=== PATIENT | male | born 1965 | race African-American/Black ===

== ENCOUNTER 2016-07-15 13:02 | Inpatient (IN) | payer OTHER ==
[2016-07-15 16:46] VITALS: BMI 25.2
[2016-07-15] MEDS ORDERED: guaiFENesin/D-METHORPHAN HB 10 ML UNIT-DOSE CUPS PO PRN (17:24)
[2016-07-15] MEDS ORDERED: P-EPHED 60MG/TRIPROLIDI 2.5MG TABLET PO PRN (17:24)
[2016-07-15] MEDS ORDERED: ACETAMINOPHEN 325 MG TABLET (FP) PO PRN (17:24)
[2016-07-15] MEDS ORDERED: hydrOXYzine PAMOATE 50 MG CAPSULE (FP) PO PRN (17:24)
[2016-07-15] MEDS ORDERED: MENTHOL/PHENOL 1 EACH UD MM PRN (17:24)
[2016-07-15] MEDS ORDERED: MAGNESIUM HYDROX 2400MG/30ML ORAL SUSPENSION 30 ML CUP PO PRN (17:24)
[2016-07-15] MEDS ORDERED: MAG HYDROX/AL HYDROX/SIMETH 30 ML UNIT-DOSE CUP PO PRN (17:24)
[2016-07-15] MEDS ORDERED: MAGNESIUM CITRATE 300 ML BOTTLE PO PRN (17:24)
[2016-07-15] MEDS ORDERED: IBUPROFEN 400 MG TABLET (FP) PO PRN (17:24)
[2016-07-15] MEDS ORDERED: LOPERAMIDE HCL 2 MG CAPSULE PO PRN (17:24)
[2016-07-15] MEDS ORDERED: NICOTINE POLACRILEX 2 MG GUM BC PRN (17:24)
[2016-07-15] MEDS ORDERED: chlordiazePOXIDE HCL 25 MG CAPSULE PO PRN (17:24)
--- NOTE | 2016-07-15 17:24 | HP ---
CIWA Score - CIWA Score Nausea/Vomitin-Mild Nausea/No Vomiting Muscle Tremors: 4-Moderate,w/Arms Extend Anxiety: 4-Mod. Anxious/Guarded Agitation: 4-Moderately Restless Paroxysmal Sweats: 1-Minimal Palms Moist Orientation: 1-Uncertain about Date Tacttile Disturbances: 0-None Auditory Disturbances: 0-None Visual Disturbances: 0-None Headache: 2-Mild CIWA-Ar Total Score: 17 Admission ROS BHS - HPI Chief Complaint: WITHDRAWAL SX Allergies/Adverse Reactions: Allergies Allergy/AdvReac Type Severity Reaction Status Date / Time Penicillins Allergy Severe Hives Verified 07/15/16 16:48 History of Present Illness: 51 YEARS OLD MALE WITH LONG HISTORY OF ALCOHOL NICOTINE DEPENDENCE, HAS HYPERTENSION AND DEPRESSION IS ADMITTED TO DETOX INCREASE ORAL FLUID HOLD HYDROCHLOROTHIAZIDE PATIENT HAS DRY COUGH HOLD ENALAPRIL CONTINUE AMLODIPINE AND CLONIDINE PRN Exam Limitations: No Limitations - Ebola screening Have you traveled outside of the country in the last 21 days: No Have you had contact with anyone from an Ebola affected area: No Have you been sick,other than usual withdrawal symptoms: No Do you have a fever: No - Review of Systems Constitutional: Chills, Changes in sleep, Weight Stable EENT: reports: No Symptoms Reported Respiratory: reports: Cough, SOB with Exertion Cardiac: reports: No Symptoms Reported GI: reports: Nausea, Poor Fluid Intake, Abdominal cramping : reports: No Symptoms Reported Musculoskeletal: reports: Back Pain, Joint Pain, Muscle Pain, Neck Pain, Other ( SCOLIOSIS X "ALL MY LIFE" TREATED WITH BACK BRACE "I NEED A NEW ONE" HUMP ON RIGHT UPPER POSTERIOR TRUNK) Integumentary: reports: No Symptoms Reported Neuro: reports: Tremors Endocrine: reports: No Symptoms Reported Hematology: reports: No Symptoms Reported Psychiatric: reports: Judgement Intact, Anxious, Depressed Other Systems: Reviewed and Negative Patient History - Patient Medical History Hx Anemia: No Hx Asthma: No Hx Chronic Obstructive Pulmonary Disease (COPD): No Hx Cancer: No Hx Cardiac Disorders: No Hx Congestive Heart Failure: No Hx Hypertension: Yes (on meds.) Hx Hypercholesterolemia: No Hx Pacemaker: No HX Cerebrovascular Accident: No Hx Seizures: No Hx Dementia: No Hx Diabetes: No Hx Gastrointestinal Disorders: No Hx Liver Disease: No Hx Genitourinary Disorders: No Hx Sexually Transmitted Disorders: No Hx Renal Disease (ESRD): No Hx Thyroid Disease: No Hx Human Immunodeficiency Virus (HIV): No Hx Hepatitis C: No Hx Depression: Yes Hx Suicide Attempt: No Hx Bipolar Disorder: No Hx Schizophrenia: No - Patient Surgical History Past Surgical History: No Hx Neurologic Surgery: No Hx Cataract Extraction: No Hx Cardiac Surgery: No Hx Lung Surgery: No Hx Breast Surgery: No Hx Breast Biopsy: No Hx Abdominal Surgery: No Hx Appendectomy: No Hx Cholecystectomy: No Hx Genitourinary Surgery: No Hx Orthopedic Surgery: No - PPD History Previous Implant?: Yes Documented Results: Negative w/proof Implanted On Prior R Admission?: Yes Date: 12/13/15 Results: 0 mm PPD to be Administered?: No - Smoking Cessation Smoking history: Current every day smoker Have you smoked in the past 12 months: Yes Aproximately how many cigarettes per day: 4 Cigars Per Day: 0 Hx Chewing Tobacco Use: No Initiated information on smoking cessation: Yes 'Breaking Loose' booklet given: 07/15/16 - Substance & Tx. History Hx Alcohol Use: Yes Hx Substance Use: No Substance Use Type: Alcohol Hx Substance Use Treatment: Yes - Substances Abused Alcohol Route: Oral Frequency: Daily Amount used: 10-12 cans Age of first use: 16 Date of Last Use: 07/15/16 Family Disease History - Family Disease History Family Disease History: Other: Father (alcohol,,cirrhosis), Mother ( alcohol,cirrhosis,cirrhosis) Admission Physical Exam BHS - Vital Signs Vital Signs: Vital Signs - 24 hr 07/15/16 16:45 Temperature 96.6 F L Pulse Rate 104 H Respiratory 20 Rate Blood Pressure 110/74 - Physical General Appearance: Yes: Appropriately Dressed, Mild Distress, Alcohol on Breath , Tremorous, Irritable, Sweating, Anxious HEENTM: Yes: Hearing grossly Normal, Normal ENT Inspection, Normocephalic, Normal Voice Respiratory: Yes: Chest Non-Tender, Lungs Clear, Normal Breath Sounds, No Respiratory Distress, No Accessory Muscle Use Neck: Yes: Supple, Trachea in good position Breast: Yes: Breasts Symetrical Cardiology: Yes: Regular Rhythm, Regular Rate, S1, S2 Abdominal: Yes: Non Tender, Soft Genitourinary: Yes: Within Normal Limits Back: Yes: Other (SCOLIOSIS RIGHT UPPER HUMP) Musculoskeletal: Yes: full range of Motion, Gait Steady, Back pain, Muscle Pain Extremities: Yes: Normal Inspection, Normal Range of Motion, Non-Tender, Tremors 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: Alert, Motor Strength 5/5, Normal Response, Depressed Affect Integumentary: Yes: Warm, Moist Lymphatic: Yes: Within Normal Limits - Diagnostic (1) Alcohol dependence with uncomplicated withdrawal Current Visit: Yes Status: Acute (2) HTN (hypertension) Current Visit: Yes Status: Acute Qualifiers: Hypertension type: essential hypertension Qualified Code(s): I10 - Essential (primary) hypertension (3) Nicotine dependence Current Visit: Yes Status: Acute Qualifiers: Nicotine product type: cigarettes Substance use status: in withdrawal Qualified Code(s): F17.213 - Nicotine dependence, cigarettes, with withdrawal (4) Scoliosis deformity of spine Current Visit: Yes Status: Chronic Qualifiers: Scoliosis type: idiopathic Idiopathic scoliosis type: juvenile Spinal region: thoracic Qualified Code(s): 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
[2016-07-15] MEDS ORDERED: cloNIDine HCL 0.1 MG TABLET PO PRN (17:31)
[2016-07-15] MEDS ORDERED: chlordiazePOXIDE HCL 25 MG CAPSULE PO ONE (18:45)
[2016-07-15 23:00] LABS: URINE APPEARANCE CLEAR; URINE BILIRUBIN NEGATIVE (NEGATIVE); URINE BLOOD 1+ (NEGATIVE); URINE COLOR COLORLESS; URINE GLUCOSE (UA) NEGATIVE (NEGATIVE); URINE KETONE NEGATIVE (NEGATIVE); URINE LEUK ESTERASE NEGATIVE (NEGATIVE); URINE NITRITE NEGATIVE (NEGATIVE); URINE PROTEIN NEGATIVE (NEGATIVE); URINE UROBILINOGEN NEGATIVE E.U./dl (0.2-1.0)
[2016-07-15 23:08] LABS: URINE BACTERIA RARE /hpf (NONE SEEN)
[2016-07-15] MEDS: chlordiazePOXIDE HCL 25 MG CAPSULE PO SCH (23:47)
[2016-07-15] MEDS: THIAMINE HCL 100 MG TABLET (FP) PO SCH (23:47)
[2016-07-16] MEDS: chlordiazePOXIDE HCL 25 MG CAPSULE PO SCH ×4 (05:25→22:54)
[2016-07-16 10:07] LABS: MCH 28.2 pg (25.7-33.7); MCHC 32.4 g/dl (32.0-35.9); MEAN PLT VOLUME 9.1 fl (7.5-11.1); PLATELET COUNT 287 K/MM3 (134-434); RDW 15.4 % (11.9-15.9); WHITE BLOOD COUNT 4.8 K/mm3 (4.0-10.0)
[2016-07-16] MEDS: PRENATAL VITAMINS W/ FOLIC ACID TABLET (FP) PO SCH (10:08)
[2016-07-16] MEDS: amLODIPine BESYLATE 5 MG TABLET (FP) PO SCH (10:08)
[2016-07-16] MEDS: NICOTINE 14 MG/24 HOURS TOPICAL PATCH TD SCH (10:08)
--- NOTE | 2016-07-16 10:47 | EKG ---
Test Reason : Blood Pressure : / mmHG Vent. Rate : 088 BPM Atrial Rate : 088 BPM P-R Int : 130 ms QRS Dur : 090 ms QT Int : 346 ms P-R-T Axes : 020 020 054 degrees QTc Int : 418 ms NORMAL SINUS RHYTHM NORMAL ECG NO PREVIOUS ECGS AVAILABLE Confirmed by TRINA QUIÑONES MD ([id number]) on 07/16/2016 10:46:42 AM Referred By: Confirmed By:TRINA QUIÑONES MD
[2016-07-16 11:01] LABS: ALBUMIN 3.9 g/dl (3.4-5.0); ALK PHOS 110 U/L (45-117); ANION GAP 12 (8-16); BILIRUBIN,TOTAL 0.3 mg/dL (0.2-1.0); CO2 24 mmol/L (21-32); CREATININE 0.7 mg/dL (0.7-1.3); GLUCOSE,RANDOM 85 mg/dL (74-106); SGOT/AST 25 U/L (15-37); SGPT/ALT 44 U/L (12-78); TOT PROT 7.4 g/dl (6.4-8.2)
--- NOTE | 2016-07-16 11:48 | PN ---
S CIWA - CIWA Score Nausea/Vomitin-No Nausea/No Vomiting Muscle Tremors: 4-Moderate,w/Arms Extend Anxiety: 3 Agitation: 4-Moderately Restless Paroxysmal Sweats: 3 Orientation: 0-Oriented Tacttile Disturbances: 0-None Auditory Disturbances: 0-None Visual Disturbances: 0-None Headache: 0-None Present CIWA-Ar Total Score: 14 BHS Progress Note (SOAP) Subjective: irritable agitation anxiety sweats Objective: 07/16/16 11:47 Vital Signs Temperature 97.2 F L 07/16/16 10:00 Pulse Rate 93 H 07/16/16 10:00 Respiratory Rate 18 07/16/16 10:00 Blood Pressure 129/85 07/16/16 10:00 O2 Sat by Pulse Oximetry (%) Laboratory Tests 07/15/16 07/16/16 07/16/16 22:40 05:50 05:50 WBC 4.8 RBC 4.48 Hgb 12.6 D Hct 39.0 MCV 87.0 MCHC 32.4 RDW 15.4 Plt Count 287 D MPV 9.1 Sodium 142 Potassium 3.9 Chloride 106 Carbon Dioxide 24 Anion Gap 12 BUN 10 D Creatinine 0.7 Creat Clearance w eGFR > 60 Random Glucose 85 Calcium 9.0 Total Bilirubin 0.3 D AST 25 D ALT 44 D Alkaline Phosphatase 110 D Total Protein 7.4 Albumin 3.9 Urine Color Colorless Urine Appearance Clear Urine pH 6.0 Ur Specific [place] 1.004 Urine Protein Negative Urine Glucose (UA) Negative Urine Ketones Negative Urine Blood 1+ H Urine Nitrite Negative Urine Bilirubin Negative Urine Urobilinogen Negative Ur Leukocyte Esterase Negative Urine RBC None Urine WBC None Ur Epithelial Cells Rare Urine Bacteria Rare awake/alert ambulating no acute distress Assessment: 07/16/16 11:47 withdrawal sx Plan: continue detox increase fluids
--- NOTE | 2016-07-16 18:56 | CONSULT ---
[facility] Psychiatric Consult - Data Date of interview: 07/16/16 Admission source: [facility] Identifying data: Readmission to [facility] for this 51 y/o AA male seeking detox treatment on for alcohol dependence.Patient is single without childrendomiciled,unemployed and supported on SSI benefits. Substance Abuse History: - Smoking Cessation. Smoking history: Current every day smoker. Have you smoked in the past 12 months: Yes. Aproximately how many cigarettes per day: 4. Cigars Per Day: 0. Hx Chewing Tobacco Use: No. Initiated information on smoking cessation: Yes. 'Breaking Loose' booklet given : 07/15/16. - Substance & Tx. History. Hx Alcohol Use: Yes. Hx Substance Use : No. Substance Use Type: Alcohol. Hx Substance Use Treatment: Yes. - Substances Abused. Alcohol. Route: Oral. Frequency: Daily. Amount used: 10-12 cans. Age of first use: 16. Date of Last Use: 07/15/16 Medical History: Hypertension and scoliosis. Psychiatric History: First psychiatric contact (2001) for depression.Noted history of admission to [facility] and confirmation of diagnosis of MDD.Medications : effexor Xl 150 mg /day.Mr Del Castillo gets his outpatient psychiatric services at the [facility] in the [place].No reported history of suicide attempts. Physical/Sexual Abuse/Trauma History: Patient denies. Additional Comment: Drug Screen is negative. Mental Status Exam - Mental Status Exam Alert and Oriented to: Time, Place, Person Cognitive Function: Good Patient Appearance: Well Groomed Mood: Hopeful, Euthymic Affect: Appropriate, Normal Range Patient Behavior: Appropriate, Cooperative Speech Pattern: Clear, Appropriate Voice Loudness: Normal Thought Process: Intact, Goal Oriented Thought Disorder: Not Present Hallucinations: Denies Suicidal Ideation: Denies Homicidal Ideation: Denies Insight/Judgement: Fair Sleep: Poorly, Difficulty falling asleep Appetite: Good Muscle strength/Tone: Normal Gait/Station: Normal Psychiatric Findings - Problem List ([place] 1, 2,3) (1) Alcohol dependence with uncomplicated withdrawal Current Visit: Yes Status: Acute (2) Nicotine dependence Current Visit: Yes Status: Acute Qualifiers: Nicotine product type: cigarettes Substance use status: in withdrawal Qualified Code(s): F17.213 - Nicotine dependence, cigarettes, with withdrawal (3) Drug-induced mood disorder Current Visit: Yes Status: Acute (4) Major depressive disorder, recurrent Current Visit: Yes Status: Chronic Qualifiers: Major depression episode severity: mild Qualified Code(s): F33.0 - Major depressive disorder, recurrent, mild (5) HTN (hypertension) Current Visit: Yes Status: Chronic Qualifiers: Hypertension type: essential hypertension Qualified Code(s): I10 - Essential (primary) hypertension (6) Scoliosis deformity of spine Current Visit: Yes Status: Chronic Qualifiers: Scoliosis type: idiopathic Idiopathic scoliosis type: juvenile Spinal region: thoracic Qualified Code(s): 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
[2016-07-16] MEDS ORDERED: BACITRACIN 0.9 GM PACKET TP ONE (20:08)
[2016-07-16] MEDS ORDERED: BACITRACIN 0.9 GM PACKET ONE (22:50)
[2016-07-16] MEDS: THIAMINE HCL 100 MG TABLET (FP) PO SCH (22:54)
[2016-07-16] MEDS: diphenhydrAMINE HCL 50 MG CAPSULE PO PRN (22:54)
[2016-07-17] MEDS: chlordiazePOXIDE HCL 25 MG CAPSULE PO SCH ×3 (05:35→17:33)
[2016-07-17] MEDS: NICOTINE 14 MG/24 HOURS TOPICAL PATCH TD SCH (10:04)
[2016-07-17] MEDS: PRENATAL VITAMINS W/ FOLIC ACID TABLET (FP) PO SCH (10:04)
[2016-07-17] MEDS: amLODIPine BESYLATE 5 MG TABLET (FP) PO SCH (10:04)
[2016-07-17] MEDS: VENLAFAXINE HCL 150 MG E.R. CAPSULE PO SCH (10:43)
--- NOTE | 2016-07-17 14:19 | PN ---
S CIWA - CIWA Score Nausea/Vomitin Muscle Tremors: 2 Anxiety: 2 Agitation: 2 Paroxysmal Sweats: 3 Orientation: 0-Oriented Tacttile Disturbances: 2-Mild Itch/Numbness/Burn Auditory Disturbances: 0-None Visual Disturbances: 0-None Headache: 0-None Present CIWA-Ar Total Score: 13 BHS Progress Note (SOAP) Subjective: interrupted sleep, irritable wants to see sebastian gilliam Objective: 07/17/16 14:16 Vital Signs Temperature 97.2 F L 07/17/16 13:47 Pulse Rate 93 H 07/17/16 13:47 Respiratory Rate 16 07/17/16 13:47 Blood Pressure 140/84 07/17/16 13:47 O2 Sat by Pulse Oximetry (%) Laboratory Tests 07/15/16 07/16/16 07/16/16 22:40 05:50 05:50 WBC 4.8 RBC 4.48 Hgb 12.6 D Hct 39.0 MCV 87.0 MCHC 32.4 RDW 15.4 Plt Count 287 D MPV 9.1 Sodium 142 Potassium 3.9 Chloride 106 Carbon Dioxide 24 Anion Gap 12 BUN 10 D Creatinine 0.7 Creat Clearance w eGFR > 60 Random Glucose 85 Calcium 9.0 Total Bilirubin 0.3 D AST 25 D ALT 44 D Alkaline Phosphatase 110 D Total Protein 7.4 Albumin 3.9 Urine Color Colorless Urine Appearance Clear Urine pH 6.0 Ur Specific [place] 1.004 Urine Protein Negative Urine Glucose (UA) Negative Urine Ketones Negative Urine Blood 1+ H Urine Nitrite Negative Urine Bilirubin Negative Urine Urobilinogen Negative Ur Leukocyte Esterase Negative Urine RBC None Urine WBC None Ur Epithelial Cells Rare Urine Bacteria Rare RPR Titer 07/16/16 07:00 WBC RBC Hgb Hct MCV MCHC RDW Plt Count MPV Sodium Potassium Chloride Carbon Dioxide Anion Gap BUN Creatinine Creat Clearance w eGFR Random Glucose Calcium Total Bilirubin AST ALT Alkaline Phosphatase Total Protein Albumin Urine Color Urine Appearance Urine pH Ur Specific [place] Urine Protein Urine Glucose (UA) Urine Ketones Urine Blood Urine Nitrite Urine Bilirubin Urine Urobilinogen Ur Leukocyte Esterase Urine RBC Urine WBC Ur Epithelial Cells Urine Bacteria RPR Titer Nonreactive pt aox3 , restless 07/18/16 17:55 Assessment: 07/17/16 14:18 withdrawal sx;s 07/18/16 17:55 Plan: cont. detox increase fluids motrin prn
[2016-07-17] MEDS: diphenhydrAMINE HCL 50 MG CAPSULE PO PRN (22:55)
[2016-07-17] MEDS: chlordiazePOXIDE 5 MG CAPSULE PO SCH (22:55)
[2016-07-17] MEDS: THIAMINE HCL 100 MG TABLET (FP) PO SCH (22:55)
[2016-07-18] MEDS: chlordiazePOXIDE 5 MG CAPSULE PO SCH ×4 (06:23→18:39)
[2016-07-18] MEDS: NICOTINE 14 MG/24 HOURS TOPICAL PATCH TD SCH (10:10)
[2016-07-18] MEDS: amLODIPine BESYLATE 5 MG TABLET (FP) PO SCH (10:11)
[2016-07-18] MEDS: VENLAFAXINE HCL 150 MG E.R. CAPSULE PO SCH (10:11)
[2016-07-18] MEDS: PRENATAL VITAMINS W/ FOLIC ACID TABLET (FP) PO SCH (10:11)
--- NOTE | 2016-07-18 12:22 | PN ---
BHS Progress Note (SOAP) Subjective: improved Objective: 07/18/16 12:20 Vital Signs - 24 hr 07/17/16 07/17/16 07/17/16 13:47 17:54 21:36 Temperature 97.2 F L 98.1 F 98.1 F Pulse Rate 93 H 97 H 70 Respiratory 16 20 18 Rate Blood Pressure 140/84 132/87 128/100 07/18/16 07/18/16 07/18/16 00:30 03:30 07:40 Temperature 98.1 F Pulse Rate 75 Respiratory 18 20 18 Rate Blood Pressure 122/76 07/18/16 09:24 Temperature 97.2 F L Pulse Rate 81 Respiratory 18 Rate Blood Pressure 141/98 Laboratory Tests 07/15/16 07/16/16 07/16/16 22:40 05:50 05:50 WBC 4.8 RBC 4.48 Hgb 12.6 D Hct 39.0 MCV 87.0 MCHC 32.4 RDW 15.4 Plt Count 287 D MPV 9.1 Sodium 142 Potassium 3.9 Chloride 106 Carbon Dioxide 24 Anion Gap 12 BUN 10 D Creatinine 0.7 Creat Clearance w eGFR > 60 Random Glucose 85 Calcium 9.0 Total Bilirubin 0.3 D AST 25 D ALT 44 D Alkaline Phosphatase 110 D Total Protein 7.4 Albumin 3.9 Urine Color Colorless Urine Appearance Clear Urine pH 6.0 Ur Specific [place] 1.004 Urine Protein Negative Urine Glucose (UA) Negative Urine Ketones Negative Urine Blood 1+ H Urine Nitrite Negative Urine Bilirubin Negative Urine Urobilinogen Negative Ur Leukocyte Esterase Negative Urine RBC None Urine WBC None Ur Epithelial Cells Rare Urine Bacteria Rare RPR Titer 07/16/16 07:00 WBC RBC Hgb Hct MCV MCHC RDW Plt Count MPV Sodium Potassium Chloride Carbon Dioxide Anion Gap BUN Creatinine Creat Clearance w eGFR Random Glucose Calcium Total Bilirubin AST ALT Alkaline Phosphatase Total Protein Albumin Urine Color Urine Appearance Urine pH Ur Specific [place] Urine Protein Urine Glucose (UA) Urine Ketones Urine Blood Urine Nitrite Urine Bilirubin Urine Urobilinogen Ur Leukocyte Esterase Urine RBC Urine WBC Ur Epithelial Cells Urine Bacteria RPR Titer Nonreactive pt aox3 lying in bed in nad Assessment: 07/18/16 12:21 withdrawal sx;s Plan: cont. detox increase fluids d/c this evening to rehab
--- NOTE | 2016-07-18 12:36 | PN ---
BHS Progress Note (SOAP) Subjective: agitation Objective: 07/18/16 12:34 Vital Signs Temperature 97.2 F L 07/18/16 09:24 Pulse Rate 81 07/18/16 09:24 Respiratory Rate 18 07/18/16 09:24 Blood Pressure 141/98 07/18/16 09:24 O2 Sat by Pulse Oximetry (%) awake/alert ambulating no acute distress Assessment: 07/18/16 12:34 withdrawal sx Plan: continue detox increase fluids d/c in am
[2016-07-18] MEDS ORDERED: ENALAPRIL MALEATE 10 MG TABLET (FP) PO SCH (12:45)
[2016-07-18] MEDS: diphenhydrAMINE HCL 50 MG CAPSULE PO PRN (22:39)
[2016-07-18] MEDS: THIAMINE HCL 100 MG TABLET (FP) PO SCH (22:39)
[2016-07-18] MEDS: chlordiazePOXIDE HCL 10 MG CAPSULE PO SCH (22:39)
[2016-07-19] MEDS: chlordiazePOXIDE HCL 10 MG CAPSULE PO SCH (06:22)
[2016-07-19 06:56] VITALS: BP 120/88; PULSE 82; TEMP 97.2
== END 2016-07-19 07:10 | disposition home or self-care (01) | DRG 775 ==
LOC: YASAS 13:02 → Y6N 18:18
PROVIDERS: ADMIT Internal Medicine Addiction Medicine; ATTEND Internal Medicine Addiction Medicine
PROC: HZ2ZZZZ Detoxification Services for Substance Abuse Treatment (ICD-10-PCS; principal; 2016-07-19)
DX: F10.230 Alcohol dependence with withdrawal, uncomplicated (principal); F17.213 Nicotine dependence, cigarettes, with withdrawal; F19.24 Other psychoactive substance dependence with psychoactive substance-induced mood disorder; I10 Essential (primary) hypertension; M41.114 Juvenile idiopathic scoliosis, thoracic region; D64.9 Anemia, unspecified
CPT/HCPCS: 36415; 80053; 81003; 81015; 85027; 86593; 93005; 93010

== ENCOUNTER 2016-09-10 10:41 | Inpatient (IN) | payer OTHER ==
[2016-09-10 11:41] VITALS: BMI 23.3
--- NOTE | 2016-09-10 13:10 | HP ---
CIWA Score - CIWA Score Nausea/Vomitin Muscle Tremors: 3 Anxiety: 3 Agitation: 3 Paroxysmal Sweats: 3 Orientation: 0-Oriented Tacttile Disturbances: 2-Mild Itch/Numbness/Burn Auditory Disturbances: 0-None Visual Disturbances: 0-None Headache: 0-None Present CIWA-Ar Total Score: 17 Admission ROS BHS - HPI Chief Complaint: I need help to stop using alcohol and cocaine -I'm too old for this. Allergies/Adverse Reactions: Allergies Allergy/AdvReac Type Severity Reaction Status Date / Time Penicillins Allergy Severe Hives Verified 09/10/16 13:17 History of Present Illness: 51 y/o m pt with a h/o chronic alcoholism and crack use seeking detox. Exam Limitations: No Limitations - Ebola screening Have you traveled outside of the country in the last 21 days: No Have you had contact with anyone from an Ebola affected area: No Have you been sick,other than usual withdrawal symptoms: No Do you have a fever: No - Review of Systems Constitutional: Loss of Appetite, Night Sweats, Changes in sleep EENT: reports: Dental Problems Respiratory: reports: No Symptoms reported Cardiac: reports: No Symptoms Reported GI: reports: Nausea : reports: No Symptoms Reported Musculoskeletal: reports: Muscle Pain (feet pains) Integumentary: reports: No Symptoms Reported Neuro: reports: Tremors, Weakness Endocrine: reports: No Symptoms Reported Hematology: reports: No Symptoms Reported Psychiatric: reports: Mood/Affect Appropiate, Anxious, Depressed Other Systems: Reviewed and Negative Patient History - Patient Medical History Hx Anemia: No Hx Asthma: No Hx Chronic Obstructive Pulmonary Disease (COPD): No Hx Cancer: No Hx Cardiac Disorders: No Hx Congestive Heart Failure: No Hx Hypertension: Yes (on meds.) Hx Hypercholesterolemia: No Hx Pacemaker: No HX Cerebrovascular Accident: No Hx Seizures: No Hx Dementia: No Hx Diabetes: No Hx Gastrointestinal Disorders: No Hx Liver Disease: No Hx Genitourinary Disorders: No Hx Sexually Transmitted Disorders: No Hx Renal Disease (ESRD): No Hx Thyroid Disease: No Hx Human Immunodeficiency Virus (HIV): No Hx Hepatitis C: No Hx Depression: Yes Hx Suicide Attempt: No Hx Bipolar Disorder: No Hx Schizophrenia: No Other Medical History: h/o scoliosis - Patient Surgical History Past Surgical History: No Hx Neurologic Surgery: No Hx Cataract Extraction: No Hx Cardiac Surgery: No Hx Lung Surgery: No Hx Breast Surgery: No Hx Breast Biopsy: No Hx Abdominal Surgery: No Hx Appendectomy: No Hx Cholecystectomy: No Hx Genitourinary Surgery: No Hx Section: No Hx Orthopedic Surgery: No Anesthesia Reaction: No - PPD History Date: 12/13/15 Results: 0 mm - Reproductive History Patient is a Female of Child Bearing Age (11 -55 yrs old): No Patient : No - Smoking Cessation Smoking history: Current every day smoker Have you smoked in the past 12 months: Yes Aproximately how many cigarettes per day: 4 Cigars Per Day: 0 Hx Chewing Tobacco Use: No Initiated information on smoking cessation: Yes 'Breaking Loose' booklet given: 09/10/16 - Substance & Tx. History Hx Alcohol Use: Yes Hx Substance Use: Yes Substance Use Type: Alcohol, Cocaine Hx Substance Use Treatment: Yes - Substances Abused Alcohol Route: Oral Frequency: Daily Amount used: beer 24 oz cans x 12/d Age of first use: 16 Date of Last Use: 09/09/16 Crack Route: Smoking Frequency: 1-2 times per week Amount used: $100/ use Age of first use: 20 Date of Last Use: 09/08/16 Family Disease History - Family Disease History Family Disease History: Other: Father (alcohol,,cirrhosis), Mother ( alcohol,cirrhosis,cirrhosis) Admission Physical Exam BHS - Vital Signs Vital Signs: Vital Signs - 24 hr 09/10/16 11:38 Temperature 97.1 F L Pulse Rate 91 H Respiratory 20 Rate Blood Pressure 110/72 51 y/o m pt aox3 in nad ambulating , cooperative with exam - Physical General Appearance: Yes: No Apparent Distress, Appropriately Dressed, Tremorous , Anxious HEENTM: Yes: EOMI, Hearing grossly Normal, Normal ENT Inspection, Normal Voice, MANDI, Pharynx Normal Respiratory: Yes: Chest Non-Tender, Lungs Clear, Normal Breath Sounds, No Respiratory Distress Neck: Yes: Supple, Trachea in good position Breast: Yes: Within Normal Limits Cardiology: Yes: Regular Rhythm, Regular Rate, S1, S2 Abdominal: Yes: Non Tender, Flat, Soft, Increased Bowel Sounds Genitourinary: Yes: Frequency Back: Yes: Decreased Range of Motion, Other (scoliosis) Musculoskeletal: Yes: Muscle Pain Extremities: Yes: Tremors 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: page makeup system operator II-XII NML intact, Fully Oriented, Alert, Motor Strength 5/5, Normal Response Integumentary: Yes: Moist Lymphatic: Yes: Within Normal Limits - Diagnostic (1) Alcohol dependence with uncomplicated withdrawal Current Visit: Yes Status: Chronic (2) Cocaine dependence Current Visit: Yes Status: Chronic Qualifiers: Substance use status: uncomplicated Qualified Code(s): F14.20 - Cocaine dependence, uncomplicated (3) Nicotine dependence Current Visit: No Status: Acute Qualifiers: Nicotine product type: cigarettes Substance use status: in withdrawal Qualified Code(s): F17.213 - Nicotine dependence, cigarettes, with withdrawal (4) Back pain Current Visit: No Status: Chronic (5) HTN (hypertension) Current Visit: Yes Status: Chronic Qualifiers: Hypertension type: essential hypertension Qualified Code(s): I10 - Essential (primary) hypertension (6) Scoliosis deformity of spine Current Visit: Yes Status: Chronic Qualifiers: Scoliosis type: idiopathic Idiopathic scoliosis type: juvenile Spinal region: thoracic Qualified Code(s): 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
[2016-09-10] MEDS ORDERED: IBUPROFEN 400 MG TABLET (FP) PO PRN (13:22)
[2016-09-10] MEDS ORDERED: MAGNESIUM HYDROX 2400MG/30ML ORAL SUSPENSION 30 ML CUP PO PRN (13:22)
[2016-09-10] MEDS ORDERED: diphenhydrAMINE HCL 50 MG CAPSULE PO PRN (13:22)
[2016-09-10] MEDS ORDERED: NICOTINE POLACRILEX 2 MG GUM BUC PRN (13:22)
[2016-09-10] MEDS ORDERED: MAGNESIUM CITRATE 300 ML BOTTLE PO PRN (13:22)
[2016-09-10] MEDS ORDERED: LOPERAMIDE HCL 2 MG CAPSULE PO PRN (13:22)
[2016-09-10] MEDS ORDERED: MAG HYDROX/AL HYDROX/SIMETH 30 ML UNIT-DOSE CUP PO PRN (13:22)
[2016-09-10] MEDS ORDERED: hydrOXYzine PAMOATE 25 MG CAPSULE (FP) PO PRN (13:22)
[2016-09-10] MEDS ORDERED: chlordiazePOXIDE HCL 25 MG CAPSULE PO PRN (15:24)
[2016-09-10] MEDS: BACLOFEN 10 MG TABLET (FP) PO SCH ×2 (15:32→22:19)
[2016-09-10] MEDS: chlordiazePOXIDE HCL 25 MG CAPSULE PO SCH ×2 (17:25→22:19)
[2016-09-10 17:36] LABS: URINE APPEARANCE CLEAR; URINE BILIRUBIN NEGATIVE (NEGATIVE); URINE COLOR YELLOW; URINE GLUCOSE (UA) 2+ (NEGATIVE); URINE KETONE TRACE (NEGATIVE); URINE LEUK ESTERASE NEGATIVE (NEGATIVE); URINE NITRITE NEGATIVE (NEGATIVE); URINE UROBILINOGEN NEGATIVE E.U./dl (0.2-1.0)
[2016-09-10 17:37] LABS: URINE BLOOD 1+ (NEGATIVE); URINE PROTEIN 1+ (NEGATIVE)
[2016-09-10 17:40] LABS: URINE HYALINE CAST 1 /lpf; URINE MUCUS MODERATE; URINE RBC 19 /hpf (0-3); URINE WBC 1 /hpf (3-5)
[2016-09-10] MEDS: THIAMINE HCL 100 MG TABLET (FP) PO SCH (22:19)
[2016-09-10] MEDS: guaiFENesin/D-METHORPHAN HB 10 ML UNIT-DOSE CUPS PO PRN (23:45)
[2016-09-11] MEDS: chlordiazePOXIDE HCL 25 MG CAPSULE PO SCH ×4 (06:09→22:35)
[2016-09-11] MEDS: BACLOFEN 10 MG TABLET (FP) PO SCH ×3 (06:09→22:35)
[2016-09-11 10:02] LABS: MCH 28.5 pg (25.7-33.7); MCHC 32.2 g/dl (32.0-35.9); MEAN CELL VOLUME 88.5 fl (80-96); PLATELET COUNT 320 K/MM3 (134-434); RDW 16.1 % (11.9-15.9)
[2016-09-11] MEDS: ENALAPRIL MALEATE 10 MG TABLET (FP) PO SCH (10:14)
[2016-09-11] MEDS: PRENATAL VITAMINS W/ FOLIC ACID TABLET (FP) PO SCH (10:14)
[2016-09-11] MEDS: amLODIPine BESYLATE 5 MG TABLET (FP) PO SCH (10:14)
[2016-09-11] MEDS: NICOTINE 7 MG/24 HOURS TOPICAL PATCH TD SCH (10:15)
[2016-09-11] MEDS: HYDROCHLOROTHIAZIDE 25 MG TABLET (FP) PO SCH (10:15)
[2016-09-11 10:41] LABS: ALBUMIN 3.6 g/dl (3.4-5.0); ALK PHOS 120 U/L (45-117); ANION GAP 14 (8-16); BILIRUBIN,TOTAL 0.5 mg/dL (0.2-1.0); CALCIUM 8.9 mg/dL (8.5-10.1); CO2 26 mmol/L (21-32); COCKROFT - GAULT 72.96; CREATININE 1.1 mg/dL (0.7-1.3); GLUCOSE,RANDOM 165 mg/dL (74-106); SGOT/AST 28 U/L (15-37); SGPT/ALT 34 U/L (12-78); TOT PROT 7.2 g/dl (6.4-8.2)
--- NOTE | 2016-09-11 12:35 | EKG ---
Test Reason : Blood Pressure : / mmHG Vent. Rate : 081 BPM Atrial Rate : 081 BPM P-R Int : 120 ms QRS Dur : 088 ms QT Int : 392 ms P-R-T Axes : 028 036 043 degrees QTc Int : 455 ms POOR DATA QUALITY, INTERPRETATION MAY BE ADVERSELY AFFECTED NORMAL SINUS RHYTHM NORMAL ECG WHEN COMPARED WITH ECG OF 15-JUL-2016 19:33, NO SIGNIFICANT CHANGE WAS FOUND Confirmed by JOSE MOODY, ADAM ([id number]) on 09/11/2016 12:34:38 PM Referred By: Confirmed By:ADAM GARCIA MD
--- NOTE | 2016-09-11 13:05 | CONSULT ---
[facility] Psychiatric Consult - Data Date of interview: 09/11/16 Admission source: [facility] Identifying data: Readmission to [facility] for this 51 y/o AA male seeking detox treatment on for alcohol and cocaine dependence.Patient is single without children,domiciled,unemployed and supported on SSI benefits. Substance Abuse History: - Smoking Cessation. Smoking history: Current every day smoker. Have you smoked in the past 12 months: Yes. Aproximately how many cigarettes per day: 4. Cigars Per Day: 0. Hx Chewing Tobacco Use: No. Initiated information on smoking cessation: Yes. 'Breaking Loose' booklet given : 09/10/16. - Substance & Tx. History. Hx Alcohol Use: Yes. Hx Substance Use : Yes. Substance Use Type: Alcohol, Cocaine. Hx Substance Use Treatment: Yes. - Substances Abused. Alcohol. Route: Oral. Frequency: Daily. Amount used: beer 24 oz cans x 12/d. Age of first use: 16. Date of Last Use: . Crack. Route: Smoking. Frequency: 1-2 times per week. Amount used: $ 100/ use. Age of first use: 20. Date of Last Use: 09/08/16 Medical History: Hypertension and scoliosis. Psychiatric History: Onset of psychiatric disturbances (2001).Diagnosed with MDD.Prescribed effexor XR 150 mg/day.History of admission to [facility].Mr Del Castillo declines to provide details about the circumstances surrounding his admission to [facility].He gets his outpatient psychiatric services at [facility] clinic in the [place] (no longer lives in the [place]).No reported history of suicide attempts. Physical/Sexual Abuse/Trauma History: Patient denies. Additional Comment: Urine Drug Screen Results: JOHNATHAN-Cocaine, BZO- Benzodiazepines.Noted. Mental Status Exam - Mental Status Exam Alert and Oriented to: Time, Place, Person Cognitive Function: Good Patient Appearance: Well Groomed (walks with a stooped posture due to scoliosis) Mood: Nervous, Anxious, Apprehensive Affect: Mood Congruent Patient Behavior: Fatigued, Appropriate, Cooperative Speech Pattern: Clear, Appropriate Voice Loudness: Normal Thought Process: Goal Oriented Thought Disorder: Not Present Hallucinations: Denies Suicidal Ideation: Denies Homicidal Ideation: Denies Insight/Judgement: Poor Sleep: Fair Appetite: Good Muscle strength/Tone: Normal Gait/Station: Normal Psychiatric Findings - Problem List ([place] 1, 2,3) (1) Alcohol dependence with uncomplicated withdrawal Current Visit: Yes Status: Acute (2) Cocaine dependence Current Visit: Yes Status: Acute Qualifiers: Substance use status: uncomplicated Qualified Code(s): F14.20 - Cocaine dependence, uncomplicated (3) Nicotine dependence Current Visit: Yes Status: Acute Qualifiers: Nicotine product type: cigarettes Substance use status: in withdrawal Qualified Code(s): F17.213 - Nicotine dependence, cigarettes, with withdrawal (4) Major depressive disorder, recurrent Current Visit: Yes Status: Chronic Qualifiers: Major depression episode severity: mild Qualified Code(s): F33.0 - Major depressive disorder, recurrent, mild (5) Substance induced mood disorder Current Visit: Yes Status: Acute (6) HTN (hypertension) Current Visit: Yes Status: Chronic Qualifiers: Hypertension type: essential hypertension Qualified Code(s): I10 - Essential (primary) hypertension (7) Scoliosis deformity of spine Current Visit: Yes Status: Chronic Qualifiers: Scoliosis type: idiopathic Idiopathic scoliosis type: juvenile Spinal region: thoracic Qualified Code(s): 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
[2016-09-11] MEDS: VENLAFAXINE HCL 150 MG E.R. CAPSULE PO SCH (14:29)
--- NOTE | 2016-09-11 17:20 | PN ---
S CIWA - CIWA Score Nausea/Vomitin-No Nausea/No Vomiting Muscle Tremors: 4-Moderate,w/Arms Extend Anxiety: 4-Mod. Anxious/Guarded Agitation: 3 Paroxysmal Sweats: 3 Orientation: 0-Oriented Tacttile Disturbances: 0-None Auditory Disturbances: 0-None Visual Disturbances: 0-None Headache: 0-None Present CIWA-Ar Total Score: 14 BHS Progress Note (SOAP) Subjective: Anxiety,tremors,sweating,interrupted sleep,restless Objective: 09/11/16 17:19 Vital Signs - 8 hr 09/11/16 09:43 Pulse Rate 78 Respiratory 18 Rate Blood Pressure 148/78 Laboratory Tests 09/10/16 09/11/16 09/11/16 14:00 06:20 06:20 WBC 5.0 RBC 4.41 Hgb 12.6 Hct 39.0 MCV 88.5 MCHC 32.2 RDW 16.1 H Plt Count 320 MPV 9.0 Sodium 144 Potassium 3.5 Chloride 104 Carbon Dioxide 26 Anion Gap 14 BUN 15 D Creatinine 1.1 D Creat Clearance w eGFR > 60 Random Glucose 165 H D Calcium 8.9 Total Bilirubin 0.5 D AST 28 ALT 34 D Alkaline Phosphatase 120 H Total Protein 7.2 Albumin 3.6 Urine Color Yellow Urine Appearance Clear Urine pH 5.0 Ur Specific [place] 1.033 Urine Protein 1+ H Urine Glucose (UA) 2+ H Urine Ketones Trace H Urine Blood 1+ H Urine Nitrite Negative Urine Bilirubin Negative Urine Urobilinogen Negative Ur Leukocyte Esterase Negative Urine RBC 19 Urine WBC 1 Ur Epithelial Cells Rare Hyaline Casts 1 Urine Mucus Moderate RPR Titer 09/11/16 06:20 WBC RBC Hgb Hct MCV MCHC RDW Plt Count MPV Sodium Potassium Chloride Carbon Dioxide Anion Gap BUN Creatinine Creat Clearance w eGFR Random Glucose Calcium Total Bilirubin AST ALT Alkaline Phosphatase Total Protein Albumin Urine Color Urine Appearance Urine pH Ur Specific [place] Urine Protein Urine Glucose (UA) Urine Ketones Urine Blood Urine Nitrite Urine Bilirubin Urine Urobilinogen Ur Leukocyte Esterase Urine RBC Urine WBC Ur Epithelial Cells Hyaline Casts Urine Mucus RPR Titer Nonreactive labs noted Assessment: 09/11/16 17:19 Withdrawal sx. Plan: continue detox
[2016-09-11] MEDS: THIAMINE HCL 100 MG TABLET (FP) PO SCH (22:35)
[2016-09-12] MEDS: chlordiazePOXIDE HCL 25 MG CAPSULE PO SCH ×2 (05:31→10:21)
[2016-09-12] MEDS: BACLOFEN 10 MG TABLET (FP) PO SCH (05:31)
[2016-09-12] MEDS: MENTHOL/PHENOL 1 EACH UD MM PRN ×2 (07:28→17:30)
[2016-09-12] MEDS: guaiFENesin/D-METHORPHAN HB 10 ML UNIT-DOSE CUPS PO PRN ×2 (07:28→14:20)
[2016-09-12] MEDS ORDERED: BACLOFEN 10 MG TABLET (FP) PO PRN (08:39)
[2016-09-12] MEDS: PRENATAL VITAMINS W/ FOLIC ACID TABLET (FP) PO SCH (10:20)
[2016-09-12] MEDS: amLODIPine BESYLATE 5 MG TABLET (FP) PO SCH (10:20)
[2016-09-12] MEDS: VENLAFAXINE HCL 150 MG E.R. CAPSULE PO SCH (10:20)
[2016-09-12] MEDS: ENALAPRIL MALEATE 10 MG TABLET (FP) PO SCH (10:20)
[2016-09-12] MEDS: HYDROCHLOROTHIAZIDE 25 MG TABLET (FP) PO SCH (10:20)
[2016-09-12] MEDS: ACETAMINOPHEN 325 MG TABLET (FP) PO PRN ×2 (10:21→18:58)
--- NOTE | 2016-09-12 10:21 | PN ---
[facility] CIWA - CIWA Score Nausea/Vomitin-No Nausea/No Vomiting Muscle Tremors: 3 Anxiety: 2 Agitation: 2 Paroxysmal Sweats: 3 Orientation: 0-Oriented Tacttile Disturbances: 0-None Auditory Disturbances: 0-None Visual Disturbances: 0-None Headache: 0-None Present CIWA-Ar Total Score: 10 S Progress Note (SOAP) Subjective: Anxiety,tremors,sweating,interrupted sleep,restless Objective: 09/12/16 10:20 Vital Signs - 8 hr 09/12/16 09/12/16 09/12/16 03:30 06:28 09:20 Temperature 96.9 F L 96.0 F L Pulse Rate 74 92 H Respiratory 18 18 20 Rate Blood Pressure 138/92 126/90 Laboratory Tests 09/10/16 09/11/16 09/11/16 14:00 06:20 06:20 WBC 5.0 RBC 4.41 Hgb 12.6 Hct 39.0 MCV 88.5 MCHC 32.2 RDW 16.1 H Plt Count 320 MPV 9.0 Sodium 144 Potassium 3.5 Chloride 104 Carbon Dioxide 26 Anion Gap 14 BUN 15 D Creatinine 1.1 D Creat Clearance w eGFR > 60 Random Glucose 165 H D Calcium 8.9 Total Bilirubin 0.5 D AST 28 ALT 34 D Alkaline Phosphatase 120 H Total Protein 7.2 Albumin 3.6 Urine Color Yellow Urine Appearance Clear Urine pH 5.0 Ur Specific [place] 1.033 Urine Protein 1+ H Urine Glucose (UA) 2+ H Urine Ketones Trace H Urine Blood 1+ H Urine Nitrite Negative Urine Bilirubin Negative Urine Urobilinogen Negative Ur Leukocyte Esterase Negative Urine RBC 19 Urine WBC 1 Ur Epithelial Cells Rare Hyaline Casts 1 Urine Mucus Moderate RPR Titer 09/11/16 06:20 WBC RBC Hgb Hct MCV MCHC RDW Plt Count MPV Sodium Potassium Chloride Carbon Dioxide Anion Gap BUN Creatinine Creat Clearance w eGFR Random Glucose Calcium Total Bilirubin AST ALT Alkaline Phosphatase Total Protein Albumin Urine Color Urine Appearance Urine pH Ur Specific [place] Urine Protein Urine Glucose (UA) Urine Ketones Urine Blood Urine Nitrite Urine Bilirubin Urine Urobilinogen Ur Leukocyte Esterase Urine RBC Urine WBC Ur Epithelial Cells Hyaline Casts Urine Mucus RPR Titer Nonreactive labs noted Assessment: 09/12/16 10:21 Withdrawal sx. Plan: Continue detox
[2016-09-12] MEDS: NICOTINE 7 MG/24 HOURS TOPICAL PATCH TD SCH (12:59)
[2016-09-12] MEDS: chlordiazePOXIDE 5 MG CAPSULE PO SCH ×2 (17:31→22:19)
[2016-09-12] MEDS: P-EPHED 60MG/TRIPROLIDI 2.5MG TABLET PO PRN (18:56)
[2016-09-12] MEDS: THIAMINE HCL 100 MG TABLET (FP) PO SCH (22:19)
[2016-09-13] MEDS: guaiFENesin/D-METHORPHAN HB 10 ML UNIT-DOSE CUPS PO PRN (05:21)
[2016-09-13] MEDS: P-EPHED 60MG/TRIPROLIDI 2.5MG TABLET PO PRN (05:22)
[2016-09-13] MEDS: chlordiazePOXIDE 5 MG CAPSULE PO SCH (05:23)
[2016-09-13] MEDS: ENALAPRIL MALEATE 10 MG TABLET (FP) PO SCH (09:32)
[2016-09-13] MEDS: PRENATAL VITAMINS W/ FOLIC ACID TABLET (FP) PO SCH (09:32)
[2016-09-13] MEDS: amLODIPine BESYLATE 5 MG TABLET (FP) PO SCH (09:32)
[2016-09-13] MEDS: VENLAFAXINE HCL 150 MG E.R. CAPSULE PO SCH (09:32)
[2016-09-13] MEDS: HYDROCHLOROTHIAZIDE 25 MG TABLET (FP) PO SCH (09:33)
[2016-09-13 09:59] VITALS: BP 125/92; PULSE 84; TEMP 95.4
[2016-09-13] MEDS: NICOTINE 7 MG/24 HOURS TOPICAL PATCH TD SCH (10:08)
[2016-09-13] MEDS ORDERED: chlordiazePOXIDE HCL 10 MG CAPSULE PO SCH ×2 (11:00→17:00)
--- NOTE | 2016-09-13 11:17 | DS ---
[facility] Detox Discharge Summary Admission Date: 09/10/16 Discharge Date: 09/13/16 - History Present History: Alcohol Dependence, Cocaine Dependence Additional Comments: PT WAS DISCHARGED TO [facility] BUT BECAME VERY AGGRESSIVELY IMPATIENT TOWARDS STAFF AND UNDECIDED TO FOLLOW THROUGH WITH REHAB PLANS. Pertinent Past History: SCOLIOSIS HTN MOOD DISORDER HX - Physical Exam Results Vital Signs: Vital Signs Temperature 95.4 F L 09/13/16 09:58 Pulse Rate 84 09/13/16 09:58 Respiratory Rate 18 09/13/16 09:58 Blood Pressure 125/92 09/13/16 09:58 O2 Sat by Pulse Oximetry (%) Pertinent Admission Physical Exam Findings: WITHDRAWAL SX Laboratory Last Values WBC 5.0 K/mm3 (4.0-10.0) 09/11/16 06:20 RBC 4.41 M/mm3 (4.00-5.60) 09/11/16 06:20 Hgb 12.6 GM/dL (11.7-16.9) 09/11/16 06:20 Hct 39.0 % (35.4-49) 09/11/16 06:20 MCV 88.5 fl (80-96) 09/11/16 06:20 MCHC 32.2 g/dl (32.0-35.9) 09/11/16 06:20 RDW 16.1 % (11.9-15.9) H 09/11/16 06:20 Plt Count 320 K/MM3 (134-434) 09/11/16 06:20 MPV 9.0 fl (7.5-11.1) 09/11/16 06:20 Sodium 144 mmol/L (136-145) 09/11/16 06:20 Potassium 3.5 mmol/L (3.5-5.1) 09/11/16 06:20 Chloride 104 mmol/L (98-107) 09/11/16 06:20 Carbon Dioxide 26 mmol/L (21-32) 09/11/16 06:20 Anion Gap 14 (8-16) 09/11/16 06:20 BUN 15 mg/dL (7-18) D 09/11/16 06:20 Creatinine 1.1 mg/dL (0.7-1.3) D 09/11/16 06:20 Creat Clearance w eGFR > 60 (>60) 09/11/16 06:20 Random Glucose 165 mg/dL (74-106) H D 09/11/16 06:20 Calcium 8.9 mg/dL (8.5-10.1) 09/11/16 06:20 Total Bilirubin 0.5 mg/dL (0.2-1.0) D 09/11/16 06:20 AST 28 U/L (15-37) 09/11/16 06:20 ALT 34 U/L (12-78) D 09/11/16 06:20 Alkaline Phosphatase 120 U/L (45-117) H 09/11/16 06:20 Total Protein 7.2 g/dl (6.4-8.2) 09/11/16 06:20 Albumin 3.6 g/dl (3.4-5.0) 09/11/16 06:20 Urine Color Yellow 09/10/16 14:00 Urine Appearance Clear 09/10/16 14:00 Urine pH 5.0 (5.0-8.0) 09/10/16 14:00 Ur Specific [place] 1.033 (1.001-1.035) 09/10/16 14:00 Urine Protein 1+ (NEGATIVE) H 09/10/16 14:00 Urine Glucose (UA) 2+ (NEGATIVE) H 09/10/16 14:00 Urine Ketones Trace (NEGATIVE) H 09/10/16 14:00 Urine Blood 1+ (NEGATIVE) H 09/10/16 14:00 Urine Nitrite Negative (NEGATIVE) 09/10/16 14:00 Urine Bilirubin Negative (NEGATIVE) 09/10/16 14:00 Urine Urobilinogen Negative E.U./dl (0.2-1.0) 09/10/16 14:00 Ur Leukocyte Esterase Negative (NEGATIVE) 09/10/16 14:00 Urine RBC 19 /hpf (0-3) 09/10/16 14:00 Urine WBC 1 /hpf (3-5) 09/10/16 14:00 Ur Epithelial Cells Rare /hpf (FEW) 09/10/16 14:00 Hyaline Casts 1 /lpf 09/10/16 14:00 Urine Mucus Moderate 09/10/16 14:00 RPR Titer Nonreactive (NONREACTIVE) 09/11/16 06:20 - Treatment Hospital Course: Detox Protocol Followed, Detoxed Safely, Responded well, Discharged Condition Good, Rehab Referral Accepted Patient has Accepted a Rehab Referral to: [address] [place] [address] BUT REFUSED LATER. - Medication Discharge Medications: Ambulatory Orders Amlodipine Besylate [Norvasc -] 5 mg PO DAILY #30 tablet 12/29/15 Enalapril Maleate [Vasotec -] 10 mg PO DAILY #30 tablet 12/29/15 Hydrochlorothiazide [Hctz -] 25 mg PO DAILY #30 tablet 12/29/15 Venlafaxine HCl ER [Effexor Xr -] 150 mg PO DAILY #30 cap.er.24h 07/16/16 Baclofen 10 mg PO TID 09/10/16 Venlafaxine HCl ER [Effexor Xr -] 150 mg PO DAILY #30 cap.er.24h 09/11/16 - Diagnosis (1) Alcohol dependence with uncomplicated withdrawal Status: Acute (2) Nicotine dependence Status: Acute Qualifiers: Nicotine product type: cigarettes Substance use status: in withdrawal Qualified Code(s): F17.213 - Nicotine dependence, cigarettes, with withdrawal (3) Anemia Status: Chronic (4) Back pain Status: Chronic (5) HTN (hypertension) Status: Chronic Qualifiers: Hypertension type: essential hypertension Qualified Code(s): I10 - Essential (primary) hypertension (6) Scoliosis deformity of spine Status: Chronic Qualifiers: Scoliosis type: idiopathic Idiopathic scoliosis type: juvenile Spinal region: thoracic Qualified Code(s): 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
== END 2016-09-13 10:56 | disposition home or self-care (01) | DRG 774 ==
LOC: YASAS 10:41 → Y3N 14:18
PROVIDERS: ADMIT Internal Medicine; ATTEND Internal Medicine
PROC: HZ2ZZZZ Detoxification Services for Substance Abuse Treatment (ICD-10-PCS; principal; 2016-09-13)
DX: F10.230 Alcohol dependence with withdrawal, uncomplicated (principal); F14.20 Cocaine dependence, uncomplicated; F19.24 Other psychoactive substance dependence with psychoactive substance-induced mood disorder; F33.0 Major depressive disorder, recurrent, mild; I10 Essential (primary) hypertension; M54.5 Low back pain; G89.29 Other chronic pain; D64.9 Anemia, unspecified; R63.4 Abnormal weight loss; Z68.23 Body mass index [BMI] 23.0-23.9, adult
CPT/HCPCS: 36415; 80053; 81003; 81015; 85027; 86593; 93005; 93010; J0475

== ENCOUNTER 2016-10-25 14:09 | Inpatient (IN) | payer OTHER ==
[2016-10-25 17:28] VITALS: BMI 24.6
--- NOTE | 2016-10-25 21:48 | HP ---
CIWA Score - CIWA Score Nausea/Vomitin-Mild Nausea/No Vomiting Muscle Tremors: 4-Moderate,w/Arms Extend Anxiety: 4-Mod. Anxious/Guarded Agitation: 4-Moderately Restless Paroxysmal Sweats: 1-Minimal Palms Moist Orientation: 0-Oriented Tacttile Disturbances: 0-None Auditory Disturbances: 0-None Visual Disturbances: 0-None Headache: 0-None Present CIWA-Ar Total Score: 14 Admission ROS BHS - HPI Chief Complaint: withdrawal sx Allergies/Adverse Reactions: Allergies Allergy/AdvReac Type Severity Reaction Status Date / Time Penicillins Allergy Severe Hives Verified 10/25/16 20:17 History of Present Illness: 51 years old male with long history of alcohol cocaine dependence has hypertension and weight loss and depression is admitted to detox Exam Limitations: No Limitations - Ebola screening Have you traveled outside of the country in the last 21 days: No Have you had contact with anyone from an Ebola affected area: No Have you been sick,other than usual withdrawal symptoms: No Do you have a fever: No - Review of Systems Constitutional: Chills, Loss of Appetite, Changes in sleep, Unintentional Wgt. Loss, Unexplained wgt Loss EENT: reports: No Symptoms Reported Respiratory: reports: Cough Cardiac: reports: No Symptoms Reported GI: reports: Nausea, Poor Appetite, Poor Fluid Intake, Abdominal cramping : reports: No Symptoms Reported Musculoskeletal: reports: No Symptoms Reported Integumentary: reports: Lumps (right lateral mid chest lipoma x 2 years) Neuro: reports: Tremors Endocrine: reports: No Symptoms Reported Hematology: reports: No Symptoms Reported Psychiatric: reports: Judgement Intact, Orientated x3, Depressed Other Systems: Reviewed and Negative Patient History - Patient Medical History Hx Anemia: No Hx Asthma: No Hx Chronic Obstructive Pulmonary Disease (COPD): No Hx Cancer: No Hx Cardiac Disorders: No Hx Congestive Heart Failure: No Hx Hypertension: Yes (on meds.) Hx Hypercholesterolemia: No Hx Pacemaker: No HX Cerebrovascular Accident: No Hx Seizures: No Hx Dementia: No Hx Diabetes: No Hx Gastrointestinal Disorders: No Hx Liver Disease: No Hx Genitourinary Disorders: No Hx Sexually Transmitted Disorders: No Hx Renal Disease (ESRD): No Hx Thyroid Disease: No Hx Human Immunodeficiency Virus (HIV): No Hx Hepatitis C: No Hx Depression: Yes Hx Suicide Attempt: No Hx Bipolar Disorder: No Hx Schizophrenia: No - Patient Surgical History Past Surgical History: No Hx Neurologic Surgery: No Hx Cataract Extraction: No Hx Cardiac Surgery: No Hx Lung Surgery: No Hx Breast Surgery: No Hx Breast Biopsy: No Hx Abdominal Surgery: No Hx Appendectomy: No Hx Cholecystectomy: No Hx Genitourinary Surgery: No Hx Orthopedic Surgery: No - PPD History Previous Implant?: Yes Documented Results: Negative w/proof Implanted On Prior [facility] Admission?: Yes Date: 12/13/15 Results: 0 mm PPD to be Administered?: No - Smoking Cessation Smoking history: Former smoker Have you smoked in the past 12 months: No Aproximately how many cigarettes per day: 0 Cigars Per Day: 0 Hx Chewing Tobacco Use: No Initiated information on smoking cessation: No - Substance & Tx. History Hx Alcohol Use: Yes Hx Substance Use: Yes Substance Use Type: Alcohol, Cocaine Hx Substance Use Treatment: Yes - Substances Abused Alcohol Route: Oral Frequency: Daily Amount used: beer- 1 six pack Age of first use: 14 Date of Last Use: 10/25/16 Cocaine Route: Smoking Frequency: 1-3 times last 30 days Amount used: 4 G Age of first use: 19 Date of Last Use: 10/22/16 Family Disease History - Family Disease History Family Disease History: Other: Father (alcohol,,cirrhosis), Mother ( alcohol,cirrhosis,cirrhosis) Admission Physical Exam S - Vital Signs Vital Signs: Vital Signs - 24 hr 10/25/16 17:26 Temperature 97.3 F L Pulse Rate 94 H Respiratory 18 Rate Blood Pressure 132/83 - Physical General Appearance: Yes: Appropriately Dressed, Mild Distress, Alcohol on Breath , Thin, Tremorous, Irritable, Sweating, Anxious HEENTM: Yes: Hearing grossly Normal, Normal ENT Inspection, Normocephalic, Normal Voice Respiratory: Yes: Chest Non-Tender, Lungs Clear, Normal Breath Sounds, No Respiratory Distress, No Accessory Muscle Use Neck: Yes: Supple, Trachea in good position Breast: Yes: Breasts Symetrical Cardiology: Yes: Regular Rhythm, S1, S2, Tachycardia Abdominal: Yes: Non Tender, Soft Genitourinary: Yes: Within Normal Limits Back: Yes: Normal Inspection Musculoskeletal: Yes: full range of Motion, Gait Steady, Other (LIPOMA RIGHT LATERAL MID CHEST WALL X 2 YEARS) Extremities: Yes: Normal Inspection, Normal Range of Motion, Non-Tender, Tremors 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: Alert, Motor Strength 5/5, Normal Response, Depressed Affect Integumentary: Yes: Warm Lymphatic: Yes: Within Normal Limits - Diagnostic (1) Alcohol dependence with uncomplicated withdrawal Current Visit: Yes Status: Acute (2) Nicotine dependence Current Visit: Yes Status: Acute Qualifiers: Nicotine product type: cigarettes Substance use status: in withdrawal Qualified Code(s): F17.213 - Nicotine dependence, cigarettes, with withdrawal (3) Depression Current Visit: Yes Status: Suspected Qualifiers: Depression Type: dysthymia Qualified Code(s): F34.1 - Dysthymic disorder (4) HTN (hypertension) Current Visit: Yes Status: Chronic Qualifiers: Hypertension type: essential hypertension Qualified Code(s): I10 - Essential (primary) hypertension (5) Weight loss Current Visit: Yes Status: Acute (6) Lipoma Current Visit: Yes Status: Chronic Qualifiers: Lipoma location: trunk Qualified Code(s): D17.1 - Benign lipomatous neoplasm of skin and subcutaneous tissue of trunk Comment: RIGHT LATERAL MID CHEST WALL X 2 YEARS Cleared for Admission [facility] - Detox or Rehab [facility] Level of Care: Medically Managed Detox Regimen/Protocol: Librium [facility] Breath Alcohol Content Breath Alcohol Content: 0.047 Urine Drug Screen - Results Drug Screen Negative: No Urine Drug Screen Results: OPI-Opiates, BZO-Benzodiazepines
[2016-10-25] MEDS ORDERED: MENTHOL/PHENOL 1 EACH UD MM PRN (21:49)
[2016-10-25] MEDS ORDERED: chlordiazePOXIDE HCL 25 MG CAPSULE PO PRN (21:49)
[2016-10-25] MEDS ORDERED: guaiFENesin/D-METHORPHAN HB 10 ML UNIT-DOSE CUPS PO PRN (21:49)
[2016-10-25] MEDS ORDERED: IBUPROFEN 400 MG TABLET (FP) PO PRN (21:49)
[2016-10-25] MEDS ORDERED: MAGNESIUM CITRATE 300 ML BOTTLE PO PRN (21:49)
[2016-10-25] MEDS ORDERED: diphenhydrAMINE HCL 50 MG CAPSULE PO PRN (21:49)
[2016-10-25] MEDS ORDERED: ACETAMINOPHEN 325 MG TABLET (FP) PO PRN (21:49)
[2016-10-25] MEDS ORDERED: MAG HYDROX/AL HYDROX/SIMETH 30 ML UNIT-DOSE CUP PO PRN (21:49)
[2016-10-25] MEDS ORDERED: LOPERAMIDE HCL 2 MG CAPSULE PO PRN (21:49)
[2016-10-25] MEDS ORDERED: MAGNESIUM HYDROX 2400MG/30ML ORAL SUSPENSION 30 ML CUP PO PRN (21:49)
[2016-10-25] MEDS ORDERED: hydrOXYzine PAMOATE 50 MG CAPSULE (FP) PO PRN (21:49)
[2016-10-25] MEDS ORDERED: P-EPHED 60MG/TRIPROLIDI 2.5MG TABLET PO PRN (21:49)
[2016-10-25] MEDS: chlordiazePOXIDE HCL 25 MG CAPSULE PO SCH (22:50)
[2016-10-25] MEDS: THIAMINE HCL 100 MG TABLET (FP) PO SCH (22:53)
[2016-10-26 01:50] LABS: URINE APPEARANCE CLEAR; URINE BILIRUBIN NEGATIVE (NEGATIVE); URINE COLOR STRAW; URINE GLUCOSE (UA) NEGATIVE (NEGATIVE); URINE KETONE NEGATIVE (NEGATIVE); URINE LEUK ESTERASE NEGATIVE (NEGATIVE); URINE NITRITE NEGATIVE (NEGATIVE); URINE PROTEIN NEGATIVE (NEGATIVE); URINE UROBILINOGEN NEGATIVE E.U./dl (0.2-1.0)
[2016-10-26 03:04] LABS: URINE BLOOD 1+ (NEGATIVE)
[2016-10-26 03:07] LABS: URINE BACTERIA RARE /hpf (NONE SEEN); URINE RBC <1 /hpf (0-3); URINE WBC <1 /hpf (3-5)
[2016-10-26] MEDS: chlordiazePOXIDE HCL 25 MG CAPSULE PO SCH ×4 (05:38→22:40)
[2016-10-26] MEDS: PRENATAL VITAMINS W/ FOLIC ACID TABLET (FP) PO SCH (10:33)
[2016-10-26] MEDS: amLODIPine BESYLATE 5 MG TABLET (FP) PO SCH (10:33)
[2016-10-26] MEDS: HYDROCHLOROTHIAZIDE 25 MG TABLET (FP) PO SCH (10:33)
[2016-10-26 10:43] LABS: MCH 28.8 pg (25.7-33.7); MCHC 32.7 g/dl (32.0-35.9); MEAN CELL VOLUME 88.3 fl (80-96); MEAN PLT VOLUME 9.2 fl (7.5-11.1); PLATELET COUNT 237 K/MM3 (134-434); RDW 15.5 % (11.9-15.9); WHITE BLOOD COUNT 4.6 K/mm3 (4.0-10.0)
[2016-10-26 11:44] LABS: ALBUMIN 3.4 g/dl (3.4-5.0); ALK PHOS 102 U/L (45-117); ANION GAP 7 (8-16); BILIRUBIN,TOTAL 0.5 mg/dL (0.2-1.0); CALCIUM 8.8 mg/dL (8.5-10.1); CO2 29 mmol/L (21-32); COCKROFT - GAULT 84.84; GLUCOSE,RANDOM 88 mg/dL (74-106); SGOT/AST 13 U/L (15-37); SGPT/ALT 23 U/L (12-78); TOT PROT 6.2 g/dl (6.4-8.2)
--- NOTE | 2016-10-26 11:48 | CONSULT ---
[facility] Psychiatric Consult - Data Date of interview: 10/26/16 Admission source: [facility] Identifying data: Another admission to [facility] for this 51 y/o AA male seeking detox treatment on for alcohol and cocaine dependence.Patient is single without children,domiciled,unemployed and supported on SSI benefits. Substance Abuse History: - Smoking Cessation. Smoking history: Former smoker. Have you smoked in the past 12 months: No. Aproximately how many cigarettes per day: 0. Cigars Per Day: 0. Hx Chewing Tobacco Use: No. Initiated information on smoking cessation: No. - Substance & Tx. History. Hx Alcohol Use: Yes. Hx Substance Use: Yes. Substance Use Type: Alcohol, Cocaine. Hx Substance Use Treatment: Yes. - Substances Abused. Alcohol. Route: Oral. Frequency: Daily. Amount used: beer- 1 six pack. Age of first use: 14. Date of Last Use: 10/25/16. Cocaine. Route: Smoking. Frequency: 1-3 times last 30 days. Amount used: 4 G. Age of first use: 19. Date of Last Use: 10/22/16. Confirmed by patient. Medical History: Hypertension and scoliosis. Psychiatric History: Diagnosed with MDD.Prescribed effexor XR 150 mg/ day.Patient denies history of psychiatric hospitalizations.However,previous records indicate that the patient has been committed to the [facility] in the past.When confronted,Mr Del Castillo declines to provide details about the circumstances under his admission to [facility].Patient still gets his outpatient psychiatric services at [facility] in [facility].No reported history of suicide attempts. Physical/Sexual Abuse/Trauma History: Patient denies. Additional Comment: Urine Drug Screen Results: OPI-Opiates, BZO- Benzodiazepines.Noted. Mental Status Exam - Mental Status Exam Alert and Oriented to: Time, Place, Person Cognitive Function: Good Patient Appearance: Well Groomed Mood: Hopeful, Euthymic Affect: Appropriate, Normal Range Patient Behavior: Fatigued, Appropriate, Cooperative Speech Pattern: Clear Voice Loudness: Normal Thought Process: Goal Oriented Thought Disorder: Not Present Hallucinations: Denies Suicidal Ideation: Denies Homicidal Ideation: Denies Insight/Judgement: Poor Sleep: Poorly, Difficulty falling asleep Appetite: Good Muscle strength/Tone: Normal Gait/Station: Normal Psychiatric Findings - Problem List ([place] 1, 2,3) (1) Alcohol dependence with uncomplicated withdrawal Current Visit: Yes Status: Acute (2) Cocaine dependence Current Visit: Yes Status: Acute Qualifiers: Substance use status: uncomplicated Qualified Code(s): F14.20 - Cocaine dependence, uncomplicated (3) Drug-induced mood disorder Current Visit: Yes Status: Acute (4) Nicotine dependence Current Visit: Yes Status: Acute Qualifiers: Nicotine product type: cigarettes Substance use status: in withdrawal Qualified Code(s): F17.213 - Nicotine dependence, cigarettes, with withdrawal (5) Substance induced mood disorder Current Visit: Yes Status: Acute (6) Depressive disorder Current Visit: Yes Status: Chronic (7) HTN (hypertension) Current Visit: Yes Status: Chronic Qualifiers: Hypertension type: essential hypertension Qualified Code(s): I10 - Essential (primary) hypertension (8) Scoliosis deformity of spine Current Visit: No Status: Chronic Qualifiers: Scoliosis type: idiopathic Idiopathic scoliosis type: juvenile Spinal region: thoracic Qualified Code(s): 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
[2016-10-26] MEDS ORDERED: ZOLPIDEM TARTRATE 5 MG TABLET PO PRN (11:49)
--- NOTE | 2016-10-26 11:50 | PN ---
S CIWA - CIWA Score Nausea/Vomitin Muscle Tremors: 3 Anxiety: 3 Agitation: 2 Paroxysmal Sweats: 3 Orientation: 0-Oriented Tacttile Disturbances: 1-Very Mild Itch/Numbness Auditory Disturbances: 0-None Visual Disturbances: 0-None Headache: 2-Mild CIWA-Ar Total Score: 16 BHS Progress Note (SOAP) Subjective: nausea, shakes, sweats and joint pain Objective: 10/26/16 11:49 Vital Signs - 8 hr 10/26/16 10/26/16 06:23 10:21 Temperature 97 F L 97.2 F L Pulse Rate 92 H 95 H Respiratory 16 20 Rate Blood Pressure 128/81 141/97 Laboratory Last Values WBC 4.6 K/mm3 (4.0-10.0) 10/26/16 07:50 RBC 4.21 M/mm3 (4.00-5.60) 10/26/16 07:50 Hgb 12.1 GM/dL (11.7-16.9) 10/26/16 07:50 Hct 37.2 % (35.4-49) 10/26/16 07:50 MCV 88.3 fl (80-96) 10/26/16 07:50 MCHC 32.7 g/dl (32.0-35.9) 10/26/16 07:50 RDW 15.5 % (11.9-15.9) 10/26/16 07:50 Plt Count 237 K/MM3 (134-434) D 10/26/16 07:50 MPV 9.2 fl (7.5-11.1) 10/26/16 07:50 Urine Color Straw 10/25/16 00:25 Urine Appearance Clear 10/25/16 00:25 Urine pH 6.0 (5.0-8.0) 10/25/16 00:25 Urine Protein Negative (NEGATIVE) 10/25/16 00:25 Urine Glucose (UA) Negative (NEGATIVE) 10/25/16 00:25 Urine Ketones Negative (NEGATIVE) 10/25/16 00:25 Urine Blood 1+ (NEGATIVE) H 10/25/16 00:25 Urine Nitrite Negative (NEGATIVE) 10/25/16 00:25 Urine Bilirubin Negative (NEGATIVE) 10/25/16 00:25 Urine Urobilinogen Negative E.U./dl (0.2-1.0) 10/25/16 00:25 Ur Leukocyte Esterase Negative (NEGATIVE) 10/25/16 00:25 Urine RBC <1 /hpf (0-3) 10/25/16 00:25 Urine WBC <1 /hpf (3-5) 10/25/16 00:25 Urine Bacteria Rare /hpf (NONE SEEN) 10/25/16 00:25 Labs: cbc and urinalysis noted, chemistry pending Assessment: 10/26/16 11:50 withdrawal sx Plan: continue detox
[2016-10-26] MEDS: VENLAFAXINE HCL 150 MG E.R. CAPSULE PO SCH (13:00)
[2016-10-26] MEDS: THIAMINE HCL 100 MG TABLET (FP) PO SCH (22:40)
[2016-10-27] MEDS: chlordiazePOXIDE HCL 25 MG CAPSULE PO SCH ×3 (05:25→17:36)
[2016-10-27] MEDS: HYDROCHLOROTHIAZIDE 25 MG TABLET (FP) PO SCH (10:27)
[2016-10-27] MEDS: VENLAFAXINE HCL 150 MG E.R. CAPSULE PO SCH (10:27)
[2016-10-27] MEDS: PRENATAL VITAMINS W/ FOLIC ACID TABLET (FP) PO SCH (10:27)
[2016-10-27] MEDS: amLODIPine BESYLATE 5 MG TABLET (FP) PO SCH (10:27)
--- NOTE | 2016-10-27 13:38 | PN ---
S CIWA - CIWA Score Nausea/Vomitin Muscle Tremors: 3 Anxiety: 3 Agitation: 3 Paroxysmal Sweats: No Perspiration Orientation: 0-Oriented Tacttile Disturbances: 1-Very Mild Itch/Numbness Auditory Disturbances: 0-None Visual Disturbances: 0-None Headache: 2-Mild CIWA-Ar Total Score: 14 [facility] Progress Note (SOAP) Subjective: Body aches, sweating, nausea, anxious Objective: 10/27/16 13:35 Last Vital Signs Temp Pulse Resp BP Pulse Ox 96.7 F L 79 18 140/102 10/27/16 10:19 10/27/16 10:19 10/27/16 10:19 10/27/16 10:19 Laboratory Tests 10/25/16 10/26/16 10/26/16 00:25 07:50 07:50 WBC 4.6 RBC 4.21 Hgb 12.1 Hct 37.2 MCV 88.3 MCHC 32.7 RDW 15.5 Plt Count 237 D MPV 9.2 Sodium 144 Potassium 3.8 Chloride 108 H Carbon Dioxide 29 Anion Gap 7 L BUN 22 H D Creatinine 1.0 Creat Clearance w eGFR > 60 Random Glucose 88 D Calcium 8.8 Total Bilirubin 0.5 AST 13 L D ALT 23 D Alkaline Phosphatase 102 Total Protein 6.2 L Albumin 3.4 Urine Color Straw Urine Appearance Clear Urine pH 6.0 Ur Specific [place] < 1.005 L Urine Protein Negative Urine Glucose (UA) Negative Urine Ketones Negative Urine Blood 1+ H Urine Nitrite Negative Urine Bilirubin Negative Urine Urobilinogen Negative Ur Leukocyte Esterase Negative Urine RBC <1 Urine WBC <1 Urine Bacteria Rare RPR Titer 10/26/16 07:50 WBC RBC Hgb Hct MCV MCHC RDW Plt Count MPV Sodium Potassium Chloride Carbon Dioxide Anion Gap BUN Creatinine Creat Clearance w eGFR Random Glucose Calcium Total Bilirubin AST ALT Alkaline Phosphatase Total Protein Albumin Urine Color Urine Appearance Urine pH Ur Specific [place] Urine Protein Urine Glucose (UA) Urine Ketones Urine Blood Urine Nitrite Urine Bilirubin Urine Urobilinogen Ur Leukocyte Esterase Urine RBC Urine WBC Urine Bacteria RPR Titer Nonreactive Labs noted: bun 22, UA: 1+ blood Assessment: 10/27/16 13:36 Withdrawal symptoms Noted with azotemia and microscopic hematuria Plan: Continue detox Azotemia: encouraged to drink lots of water Microscopic hematuria: encouraged to drink lots of water, repeat UA HTN, uncontrolled: norvasc 5mg PO x 1 dose, increase norvasc to 10mg daily, continue other regimen, continue to monitor
[2016-10-27] MEDS ORDERED: amLODIPine BESYLATE 5 MG TABLET (FP) PO ONE (14:15)
[2016-10-27] MEDS: THIAMINE HCL 100 MG TABLET (FP) PO SCH (22:33)
[2016-10-27] MEDS: chlordiazePOXIDE 5 MG CAPSULE PO SCH (22:34)
[2016-10-28] MEDS: chlordiazePOXIDE 5 MG CAPSULE PO SCH ×3 (05:15→17:33)
[2016-10-28] MEDS: HYDROCHLOROTHIAZIDE 25 MG TABLET (FP) PO SCH (10:25)
[2016-10-28] MEDS: amLODIPine BESYLATE 10 MG TABLET (FP) PO SCH (10:26)
[2016-10-28] MEDS: VENLAFAXINE HCL 150 MG E.R. CAPSULE PO SCH (10:26)
[2016-10-28] MEDS: PRENATAL VITAMINS W/ FOLIC ACID TABLET (FP) PO SCH (10:27)
--- NOTE | 2016-10-28 11:33 | EKG ---
Test Reason : Blood Pressure : / mmHG Vent. Rate : 074 BPM Atrial Rate : 074 BPM P-R Int : 128 ms QRS Dur : 088 ms QT Int : 380 ms P-R-T Axes : 001 018 053 degrees QTc Int : 421 ms POOR DATA QUALITY, INTERPRETATION MAY BE ADVERSELY AFFECTED NORMAL SINUS RHYTHM NORMAL ECG WHEN COMPARED WITH ECG OF 10-SEP-2016 13:57, NO SIGNIFICANT CHANGE WAS FOUND Confirmed by ERIS MOODY, DAMARIS ([id number]) on 10/28/2016 11:33:06 AM Referred By: Confirmed By:DAMARIS SCHULTE MD
--- NOTE | 2016-10-28 13:26 | PN ---
[facility] Progress Note (SOAP) Subjective: Sweating, anxious, interrupted sleep Objective: 10/28/16 13:24 Last Vital Signs Temp Pulse Resp BP Pulse Ox 96.2 F L 83 18 127/91 10/28/16 09:19 10/28/16 09:19 10/28/16 09:19 10/28/16 09:19 Laboratory Tests 10/25/16 10/26/16 10/26/16 00:25 07:50 07:50 WBC 4.6 RBC 4.21 Hgb 12.1 Hct 37.2 MCV 88.3 MCHC 32.7 RDW 15.5 Plt Count 237 D MPV 9.2 Sodium 144 Potassium 3.8 Chloride 108 H Carbon Dioxide 29 Anion Gap 7 L BUN 22 H D Creatinine 1.0 Creat Clearance w eGFR > 60 Random Glucose 88 D Calcium 8.8 Total Bilirubin 0.5 AST 13 L D ALT 23 D Alkaline Phosphatase 102 Total Protein 6.2 L Albumin 3.4 Urine Color Straw Urine Appearance Clear Urine pH 6.0 Ur Specific [place] < 1.005 L Urine Protein Negative Urine Glucose (UA) Negative Urine Ketones Negative Urine Blood 1+ H Urine Nitrite Negative Urine Bilirubin Negative Urine Urobilinogen Negative Ur Leukocyte Esterase Negative Urine RBC <1 Urine WBC <1 Urine Bacteria Rare RPR Titer 10/26/16 07:50 WBC RBC Hgb Hct MCV MCHC RDW Plt Count MPV Sodium Potassium Chloride Carbon Dioxide Anion Gap BUN Creatinine Creat Clearance w eGFR Random Glucose Calcium Total Bilirubin AST ALT Alkaline Phosphatase Total Protein Albumin Urine Color Urine Appearance Urine pH Ur Specific [place] Urine Protein Urine Glucose (UA) Urine Ketones Urine Blood Urine Nitrite Urine Bilirubin Urine Urobilinogen Ur Leukocyte Esterase Urine RBC Urine WBC Urine Bacteria RPR Titer Nonreactive Labs noted Assessment: 10/28/16 13:25 Withdrawal symptoms Noted with azotemia and abnormal UA Plan: Continue detox Azotemia: encouraged to drink more water Abnormal UA: encouraged to drink more water, follow up on UA result (in progress )
[2016-10-28 14:16] LABS: URINE APPEARANCE CLEAR; URINE BILIRUBIN NEGATIVE (NEGATIVE); URINE BLOOD NEGATIVE (NEGATIVE); URINE COLOR YELLOW; URINE GLUCOSE (UA) NEGATIVE (NEGATIVE); URINE KETONE NEGATIVE (NEGATIVE); URINE LEUK ESTERASE NEGATIVE (NEGATIVE); URINE NITRITE NEGATIVE (NEGATIVE); URINE PROTEIN NEGATIVE (NEGATIVE); URINE UROBILINOGEN NEGATIVE E.U./dl (0.2-1.0)
[2016-10-28] MEDS: chlordiazePOXIDE HCL 10 MG CAPSULE PO SCH (22:34)
[2016-10-28] MEDS: THIAMINE HCL 100 MG TABLET (FP) PO SCH (22:34)
[2016-10-29] MEDS: chlordiazePOXIDE HCL 10 MG CAPSULE PO SCH (06:11)
--- NOTE | 2016-10-29 08:28 | DS ---
[facility] Detox Discharge Summary Admission Date: 10/25/16 Discharge Date: 10/29/16 - History Present History: Alcohol Dependence, Cocaine Dependence Pertinent Past History: HTN - Physical Exam Results Vital Signs: Vital Signs Temperature 96.6 F L 10/29/16 06:14 Pulse Rate 67 10/29/16 06:14 Respiratory Rate 18 10/29/16 06:14 Blood Pressure 115/80 10/29/16 06:14 O2 Sat by Pulse Oximetry (%) Pertinent Admission Physical Exam Findings: Withdrawal sx. Laboratory Last Values WBC 4.6 K/mm3 (4.0-10.0) 10/26/16 07:50 RBC 4.21 M/mm3 (4.00-5.60) 10/26/16 07:50 Hgb 12.1 GM/dL (11.7-16.9) 10/26/16 07:50 Hct 37.2 % (35.4-49) 10/26/16 07:50 MCV 88.3 fl (80-96) 10/26/16 07:50 MCHC 32.7 g/dl (32.0-35.9) 10/26/16 07:50 RDW 15.5 % (11.9-15.9) 10/26/16 07:50 Plt Count 237 K/MM3 (134-434) D 10/26/16 07:50 MPV 9.2 fl (7.5-11.1) 10/26/16 07:50 Sodium 144 mmol/L (136-145) 10/26/16 07:50 Potassium 3.8 mmol/L (3.5-5.1) 10/26/16 07:50 Chloride 108 mmol/L (98-107) H 10/26/16 07:50 Carbon Dioxide 29 mmol/L (21-32) 10/26/16 07:50 Anion Gap 7 (8-16) L 10/26/16 07:50 BUN 22 mg/dL (7-18) H D 10/26/16 07:50 Creatinine 1.0 mg/dL (0.7-1.3) 10/26/16 07:50 Creat Clearance w eGFR > 60 (>60) 10/26/16 07:50 Random Glucose 88 mg/dL (74-106) D 10/26/16 07:50 Calcium 8.8 mg/dL (8.5-10.1) 10/26/16 07:50 Total Bilirubin 0.5 mg/dL (0.2-1.0) 10/26/16 07:50 AST 13 U/L (15-37) L D 10/26/16 07:50 ALT 23 U/L (12-78) D 10/26/16 07:50 Alkaline Phosphatase 102 U/L (45-117) 10/26/16 07:50 Total Protein 6.2 g/dl (6.4-8.2) L 10/26/16 07:50 Albumin 3.4 g/dl (3.4-5.0) 10/26/16 07:50 Urine Color Yellow 10/28/16 08:00 Urine Appearance Clear 10/28/16 08:00 Urine pH 6.0 (5.0-8.0) 10/28/16 08:00 Ur Specific [place] 1.015 (1.005-1.025) 10/28/16 08:00 Urine Protein Negative (NEGATIVE) 10/28/16 08:00 Urine Glucose (UA) Negative (NEGATIVE) 10/28/16 08:00 Urine Ketones Negative (NEGATIVE) 10/28/16 08:00 Urine Blood Negative (NEGATIVE) 10/28/16 08:00 Urine Nitrite Negative (NEGATIVE) 10/28/16 08:00 Urine Bilirubin Negative (NEGATIVE) 10/28/16 08:00 Urine Urobilinogen Negative E.U./dl (0.2-1.0) 10/28/16 08:00 Ur Leukocyte Esterase Negative (NEGATIVE) 10/28/16 08:00 Urine RBC <1 /hpf (0-3) 10/25/16 00:25 Urine WBC <1 /hpf (3-5) 10/25/16 00:25 Urine Bacteria Rare /hpf (NONE SEEN) 10/25/16 00:25 RPR Titer Nonreactive (NONREACTIVE) 10/26/16 07:50 labs noted - Treatment Hospital Course: Detox Protocol Followed, Detoxed Safely, Responded well, Discharged Condition Good, Rehab Referral Accepted Patient has Accepted a Rehab Referral to: in-pt Rehab at [facility] or [facility] - Medication Discharge Medications: Ambulatory Orders Amlodipine Besylate [Norvasc -] 5 mg PO DAILY #30 tablet 12/29/15 Enalapril Maleate [Vasotec -] 10 mg PO DAILY #30 tablet 12/29/15 Hydrochlorothiazide [Hctz -] 25 mg PO DAILY #30 tablet 12/29/15 Venlafaxine HCl ER [Effexor Xr -] 150 mg PO DAILY #30 cap.er.24h 07/16/16 Baclofen 10 mg PO TID 09/10/16 Venlafaxine HCl ER [Effexor Xr -] 150 mg PO DAILY #30 cap.er.24h 09/11/16 Venlafaxine HCl ER [Effexor Xr -] 150 mg PO DAILY #30 cap.er.24h 10/26/16 - Diagnosis (1) Alcohol dependence with uncomplicated withdrawal Current Visit: Yes Status: Acute (2) Cocaine dependence Current Visit: Yes Status: Acute Qualifiers: Substance use status: uncomplicated Qualified Code(s): F14.20 - Cocaine dependence, uncomplicated (3) Drug-induced mood disorder Current Visit: Yes Status: Acute (4) Nicotine dependence Current Visit: Yes Status: Acute Qualifiers: Nicotine product type: cigarettes Substance use status: in withdrawal Qualified Code(s): F17.213 - Nicotine dependence, cigarettes, with withdrawal (5) Substance induced mood disorder Current Visit: Yes Status: Acute (6) HTN (hypertension) Current Visit: Yes Status: Chronic Qualifiers: Hypertension type: essential hypertension Qualified Code(s): I10 - Essential (primary) hypertension - AMA Did Patient Leave Against Medical Advice: No
[2016-10-29 09:16] VITALS: BP 136/77; PULSE 81; TEMP 98.4
[2016-10-29] MEDS: HYDROCHLOROTHIAZIDE 25 MG TABLET (FP) PO SCH (09:29)
[2016-10-29] MEDS: VENLAFAXINE HCL 150 MG E.R. CAPSULE PO SCH (09:29)
[2016-10-29] MEDS: amLODIPine BESYLATE 10 MG TABLET (FP) PO SCH (09:29)
[2016-10-29] MEDS: PRENATAL VITAMINS W/ FOLIC ACID TABLET (FP) PO SCH (09:29)
== END 2016-10-29 09:42 | disposition home or self-care (01) | DRG 774 ==
LOC: YASAS 14:09 → Y3N 18:42
PROVIDERS: ADMIT Internal Medicine; ATTEND Internal Medicine
PROC: HZ2ZZZZ Detoxification Services for Substance Abuse Treatment (ICD-10-PCS; principal; 2016-10-25)
DX: F10.230 Alcohol dependence with withdrawal, uncomplicated (principal); F14.20 Cocaine dependence, uncomplicated; F17.213 Nicotine dependence, cigarettes, with withdrawal; F19.24 Other psychoactive substance dependence with psychoactive substance-induced mood disorder; F19.282 Other psychoactive substance dependence with psychoactive substance-induced sleep disorder; I10 Essential (primary) hypertension; F32.9 Major depressive disorder, single episode, unspecified; R79.89 Other specified abnormal findings of blood chemistry; R82.90 Unspecified abnormal findings in urine; R31.29 Other microscopic hematuria; M41.114 Juvenile idiopathic scoliosis, thoracic region; R00.0 Tachycardia, unspecified; D17.1 Benign lipomatous neoplasm of skin and subcutaneous tissue of trunk; Z87.898 Personal history of other specified conditions
CPT/HCPCS: 36415; 80053; 81003; 81015; 85027; 86593; 93005; 93010

== ENCOUNTER 2017-01-13 12:29 | Inpatient (IN) | payer OTHER ==
[2017-01-13 14:31] VITALS: BMI 24.3
--- NOTE | 2017-01-13 15:35 | HP ---
Admission [facility] - [facility] Chief Complaint: REHAB TX FOR ALCOHOL AND COCAINE DEPENDENCE Allergies/Adverse Reactions: Allergies Allergy/AdvReac Type Severity Reaction Status Date / Time Penicillins Allergy Severe Hives Verified 01/13/17 15:45 History of Present Illness: 51 Y/O AA/MALE WITH A HX OF ALCOHOL AND COCAINE DEPENDENCE SEEKING REHAB TX Exam Limitations: No Limitations - Ebola screening Have you traveled outside of the country in the last 21 days: No Have you had contact with anyone from an Ebola affected area: No Have you been sick,other than usual withdrawal symptoms: No Do you have a fever: No - Review of Systems Constitutional: Chills, Loss of Appetite, Night Sweats, Changes in sleep EENT: reports: Blurred Vision (WEARS GLASSES), Dental Problems (MISSING TEETH) Respiratory: reports: No Symptoms reported Cardiac: reports: No Symptoms Reported GI: reports: Nausea, Poor Appetite, Poor Fluid Intake : reports: No Symptoms Reported Musculoskeletal: reports: Back Pain, Joint Pain, Muscle Pain Integumentary: reports: No Symptoms Reported Neuro: reports: Headache, Tremors, Unsteady Gait (ON INTOXICATION) Endocrine: reports: No Symptoms Reported Hematology: reports: Anemia (HX) Psychiatric: reports: Orientated x3, Anxious, Depressed Other Systems: Reviewed and Negative Patient History - Patient Medical History Hx Anemia: Yes (NO CURRENT MED) Hx Asthma: No Hx Chronic Obstructive Pulmonary Disease (COPD): No Hx Cancer: No Hx Cardiac Disorders: No Hx Congestive Heart Failure: No Hx Hypertension: Yes (ON NORVASC) Hx Hypercholesterolemia: No Hx Pacemaker: No HX Cerebrovascular Accident: No Hx Seizures: No Hx Dementia: No Hx Diabetes: No Hx Gastrointestinal Disorders: No Hx Liver Disease: No Hx Genitourinary Disorders: No Hx Sexually Transmitted Disorders: No (DENIES) Hx Renal Disease (ESRD): No Hx Thyroid Disease: No Hx Human Immunodeficiency Virus (HIV): No (NEGATIVE HX) Hx Hepatitis C: No Hx Depression: Yes (ON EFFEXOR) Hx Suicide Attempt: No (DENIES) Hx Bipolar Disorder: No Hx Schizophrenia: No - Patient Surgical History Past Surgical History: No Hx Neurologic Surgery: No Hx Cataract Extraction: No Hx Cardiac Surgery: No Hx Lung Surgery: No Hx Breast Surgery: No Hx Breast Biopsy: No Hx Abdominal Surgery: No Hx Appendectomy: No Hx Cholecystectomy: No Hx Genitourinary Surgery: No Hx Orthopedic Surgery: No Anesthesia Reaction: No - PPD History Previous Implant?: Yes Documented Results: Negative w/proof Implanted On Prior R Admission?: No Date: 12/13/15 Results: 0 mm PPD to be Administered?: Yes - Reproductive History Patient is a Female of Child Bearing Age (11 -55 yrs old): No (MALE) Patient : (N/A) - Smoking Cessation Smoking history: Former smoker Have you smoked in the past 12 months: No Aproximately how many cigarettes per day: 0 Cigars Per Day: 0 Hx Chewing Tobacco Use: No Initiated information on smoking cessation: No - Substance & Tx. History Hx Alcohol Use: Yes (BEER) Hx Substance Use: Yes (COCAINE) Substance Use Type: Alcohol, Cocaine Hx Substance Use Treatment: Yes (LAST TX AT [facility]) - Substances Abused Alcohol Frequency: 1-2 times per week Amount used: 16 OZ Age of first use: 16 Date of Last Use: 01/12/17 Family Disease History - Family Disease History Family Disease History: Other: Father (alcohol,,cirrhosis), Mother ( alcohol,cirrhosis,cirrhosis) Admission Physical Exam S - Vital Signs Vital Signs: Vital Signs - 24 hr 01/13/17 14:29 Temperature 96 F L Pulse Rate 84 Respiratory 20 Rate Blood Pressure 108/78 - Physical General Appearance: Yes: No Apparent Distress, Anxious HEENTM: Yes: EOMI, Normocephalic, MANDI, Pharynx Normal Respiratory: Yes: Chest Non-Tender, Lungs Clear, Normal Breath Sounds, No Respiratory Distress Neck: Yes: No masses,lesions,Nodules, Supple, Trachea in good position Breast: Yes: Breast Exam Deferred Cardiology: Yes: Regular Rhythm, Regular Rate, S1, S2 Abdominal: Yes: Normal Bowel Sounds, Non Tender, Soft Genitourinary: Yes: Other (N/C) Back: Yes: Other (LARGE MASS ON RIGHT SIDE TRUNK. 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 intact, Fully Oriented, Alert, Motor Strength 5/5 Integumentary: Yes: Dry, Warm Lymphatic: Yes: Within Normal Limits - Diagnostic (1) Alcohol dependence with uncomplicated withdrawal Current Visit: Yes Status: Chronic (2) Cocaine dependence Current Visit: Yes Status: Chronic Qualifiers: Substance use status: uncomplicated Qualified Code(s): F14.20 - Cocaine dependence, uncomplicated (3) Nicotine dependence Current Visit: Yes Status: Acute Qualifiers: Nicotine product type: cigarettes Substance use status: in withdrawal Qualified Code(s): F17.213 - Nicotine dependence, cigarettes, with withdrawal (4) Weight loss Current Visit: Yes Status: Chronic (5) Anemia Current Visit: Yes Status: Chronic (6) Lipoma Current Visit: Yes Status: Chronic Qualifiers: Lipoma location: trunk Qualified Code(s): D17.1 - Benign lipomatous neoplasm of skin and subcutaneous tissue of trunk Comment: RIGHT LATERAL MID CHEST WALL X 2 YEARS (7) Scoliosis deformity of spine Current Visit: Yes Status: Chronic Qualifiers: Scoliosis type: idiopathic Idiopathic scoliosis type: juvenile Spinal region: thoracic Qualified Code(s): 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
[2017-01-13] MEDS ORDERED: P-EPHED 60MG/TRIPROLIDI 2.5MG TABLET PO PRN (15:44)
[2017-01-13] MEDS ORDERED: diphenhydrAMINE HCL 50 MG CAPSULE PO PRN (15:44)
[2017-01-13] MEDS ORDERED: MAGNESIUM CITRATE 300 ML BOTTLE PO PRN (15:44)
[2017-01-13] MEDS ORDERED: LOPERAMIDE HCL 2 MG CAPSULE PO PRN (15:44)
[2017-01-13] MEDS ORDERED: hydrOXYzine PAMOATE 25 MG CAPSULE (FP) PO PRN (15:44)
[2017-01-13] MEDS ORDERED: IBUPROFEN 400 MG TABLET (FP) PO PRN (15:44)
[2017-01-13] MEDS ORDERED: MAGNESIUM HYDROX 2400MG/30ML ORAL SUSPENSION 30 ML CUP PO PRN (15:44)
[2017-01-13] MEDS ORDERED: MAG HYDROX/AL HYDROX/SIMETH 30 ML UNIT-DOSE CUP PO PRN (15:44)
[2017-01-13] MEDS ORDERED: ACETAMINOPHEN 325 MG TABLET (FP) PO PRN (15:44)
[2017-01-13] MEDS ORDERED: TUBERCULIN PPD 5 TU/0.1ML VIAL ID ONE (19:29)
[2017-01-13 21:12] LABS: URINE APPEARANCE SLCLOUDY; URINE BILIRUBIN NEGATIVE (NEGATIVE); URINE BLOOD NEGATIVE (NEGATIVE); URINE COLOR YELLOW; URINE GLUCOSE (UA) NEGATIVE (NEGATIVE); URINE KETONE NEGATIVE (NEGATIVE); URINE LEUK ESTERASE NEGATIVE (NEGATIVE); URINE NITRITE NEGATIVE (NEGATIVE); URINE PROTEIN NEGATIVE (NEGATIVE); URINE UROBILINOGEN NEGATIVE mg/dL (0.2-1.0)
[2017-01-13] MEDS: THIAMINE HCL 100 MG TABLET (FP) PO SCH (22:19)
--- NOTE | 2017-01-14 07:39 | HP ---
Psychiatrist Admission - Data Date of interview: 01/14/17 Identifying data: This is the second [facility] admission for this 51 years old single Black male. unemployed on SSI, domiciled Medical History: Significant of Anemia, HTN and [place] Psychiatric History: Reports that his first psychiatric contact was in [facility] at [facility] in [facility]itent[facility]. He was diagnosed with MDD and prescribed Effexor. After being released from penitentiary, he received OPD care at [facility] in [place] and he is currently at [facility] in [place], [place]. He is currently on Effexor XR 150 mg po daily. Denies history of other psychiatric admision besides the one at [facility]. Denies history of suicidal attempt. Reports feeling well and sleeping fairly well. Denies depressive symptoms as well as SI/HI Physical/Sexual Abuse/Trauma History: Denies history of emotional, physical or sexual abuse as well as DV relationship. No service Additional Comment: Reports history of multiple arrests inclucing 3 felony convictions on carges of sale & possession. Denies being on parole/probation at present Vital Signs: Vital Signs - 24 hr 01/13/17 01/13/17 01/14/17 14:29 18:25 00:30 Temperature 96 F L 98.3 F Pulse Rate 84 84 Respiratory 20 18 18 Rate Blood Pressure 108/78 130/88 01/14/17 06:48 Temperature 98.0 F Pulse Rate 69 Respiratory 18 Rate Blood Pressure 123/86 Allergies/Adverse Reactions: Allergies Allergy/AdvReac Type Severity Reaction Status Date / Time Penicillins Allergy Severe Hives Verified 01/13/17 18:51 Date of last physical exam: 01/13/17 Concur with the findings of this exam: Yes - Substance Abuse/Tx History Hx Alcohol Use: Yes Hx Substance Use: No Substance Use Type: Alcohol (Started drinking alcohol at age 16, consumes 4-6x 16oz of beer 1-2 times weekly. Last drink on 01/12/17) Hx Substance Use Treatment: Yes (multiple previous inpt detox & one inpt rehab @ [facility]) - Admission Criteria Previous failed treatment: Yes Poor recovery environment: Yes Comorbidities: Yes Lacks judgement: Yes Mental Status Exam - Mental Status Exam Alert and Oriented to: Time, Place, Person Cognitive Function: Fair Patient Appearance: Well Groomed Mood: Hopeful, Happy Affect: Appropriate Patient Behavior: Cooperative Speech Pattern: Clear Voice Loudness: Normal Thought Process: Intact Thought Disorder: Not Present Hallucinations: Denies Suicidal Ideation: Denies Homicidal Ideation: Denies Insight/Judgement: Fair Sleep: Fair Appetite: Good Muscle strength/Tone: Normal Gait/Station: Normal Psychiatric Findings - Problem List ([place] 1, 2,3) (1) Alcohol dependence Current Visit: Yes Status: Acute (2) Nicotine dependence Current Visit: Yes Status: Acute Qualifiers: Nicotine product type: cigarettes Substance use status: in withdrawal Qualified Code(s): F17.213 - Nicotine dependence, cigarettes, with withdrawal (3) Major depressive disorder, recurrent Current Visit: No Status: Chronic Qualifiers: Major depression episode severity: mild Qualified Code(s): F33.0 - Major depressive disorder, recurrent, mild (4) Anemia Current Visit: Yes Status: Chronic (5) HTN (hypertension) Current Visit: Yes Status: Chronic Qualifiers: Hypertension type: essential hypertension Qualified Code(s): I10 - Essential (primary) hypertension (6) Lipoma Current Visit: Yes Status: Chronic Qualifiers: Lipoma location: trunk Qualified Code(s): D17.1 - Benign lipomatous neoplasm of skin and subcutaneous tissue of trunk Comment: RIGHT LATERAL MID CHEST WALL X 2 YEARS - Initial Treatment Plan Initial Treatment Plan: 1) Continue Effexor XR 150 mg po daily. 2) Monitor progress
[2017-01-14 10:17] LABS: MCH 28.4 pg (25.7-33.7); MCHC 32.2 g/dl (32.0-35.9); MEAN CELL VOLUME 88.3 fl (80-96); MEAN PLT VOLUME 9.7 fl (7.5-11.1); PLATELET COUNT 254 K/MM3 (134-434); RDW 15.2 % (11.9-15.9); WHITE BLOOD COUNT 4.6 K/mm3 (4.0-10.0)
[2017-01-14 10:37] LABS: ALBUMIN 4.2 g/dl (3.4-5.0); ALK PHOS 106 U/L (45-117); ANION GAP 8 (8-16); BILIRUBIN,TOTAL 0.8 mg/dL (0.2-1.0); CALCIUM 9.3 mg/dL (8.5-10.1); CO2 30 mmol/L (21-32); CREATININE 1.3 mg/dL (0.7-1.3); GLUCOSE,RANDOM 105 mg/dL (74-106); SGOT/AST 15 U/L (15-37); SGPT/ALT 26 U/L (12-78); TOT PROT 7.8 g/dl (6.4-8.2)
[2017-01-14] MEDS: amLODIPine BESYLATE 5 MG TABLET (FP) PO SCH (10:48)
[2017-01-14] MEDS: PRENATAL VITAMINS W/ FOLIC ACID TABLET (FP) PO SCH (10:50)
[2017-01-14] MEDS: PATIENT'S OWN MEDICATION (NON-FORMULARY) (Lisinopril/Hydrochlorothiazide [Lisinopril-Hctz PO SCH (10:50)
[2017-01-14] MEDS: MENTHOL/PHENOL 1 EACH UD MM PRN ×2 (10:54→21:51)
[2017-01-14] MEDS: VENLAFAXINE HCL 150 MG E.R. CAPSULE PO SCH (11:56)
[2017-01-14] MEDS: guaiFENesin/D-METHORPHAN HB 10 ML UNIT-DOSE CUPS PO PRN (16:58)
[2017-01-14] MEDS: THIAMINE HCL 100 MG TABLET (FP) PO SCH (21:50)
[2017-01-15] MEDS: guaiFENesin/D-METHORPHAN HB 10 ML UNIT-DOSE CUPS PO PRN ×2 (06:55→17:44)
[2017-01-15] MEDS: MENTHOL/PHENOL 1 EACH UD MM PRN (06:56)
[2017-01-15] MEDS: VENLAFAXINE HCL 150 MG E.R. CAPSULE PO SCH (10:19)
[2017-01-15] MEDS: PATIENT'S OWN MEDICATION (NON-FORMULARY) (Lisinopril/Hydrochlorothiazide [Lisinopril-Hctz PO SCH (10:19)
[2017-01-15] MEDS: amLODIPine BESYLATE 5 MG TABLET (FP) PO SCH (10:19)
[2017-01-15] MEDS: PRENATAL VITAMINS W/ FOLIC ACID TABLET (FP) PO SCH (10:19)
[2017-01-15] MEDS ORDERED: LEVOFLOXACIN 500 MG TABLET (FP) PO ONE (11:02)
--- NOTE | 2017-01-15 11:06 | PN ---
S Progress Note Note: sore throat,pharynx injected,cervical lymphadenitis, lung clear uri levaquin 500 mgs po daily for 7 days fluid tylenol 650 mgs po prn for pain or fever cepacol lozenge prn
--- NOTE | 2017-01-15 20:02 | EKG ---
Test Reason : Blood Pressure : / mmHG Vent. Rate : 077 BPM Atrial Rate : 077 BPM P-R Int : 140 ms QRS Dur : 092 ms QT Int : 382 ms P-R-T Axes : 029 027 044 degrees QTc Int : 432 ms NORMAL SINUS RHYTHM POSSIBLE LATERAL INFARCT , AGE UNDETERMINED ABNORMAL ECG WHEN COMPARED WITH ECG OF 25-OCT-2016 21:42, NO SIGNIFICANT CHANGE WAS FOUND Confirmed by SUZETTE HDEZ MD ([id number]) on 01/15/2017 8:02:01 PM Referred By: Jeyson Ross Confirmed By:SUZETTE HDEZ MD
[2017-01-15] MEDS: THIAMINE HCL 100 MG TABLET (FP) PO SCH (22:43)
[2017-01-16] MEDS: guaiFENesin/D-METHORPHAN HB 10 ML UNIT-DOSE CUPS PO PRN ×2 (00:49→06:19)
[2017-01-16] MEDS: PRENATAL VITAMINS W/ FOLIC ACID TABLET (FP) PO SCH (10:43)
[2017-01-16] MEDS: LEVOFLOXACIN 500 MG TABLET (FP) PO SCH (10:43)
[2017-01-16] MEDS: PATIENT'S OWN MEDICATION (NON-FORMULARY) (Lisinopril/Hydrochlorothiazide [Lisinopril-Hctz PO SCH (10:43)
[2017-01-16] MEDS: amLODIPine BESYLATE 5 MG TABLET (FP) PO SCH (10:43)
[2017-01-16] MEDS: VENLAFAXINE HCL 150 MG E.R. CAPSULE PO SCH (10:44)
[2017-01-16] MEDS: THIAMINE HCL 100 MG TABLET (FP) PO SCH (22:03)
[2017-01-17] MEDS: VENLAFAXINE HCL 150 MG E.R. CAPSULE PO SCH (10:11)
[2017-01-17] MEDS: PRENATAL VITAMINS W/ FOLIC ACID TABLET (FP) PO SCH (10:11)
[2017-01-17] MEDS: LEVOFLOXACIN 500 MG TABLET (FP) PO SCH (10:12)
[2017-01-17] MEDS: amLODIPine BESYLATE 5 MG TABLET (FP) PO SCH (10:12)
[2017-01-17] MEDS: PATIENT'S OWN MEDICATION (NON-FORMULARY) (Lisinopril/Hydrochlorothiazide [Lisinopril-Hctz PO SCH (10:13)
[2017-01-17] MEDS: THIAMINE HCL 100 MG TABLET (FP) PO SCH (21:41)
[2017-01-18] MEDS: PRENATAL VITAMINS W/ FOLIC ACID TABLET (FP) PO SCH (10:13)
[2017-01-18] MEDS: PATIENT'S OWN MEDICATION (NON-FORMULARY) (Lisinopril/Hydrochlorothiazide [Lisinopril-Hctz PO SCH (10:14)
[2017-01-18] MEDS: LEVOFLOXACIN 500 MG TABLET (FP) PO SCH (10:14)
[2017-01-18] MEDS: amLODIPine BESYLATE 5 MG TABLET (FP) PO SCH (10:14)
[2017-01-18] MEDS: VENLAFAXINE HCL 150 MG E.R. CAPSULE PO SCH (10:14)
[2017-01-18] MEDS: THIAMINE HCL 100 MG TABLET (FP) PO SCH (21:29)
[2017-01-19] MEDS: PATIENT'S OWN MEDICATION (NON-FORMULARY) (Lisinopril/Hydrochlorothiazide [Lisinopril-Hctz PO SCH (10:26)
[2017-01-19] MEDS: LEVOFLOXACIN 500 MG TABLET (FP) PO SCH (10:26)
[2017-01-19] MEDS: amLODIPine BESYLATE 5 MG TABLET (FP) PO SCH (10:26)
[2017-01-19] MEDS: PRENATAL VITAMINS W/ FOLIC ACID TABLET (FP) PO SCH (10:26)
[2017-01-19] MEDS: VENLAFAXINE HCL 150 MG E.R. CAPSULE PO SCH (10:27)
[2017-01-19] MEDS: THIAMINE HCL 100 MG TABLET (FP) PO SCH (22:03)
[2017-01-20] MEDS: LEVOFLOXACIN 500 MG TABLET (FP) PO SCH (10:24)
[2017-01-20] MEDS: PRENATAL VITAMINS W/ FOLIC ACID TABLET (FP) PO SCH (10:24)
[2017-01-20] MEDS: amLODIPine BESYLATE 5 MG TABLET (FP) PO SCH (10:24)
[2017-01-20] MEDS: VENLAFAXINE HCL 150 MG E.R. CAPSULE PO SCH (10:24)
[2017-01-20] MEDS: PATIENT'S OWN MEDICATION (NON-FORMULARY) (Lisinopril/Hydrochlorothiazide [Lisinopril-Hctz PO SCH (10:24)
[2017-01-20] MEDS: THIAMINE HCL 100 MG TABLET (FP) PO SCH (21:53)
[2017-01-21] MEDS: LEVOFLOXACIN 500 MG TABLET (FP) PO SCH (10:34)
[2017-01-21] MEDS: amLODIPine BESYLATE 5 MG TABLET (FP) PO SCH (10:34)
[2017-01-21] MEDS: VENLAFAXINE HCL 150 MG E.R. CAPSULE PO SCH (10:34)
[2017-01-21] MEDS: PRENATAL VITAMINS W/ FOLIC ACID TABLET (FP) PO SCH (10:34)
[2017-01-21] MEDS: PATIENT'S OWN MEDICATION (NON-FORMULARY) (Lisinopril/Hydrochlorothiazide [Lisinopril-Hctz PO SCH (10:35)
[2017-01-21] MEDS: guaiFENesin/D-METHORPHAN HB 10 ML UNIT-DOSE CUPS PO PRN (10:36)
[2017-01-21] MEDS: THIAMINE HCL 100 MG TABLET (FP) PO SCH (21:37)
[2017-01-22] MEDS: PRENATAL VITAMINS W/ FOLIC ACID TABLET (FP) PO SCH (10:18)
[2017-01-22] MEDS: VENLAFAXINE HCL 150 MG E.R. CAPSULE PO SCH (10:18)
[2017-01-22] MEDS: LEVOFLOXACIN 500 MG TABLET (FP) PO SCH (10:18)
[2017-01-22] MEDS: amLODIPine BESYLATE 5 MG TABLET (FP) PO SCH (10:18)
[2017-01-22] MEDS: PATIENT'S OWN MEDICATION (NON-FORMULARY) (Lisinopril/Hydrochlorothiazide [Lisinopril-Hctz PO SCH (10:19)
[2017-01-22] MEDS: THIAMINE HCL 100 MG TABLET (FP) PO SCH (23:36)
[2017-01-23] MEDS: PRENATAL VITAMINS W/ FOLIC ACID TABLET (FP) PO SCH (10:22)
[2017-01-23] MEDS: amLODIPine BESYLATE 5 MG TABLET (FP) PO SCH (10:22)
[2017-01-23] MEDS: LEVOFLOXACIN 500 MG TABLET (FP) PO SCH (10:22)
[2017-01-23] MEDS: VENLAFAXINE HCL 150 MG E.R. CAPSULE PO SCH (10:22)
[2017-01-23] MEDS: PATIENT'S OWN MEDICATION (NON-FORMULARY) (Lisinopril/Hydrochlorothiazide [Lisinopril-Hctz PO SCH (10:22)
[2017-01-23] MEDS: THIAMINE HCL 100 MG TABLET (FP) PO SCH (21:45)
[2017-01-24] MEDS: PRENATAL VITAMINS W/ FOLIC ACID TABLET (FP) PO SCH (10:17)
[2017-01-24] MEDS: VENLAFAXINE HCL 150 MG E.R. CAPSULE PO SCH (10:18)
[2017-01-24] MEDS: amLODIPine BESYLATE 5 MG TABLET (FP) PO SCH (10:23)
[2017-01-24] MEDS: PATIENT'S OWN MEDICATION (NON-FORMULARY) (Lisinopril/Hydrochlorothiazide [Lisinopril-Hctz PO SCH (10:23)
[2017-01-24] MEDS: THIAMINE HCL 100 MG TABLET (FP) PO SCH (21:26)
[2017-01-25] MEDS: amLODIPine BESYLATE 5 MG TABLET (FP) PO SCH (09:53)
[2017-01-25] MEDS: PRENATAL VITAMINS W/ FOLIC ACID TABLET (FP) PO SCH (09:53)
[2017-01-25] MEDS: VENLAFAXINE HCL 150 MG E.R. CAPSULE PO SCH (09:53)
[2017-01-25] MEDS: PATIENT'S OWN MEDICATION (NON-FORMULARY) (Lisinopril/Hydrochlorothiazide [Lisinopril-Hctz PO SCH (09:54)
[2017-01-25] MEDS: THIAMINE HCL 100 MG TABLET (FP) PO SCH (22:15)
[2017-01-26] MEDS: PATIENT'S OWN MEDICATION (NON-FORMULARY) (Lisinopril/Hydrochlorothiazide [Lisinopril-Hctz PO SCH (10:10)
[2017-01-26] MEDS: PRENATAL VITAMINS W/ FOLIC ACID TABLET (FP) PO SCH (10:11)
[2017-01-26] MEDS: VENLAFAXINE HCL 150 MG E.R. CAPSULE PO SCH (10:11)
[2017-01-26] MEDS: amLODIPine BESYLATE 5 MG TABLET (FP) PO SCH (10:11)
[2017-01-26] MEDS: THIAMINE HCL 100 MG TABLET (FP) PO SCH (10:50)
[2017-01-26] MEDS: guaiFENesin/D-METHORPHAN HB 10 ML UNIT-DOSE CUPS PO PRN (14:08)
[2017-01-27 07:14] VITALS: BP 98/74; PULSE 68; TEMP 98
--- NOTE | 2017-01-27 09:28 | PN ---
Psychiatric Progress Note Vital Signs: Vital Signs Period Temp Pulse Resp BP Sys/Pérez Pulse Ox Last 24 Hr 98.0 F 68-72 18-18 98-126/74-91 Date of Session: 01/27/17 Chief Complaint:: discharge visit HPI: Patient has addressed alcohol, cocaine, nicotine dependence comorbid MDD. ROS: Anemia, HTN, scoliosis medically managed. Current Medications: Active Medications Generic Name Dose Route Start Last Admin Trade Name Freq PRN Reason Stop Dose Admin Acetaminophen 650 mg 01/13/17 15:44 Tylenol - PO Q4H PRN PAIN Al Hydroxide/Mg Hydroxide 30 ml 01/13/17 15:44 Mylanta Oral Suspension - PO Q6H PRN DYSPEPSIA Amlodipine Besylate 5 mg 01/14/17 10:00 01/26/17 10:11 Norvasc - PO 5 mg DAILY TERESA Administration Diphenhydramine HCl 50 mg 01/13/17 15:44 01/14/17 21:51 Benadryl - PO 50 mg HSMR1 PRN Administration INSOMNIA Eucalyptus/Menthol/Phenol/Sorbitol 1 each 01/13/17 15:44 01/15/17 06:56 Cepastat Lozenge - MM 1 each Q4H PRN Administration SORE THROAT Guaifenesin 10 ml 01/13/17 15:44 01/26/17 14:08 Robitussin Dm - PO 10 ml Q6H PRN Administration COUGH Hydroxyzine Pamoate 25 mg 01/13/17 15:44 Vistaril - PO Q4H PRN AGITATION Ibuprofen 400 mg 01/13/17 15:44 01/14/17 17:33 Motrin - PO 400 mg Q6H PRN Administration SEVERE PAIN Loperamide HCl 4 mg 01/13/17 15:44 Imodium - PO Q6H PRN DIARRHEA Magnesium Citrate 300 ml 01/13/17 15:44 Citroma - PO Q48H PRN CONSTIPATION Magnesium Hydroxide 30 ml 01/13/17 15:44 Milk Of Magnesia - PO DAILY PRN CONSTIPATION Non-Formulary Medication 1 each 01/14/17 10:00 01/26/17 10:10 Lisinopril/Hydrochlorothiazide [Lisinopril-Hctz 20-25 Mg Tab] PO 1 each DAILY TERESA Administration Multivit/Folic Acid/Iron 1 tab 01/14/17 10:00 01/26/17 10:11 Vitamins (Sjr) - PO 1 tab DAILY TERESA Administration Pseudoephedrine/Triprolidine 1 combo 01/13/17 15:44 Actifed - PO TID PRN NASAL CONGESTION Thiamine HCl 100 mg 01/13/17 22:00 01/26/17 10:50 Vitamin B1 - PO Not Given HS TERESA Venlafaxine HCl 150 mg 01/14/17 10:45 01/26/17 10:11 Effexor Xr - PO 150 mg DAILY TERESA Administration Current Side Effect: No Lab tests ordered: No Lab tests reviewed: Yes Provider note:: Patient has completed today treatment and met his goals will continue to address his issues at [facility] outpatient treatment program. He gained insights into his addiction and identified the importance of changing attitude for the utilizations of supports to perevent relapses, as well identified his negative behaviors that needs to change if he is going to maintain his addiction.Patient reports that his current medication Effexor effective, he feels better, hopeful and energetic, he reports no side-effects from his current medications, scripts provided for 30 days supply. He will attends a day program at [facility] where f/u with a psychiatrist. Patient was encouraged to utilze all supports available to prevent relapses.MSE completed. Patient is stable for discharge today. Total face to face time:: 30 Mental Status Exam - Mental Status Exam Alert and Oriented to: Time, Place, Person Cognitive Function: Good Patient Appearance: Well Groomed Mood: Hopeful Affect: Appropriate, Mood Congruent Patient Behavior: Appropriate, Cooperative Speech Pattern: Clear, Appropriate Voice Loudness: Normal Thought Process: Goal Oriented Thought Disorder: Not Present Hallucinations: Denies Suicidal Ideation: Denies Homicidal Ideation: Denies Insight/Judgement: Good Sleep: Well Appetite: Good Muscle strength/Tone: Normal Gait/Station: Normal Psychiatric Treatment Plan - Problem List (1) Alcohol dependence Current Visit: Yes (2) Nicotine dependence Current Visit: Yes Qualifiers: Nicotine product type: cigarettes Substance use status: in withdrawal Qualified Code(s): F17.213 - Nicotine dependence, cigarettes, with withdrawal (3) Anemia Current Visit: Yes (4) Cocaine dependence Current Visit: Yes Qualifiers: Substance use status: uncomplicated Qualified Code(s): F14.20 - Cocaine dependence, uncomplicated (5) HTN (hypertension) Current Visit: Yes Qualifiers: Hypertension type: essential hypertension Qualified Code(s): I10 - Essential (primary) hypertension
[2017-01-27] MEDS: VENLAFAXINE HCL 150 MG E.R. CAPSULE PO SCH (09:38)
[2017-01-27] MEDS: PATIENT'S OWN MEDICATION (NON-FORMULARY) (Lisinopril/Hydrochlorothiazide [Lisinopril-Hctz PO SCH (09:39)
[2017-01-27] MEDS: PRENATAL VITAMINS W/ FOLIC ACID TABLET (FP) PO SCH (09:52)
[2017-01-27] MEDS: amLODIPine BESYLATE 5 MG TABLET (FP) PO SCH (09:52)
== END 2017-01-27 09:45 | disposition home or self-care (01) | DRG 772 ==
LOC: YASAS 12:29 → Y5N 16:25
PROVIDERS: ADMIT Psychiatry & Neurology Psychiatry; ATTEND Psychiatry & Neurology Psychiatry
PROC: HZ42ZZZ Group Counseling for Substance Abuse Treatment, Cognitive-Behavioral (ICD-10-PCS; principal; 2017-01-13)
DX: F10.20 Alcohol dependence, uncomplicated (principal); F14.20 Cocaine dependence, uncomplicated; F17.210 Nicotine dependence, cigarettes, uncomplicated; F33.0 Major depressive disorder, recurrent, mild; D64.9 Anemia, unspecified; I10 Essential (primary) hypertension; J06.9 Acute upper respiratory infection, unspecified; Z88.0 Allergy status to penicillin; D17.1 Benign lipomatous neoplasm of skin and subcutaneous tissue of trunk; Z87.898 Personal history of other specified conditions; M41.114 Juvenile idiopathic scoliosis, thoracic region
CPT/HCPCS: 36415; 80053; 81003; 85027; 86593; 93005; 93010

== ENCOUNTER 2017-03-09 09:20 | Inpatient (IN) | payer OTHER ==
[2017-03-09 10:46] VITALS: BMI 25.0
--- NOTE | 2017-03-09 12:27 | HP ---
CIWA Score - CIWA Score Nausea/Vomitin-Mild Nausea/No Vomiting Muscle Tremors: 3 Anxiety: 4-Mod. Anxious/Guarded Agitation: 4-Moderately Restless Paroxysmal Sweats: 3 Orientation: 2-Disoriented Date<2 days Tacttile Disturbances: 0-None Auditory Disturbances: 0-None Visual Disturbances: 0-None Headache: 0-None Present CIWA-Ar Total Score: 17 Admission ROS BHS - HPI Chief Complaint: Withdrawal sx. Allergies/Adverse Reactions: Allergies Allergy/AdvReac Type Severity Reaction Status Date / Time Penicillins Allergy Severe Hives Verified 03/09/17 10:23 History of Present Illness: 51 y/o man with a long hx. of alcohol & cocaine dependence is admitted for detox. Pt. has been in previous detox,denies significant sobriety. Exam Limitations: No Limitations - Ebola screening Have you traveled outside of the country in the last 21 days: No Have you had contact with anyone from an Ebola affected area: No Have you been sick,other than usual withdrawal symptoms: No Do you have a fever: No - Review of Systems Constitutional: Diaphoresis EENT: reports: No Symptoms Reported Respiratory: reports: No Symptoms reported Cardiac: reports: No Symptoms Reported GI: reports: Nausea, Abdominal cramping : reports: Frequency Musculoskeletal: reports: Joint Pain Integumentary: reports: Sweating Neuro: reports: Tremors Endocrine: reports: No Symptoms Reported Hematology: reports: No Symptoms Reported Psychiatric: reports: No Sypmtoms Reported Other Systems: Reviewed and Negative Patient History - Patient Medical History Hx Anemia: No Hx Asthma: No Hx Chronic Obstructive Pulmonary Disease (COPD): No Hx Cancer: No Hx Cardiac Disorders: No Hx Congestive Heart Failure: No Hx Hypertension: Yes (With treatment- medications) Hx Hypercholesterolemia: No Hx Pacemaker: No HX Cerebrovascular Accident: No Hx Seizures: No Hx Dementia: No Hx Diabetes: No Hx Gastrointestinal Disorders: No Hx Liver Disease: No Hx Genitourinary Disorders: No Hx Sexually Transmitted Disorders: No Hx Renal Disease (ESRD): No Hx Thyroid Disease: No Hx Human Immunodeficiency Virus (HIV): No Hx Hepatitis C: No Hx Depression: Yes Hx Suicide Attempt: No Hx Bipolar Disorder: No Hx Schizophrenia: No - Patient Surgical History Past Surgical History: No Hx Neurologic Surgery: No Hx Cataract Extraction: No Hx Cardiac Surgery: No Hx Lung Surgery: No Hx Breast Surgery: No Hx Breast Biopsy: No Hx Abdominal Surgery: No Hx Appendectomy: No Hx Cholecystectomy: No Hx Genitourinary Surgery: No Hx Section: No Hx Orthopedic Surgery: No Anesthesia Reaction: No - PPD History Previous Implant?: Yes Documented Results: Negative w/proof Date: 01/15/17 Results: 0 mm PPD to be Administered?: No - Smoking Cessation Smoking history: Current every day smoker Have you smoked in the past 12 months: No Aproximately how many cigarettes per day: 3 Cigars Per Day: 0 Hx Chewing Tobacco Use: No Initiated information on smoking cessation: Yes 'Breaking Loose' booklet given: 03/09/17 - Substance & Tx. History Hx Alcohol Use: Yes Hx Substance Use: Yes Substance Use Type: Alcohol, Cocaine Hx Substance Use Treatment: Yes (Detox at [facility] 12/2016) - Substances Abused Alcohol Route: Oral Frequency: Daily Amount used: BEER- 4 SIX PACK Age of first use: 16 Date of Last Use: 03/08/17 Crack Route: Smoking Frequency: 1-3 times last 30 days Amount used: 3-4gms Age of first use: 21 Date of Last Use: 03/07/17 Family Disease History - Family Disease History Family Disease History: Other: Father (alcohol,,cirrhosis), Mother ( alcohol,cirrhosis,cirrhosis) Admission Physical Exam S - Vital Signs Vital Signs: Vital Signs - 24 hr 03/09/17 10:41 Temperature 96 F L Pulse Rate 68 Respiratory 20 Rate Blood Pressure 163/104 - Physical General Appearance: Yes: Tremorous, Sweating, Anxious HEENTM: Yes: Within Normal Limits Respiratory: Yes: Chest Non-Tender, Lungs Clear, Normal Breath Sounds Neck: Yes: Supple Breast: Yes: Breast Exam Deferred Cardiology: Yes: Regular Rhythm, Regular Rate, S1, S2 Abdominal: Yes: Normal Bowel Sounds, Non Tender, Soft Genitourinary: Yes: Within Normal Limits Back: Yes: Within Normal Limits Musculoskeletal: Yes: Within Normal Limits Extremities: Yes: Tremors 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: Fully Oriented, Alert Integumentary: Yes: Diaphoresis Lymphatic: Yes: Within Normal Limits - Diagnostic (1) Nicotine dependence Current Visit: Yes Status: Acute Qualifiers: Nicotine product type: cigarettes Substance use status: in withdrawal Qualified Code(s): F17.213 - Nicotine dependence, cigarettes, with withdrawal; F17.213 - Nicotine dependence, cigarettes, with withdrawal (2) Alcohol dependence with uncomplicated withdrawal Current Visit: Yes Status: Chronic (3) HTN (hypertension) Current Visit: Yes Status: Chronic Qualifiers: Hypertension type: essential hypertension Qualified Code(s): I10 - Essential (primary) hypertension; I10 - Essential (primary) hypertension; I10 - Essential (primary) hypertension Cleared for Admission S - Detox or Rehab [facility] Level of Care: Medically Managed Detox Regimen/Protocol: Librium S Breath Alcohol Content Breath Alcohol Content: 0 Urine Drug Screen - Results Drug Screen Negative: No Urine Drug Screen Results: JOHNATHAN-Cocaine
[2017-03-09] MEDS ORDERED: diphenhydrAMINE HCL 50 MG CAPSULE PO PRN (12:43)
[2017-03-09] MEDS ORDERED: P-EPHED 60MG/TRIPROLIDI 2.5MG TABLET PO PRN (12:43)
[2017-03-09] MEDS ORDERED: guaiFENesin/D-METHORPHAN HB 10 ML UNIT-DOSE CUPS PO PRN (12:43)
[2017-03-09] MEDS ORDERED: MAGNESIUM HYDROX 2400MG/30ML ORAL SUSPENSION 30 ML CUP PO PRN (12:43)
[2017-03-09] MEDS ORDERED: hydrOXYzine PAMOATE 50 MG CAPSULE (FP) PO PRN (12:43)
[2017-03-09] MEDS ORDERED: NICOTINE POLACRILEX 2 MG GUM BC PRN (12:43)
[2017-03-09] MEDS ORDERED: MENTHOL/PHENOL 1 EACH UD MM PRN (12:43)
[2017-03-09] MEDS ORDERED: chlordiazePOXIDE HCL 25 MG CAPSULE PO PRN (12:43)
[2017-03-09] MEDS ORDERED: MAGNESIUM CITRATE 300 ML BOTTLE PO PRN (12:43)
[2017-03-09] MEDS ORDERED: LOPERAMIDE HCL 2 MG CAPSULE PO PRN (12:43)
[2017-03-09] MEDS ORDERED: chlordiazePOXIDE HCL 25 MG CAPSULE PO ONE (12:43)
[2017-03-09] MEDS ORDERED: MAG HYDROX/AL HYDROX/SIMETH 30 ML UNIT-DOSE CUP PO PRN (12:43)
[2017-03-09] MEDS ORDERED: ACETAMINOPHEN 325 MG TABLET (FP) PO PRN (12:43)
[2017-03-09] MEDS: HYDROCHLOROTHIAZIDE 25 MG TABLET (FP) PO SCH (13:36)
[2017-03-09] MEDS: LISINOPRIL 20 MG TABLET (FP) PO SCH ×2 (13:36→22:21)
--- NOTE | 2017-03-09 16:26 | EKG ---
Test Reason : Blood Pressure : / mmHG Vent. Rate : 065 BPM Atrial Rate : 065 BPM P-R Int : 128 ms QRS Dur : 096 ms QT Int : 388 ms P-R-T Axes : 031 026 058 degrees QTc Int : 403 ms NORMAL SINUS RHYTHM NORMAL ECG WHEN COMPARED WITH ECG OF 13-JAN-2017 21:34, NONSPECIFIC T WAVE ABNORMALITY IN LEAD aVL Confirmed by SUZETTE HDEZ MD ([id number]) on 03/09/2017 4:26:12 PM Referred By: Confirmed By:SUZETTE HDEZ MD
[2017-03-09] MEDS: chlordiazePOXIDE HCL 25 MG CAPSULE PO SCH ×2 (17:11→22:21)
[2017-03-09 21:45] LABS: URINE APPEARANCE CLEAR; URINE BILIRUBIN NEGATIVE (NEGATIVE); URINE BLOOD 1+ (NEGATIVE); URINE COLOR YELLOW; URINE GLUCOSE (UA) NEGATIVE (NEGATIVE); URINE KETONE NEGATIVE (NEGATIVE); URINE NITRITE NEGATIVE (NEGATIVE); URINE PROTEIN NEGATIVE (NEGATIVE); URINE UROBILINOGEN NEGATIVE mg/dL (0.2-1.0)
[2017-03-09 22:11] LABS: URINE BACTERIA RARE /hpf (NONE SEEN); URINE MUCUS RARE; URINE RBC 5 /hpf (0-3); URINE WBC <1 /hpf (3-5)
[2017-03-09] MEDS: THIAMINE HCL 100 MG TABLET (FP) PO SCH (22:21)
[2017-03-10] MEDS: chlordiazePOXIDE HCL 25 MG CAPSULE PO SCH ×3 (05:21→16:57)
--- NOTE | 2017-03-10 09:49 | PN ---
S CIWA - CIWA Score Nausea/Vomitin-No Nausea/No Vomiting Muscle Tremors: 4-Moderate,w/Arms Extend Anxiety: 3 Agitation: 4-Moderately Restless Paroxysmal Sweats: 3 Orientation: 0-Oriented Tacttile Disturbances: 0-None Auditory Disturbances: 0-None Visual Disturbances: 0-None Headache: 0-None Present CIWA-Ar Total Score: 14 BHS Progress Note (SOAP) Subjective: sweats bottom of feet dry and cracked it hurts when I walk shakes interrupted sleep agitation anxiety i want ensure Objective: 03/10/17 09:46 Vital Signs Temperature 97.2 F L 03/10/17 06:46 Pulse Rate 66 03/10/17 06:46 Respiratory Rate 16 03/10/17 06:46 Blood Pressure 107/68 03/10/17 06:46 O2 Sat by Pulse Oximetry (%) Laboratory Tests 03/09/17 17:54 Urine Color Yellow Urine Appearance Clear Urine pH 5.0 Urine Protein Negative Urine Glucose (UA) Negative Urine Ketones Negative Urine Blood 1+ H Urine Nitrite Negative Urine Bilirubin Negative Urine Urobilinogen Negative Urine RBC 5 Urine WBC <1 Ur Epithelial Cells Rare Urine Bacteria Rare Urine Mucus Rare labs pending aaox2 ambulating no acute distress Assessment: 03/10/17 09:47 withdrawal sx Plan: continue detox increase fluids tinactin cream ensure bid
[2017-03-10] MEDS: TOLNAFTATE 1% CREAM 15 GM TUBE TP SCH (10:08)
[2017-03-10] MEDS: LISINOPRIL 20 MG TABLET (FP) PO SCH (10:09)
[2017-03-10] MEDS: HYDROCHLOROTHIAZIDE 25 MG TABLET (FP) PO SCH (10:09)
[2017-03-10] MEDS: amLODIPine BESYLATE 5 MG TABLET (FP) PO SCH (10:09)
[2017-03-10] MEDS: PRENATAL VITAMINS W/ FOLIC ACID TABLET (FP) PO SCH (10:09)
[2017-03-10 10:41] LABS: MCH 28.7 pg (25.7-33.7); MCHC 31.9 g/dl (32.0-35.9); MEAN CELL VOLUME 90.1 fl (80-96); MEAN PLT VOLUME 9.6 fl (7.5-11.1); PLATELET COUNT 244 K/MM3 (134-434); RDW 15.9 % (11.9-15.9); WHITE BLOOD COUNT 4.9 K/mm3 (4.0-10.0)
[2017-03-10 11:03] LABS: ALBUMIN 3.4 g/dl (3.4-5.0); ALK PHOS 93 U/L (45-117); ANION GAP 10 (8-16); BILIRUBIN,TOTAL 0.9 mg/dL (0.2-1.0); CO2 28 mmol/L (21-32); CREATININE 0.6 mg/dL (0.7-1.3); GLUCOSE,RANDOM 75 mg/dL (74-106); SGOT/AST 19 U/L (15-37); SGPT/ALT 28 U/L (12-78); TOT PROT 6.5 g/dl (6.4-8.2)
--- NOTE | 2017-03-10 14:25 | CONSULT ---
[facility] Psychiatric Consult - Data Date of interview: 03/10/17 Admission source: [facility] Identifying data: Readmission to [facility] for this 51 y/o AA male seeking detox treatment on for alcohol and cocaine dependence.Patient is single without children,currently undomiciled,unemployed and supported on SSI benefits. Substance Abuse History: Confirmed by patient in this encounter. Smoking Cessation. Smoking history: Current every day smoker. Have you smoked in the past 12 months: No. Aproximately how many cigarettes per day: 3. Cigars Per Day: 0. Hx Chewing Tobacco Use: No. Initiated information on smoking cessation : Yes. 'Breaking Loose' booklet given: 03/09/17. - Substance & Tx. History. Hx Alcohol Use: Yes. Hx Substance Use: Yes. Substance Use Type: Alcohol, Cocaine. Hx Substance Use Treatment: Yes (Detox at [facility] 12/2016). - Substances Abused. Alcohol. Route: Oral. Frequency: Daily. Amount used: BEER- 4 SIX PACK. Age of first use: 16. Date of Last Use: 03/08/17. Crack. Route: Smoking. Frequency: 1-3 times last 30 days. Amount used: 3-4gms. Age of first use: 21. Date of Last Use: 03/07/17 Medical History: Hypertension and scoliosis. Psychiatric History: First and only psychatric hospitalization occurred in 2001 at the [facility] in [place].Diagnosed with MDD.Mr Del Castillo is still maintained on effexor XR 75 mg/day.He currently gets his outpatient psychiatric services at the [facility] in [facility].No reported history of suicide attempts. Physical/Sexual Abuse/Trauma History: Patient remains guarded about present/ past stressors. Additional Comment: Urine Drug Screen Results: JOHNATHAN-Cocaine.Noted. Mental Status Exam - Mental Status Exam Alert and Oriented to: Time, Place, Person Cognitive Function: Good Patient Appearance: Well Groomed Mood: Hopeful, Euthymic Affect: Appropriate, Normal Range Patient Behavior: Appropriate, Cooperative Speech Pattern: Clear Voice Loudness: Normal Thought Process: Intact, Goal Oriented Thought Disorder: Not Present Hallucinations: Denies Suicidal Ideation: Denies Homicidal Ideation: Denies Insight/Judgement: Poor Sleep: Well Appetite: Good Muscle strength/Tone: Normal Gait/Station: Normal Psychiatric Findings - Problem List ([place] 1, 2,3) (1) Alcohol dependence with uncomplicated withdrawal Current Visit: Yes Status: Acute (2) Cocaine dependence Current Visit: Yes Status: Acute Qualifiers: Substance use status: uncomplicated Qualified Code(s): F14.20 - Cocaine dependence, uncomplicated; F14.20 - Cocaine dependence, uncomplicated; F14.20 - Cocaine dependence, uncomplicated (3) Nicotine dependence Current Visit: Yes Status: Acute Qualifiers: Nicotine product type: cigarettes Substance use status: uncomplicated Qualified Code(s): F17.210 - Nicotine dependence, cigarettes, uncomplicated; F17.210 - Nicotine dependence, cigarettes, uncomplicated (4) Substance induced mood disorder Current Visit: Yes Status: Acute (5) Depressive disorder Current Visit: Yes Status: Chronic (6) HTN (hypertension) Current Visit: Yes Status: Chronic Qualifiers: Hypertension type: essential hypertension Qualified Code(s): I10 - Essential (primary) hypertension; I10 - Essential (primary) hypertension; I10 - Essential (primary) hypertension (7) Back pain Current Visit: Yes Status: Chronic (8) Scoliosis deformity of spine Current Visit: No Status: Chronic Qualifiers: Scoliosis type: idiopathic Idiopathic scoliosis type: juvenile Spinal region: thoracic Qualified Code(s): 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
[2017-03-10] MEDS: VENLAFAXINE HCL 75 MG E.R. CAPSULES (FP) PO SCH (15:08)
[2017-03-10 15:36] LABS: URINE LEUK ESTERASE Negative (NEGATIVE)
[2017-03-10] MEDS: IBUPROFEN 400 MG TABLET (FP) PO PRN (16:57)
[2017-03-11] MEDS: chlordiazePOXIDE HCL 25 MG CAPSULE PO SCH ×3 (00:23→10:11)
[2017-03-11] MEDS: LISINOPRIL 20 MG TABLET (FP) PO SCH ×3 (00:23→23:45)
[2017-03-11] MEDS: TOLNAFTATE 1% CREAM 15 GM TUBE TP SCH ×3 (00:24→23:45)
[2017-03-11] MEDS: THIAMINE HCL 100 MG TABLET (FP) PO SCH ×2 (00:24→23:46)
[2017-03-11] MEDS: IBUPROFEN 400 MG TABLET (FP) PO PRN (07:23)
[2017-03-11] MEDS: VENLAFAXINE HCL 75 MG E.R. CAPSULES (FP) PO SCH (10:11)
[2017-03-11] MEDS: PRENATAL VITAMINS W/ FOLIC ACID TABLET (FP) PO SCH (10:11)
[2017-03-11] MEDS: amLODIPine BESYLATE 5 MG TABLET (FP) PO SCH (10:11)
[2017-03-11] MEDS: HYDROCHLOROTHIAZIDE 25 MG TABLET (FP) PO SCH (10:11)
--- NOTE | 2017-03-11 10:24 | PN ---
S CIWA - CIWA Score Nausea/Vomitin-No Nausea/No Vomiting Muscle Tremors: 3 Anxiety: 3 Agitation: 2 Paroxysmal Sweats: 2 Orientation: 0-Oriented Tacttile Disturbances: 1-Very Mild Itch/Numbness Auditory Disturbances: 0-None Visual Disturbances: 0-None Headache: 1-Very Mild CIWA-Ar Total Score: 12 BHS Progress Note (SOAP) Subjective: Sweats shakes, interrupted sleep c/o right foot pain on ambulation Objective: 03/11/17 10:37 Vital Signs Temperature 97.7 F 03/11/17 09:39 Pulse Rate 77 03/11/17 09:39 Respiratory Rate 18 03/11/17 09:39 Blood Pressure 105/77 03/11/17 09:39 O2 Sat by Pulse Oximetry (%) Laboratory Last Values WBC 4.9 K/mm3 (4.0-10.0) 03/10/17 07:00 RBC 4.29 M/mm3 (4.00-5.60) 03/10/17 07:00 Hgb 12.3 GM/dL (11.7-16.9) D 03/10/17 07:00 Hct 38.6 % (35.4-49) 03/10/17 07:00 MCV 90.1 fl (80-96) 03/10/17 07:00 MCH 28.7 pg (25.7-33.7) 03/10/17 07:00 MCHC 31.9 g/dl (32.0-35.9) L 03/10/17 07:00 RDW 15.9 % (11.9-15.9) 03/10/17 07:00 Plt Count 244 K/MM3 (134-434) 03/10/17 07:00 MPV 9.6 fl (7.5-11.1) 03/10/17 07:00 Sodium 142 mmol/L (136-145) 03/10/17 07:00 Potassium 3.6 mmol/L (3.5-5.1) 03/10/17 07:00 Chloride 104 mmol/L (98-107) 03/10/17 07:00 Carbon Dioxide 28 mmol/L (21-32) 03/10/17 07:00 Anion Gap 10 (8-16) 03/10/17 07:00 BUN 11 mg/dL (7-18) D 03/10/17 07:00 Creatinine 0.6 mg/dL (0.7-1.3) L D 03/10/17 07:00 Creat Clearance w eGFR > 60 (>60) 03/10/17 07:00 Random Glucose 75 mg/dL (74-106) D 03/10/17 07:00 Calcium 9.0 mg/dL (8.5-10.1) 03/10/17 07:00 Total Bilirubin 0.9 mg/dL (0.2-1.0) 03/10/17 07:00 AST 19 U/L (15-37) D 03/10/17 07:00 ALT 28 U/L (12-78) 03/10/17 07:00 Alkaline Phosphatase 93 U/L (45-117) 03/10/17 07:00 Total Protein 6.5 g/dl (6.4-8.2) 03/10/17 07:00 Albumin 3.4 g/dl (3.4-5.0) 03/10/17 07:00 Urine Color Yellow 03/09/17 17:54 Urine Appearance Clear 03/09/17 17:54 Urine pH 5.0 (5.0-8.0) 03/09/17 17:54 Ur Specific [place] 1.025 (1.005-1.025) 03/09/17 17:54 Urine Protein Negative (NEGATIVE) 03/09/17 17:54 Urine Glucose (UA) Negative (NEGATIVE) 03/09/17 17:54 Urine Ketones Negative (NEGATIVE) 03/09/17 17:54 Urine Blood 1+ (NEGATIVE) H 03/09/17 17:54 Urine Nitrite Negative (NEGATIVE) 03/09/17 17:54 Urine Bilirubin Negative (NEGATIVE) 03/09/17 17:54 Urine Urobilinogen Negative mg/dL (0.2-1.0) 03/09/17 17:54 Ur Leukocyte Esterase Negative (NEGATIVE) 03/09/17 17:54 Urine RBC 5 /hpf (0-3) 03/09/17 17:54 Urine WBC <1 /hpf (3-5) 03/09/17 17:54 Ur Epithelial Cells Rare /hpf (FEW) 03/09/17 17:54 Urine Bacteria Rare /hpf (NONE SEEN) 03/09/17 17:54 Urine Mucus Rare 03/09/17 17:54 RPR Titer Nonreactive (NONREACTIVE) 03/10/17 07:00 03/11/17 10:41 Labs noted. Right foot examined. NAD, ambuates on the unit. Pedal pulses +. Pt requesting orthopedic shoes, will f/u with PMD on D/C 03/11/17 11:04 Assessment: 03/11/17 10:42 Withdrawal sx 03/11/17 10:58 Plan: Continue detox
[2017-03-11] MEDS: chlordiazePOXIDE 5 MG CAPSULE PO SCH ×2 (18:06→23:45)
[2017-03-12] MEDS: chlordiazePOXIDE 5 MG CAPSULE PO SCH ×2 (05:41→10:21)
--- NOTE | 2017-03-12 10:04 | PN ---
BHS Progress Note (SOAP) Subjective: anxiety Objective: 03/12/17 10:06 Vital Signs Temperature 96.9 F L 03/12/17 06:26 Pulse Rate 73 03/12/17 06:26 Respiratory Rate 16 03/12/17 06:26 Blood Pressure 105/72 03/12/17 06:26 O2 Sat by Pulse Oximetry (%) aaox3 ambulating no acute distress Assessment: 03/12/17 10:06 withdrawal sx Plan: continue detox d/c in am
[2017-03-12] MEDS: VENLAFAXINE HCL 75 MG E.R. CAPSULES (FP) PO SCH (10:21)
[2017-03-12] MEDS: PRENATAL VITAMINS W/ FOLIC ACID TABLET (FP) PO SCH (10:21)
[2017-03-12] MEDS: LISINOPRIL 20 MG TABLET (FP) PO SCH ×2 (10:21→22:23)
[2017-03-12] MEDS: amLODIPine BESYLATE 5 MG TABLET (FP) PO SCH (10:21)
[2017-03-12] MEDS: HYDROCHLOROTHIAZIDE 25 MG TABLET (FP) PO SCH (10:21)
[2017-03-12] MEDS ORDERED: IBUPROFEN 600 MG TABLET (FP) PO PRN (10:41)
[2017-03-12] MEDS ORDERED: FUROSEMIDE 40 MG TABLET (FP) PO ONE (10:41)
[2017-03-12] MEDS: TOLNAFTATE 1% CREAM 15 GM TUBE TP SCH ×2 (11:36→22:23)
[2017-03-12] MEDS: chlordiazePOXIDE HCL 10 MG CAPSULE PO SCH ×2 (22:22→22:23)
[2017-03-12] MEDS: METHYL SALICYLATE/MENTHOL OINT 30 GM TUBE TP SCH (22:23)
[2017-03-12] MEDS: THIAMINE HCL 100 MG TABLET (FP) PO SCH (22:23)
[2017-03-13] MEDS: chlordiazePOXIDE HCL 10 MG CAPSULE PO SCH ×2 (07:35→10:04)
[2017-03-13] MEDS: PRENATAL VITAMINS W/ FOLIC ACID TABLET (FP) PO SCH (09:18)
[2017-03-13] MEDS: TOLNAFTATE 1% CREAM 15 GM TUBE TP SCH (09:18)
[2017-03-13] MEDS: amLODIPine BESYLATE 5 MG TABLET (FP) PO SCH (09:18)
[2017-03-13] MEDS: METHYL SALICYLATE/MENTHOL OINT 30 GM TUBE TP SCH (09:18)
[2017-03-13] MEDS: LISINOPRIL 20 MG TABLET (FP) PO SCH (09:19)
[2017-03-13] MEDS: HYDROCHLOROTHIAZIDE 25 MG TABLET (FP) PO SCH (09:19)
[2017-03-13] MEDS: VENLAFAXINE HCL 75 MG E.R. CAPSULES (FP) PO SCH (09:19)
--- NOTE | 2017-03-13 09:22 | DS ---
[facility] Detox Discharge Summary Admission Date: 03/09/17 Discharge Date: 03/13/17 - History Present History: Alcohol Dependence, Cocaine Dependence Additional Comments: Detox completed. Alert and oriented x 3 and stable. Patient encouraged to follow up with PMD at [facility] for medical management Pertinent Past History: HTN, URI, anemia, Lipoma, Scoliosis, Back pain, Nicotine dependence - Physical Exam Results Vital Signs: Vital Signs Temperature 97.9 F 03/13/17 06:00 Pulse Rate 74 03/13/17 06:00 Respiratory Rate 18 03/13/17 06:00 Blood Pressure 111/76 03/13/17 06:00 O2 Sat by Pulse Oximetry (%) Laboratory Last Values WBC 4.9 K/mm3 (4.0-10.0) 03/10/17 07:00 RBC 4.29 M/mm3 (4.00-5.60) 03/10/17 07:00 Hgb 12.3 GM/dL (11.7-16.9) D 03/10/17 07:00 Hct 38.6 % (35.4-49) 03/10/17 07:00 MCV 90.1 fl (80-96) 03/10/17 07:00 MCH 28.7 pg (25.7-33.7) 03/10/17 07:00 MCHC 31.9 g/dl (32.0-35.9) L 03/10/17 07:00 RDW 15.9 % (11.9-15.9) 03/10/17 07:00 Plt Count 244 K/MM3 (134-434) 03/10/17 07:00 MPV 9.6 fl (7.5-11.1) 03/10/17 07:00 Sodium 142 mmol/L (136-145) 03/10/17 07:00 Potassium 3.6 mmol/L (3.5-5.1) 03/10/17 07:00 Chloride 104 mmol/L (98-107) 03/10/17 07:00 Carbon Dioxide 28 mmol/L (21-32) 03/10/17 07:00 Anion Gap 10 (8-16) 03/10/17 07:00 BUN 11 mg/dL (7-18) D 03/10/17 07:00 Creatinine 0.6 mg/dL (0.7-1.3) L D 03/10/17 07:00 Creat Clearance w eGFR > 60 (>60) 03/10/17 07:00 Random Glucose 75 mg/dL (74-106) D 03/10/17 07:00 Calcium 9.0 mg/dL (8.5-10.1) 03/10/17 07:00 Total Bilirubin 0.9 mg/dL (0.2-1.0) 03/10/17 07:00 AST 19 U/L (15-37) D 03/10/17 07:00 ALT 28 U/L (12-78) 03/10/17 07:00 Alkaline Phosphatase 93 U/L (45-117) 03/10/17 07:00 Total Protein 6.5 g/dl (6.4-8.2) 03/10/17 07:00 Albumin 3.4 g/dl (3.4-5.0) 03/10/17 07:00 Urine Color Yellow 03/09/17 17:54 Urine Appearance Clear 03/09/17 17:54 Urine pH 5.0 (5.0-8.0) 03/09/17 17:54 Ur Specific [place] 1.025 (1.005-1.025) 03/09/17 17:54 Urine Protein Negative (NEGATIVE) 03/09/17 17:54 Urine Glucose (UA) Negative (NEGATIVE) 03/09/17 17:54 Urine Ketones Negative (NEGATIVE) 03/09/17 17:54 Urine Blood 1+ (NEGATIVE) H 03/09/17 17:54 Urine Nitrite Negative (NEGATIVE) 03/09/17 17:54 Urine Bilirubin Negative (NEGATIVE) 03/09/17 17:54 Urine Urobilinogen Negative mg/dL (0.2-1.0) 03/09/17 17:54 Ur Leukocyte Esterase Negative (NEGATIVE) 03/09/17 17:54 Urine RBC 5 /hpf (0-3) 03/09/17 17:54 Urine WBC <1 /hpf (3-5) 03/09/17 17:54 Ur Epithelial Cells Rare /hpf (FEW) 03/09/17 17:54 Urine Bacteria Rare /hpf (NONE SEEN) 03/09/17 17:54 Urine Mucus Rare 03/09/17 17:54 RPR Titer Nonreactive (NONREACTIVE) 03/10/17 07:00 Labs noted Pertinent Admission Physical Exam Findings: Withdrawal sx - Treatment Hospital Course: Detox Protocol Followed, Detoxed Safely, Responded well, Discharged Condition Good Patient has Accepted a Rehab Referral to: [facility] - Medication Discharge Medications: Ambulatory Orders Venlafaxine HCl ER [Effexor Xr -] 150 mg PO DAILY #30 cap.er.24h 07/16/16 Amlodipine Besylate [Norvasc -] 5 mg PO DAILY #30 tablet 01/27/17 Lisinopril/Hydrochlorothiazide [Lisinopril-Hctz 20-25 mg Tab] 1 each PO DAILY # 30 tab 01/27/17 Venlafaxine HCl ER [Effexor Xr -] 150 mg PO DAILY #30 tab 01/27/17 - Diagnosis (1) Nicotine dependence Current Visit: Yes Status: Acute Qualifiers: Nicotine product type: cigarettes Substance use status: uncomplicated Qualified Code(s): F17.210 - Nicotine dependence, cigarettes, uncomplicated; F17.210 - Nicotine dependence, cigarettes, uncomplicated (2) Alcohol dependence with uncomplicated withdrawal Current Visit: Yes Status: Acute (3) Back pain Current Visit: Yes Status: Chronic (4) HTN (hypertension) Current Visit: Yes Status: Chronic Qualifiers: Hypertension type: essential hypertension Qualified Code(s): I10 - Essential (primary) hypertension; I10 - Essential (primary) hypertension; I10 - Essential (primary) hypertension (5) URI (upper respiratory infection) Current Visit: No Status: Chronic (6) Anemia Current Visit: No Status: Chronic (7) Lipoma Current Visit: No Status: Chronic Qualifiers: Lipoma location: trunk Qualified Code(s): D17.1 - Benign lipomatous neoplasm of skin and subcutaneous tissue of trunk; D17.1 - Benign lipomatous neoplasm of skin and subcutaneous tissue of trunk (8) Major depressive disorder, recurrent Current Visit: Yes Status: Chronic Qualifiers: Major depression episode severity: mild Qualified Code(s): F33.0 - Major depressive disorder, recurrent, mild; F33.0 - Major depressive disorder, recurrent, mild; F33.0 - Major depressive disorder, recurrent, mild; F33.0 - Major depressive disorder, recurrent, mild (9) Scoliosis deformity of spine Current Visit: No Status: Chronic Qualifiers: Scoliosis type: idiopathic Idiopathic scoliosis type: juvenile Spinal region: thoracic Qualified Code(s): 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
[2017-03-13 11:04] VITALS: BP 112/75; PULSE 83; TEMP 95.2
== END 2017-03-13 11:39 | disposition home or self-care (01) | DRG 774 ==
LOC: YASAS 09:20 → Y6N 12:18
PROVIDERS: ADMIT Internal Medicine; ATTEND Internal Medicine
PROC: HZ2ZZZZ Detoxification Services for Substance Abuse Treatment (ICD-10-PCS; principal; 2017-03-09)
DX: F10.230 Alcohol dependence with withdrawal, uncomplicated (principal); F14.20 Cocaine dependence, uncomplicated; F17.210 Nicotine dependence, cigarettes, uncomplicated; F33.0 Major depressive disorder, recurrent, mild; F19.24 Other psychoactive substance dependence with psychoactive substance-induced mood disorder; M54.9 Dorsalgia, unspecified; G89.29 Other chronic pain; I10 Essential (primary) hypertension; J06.9 Acute upper respiratory infection, unspecified; D64.9 Anemia, unspecified; D17.1 Benign lipomatous neoplasm of skin and subcutaneous tissue of trunk; M41.114 Juvenile idiopathic scoliosis, thoracic region; Z88.0 Allergy status to penicillin; Z87.898 Personal history of other specified conditions
CPT/HCPCS: 36415; 80053; 81003; 81015; 85027; 86593; 93005; 93010

== ENCOUNTER 2017-05-28 11:26 | Inpatient (IN) | payer OTHER ==
[2017-05-28 11:54] VITALS: BMI 23.3
[2017-05-28] MEDS ORDERED: guaiFENesin/D-METHORPHAN HB 10 ML UNIT-DOSE CUPS PO PRN (15:35)
[2017-05-28] MEDS ORDERED: MAGNESIUM CITRATE 300 ML BOTTLE PO PRN (15:35)
[2017-05-28] MEDS ORDERED: LOPERAMIDE HCL 2 MG CAPSULE PO PRN (15:35)
[2017-05-28] MEDS ORDERED: IBUPROFEN 400 MG TABLET (FP) PO PRN (15:35)
[2017-05-28] MEDS ORDERED: NICOTINE POLACRILEX 2 MG GUM BUC PRN (15:35)
[2017-05-28] MEDS ORDERED: chlordiazePOXIDE HCL 25 MG CAPSULE PO PRN (15:35)
[2017-05-28] MEDS ORDERED: P-EPHED 60MG/TRIPROLIDI 2.5MG TABLET PO PRN (15:35)
[2017-05-28] MEDS ORDERED: ACETAMINOPHEN 325 MG TABLET (FP) PO PRN (15:35)
[2017-05-28] MEDS ORDERED: MENTHOL/PHENOL 1 EACH UD MM PRN (15:35)
[2017-05-28] MEDS ORDERED: MAG HYDROX/AL HYDROX/SIMETH 30 ML UNIT-DOSE CUP PO PRN (15:35)
[2017-05-28] MEDS ORDERED: MAGNESIUM HYDROX 2400MG/30ML ORAL SUSPENSION 30 ML CUP PO PRN (15:35)
--- NOTE | 2017-05-28 15:47 | HP ---
CIWA Score - CIWA Score Nausea/Vomitin Muscle Tremors: 5 Anxiety: 1-Mildly Anxious Agitation: 1-Slight > Activity Paroxysmal Sweats: 2 Orientation: 0-Oriented Tacttile Disturbances: 1-Very Mild Itch/Numbness Auditory Disturbances: 0-None Visual Disturbances: 0-None Headache: 4-Moderately Severe CIWA-Ar Total Score: 16 Admission ROS BHS - HPI Chief Complaint: 52yr old man with depression, alcohol use disorder presents for alcohol detox Allergies/Adverse Reactions: Allergies Allergy/AdvReac Type Severity Reaction Status Date / Time Penicillins Allergy Severe Hives Verified 05/28/17 15:11 History of Present Illness: Drinks 7 days a week 6-pk 20oz-beer cans in one sitting, last drink on Friday. ready to turn his life around and wants to go to rehab after detox started at age 15. denies withdrawal seizures. Exam Limitations: No Limitations - Ebola screening Have you traveled outside of the country in the last 21 days: No Have you had contact with anyone from an Ebola affected area: No Have you been sick,other than usual withdrawal symptoms: No Do you have a fever: No - Review of Systems Constitutional: No Symptoms Reported Respiratory: reports: No Symptoms reported Cardiac: reports: Lightheadedness. denies: Chest Pain, Palpitations GI: reports: Nausea, Vomiting : reports: No Symptoms Reported Musculoskeletal: reports: No Symptoms Reported Integumentary: reports: No Symptoms Reported Neuro: reports: Headache Endocrine: reports: Intolerance to Cold Hematology: reports: No Symptoms Reported Psychiatric: reports: Orientated x3 Patient History - Patient Medical History Hx Anemia: No Hx Asthma: No Hx Chronic Obstructive Pulmonary Disease (COPD): No Hx Cancer: No Hx Cardiac Disorders: No Hx Congestive Heart Failure: No Hx Hypertension: Yes Hx Hypercholesterolemia: No Hx Pacemaker: No HX Cerebrovascular Accident: No Hx Seizures: No Hx Dementia: No Hx Diabetes: No Hx Gastrointestinal Disorders: No Hx Liver Disease: No Hx Genitourinary Disorders: No Hx Sexually Transmitted Disorders: No Hx Renal Disease (ESRD): No Hx Thyroid Disease: No Hx Human Immunodeficiency Virus (HIV): No Hx Hepatitis C: No Hx Depression: Yes Hx Suicide Attempt: No Hx Bipolar Disorder: No Hx Schizophrenia: No - Patient Surgical History Past Surgical History: No Hx Neurologic Surgery: No Hx Cataract Extraction: No Hx Cardiac Surgery: No Hx Lung Surgery: No Hx Breast Surgery: No Hx Breast Biopsy: No Hx Abdominal Surgery: No Hx Appendectomy: No Hx Cholecystectomy: No Hx Genitourinary Surgery: No Hx Section: No Hx Orthopedic Surgery: No Anesthesia Reaction: No - PPD History Previous Implant?: Yes Documented Results: Negative w/proof Implanted On Prior [facility] Admission?: Yes Date: 01/15/17 Results: 0 mm - Smoking Cessation Smoking history: Current every day smoker Have you smoked in the past 12 months: No Aproximately how many cigarettes per day: 4 Cigars Per Day: 0 Hx Chewing Tobacco Use: No Initiated information on smoking cessation: Yes 'Breaking Loose' booklet given: 05/28/17 - Substance & Tx. History Hx Alcohol Use: Yes Hx Substance Use: Yes Substance Use Type: Cocaine Hx Substance Use Treatment: Yes (03/2017 at [facility]) - Substances Abused Alcohol-beer Route: Oral Frequency: Daily Amount used: 2-6 pks. Age of first use: 15 Date of Last Use: 05/26/17 Family Disease History - Family Disease History Family Disease History: CA: Grandparent (dx w/ colon cancer age 70's), Other: Father (alcohol,,cirrhosis), Mother (alcohol,cirrhosis age 34) Admission Physical Exam [facility] - Vital Signs Vital Signs: Vital Signs - 24 hr 05/28/17 11:52 Temperature 97.3 F L Pulse Rate 71 Respiratory 18 Rate Blood Pressure 145/91 - Physical General Appearance: Yes: Within Normal Limits HEENTM: Yes: Normal ENT Inspection, Pharynx Normal, Other (dry mucous membranes) Respiratory: Yes: Normal Breath Sounds Neck: Yes: No masses,lesions,Nodules Breast: Yes: Breast Exam Deferred Cardiology: Yes: Regular Rhythm, Regular Rate, S1, S2. No: Edema Abdominal: Yes: Normal Bowel Sounds, Non Tender, Flat, Soft Genitourinary: Yes: Within Normal Limits Back: Yes: Other (scoliosis with curvature to the patient's right, no spinal tenderness) Musculoskeletal: Yes: Within Normal Limits. No: Back pain Extremities: Yes: Within Normal Limits, Normal Capillary Refill 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: ginner II-XII NML intact, Fully Oriented, Alert, Motor Strength 5/5 Integumentary: Yes: Within Normal Limits Lymphatic: Yes: Within Normal Limits - Diagnostic (1) Dehydration Current Visit: Yes Status: Acute (2) Alcohol dependence with uncomplicated withdrawal Current Visit: No Status: Acute (3) Nicotine dependence Current Visit: No Status: Acute Qualifiers: Nicotine product type: cigarettes Substance use status: uncomplicated Qualified Code(s): F17.210 - Nicotine dependence, cigarettes, uncomplicated (4) Depressive disorder Current Visit: No Status: Chronic (5) HTN (hypertension) Current Visit: No Status: Chronic Qualifiers: Hypertension type: essential hypertension Qualified Code(s): I10 - Essential (primary) hypertension (6) Scoliosis deformity of spine Current Visit: No Status: Chronic Qualifiers: Scoliosis type: idiopathic Idiopathic scoliosis type: juvenile Spinal region: thoracic Qualified Code(s): 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
--- NOTE | 2017-05-28 16:22 | PN ---
Progress Note (short form) - Note Progress Note: Hold the lisinopril/HCTZ now due to dehydration. Patient's cough started with the use of this medication and he thinks it may be related. When restarting, add HCTZ and avoid the lisinopril due to suspicion of ACEI-induced cough Problem List - Problems (1) Dehydration Code(s): E86.0 - DEHYDRATION (2) Alcohol dependence with uncomplicated withdrawal Code(s): F10.230 - ALCOHOL DEPENDENCE WITH WITHDRAWAL, UNCOMPLICATED (3) Nicotine dependence Code(s): F17.200 - NICOTINE DEPENDENCE, UNSPECIFIED, UNCOMPLICATED Qualifiers: Nicotine product type: cigarettes Substance use status: uncomplicated Qualified Code(s): F17.210 - Nicotine dependence, cigarettes, uncomplicated (4) Depressive disorder Code(s): F32.9 - MAJOR DEPRESSIVE DISORDER, SINGLE EPISODE, UNSPECIFIED (5) HTN (hypertension) Code(s): I10 - ESSENTIAL (PRIMARY) HYPERTENSION Qualifiers: Hypertension type: essential hypertension Qualified Code(s): I10 - Essential (primary) hypertension (6) Scoliosis deformity of spine Code(s): M41.9 - SCOLIOSIS, UNSPECIFIED Qualifiers: Scoliosis type: idiopathic Idiopathic scoliosis type: juvenile Spinal region: thoracic Qualified Code(s): 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
--- NOTE | 2017-05-28 17:03 | CONSULT ---
[facility] Psychiatric Consult - Data Date of interview: 05/28/17 Admission source: [facility] Identifying data: One of multiple admissions to [facility] for this 52 y/o AA male seeking detox treatment on for alcohol and cocaine dependence.Patient is single without children,homeless,unemployed and supported on SSI benefits. Substance Abuse History: Patient confirmed daily usage of cocaine and alcohol in this interview.Details in current [facility] report as follows : Smoking history: Current every day smoker. Have you smoked in the past 12 months: No. Aproximately how many cigarettes per day: 4. Cigars Per Day: 0. Hx Chewing Tobacco Use: No. Initiated information on smoking cessation: Yes. 'Breaking Loose' booklet given: 05/28/17. - Substance & Tx. History. Hx Alcohol Use: Yes. Hx Substance Use: Yes. Substance Use Type: Cocaine. Hx Substance Use Treatment: Yes (03/2017 at [facility]). - Substances Abused. Alcohol-beer. Route : Oral. Frequency: Daily. Amount used: 2-6 pks. Age of first use: 15. Date of Last Use: 05/26/17 Medical History: Hypertension and scoliosis. Psychiatric History: Remote history of psychatric hospitalization (2001) at the [facility] in [facility].Diagnosed with MDD.Mr Del Castillo is prescribed effexor XR 150 mg/day and he sees a psychiatrist for medication management at the [facility] in [facility].Patient denies history of suicide attempts. Physical/Sexual Abuse/Trauma History: No reported history of abuse. Additional Comment: Drug Screen is negative. Mental Status Exam - Mental Status Exam Alert and Oriented to: Time, Place, Person Cognitive Function: Good Patient Appearance: Well Groomed Mood: Hopeful, Euthymic Affect: Appropriate, Normal Range Patient Behavior: Fatigued, Appropriate, Cooperative Speech Pattern: Clear, Appropriate Voice Loudness: Normal Thought Process: Intact, Goal Oriented Thought Disorder: Not Present Hallucinations: Denies Suicidal Ideation: Denies Homicidal Ideation: Denies Insight/Judgement: Poor Sleep: Poorly, Difficulty falling asleep Appetite: Good Muscle strength/Tone: Normal Gait/Station: Normal Psychiatric Findings - Problem List (Ralph 1, 2,3) (1) Alcohol dependence with uncomplicated withdrawal Current Visit: Yes Status: Acute (2) Cocaine dependence Current Visit: Yes Status: Acute Qualifiers: Substance use status: uncomplicated Qualified Code(s): F14.20 - Cocaine dependence, uncomplicated (3) Nicotine dependence Current Visit: Yes Status: Acute Qualifiers: Nicotine product type: cigarettes Substance use status: uncomplicated Qualified Code(s): F17.210 - Nicotine dependence, cigarettes, uncomplicated (4) Substance induced mood disorder Current Visit: Yes Status: Acute (5) Depressive disorder Current Visit: Yes Status: Chronic Comment: On the records and as per self- report.On medications.OPD care at [facility] in [facility]. (6) Insomnia Current Visit: Yes Status: Acute - Initial Treatment Plan Initial Treatment Plan: Previous records are reviewed.Psychoeducation provided in session.Sleep hygiene discussed.Support given.Detoxification initiated on admisssion.Medications : effexor XR 150 mg po daily + ambien 10 mg po hs prn.Side effects/benefits of both drugs are discussed with the patient.Mr Del Castillo is made aware of risk of hypertension (effexor) and parasomnias (ambien ).No history of adverse events on these drugs according to patient.Consent ( verbal) given.Observation.
[2017-05-28 17:11] LABS: BASO % 0.6 % (0-2.0); EOS % 1.5 % (0-4.5); HEMATOCRIT 42.8 % (35.4-49); LYMPH % 20.1 % (8-40); MCH 29.2 pg (25.7-33.7); MCHC 32.7 g/dl (32.0-35.9); MEAN CELL VOLUME 89.3 fl (80-96); MEAN PLT VOLUME 8.8 fl (7.5-11.1); MONO % 9.6 % (3.8-10.2); NEUT % 68.2 % (42.8-82.8); PLATELET COUNT 288 K/MM3 (134-434); RBC 4.79 M/mm3 (4.00-5.60); WHITE BLOOD COUNT 5.5 K/mm3 (4.0-10.0)
[2017-05-28 17:28] LABS: ALBUMIN 4.2 g/dl (3.4-5.0); ANION GAP 9 (8-16); BILIRUBIN,TOTAL 0.9 mg/dL (0.2-1.0); BLOOD UREA NITROGEN 12 mg/dL (7-18); CALCIUM 9.4 mg/dL (8.5-10.1); CHLORIDE 104 mmol/L (98-107); CO2 29 mmol/L (21-32); CREATININE 1.1 mg/dL (0.7-1.3); GLUCOSE,RANDOM 101 mg/dL (74-106); POTASSIUM 3.7 mmol/L (3.5-5.1); SGOT/AST 15 U/L (15-37); SGPT/ALT 27 U/L (12-78); SODIUM 142 mmol/L (136-145); TOT PROT 7.8 g/dl (6.4-8.2)
[2017-05-28 17:29] LABS: ALK PHOS 112 U/L (45-117)
[2017-05-28 18:54] LABS: URINE APPEARANCE CLEAR; URINE BILIRUBIN NEGATIVE (NEGATIVE); URINE BLOOD NEGATIVE (NEGATIVE); URINE COLOR DKYELLOW; URINE GLUCOSE (UA) NEGATIVE (NEGATIVE); URINE KETONE NEGATIVE (NEGATIVE); URINE LEUK ESTERASE NEGATIVE (NEGATIVE); URINE NITRITE NEGATIVE (NEGATIVE); URINE PROTEIN NEGATIVE (NEGATIVE)
[2017-05-28] MEDS: chlordiazePOXIDE HCL 25 MG CAPSULE PO SCH ×2 (20:09→22:07)
[2017-05-28] MEDS ORDERED: ZOLPIDEM TARTRATE 10 MG TABLET (PARK CARE ONLY) PO PRN (22:00)
[2017-05-28] MEDS ORDERED: THIAMINE HCL 100 MG TABLET (FP) PO SCH (22:00)
[2017-05-29] MEDS: chlordiazePOXIDE HCL 25 MG CAPSULE PO SCH ×2 (05:50→10:30)
[2017-05-29] MEDS ORDERED: VENLAFAXINE HCL 150 MG E.R. CAPSULE PO SCH ×2 (10:00)
[2017-05-29] MEDS ORDERED: amLODIPine BESYLATE 10 MG TABLET (FP) PO SCH (10:00)
[2017-05-29] MEDS ORDERED: PRENATAL VITAMINS W/ FOLIC ACID TABLET (FP) PO SCH (10:00)
[2017-05-29] MEDS ORDERED: NICOTINE 7 MG/24 HOURS TOPICAL PATCH TD SCH (10:00)
--- NOTE | 2017-05-29 11:24 | PN ---
[facility] CIWA - CIWA Score Nausea/Vomitin-No Nausea/No Vomiting Muscle Tremors: 4-Moderate,w/Arms Extend Anxiety: 4-Mod. Anxious/Guarded Agitation: 4-Moderately Restless Paroxysmal Sweats: 1-Minimal Palms Moist Orientation: 0-Oriented Tacttile Disturbances: 3-Moderate Itch/Numb/Burn Auditory Disturbances: 0-None Visual Disturbances: 0-None Headache: 0-None Present CIWA-Ar Total Score: 16 BHS Progress Note (SOAP) Subjective: ANXIETY,SWEATS,SLIGHT TREMORS. Objective: 05/29/17 11:23 Vital Signs Temperature 98.2 F 05/29/17 09:12 Pulse Rate 97 H 05/29/17 09:12 Respiratory Rate 20 05/29/17 09:12 Blood Pressure 118/83 05/29/17 09:12 O2 Sat by Pulse Oximetry (%) Laboratory Last Values WBC 5.5 K/mm3 (4.0-10.0) 05/28/17 15:00 RBC 4.79 M/mm3 (4.00-5.60) 05/28/17 15:00 Hgb 14.0 GM/dL (11.7-16.9) D 05/28/17 15:00 Hct 42.8 % (35.4-49) 05/28/17 15:00 MCV 89.3 fl (80-96) 05/28/17 15:00 MCH 29.2 pg (25.7-33.7) 05/28/17 15:00 MCHC 32.7 g/dl (32.0-35.9) 05/28/17 15:00 RDW 15.0 % (11.9-15.9) 05/28/17 15:00 Plt Count 288 K/MM3 (134-434) 05/28/17 15:00 MPV 8.8 fl (7.5-11.1) 05/28/17 15:00 Neutrophils % 68.2 % (42.8-82.8) 05/28/17 15:00 Lymphocytes % 20.1 % (8-40) 05/28/17 15:00 Monocytes % 9.6 % (3.8-10.2) 05/28/17 15:00 Eosinophils % 1.5 % (0-4.5) 05/28/17 15:00 Basophils % 0.6 % (0-2.0) 05/28/17 15:00 Sodium 142 mmol/L (136-145) 05/28/17 15:00 Potassium 3.7 mmol/L (3.5-5.1) 05/28/17 15:00 Chloride 104 mmol/L (98-107) 05/28/17 15:00 Carbon Dioxide 29 mmol/L (21-32) 05/28/17 15:00 Anion Gap 9 (8-16) 05/28/17 15:00 BUN 12 mg/dL (7-18) 05/28/17 15:00 Creatinine 1.1 mg/dL (0.7-1.3) D 05/28/17 15:00 Creat Clearance w eGFR > 60 (>60) 05/28/17 15:00 Random Glucose 101 mg/dL (74-106) D 05/28/17 15:00 Calcium 9.4 mg/dL (8.5-10.1) 05/28/17 15:00 Total Bilirubin 0.9 mg/dL (0.2-1.0) 05/28/17 15:00 AST 15 U/L (15-37) D 05/28/17 15:00 ALT 27 U/L (12-78) 05/28/17 15:00 Alkaline Phosphatase 112 U/L (45-117) D 05/28/17 15:00 Total Protein 7.8 g/dl (6.4-8.2) 05/28/17 15:00 Albumin 4.2 g/dl (3.4-5.0) D 05/28/17 15:00 Urine Color Dkyellow 05/28/17 18:15 Urine Appearance Clear 05/28/17 18:15 Urine pH 6.0 (5.0-8.0) 05/28/17 18:15 Ur Specific [place] 1.024 (1.001-1.035) 05/28/17 18:15 Urine Protein Negative (NEGATIVE) 05/28/17 18:15 Urine Glucose (UA) Negative (NEGATIVE) 05/28/17 18:15 Urine Ketones Negative (NEGATIVE) 05/28/17 18:15 Urine Blood Negative (NEGATIVE) 05/28/17 18:15 Urine Nitrite Negative (NEGATIVE) 05/28/17 18:15 Urine Bilirubin Negative (NEGATIVE) 05/28/17 18:15 Urine Urobilinogen 2.0 mg/dL (0.2-1.0) 05/28/17 18:15 Ur Leukocyte Esterase Negative (NEGATIVE) 05/28/17 18:15 RPR Titer Nonreactive (NONREACTIVE) 05/28/17 15:00 Assessment: 05/29/17 11:23 WITHDRAWAL SX Plan: CONTINUE DETOX
[2017-05-29] MEDS ORDERED: chlordiazePOXIDE HCL 25 MG CAPSULE PO SCH (17:00)
[2017-05-29 17:53] VITALS: BP 112/75; PULSE 101; TEMP 98
--- NOTE | 2017-05-29 20:40 | DS ---
[facility] Detox Discharge Summary Admission Date: 05/28/17 Discharge Date: 05/29/17 - History Present History: Alcohol Dependence, Cocaine Dependence Additional Comments: patient insists to leave the facility refuses to wait face to face with the verse writer - Physical Exam Results Vital Signs: Vital Signs Temperature 98.0 F 05/29/17 17:53 Pulse Rate 101 H 05/29/17 17:53 Respiratory Rate 18 05/29/17 17:53 Blood Pressure 112/75 05/29/17 17:53 O2 Sat by Pulse Oximetry (%) Pertinent Admission Physical Exam Findings: withdrawal sx Vital Signs Temperature 98.0 F 05/29/17 17:53 Pulse Rate 101 H 05/29/17 17:53 Respiratory Rate 18 05/29/17 17:53 Blood Pressure 112/75 05/29/17 17:53 O2 Sat by Pulse Oximetry (%) Laboratory Last Values WBC 5.5 K/mm3 (4.0-10.0) 05/28/17 15:00 RBC 4.79 M/mm3 (4.00-5.60) 05/28/17 15:00 Hgb 14.0 GM/dL (11.7-16.9) D 05/28/17 15:00 Hct 42.8 % (35.4-49) 05/28/17 15:00 MCV 89.3 fl (80-96) 05/28/17 15:00 MCH 29.2 pg (25.7-33.7) 05/28/17 15:00 MCHC 32.7 g/dl (32.0-35.9) 05/28/17 15:00 RDW 15.0 % (11.9-15.9) 05/28/17 15:00 Plt Count 288 K/MM3 (134-434) 05/28/17 15:00 MPV 8.8 fl (7.5-11.1) 05/28/17 15:00 Neutrophils % 68.2 % (42.8-82.8) 05/28/17 15:00 Lymphocytes % 20.1 % (8-40) 05/28/17 15:00 Monocytes % 9.6 % (3.8-10.2) 05/28/17 15:00 Eosinophils % 1.5 % (0-4.5) 05/28/17 15:00 Basophils % 0.6 % (0-2.0) 05/28/17 15:00 Sodium 142 mmol/L (136-145) 05/28/17 15:00 Potassium 3.7 mmol/L (3.5-5.1) 05/28/17 15:00 Chloride 104 mmol/L (98-107) 05/28/17 15:00 Carbon Dioxide 29 mmol/L (21-32) 05/28/17 15:00 Anion Gap 9 (8-16) 05/28/17 15:00 BUN 12 mg/dL (7-18) 05/28/17 15:00 Creatinine 1.1 mg/dL (0.7-1.3) D 05/28/17 15:00 Creat Clearance w eGFR > 60 (>60) 05/28/17 15:00 Random Glucose 101 mg/dL (74-106) D 05/28/17 15:00 Calcium 9.4 mg/dL (8.5-10.1) 05/28/17 15:00 Total Bilirubin 0.9 mg/dL (0.2-1.0) 05/28/17 15:00 AST 15 U/L (15-37) D 05/28/17 15:00 ALT 27 U/L (12-78) 05/28/17 15:00 Alkaline Phosphatase 112 U/L (45-117) D 05/28/17 15:00 Total Protein 7.8 g/dl (6.4-8.2) 05/28/17 15:00 Albumin 4.2 g/dl (3.4-5.0) D 05/28/17 15:00 Urine Color Dkyellow 05/28/17 18:15 Urine Appearance Clear 05/28/17 18:15 Urine pH 6.0 (5.0-8.0) 05/28/17 18:15 Ur Specific [place] 1.024 (1.001-1.035) 05/28/17 18:15 Urine Protein Negative (NEGATIVE) 05/28/17 18:15 Urine Glucose (UA) Negative (NEGATIVE) 05/28/17 18:15 Urine Ketones Negative (NEGATIVE) 05/28/17 18:15 Urine Blood Negative (NEGATIVE) 05/28/17 18:15 Urine Nitrite Negative (NEGATIVE) 05/28/17 18:15 Urine Bilirubin Negative (NEGATIVE) 05/28/17 18:15 Urine Urobilinogen 2.0 mg/dL (0.2-1.0) 05/28/17 18:15 Ur Leukocyte Esterase Negative (NEGATIVE) 05/28/17 18:15 RPR Titer Nonreactive (NONREACTIVE) 05/28/17 15:00 lab noted - Treatment Hospital Course: Detox Protocol Followed, Responded well - Medication Discharge Medications: Ambulatory Orders Venlafaxine HCl ER [Effexor Xr -] 150 mg PO DAILY #30 cap.er.24h 07/16/16 Lisinopril/Hydrochlorothiazide [Lisinopril-Hctz 20-25 mg Tab] 1 each PO DAILY # 30 tab 01/27/17 Amlodipine Besylate [Norvasc -] 10 mg PO DAILY 05/28/17 - Diagnosis (1) Alcohol dependence with uncomplicated withdrawal Status: Acute (2) Nicotine dependence Status: Acute Qualifiers: Nicotine product type: cigarettes Substance use status: in withdrawal Qualified Code(s): F17.213 - Nicotine dependence, cigarettes, with withdrawal (3) HTN (hypertension) Status: Chronic Qualifiers: Hypertension type: essential hypertension Qualified Code(s): I10 - Essential (primary) hypertension - AMA Did Patient Leave Against Medical Advice: Yes
[2017-05-30] MEDS ORDERED: chlordiazePOXIDE 5 MG CAPSULE PO SCH ×2 (11:00→17:00)
[2017-05-31] MEDS ORDERED: chlordiazePOXIDE HCL 10 MG CAPSULE PO SCH ×2 (05:00→17:00)
--- NOTE | 2017-06-04 13:34 | EKG ---
Test Reason : Blood Pressure : / mmHG Vent. Rate : 068 BPM Atrial Rate : 068 BPM P-R Int : 128 ms QRS Dur : 092 ms QT Int : 398 ms P-R-T Axes : 032 028 061 degrees QTc Int : 423 ms NORMAL SINUS RHYTHM NORMAL ECG WHEN COMPARED WITH ECG OF 09-MAR-2017 12:40, NO SIGNIFICANT CHANGE WAS FOUND Confirmed by JH SMITH MD ([id number]) on 06/04/2017 1:33:45 PM Referred By: Confirmed By:JH SMITH MD
== END 2017-05-29 18:55 | disposition left against medical advice (07) | DRG 770 ==
LOC: YASAS 11:26 → Y3N 15:58
PROVIDERS: ADMIT Internal Medicine; ATTEND Internal Medicine
PROC: HZ2ZZZZ Detoxification Services for Substance Abuse Treatment (ICD-10-PCS; principal; 2017-05-28)
DX: F10.230 Alcohol dependence with withdrawal, uncomplicated (principal); F17.213 Nicotine dependence, cigarettes, with withdrawal; F19.24 Other psychoactive substance dependence with psychoactive substance-induced mood disorder; F32.9 Major depressive disorder, single episode, unspecified; F34.1 Dysthymic disorder; I10 Essential (primary) hypertension; E86.0 Dehydration; M41.114 Juvenile idiopathic scoliosis, thoracic region; G47.00 Insomnia, unspecified; Z88.0 Allergy status to penicillin
CPT/HCPCS: 36415; 80053; 81003; 85025; 86593; 93005; 93010

== ENCOUNTER 2017-09-14 16:33 | Inpatient (IN) | payer OTHER ==
[2017-09-14 17:09] VITALS: BMI 25.6
--- NOTE | 2017-09-14 17:41 | HP ---
CIWA Score - CIWA Score Nausea/Vomitin Muscle Tremors: 3 Anxiety: 3 Agitation: 3 Paroxysmal Sweats: 2 Orientation: 0-Oriented Tacttile Disturbances: 2-Mild Itch/Numbness/Burn Auditory Disturbances: 2-Mild Harshness/Frighten Visual Disturbances: 1-Very Mild Sensitivity Headache: 2-Mild CIWA-Ar Total Score: 21 Admission ROS BHS - HPI Chief Complaint: I NEED HELP TO STOP DRINKING ALCOHOL,COCAINE Allergies/Adverse Reactions: Allergies Allergy/AdvReac Type Severity Reaction Status Date / Time Penicillins Allergy Severe Hives Verified 09/14/17 18:12 History of Present Illness: THIS 52 YEARS OLD MALE WITH ALCOHOL AND COCAINE DEPENDENCE,SEEKING DETOX, WITHDRAWAL SYMPTOM,LAST DETOX 05/28/17 TO 05/29/17 NOT COMPLETED HYPERTENSION DEPRESSION NICOTINE DEPENDENCE LONGEST PERIOD OF SOBRIETY 6 YEARS Exam Limitations: No Limitations - Ebola screening Have you traveled outside of the country in the last 21 days: No Have you been sick,other than usual withdrawal symptoms: No - Review of Systems Constitutional: Loss of Appetite, Malaise, Night Sweats, Changes in sleep, Weakness, Unintentional Wgt. Loss EENT: reports: Tearing, Nose Congestion Respiratory: reports: No Symptoms reported Cardiac: reports: No Symptoms Reported GI: reports: Diarrhea, Nausea, Vomiting, Abdominal cramping : reports: No Symptoms Reported Musculoskeletal: reports: Back Pain, Muscle Pain Integumentary: reports: Dryness Neuro: reports: Headache, Tremors Endocrine: reports: No Symptoms Reported Hematology: reports: No Symptoms Reported Psychiatric: reports: No Sypmtoms Reported, Judgement Intact, Mood/Affect Appropiate, Orientated x3, Depressed Patient History - Patient Medical History Hx Anemia: No Hx Asthma: No Hx Chronic Obstructive Pulmonary Disease (COPD): No Hx Cancer: No Hx Cardiac Disorders: No Hx Congestive Heart Failure: No Hx Hypertension: Yes (ON MEDS) Hx Hypercholesterolemia: No Hx Pacemaker: No HX Cerebrovascular Accident: No Hx Seizures: No Hx Dementia: No Hx Diabetes: No Hx Gastrointestinal Disorders: No Hx Liver Disease: No Hx Genitourinary Disorders: No Hx Sexually Transmitted Disorders: No Hx Renal Disease (ESRD): No Hx Thyroid Disease: No Hx Human Immunodeficiency Virus (HIV): No (LAST 06/19 NEGATIVE) Hx Hepatitis C: No Hx Depression: Yes (NO MED) Hx Suicide Attempt: No Hx Bipolar Disorder: No Hx Schizophrenia: No Other Medical History: NO SUICIDAL,NO HOMICIDAL - Patient Surgical History Past Surgical History: No Hx Neurologic Surgery: No Hx Cataract Extraction: No Hx Cardiac Surgery: No Hx Lung Surgery: No Hx Breast Surgery: No Hx Breast Biopsy: No Hx Abdominal Surgery: No Hx Appendectomy: No Hx Cholecystectomy: No Hx Genitourinary Surgery: No Hx Section: No Hx Orthopedic Surgery: No Anesthesia Reaction: No - PPD History Previous Implant?: Yes Documented Results: Negative w/proof Implanted On Prior [facility] Admission?: Yes Date: 01/15/17 Results: 0 mm PPD to be Administered?: No - Smoking Cessation Smoking history: Current every day smoker Have you smoked in the past 12 months: No Aproximately how many cigarettes per day: 4 Cigars Per Day: 0 Hx Chewing Tobacco Use: No Initiated information on smoking cessation: Yes 'Breaking Loose' booklet given: 09/14/17 - Substance & Tx. History Hx Alcohol Use: Yes Hx Substance Use: Yes Substance Use Type: Alcohol, Cocaine Hx Substance Use Treatment: Yes ([facility] 05/28/17 TO 05/29/17 NOT COMPLETED) - Substances Abused Alcohol Route: Oral Frequency: Daily Amount used: 10 OF 24 OZS OF BEER Age of first use: 16 Date of Last Use: 09/14/17 Cocaine Route: Inhalation Frequency: 1-3 times last 30 days Amount used: 100$ Age of first use: 20 Date of Last Use: 09/12/17 Family Disease History - Family Disease History Family Disease History: CA: Grandparent (dx w/ colon cancer age 70's), Other: Father (alcohol,,cirrhosis), Mother (alcohol,cirrhosis age 34) Admission Physical Exam [facility] - Vital Signs Vital Signs: Vital Signs - 24 hr 09/14/17 17:06 Temperature 98.6 F Pulse Rate 91 H Respiratory 19 Rate Blood Pressure 136/86 - Physical General Appearance: Yes: Moderate Distress, Tremorous, Irritable, Sweating, Anxious HEENTM: Yes: MANDI, Pharynx Normal, Tm's normal Respiratory: Yes: Lungs Clear, Normal Breath Sounds, No Respiratory Distress Neck: Yes: Within Normal Limits, Supple, Trachea in good position Breast: Yes: Within Normal Limits Cardiology: Yes: Within Normal Limits, Regular Rhythm, Regular Rate, S1, S2 Abdominal: Yes: Within Normal Limits, Normal Bowel Sounds, Non Tender, Flat, Soft Genitourinary: Yes: Within Normal Limits Back: Yes: Normal Inspection, Muscle Spasm Musculoskeletal: Yes: full range of Motion, Back pain Extremities: Yes: Within Normal Limits, Tremors 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: director drug II-XII NML intact, Fully Oriented, Alert, Motor Strength 5/5 Integumentary: Yes: Dry Lymphatic: Yes: Within Normal Limits - Diagnostic (1) Alcohol dependence with uncomplicated withdrawal Current Visit: No Status: Acute (2) Cocaine dependence Current Visit: No Status: Acute Qualifiers: Substance use status: uncomplicated Qualified Code(s): F14.20 - Cocaine dependence, uncomplicated (3) Dehydration Current Visit: No Status: Acute (4) Nicotine dependence Current Visit: No Status: Acute Qualifiers: Nicotine product type: cigarettes Substance use status: in withdrawal Qualified Code(s): F17.213 - Nicotine dependence, cigarettes, with withdrawal (5) Depression Current Visit: No Status: Chronic Qualifiers: Depression Type: dysthymia Qualified Code(s): F34.1 - Dysthymic disorder (6) HTN (hypertension) Current Visit: No Status: Chronic Qualifiers: Hypertension type: essential hypertension Qualified Code(s): I10 - Essential (primary) hypertension (7) Scoliosis deformity of spine Current Visit: No Status: Chronic Qualifiers: Scoliosis type: idiopathic Idiopathic scoliosis type: juvenile Spinal region: thoracic Qualified Code(s): 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
[2017-09-14] MEDS ORDERED: MAG HYDROX/AL HYDROX/SIMETH 30 ML UNIT-DOSE CUP PO PRN (17:52)
[2017-09-14] MEDS ORDERED: chlordiazePOXIDE HCL 25 MG CAPSULE PO PRN (17:52)
[2017-09-14] MEDS ORDERED: ACETAMINOPHEN 325 MG TABLET (FP) PO PRN (17:52)
[2017-09-14] MEDS ORDERED: chlordiazePOXIDE HCL 25 MG CAPSULE PO ONE (17:52)
[2017-09-14] MEDS ORDERED: LOPERAMIDE HCL 2 MG CAPSULE PO PRN (17:52)
[2017-09-14] MEDS ORDERED: P-EPHED 60MG/TRIPROLIDI 2.5MG TABLET PO PRN (17:52)
[2017-09-14] MEDS ORDERED: MAGNESIUM CITRATE 300 ML BOTTLE PO PRN (17:52)
[2017-09-14] MEDS ORDERED: IBUPROFEN 400 MG TABLET (FP) PO PRN (17:52)
[2017-09-14] MEDS ORDERED: MAGNESIUM HYDROX 2400MG/30ML ORAL SUSPENSION 30 ML CUP PO PRN (17:52)
[2017-09-14] MEDS ORDERED: MENTHOL/PHENOL 1 EACH UD MM PRN (17:52)
[2017-09-14] MEDS ORDERED: guaiFENesin/D-METHORPHAN HB 10 ML UNIT-DOSE CUPS PO PRN (17:52)
[2017-09-14 20:55] LABS: URINE APPEARANCE CLEAR; URINE BILIRUBIN NEGATIVE (<2.0 mg/dL); URINE BLOOD NEGATIVE (NEGATIVE); URINE COLOR LTYELLOW; URINE GLUCOSE (UA) NEGATIVE (NEGATIVE); URINE KETONE NEGATIVE (NEGATIVE); URINE LEUK ESTERASE NEGATIVE (NEGATIVE); URINE NITRITE NEGATIVE (NEGATIVE); URINE PROTEIN NEGATIVE (NEGATIVE); URINE UROBILINOGEN NEGATIVE mg/dL (0.2-1.0)
[2017-09-14] MEDS ORDERED: MELATONIN 5 MG TABLETS PO PRN (22:00)
[2017-09-14] MEDS: THIAMINE HCL 100 MG TABLET (FP) PO SCH (22:54)
[2017-09-14] MEDS: chlordiazePOXIDE HCL 25 MG CAPSULE PO SCH (22:55)
[2017-09-15] MEDS: chlordiazePOXIDE HCL 25 MG CAPSULE PO SCH ×4 (06:08→22:18)
[2017-09-15 09:53] LABS: HEMATOCRIT 41.5 % (35.4-49); HEMOGLOBIN 13.7 GM/dL (11.7-16.9); MCH 29.3 pg (25.7-33.7); MEAN CELL VOLUME 88.6 fl (80-96); MEAN PLT VOLUME 9.2 fl (7.5-11.1); PLATELET COUNT 279 K/MM3 (134-434); RBC 4.68 M/mm3 (4.00-5.60); WHITE BLOOD COUNT 5.1 K/mm3 (4.0-10.0)
[2017-09-15 10:08] LABS: ANION GAP 5 (8-16); BLOOD UREA NITROGEN 15 mg/dL (7-18); CALCIUM 8.8 mg/dL (8.5-10.1); CHLORIDE 107 mmol/L (98-107); CO2 30 mmol/L (21-32); GLUCOSE,RANDOM 87 mg/dL (74-106); POTASSIUM 4.1 mmol/L (3.5-5.1); SODIUM 142 mmol/L (136-145)
[2017-09-15 10:12] LABS: ALK PHOS 107 U/L (45-117); BILIRUBIN,TOTAL 0.5 mg/dL (0.2-1.0); CREATININE 0.8 mg/dL (0.7-1.3); SGOT/AST 16 U/L (15-37); SGPT/ALT 38 U/L (12-78); TOT PROT 7.7 g/dl (6.4-8.2)
[2017-09-15] MEDS: PRENATAL VITAMINS W/ FOLIC ACID TABLET (FP) PO SCH (10:30)
[2017-09-15] MEDS ORDERED: amLODIPine BESYLATE 5 MG TABLET (FP) PO SCH (10:45)
[2017-09-15] MEDS: amLODIPine BESYLATE 10 MG TABLET (FP) PO SCH (11:45)
--- NOTE | 2017-09-15 12:07 | CONSULT ---
[facility] Psychiatric Consult - Data Date of interview: 09/15/17 Admission source: [facility] Identifying data: Another admission to [facility] for this 52 y/o AA male seeking detox treatment on for alcohol and cocaine dependence.Patient is single without children,homeless,unemployed and supported on SSI benefits. Substance Abuse History: Confirmed by patient in this session.Details in current [facility] report : Smoking history: Current every day smoker. Have you smoked in the past 12 months: No. Aproximately how many cigarettes per day: 4. Cigars Per Day: 0. Hx Chewing Tobacco Use: No. Initiated information on smoking cessation: Yes. 'Breaking Loose' booklet given: 09/14/17. - Substance & Tx. History. Hx Alcohol Use: Yes. Hx Substance Use: Yes. Substance Use Type : Alcohol, Cocaine. Hx Substance Use Treatment: Yes ([facility] 05/28/17 TO 05/29/17 NOT COMPLETED). - Substances Abused. Alcohol. Route: Oral. Frequency: Daily. Amount used: 10 OF 24 OZS OF BEER. Age of first use: 16. Date of Last Use: 09/14/17. Cocaine. Route: Inhalation. Frequency: 1-3 times last 30 days. Amount used: 100$. Age of first use: 20. Date of Last Use: 09/12/17 Medical History: Hypertension and scoliosis. Psychiatric History: No change in psychiatric profile.Distant history of one psychatric hospitalization (2001) at the [facility] in [facility].Diagnosed with MDD.Mr Del Castillo is prescribed effexor XR 75 mg/day and he still sees a psychiatrist for medication management at the [facility] in [facility].Patient denies history of suicide attempts. Physical/Sexual Abuse/Trauma History: Patient denies. Additional Comment: Urine Drug Screen Results: JOHNATHAN-Cocaine.Noted. Mental Status Exam - Mental Status Exam Alert and Oriented to: Time, Place, Person Cognitive Function: Good Patient Appearance: Well Groomed Mood: Nervous, Anxious, Irritable Affect: Mood Congruent Patient Behavior: Appropriate, Cooperative Speech Pattern: Clear, Appropriate Voice Loudness: Normal Thought Process: Intact, Goal Oriented Thought Disorder: Not Present Hallucinations: Denies Suicidal Ideation: Denies Homicidal Ideation: Denies Insight/Judgement: Poor Sleep: Fair Appetite: Good Muscle strength/Tone: Normal Gait/Station: Normal Psychiatric Findings - Problem List ([place] 1, 2,3) (1) Alcohol dependence with uncomplicated withdrawal Current Visit: Yes Status: Acute (2) Cocaine dependence Current Visit: Yes Status: Acute Qualifiers: Substance use status: uncomplicated Qualified Code(s): F14.20 - Cocaine dependence, uncomplicated (3) Nicotine dependence Current Visit: Yes Status: Acute Qualifiers: Nicotine product type: cigarettes Substance use status: in withdrawal Qualified Code(s): F17.213 - Nicotine dependence, cigarettes, with withdrawal (4) Substance induced mood disorder Current Visit: Yes Status: Acute (5) Depressive disorder Current Visit: Yes Status: Chronic Comment: By history. - Initial Treatment Plan Initial Treatment Plan: Psychoeducation.Detoxification in progress.Sleep hygiene.Medication : effexor XR 75 mg po daily.Side effects/benefits discussed with the patient.Mr Del Castillo agrees with this careplan.Observation.
--- NOTE | 2017-09-15 12:39 | EKG ---
Test Reason : Blood Pressure : / mmHG Vent. Rate : 083 BPM Atrial Rate : 083 BPM P-R Int : 148 ms QRS Dur : 088 ms QT Int : 378 ms P-R-T Axes : 021 006 037 degrees QTc Int : 444 ms NORMAL SINUS RHYTHM NORMAL ECG WHEN COMPARED WITH ECG OF 14-SEP-2017 19:26, NO SIGNIFICANT CHANGE WAS FOUND Confirmed by KHARI DUNHAM MD ([id number]) on 09/15/2017 12:38:47 PM Referred By: Rigo Sahni Confirmed By:KHARI DUNHAM MD
--- NOTE | 2017-09-15 12:39 | EKG ---
Test Reason : Blood Pressure : / mmHG Vent. Rate : 092 BPM Atrial Rate : 092 BPM P-R Int : 128 ms QRS Dur : 092 ms QT Int : 344 ms P-R-T Axes : 023 017 049 degrees QTc Int : 425 ms NORMAL SINUS RHYTHM POSSIBLE LATERAL INFARCT , AGE UNDETERMINED ABNORMAL ECG WHEN COMPARED WITH ECG OF 28-MAY-2017 18:10, NO SIGNIFICANT CHANGE WAS FOUND Confirmed by KHARI DUNHAM MD ([id number]) on 09/15/2017 12:39:17 PM Referred By: Rigo Sahni Confirmed By:KHARI DUNHAM MD
[2017-09-15] MEDS ORDERED: ONDANSETRON *ODT* 4 MG TABLET SL PRN (13:33)
--- NOTE | 2017-09-15 13:33 | PN ---
[facility] CIWA - CIWA Score Nausea/Vomitin-Int. Nausea w/Dry Heave Muscle Tremors: 3 Anxiety: 4-Mod. Anxious/Guarded Agitation: 4-Moderately Restless Paroxysmal Sweats: 1-Minimal Palms Moist Orientation: 0-Oriented Tacttile Disturbances: 0-None Auditory Disturbances: 0-None Visual Disturbances: 0-None Headache: 0-None Present CIWA-Ar Total Score: 16 BHS Progress Note (SOAP) Subjective: ANXIETY,TREMORS,NAUSEA,CHILLS,INTERMITTENT SLEEP. Objective: 09/15/17 13:32 Vital Signs Temperature 96.8 F L 09/15/17 13:24 Pulse Rate 94 H 09/15/17 13:24 Respiratory Rate 20 09/15/17 13:24 Blood Pressure 119/82 09/15/17 13:24 O2 Sat by Pulse Oximetry (%) Laboratory Last Values WBC 5.1 K/mm3 (4.0-10.0) 09/15/17 07:30 RBC 4.68 M/mm3 (4.00-5.60) 09/15/17 07:30 Hgb 13.7 GM/dL (11.7-16.9) 09/15/17 07:30 Hct 41.5 % (35.4-49) 09/15/17 07:30 MCV 88.6 fl (80-96) 09/15/17 07:30 MCH 29.3 pg (25.7-33.7) 09/15/17 07:30 MCHC 33.0 g/dl (32.0-35.9) 09/15/17 07:30 RDW 16.0 % (11.9-15.9) H 09/15/17 07:30 Plt Count 279 K/MM3 (134-434) 09/15/17 07:30 MPV 9.2 fl (7.5-11.1) 09/15/17 07:30 Sodium 142 mmol/L (136-145) 09/15/17 07:30 Potassium 4.1 mmol/L (3.5-5.1) 09/15/17 07:30 Chloride 107 mmol/L (98-107) 09/15/17 07:30 Carbon Dioxide 30 mmol/L (21-32) 09/15/17 07:30 Anion Gap 5 (8-16) L 09/15/17 07:30 BUN 15 mg/dL (7-18) D 09/15/17 07:30 Creatinine 0.8 mg/dL (0.7-1.3) D 09/15/17 07:30 Creat Clearance w eGFR > 60 (>60) 09/15/17 07:30 Random Glucose 87 mg/dL (74-106) 09/15/17 07:30 Calcium 8.8 mg/dL (8.5-10.1) 09/15/17 07:30 Total Bilirubin 0.5 mg/dL (0.2-1.0) D 09/15/17 07:30 AST 16 U/L (15-37) 09/15/17 07:30 ALT 38 U/L (12-78) D 09/15/17 07:30 Alkaline Phosphatase 107 U/L (45-117) 09/15/17 07:30 Total Protein 7.7 g/dl (6.4-8.2) 09/15/17 07:30 Albumin 4.0 g/dl (3.4-5.0) 09/15/17 07:30 Urine Color Ltyellow 09/14/17 19:42 Urine Appearance Clear 09/14/17 19:42 Urine pH 6.0 (5.0-8.0) 09/14/17 19:42 Ur Specific [place] 1.016 (1.001-1.035) 09/14/17 19:42 Urine Protein Negative (NEGATIVE) 09/14/17 19:42 Urine Glucose (UA) Negative (NEGATIVE) 09/14/17 19:42 Urine Ketones Negative (NEGATIVE) 09/14/17 19:42 Urine Blood Negative (NEGATIVE) 09/14/17 19:42 Urine Nitrite Negative (NEGATIVE) 09/14/17 19:42 Urine Bilirubin Negative (<2.0 mg/dL) 09/14/17 19:42 Urine Urobilinogen Negative mg/dL (0.2-1.0) 09/14/17 19:42 Ur Leukocyte Esterase Negative (NEGATIVE) 09/14/17 19:42 RPR Titer Nonreactive (NONREACTIVE) 09/15/17 07:30 Assessment: 09/15/17 13:33 WITHDRAWAL SX Plan: CONTINUE DETOX ZOFRAN PRN
[2017-09-15] MEDS: PATIENT'S OWN MEDICATION (NON-FORMULARY) (Lisinopril/Hydrochlorothiazide [Lisinopril-Hctz PO SCH (14:02)
[2017-09-15] MEDS: THIAMINE HCL 100 MG TABLET (FP) PO SCH (22:18)
[2017-09-16] MEDS: chlordiazePOXIDE HCL 25 MG CAPSULE PO SCH ×3 (05:22→17:49)
[2017-09-16] MEDS ORDERED: VENLAFAXINE HCL 75 MG E.R. CAPSULES (FP) PO SCH (10:00)
[2017-09-16] MEDS: PATIENT'S OWN MEDICATION (NON-FORMULARY) (Lisinopril/Hydrochlorothiazide [Lisinopril-Hctz PO SCH (10:35)
[2017-09-16] MEDS: amLODIPine BESYLATE 10 MG TABLET (FP) PO SCH (10:36)
[2017-09-16] MEDS: PRENATAL VITAMINS W/ FOLIC ACID TABLET (FP) PO SCH (10:36)
--- NOTE | 2017-09-16 13:32 | PN ---
[facility] CIWA - CIWA Score Nausea/Vomitin-No Nausea/No Vomiting Muscle Tremors: 4-Moderate,w/Arms Extend Anxiety: 4-Mod. Anxious/Guarded Agitation: 4-Moderately Restless Paroxysmal Sweats: 1-Minimal Palms Moist Orientation: 0-Oriented Tacttile Disturbances: 0-None Auditory Disturbances: 0-None Visual Disturbances: 0-None Headache: 0-None Present CIWA-Ar Total Score: 13 S Progress Note (SOAP) Subjective: ANXIETY,TREMORS,SWEATS,CHRONIC LEFT FOOT PAIN Objective: 09/16/17 13:31 Vital Signs Temperature 96.7 F L 09/16/17 09:12 Pulse Rate 84 09/16/17 09:12 Respiratory Rate 18 09/16/17 09:12 Blood Pressure 118/78 09/16/17 09:12 O2 Sat by Pulse Oximetry (%) Laboratory Last Values WBC 5.1 K/mm3 (4.0-10.0) 09/15/17 07:30 RBC 4.68 M/mm3 (4.00-5.60) 09/15/17 07:30 Hgb 13.7 GM/dL (11.7-16.9) 09/15/17 07:30 Hct 41.5 % (35.4-49) 09/15/17 07:30 MCV 88.6 fl (80-96) 09/15/17 07:30 MCH 29.3 pg (25.7-33.7) 09/15/17 07:30 MCHC 33.0 g/dl (32.0-35.9) 09/15/17 07:30 RDW 16.0 % (11.9-15.9) H 09/15/17 07:30 Plt Count 279 K/MM3 (134-434) 09/15/17 07:30 MPV 9.2 fl (7.5-11.1) 09/15/17 07:30 Sodium 142 mmol/L (136-145) 09/15/17 07:30 Potassium 4.1 mmol/L (3.5-5.1) 09/15/17 07:30 Chloride 107 mmol/L (98-107) 09/15/17 07:30 Carbon Dioxide 30 mmol/L (21-32) 09/15/17 07:30 Anion Gap 5 (8-16) L 09/15/17 07:30 BUN 15 mg/dL (7-18) D 09/15/17 07:30 Creatinine 0.8 mg/dL (0.7-1.3) D 09/15/17 07:30 Creat Clearance w eGFR > 60 (>60) 09/15/17 07:30 Random Glucose 87 mg/dL (74-106) 09/15/17 07:30 Calcium 8.8 mg/dL (8.5-10.1) 09/15/17 07:30 Total Bilirubin 0.5 mg/dL (0.2-1.0) D 09/15/17 07:30 AST 16 U/L (15-37) 09/15/17 07:30 ALT 38 U/L (12-78) D 09/15/17 07:30 Alkaline Phosphatase 107 U/L (45-117) 09/15/17 07:30 Total Protein 7.7 g/dl (6.4-8.2) 09/15/17 07:30 Albumin 4.0 g/dl (3.4-5.0) 09/15/17 07:30 Urine Color Ltyellow 09/14/17 19:42 Urine Appearance Clear 09/14/17 19:42 Urine pH 6.0 (5.0-8.0) 09/14/17 19:42 Ur Specific [place] 1.016 (1.001-1.035) 09/14/17 19:42 Urine Protein Negative (NEGATIVE) 09/14/17 19:42 Urine Glucose (UA) Negative (NEGATIVE) 09/14/17 19:42 Urine Ketones Negative (NEGATIVE) 09/14/17 19:42 Urine Blood Negative (NEGATIVE) 09/14/17 19:42 Urine Nitrite Negative (NEGATIVE) 09/14/17 19:42 Urine Bilirubin Negative (<2.0 mg/dL) 09/14/17 19:42 Urine Urobilinogen Negative mg/dL (0.2-1.0) 09/14/17 19:42 Ur Leukocyte Esterase Negative (NEGATIVE) 09/14/17 19:42 RPR Titer Nonreactive (NONREACTIVE) 09/15/17 07:30 Assessment: 09/16/17 13:32 WITHDRAWAL SX Plan: CONTINUE DETOX ANALGESIC BALM TO AFFECTED AREA
[2017-09-16] MEDS: METHYL SALICYLATE/MENTHOL OINT 30 GM TUBE TP SCH ×2 (17:48→22:31)
[2017-09-16] MEDS: THIAMINE HCL 100 MG TABLET (FP) PO SCH (22:32)
[2017-09-16] MEDS: chlordiazePOXIDE 5 MG CAPSULE PO SCH (22:32)
[2017-09-17] MEDS: chlordiazePOXIDE 5 MG CAPSULE PO SCH (06:30)
--- NOTE | 2017-09-17 10:06 | PN ---
S Progress Note (SOAP) Subjective: PT DECLINED TO COMPLETE DETOX SAYING HE HAS THINGS TO DO. SLIGHT IRRITABILITY AND ANXIETY ABOUT WANTING TO "LEAVE RIGHT THIS MOMENT. THREATENING BUT NOT PHYSICALLY AGGRESSIVE, PT SAYING ... "I DON'T WANNA START THROWING THINGS DOWN NOW(DEMONSTRATING WITH GRABBING MOTION TOWARD THE COMPUTER WITHOUT TOUCHING IT, ACROSS THE NURSING STATION DESK). I DON'T CARE ABOUT YOU CALLING THE INSPECTOR [employer], THEY KNOW ME. I JUST WANNA LEAVE THIS MINUTE". Objective: 09/17/17 10:06 Vital Signs Temperature 96 F L 09/17/17 06:16 Pulse Rate 67 09/17/17 06:16 Respiratory Rate 16 09/17/17 06:16 Blood Pressure 115/76 09/17/17 06:16 O2 Sat by Pulse Oximetry (%) Laboratory Last Values WBC 5.1 K/mm3 (4.0-10.0) 09/15/17 07:30 RBC 4.68 M/mm3 (4.00-5.60) 09/15/17 07:30 Hgb 13.7 GM/dL (11.7-16.9) 09/15/17 07:30 Hct 41.5 % (35.4-49) 09/15/17 07:30 MCV 88.6 fl (80-96) 09/15/17 07:30 MCH 29.3 pg (25.7-33.7) 09/15/17 07:30 MCHC 33.0 g/dl (32.0-35.9) 09/15/17 07:30 RDW 16.0 % (11.9-15.9) H 09/15/17 07:30 Plt Count 279 K/MM3 (134-434) 09/15/17 07:30 MPV 9.2 fl (7.5-11.1) 09/15/17 07:30 Sodium 142 mmol/L (136-145) 09/15/17 07:30 Potassium 4.1 mmol/L (3.5-5.1) 09/15/17 07:30 Chloride 107 mmol/L (98-107) 09/15/17 07:30 Carbon Dioxide 30 mmol/L (21-32) 09/15/17 07:30 Anion Gap 5 (8-16) L 09/15/17 07:30 BUN 15 mg/dL (7-18) D 09/15/17 07:30 Creatinine 0.8 mg/dL (0.7-1.3) D 09/15/17 07:30 Creat Clearance w eGFR > 60 (>60) 09/15/17 07:30 Random Glucose 87 mg/dL (74-106) 09/15/17 07:30 Calcium 8.8 mg/dL (8.5-10.1) 09/15/17 07:30 Total Bilirubin 0.5 mg/dL (0.2-1.0) D 09/15/17 07:30 AST 16 U/L (15-37) 09/15/17 07:30 ALT 38 U/L (12-78) D 09/15/17 07:30 Alkaline Phosphatase 107 U/L (45-117) 09/15/17 07:30 Total Protein 7.7 g/dl (6.4-8.2) 09/15/17 07:30 Albumin 4.0 g/dl (3.4-5.0) 09/15/17 07:30 Urine Color Ltyellow 09/14/17 19:42 Urine Appearance Clear 09/14/17 19:42 Urine pH 6.0 (5.0-8.0) 09/14/17 19:42 Ur Specific [place] 1.016 (1.001-1.035) 09/14/17 19:42 Urine Protein Negative (NEGATIVE) 09/14/17 19:42 Urine Glucose (UA) Negative (NEGATIVE) 09/14/17 19:42 Urine Ketones Negative (NEGATIVE) 09/14/17 19:42 Urine Blood Negative (NEGATIVE) 09/14/17 19:42 Urine Nitrite Negative (NEGATIVE) 09/14/17 19:42 Urine Bilirubin Negative (<2.0 mg/dL) 09/14/17 19:42 Urine Urobilinogen Negative mg/dL (0.2-1.0) 09/14/17 19:42 Ur Leukocyte Esterase Negative (NEGATIVE) 09/14/17 19:42 RPR Titer Nonreactive (NONREACTIVE) 09/15/17 07:30 Assessment: 09/17/17 10:06 ALERT O X 3. NAD Plan: PT SIGNED OUT AMA
--- NOTE | 2017-09-17 10:17 | DS ---
[facility] Detox Discharge Summary Admission Date: 09/14/17 Discharge Date: 09/17/17 - History Present History: Alcohol Dependence, Cocaine Dependence Additional Comments: PT SIGNED OUT AMA FOR PERSONAL REASONS STATING "I GOT THINGS TO DO" ALERT O X 3. NAD. PT HAS OWN MEDS AND WILL FOLLOW UP WITH HIS PMD NEEDED. Pertinent Past History: PLEASE SEE DX BELOW - Physical Exam Results Vital Signs: Vital Signs Temperature 96 F L 09/17/17 06:16 Pulse Rate 67 09/17/17 06:16 Respiratory Rate 16 09/17/17 06:16 Blood Pressure 115/76 09/17/17 06:16 O2 Sat by Pulse Oximetry (%) Pertinent Admission Physical Exam Findings: WITHDRAWAL SX Laboratory Last Values WBC 5.1 K/mm3 (4.0-10.0) 09/15/17 07:30 RBC 4.68 M/mm3 (4.00-5.60) 09/15/17 07:30 Hgb 13.7 GM/dL (11.7-16.9) 09/15/17 07:30 Hct 41.5 % (35.4-49) 09/15/17 07:30 MCV 88.6 fl (80-96) 09/15/17 07:30 MCH 29.3 pg (25.7-33.7) 09/15/17 07:30 MCHC 33.0 g/dl (32.0-35.9) 09/15/17 07:30 RDW 16.0 % (11.9-15.9) H 09/15/17 07:30 Plt Count 279 K/MM3 (134-434) 09/15/17 07:30 MPV 9.2 fl (7.5-11.1) 09/15/17 07:30 Sodium 142 mmol/L (136-145) 09/15/17 07:30 Potassium 4.1 mmol/L (3.5-5.1) 09/15/17 07:30 Chloride 107 mmol/L (98-107) 09/15/17 07:30 Carbon Dioxide 30 mmol/L (21-32) 09/15/17 07:30 Anion Gap 5 (8-16) L 09/15/17 07:30 BUN 15 mg/dL (7-18) D 09/15/17 07:30 Creatinine 0.8 mg/dL (0.7-1.3) D 09/15/17 07:30 Creat Clearance w eGFR > 60 (>60) 09/15/17 07:30 Random Glucose 87 mg/dL (74-106) 09/15/17 07:30 Calcium 8.8 mg/dL (8.5-10.1) 09/15/17 07:30 Total Bilirubin 0.5 mg/dL (0.2-1.0) D 09/15/17 07:30 AST 16 U/L (15-37) 09/15/17 07:30 ALT 38 U/L (12-78) D 09/15/17 07:30 Alkaline Phosphatase 107 U/L (45-117) 09/15/17 07:30 Total Protein 7.7 g/dl (6.4-8.2) 09/15/17 07:30 Albumin 4.0 g/dl (3.4-5.0) 09/15/17 07:30 Urine Color Ltyellow 09/14/17 19:42 Urine Appearance Clear 09/14/17 19:42 Urine pH 6.0 (5.0-8.0) 09/14/17 19:42 Ur Specific [place] 1.016 (1.001-1.035) 09/14/17 19:42 Urine Protein Negative (NEGATIVE) 09/14/17 19:42 Urine Glucose (UA) Negative (NEGATIVE) 09/14/17 19:42 Urine Ketones Negative (NEGATIVE) 09/14/17 19:42 Urine Blood Negative (NEGATIVE) 09/14/17 19:42 Urine Nitrite Negative (NEGATIVE) 09/14/17 19:42 Urine Bilirubin Negative (<2.0 mg/dL) 09/14/17 19:42 Urine Urobilinogen Negative mg/dL (0.2-1.0) 09/14/17 19:42 Ur Leukocyte Esterase Negative (NEGATIVE) 09/14/17 19:42 RPR Titer Nonreactive (NONREACTIVE) 09/15/17 07:30 - Treatment Hospital Course: Discharged Condition Good - Medication Discharge Medications: Ambulatory Orders Venlafaxine HCl ER [Effexor Xr -] 150 mg PO DAILY #30 cap.er.24h 07/16/16 Amlodipine Besylate [Norvasc -] 10 mg PO DAILY 14 Days #14 tablet 05/29/17 Lisinopril/Hydrochlorothiazide [Lisinopril-Hctz 20-25 mg Tab] 1 each PO DAILY # 30 tab 05/29/17 Venlafaxine HCl ER [Effexor Xr -] 75 mg PO DAILY #30 cap.er.24h 09/16/17 - Diagnosis (1) Alcohol dependence with uncomplicated withdrawal Status: Acute (2) Cocaine dependence Status: Acute Qualifiers: Substance use status: uncomplicated Qualified Code(s): F14.20 - Cocaine dependence, uncomplicated (3) Dehydration Status: Acute (4) Nicotine dependence Status: Acute Qualifiers: Nicotine product type: cigarettes Substance use status: in withdrawal Qualified Code(s): F17.213 - Nicotine dependence, cigarettes, with withdrawal (5) HTN (hypertension) Status: Chronic Qualifiers: Hypertension type: essential hypertension Qualified Code(s): I10 - Essential (primary) hypertension (6) Scoliosis deformity of spine Status: Chronic Qualifiers: Scoliosis type: idiopathic Idiopathic scoliosis type: juvenile Spinal region: thoracic Qualified Code(s): 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
[2017-09-17 11:19] VITALS: BP 114/78; PULSE 79; TEMP 96
[2017-09-17] MEDS ORDERED: chlordiazePOXIDE HCL 10 MG CAPSULE PO SCH (23:00)
== END 2017-09-17 10:05 | disposition left against medical advice (07) | DRG 770 ==
LOC: YASAS 16:33 → Y3N 18:37
PROVIDERS: ADMIT Internal Medicine; ATTEND Internal Medicine
PROC: HZ2ZZZZ Detoxification Services for Substance Abuse Treatment (ICD-10-PCS; principal; 2017-09-14)
DX: F10.230 Alcohol dependence with withdrawal, uncomplicated (principal); F14.20 Cocaine dependence, uncomplicated; F17.210 Nicotine dependence, cigarettes, uncomplicated; F19.24 Other psychoactive substance dependence with psychoactive substance-induced mood disorder; F32.9 Major depressive disorder, single episode, unspecified; I10 Essential (primary) hypertension; E86.0 Dehydration; M41.114 Juvenile idiopathic scoliosis, thoracic region
CPT/HCPCS: 36415; 80053; 81003; 85027; 86593; 93005; 93010

== ENCOUNTER 2017-12-10 10:41 | Inpatient (IN) | payer OTHER ==
[2017-12-10 11:35] VITALS: BMI 26.9
--- NOTE | 2017-12-10 12:55 | HP ---
Admission [facility] Chief Complaint: REHAB TX FOR ALCOHOLISM Allergies/Adverse Reactions: Allergies Allergy/AdvReac Type Severity Reaction Status Date / Time Penicillins Allergy Severe Hives Verified 09/14/17 18:12 History of Present Illness: 52 Y/O AA/MALE WITH A HX OF ALCOHOL DEPENDENCE SEEKING REHAB TX. PT HAS MULTIPLE TREATMENT EPISODES. LAST TX IN 08/2017. Exam Limitations: No Limitations - Ebola screening Have you traveled outside of the country in the last 21 days: No (N) Have you had contact with anyone from an Ebola affected area: No Have you been sick,other than usual withdrawal symptoms: No Do you have a fever: No - Review of Systems Constitutional: Chills, Loss of Appetite, Night Sweats, Changes in sleep EENT: reports: Blurred Vision (WEARS GLASSES), Dental Problems (MISSING TEETH) Respiratory: reports: Cough (DRY) Cardiac: reports: Lightheadedness GI: reports: Nausea, Poor Fluid Intake : reports: No Symptoms Reported Musculoskeletal: reports: Back Pain, Other (HX SCOLIOSIS OF SPINE) Integumentary: reports: No Symptoms Reported Neuro: reports: Numbness, Tingling, Tremors, Unsteady Gait ([ON INTOXICATION), Dizziness Endocrine: reports: No Symptoms Reported Hematology: reports: Anemia (IN TH3E PAST) Psychiatric: reports: No Sypmtoms Reported, Orientated x3, Anxious, Depressed Other Systems: Reviewed and Negative Patient History - Patient Medical History Hx Anemia: No Hx Asthma: No Hx Chronic Obstructive Pulmonary Disease (COPD): No Hx Cancer: No Hx Cardiac Disorders: No Hx Congestive Heart Failure: No Hx Hypertension: Yes (ON MEDS) Hx Hypercholesterolemia: No Hx Pacemaker: No HX Cerebrovascular Accident: No Hx Seizures: No Hx Dementia: No Hx Diabetes: No Hx Gastrointestinal Disorders: No Hx Liver Disease: No Hx Genitourinary Disorders: No Hx Sexually Transmitted Disorders: No Hx Renal Disease (ESRD): No Hx Thyroid Disease: No Hx Human Immunodeficiency Virus (HIV): No (LAST 06/19 NEGATIVE) Hx Hepatitis C: No Hx Depression: Yes (LAST TAKEN MED X ONE WEEK.) Hx Suicide Attempt: No (DENIES S/H/I) Hx Bipolar Disorder: No Hx Schizophrenia: No - Patient Surgical History Past Surgical History: No Hx Neurologic Surgery: No Hx Cataract Extraction: No Hx Cardiac Surgery: No Hx Lung Surgery: No Hx Breast Surgery: No Hx Breast Biopsy: No Hx Abdominal Surgery: No Hx Appendectomy: No Hx Cholecystectomy: No Hx Genitourinary Surgery: No Hx Orthopedic Surgery: No Anesthesia Reaction: No - PPD History Previous Implant?: Yes Documented Results: Negative w/proof Implanted On Prior [facility] Admission?: No Date: 01/15/17 Results: 0 mm PPD to be Administered?: No - Reproductive History Patient is a Female of Child Bearing Age (11 -55 yrs old): No (MALE) - Smoking Cessation Smoking history: Current every day smoker Have you smoked in the past 12 months: Yes Aproximately how many cigarettes per day: 4 Cigars Per Day: 0 Hx Chewing Tobacco Use: No Initiated information on smoking cessation: Yes 'Breaking Loose' booklet given: 12/10/17 - Substance & Tx. History Hx Alcohol Use: Yes (BEER) Substance Use Type: Alcohol Hx Substance Use Treatment: Yes (LAST TX AT [facility]) - Substances Abused Alcohol Route: Inhalation Frequency: Daily Amount used: 10 24 oz cans Age of first use: 16 Date of Last Use: 12/09/17 Family Disease History - Family Disease History Family Disease History: CA: Grandparent (dx w/ colon cancer age 70's), Other: Father (alcohol,,cirrhosis), Mother (alcohol,cirrhosis age 34) Admission Physical Exam S - Vital Signs Vital Signs: Vital Signs - 24 hr 12/10/17 11:33 Temperature 97.8 F Pulse Rate 74 Respiratory 17 Rate Blood Pressure 139/88 - Physical General Appearance: Yes: No Apparent Distress, Appropriately Dressed HEENTM: Yes: EOMI, Normocephalic, MANDI, Pharynx Normal Respiratory: Yes: Chest Non-Tender, Lungs Clear, Normal Breath Sounds Neck: Yes: No masses,lesions,Nodules, Supple, Trachea in good position Breast: Yes: Breast Exam Deferred Cardiology: Yes: Regular Rhythm, Regular Rate, S1, S2 Abdominal: Yes: Normal Bowel Sounds, Non Tender, Soft Genitourinary: Yes: Other (N/C) Back: Yes: Within Normal Limits Musculoskeletal: Yes: full range of Motion, Gait Steady Extremities: Yes: Normal Range of Motion, Non-Tender 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: marine painter II-XII NML intact, Fully Oriented, Alert, Motor Strength 5/5 Integumentary: Yes: Dry, Warm Lymphatic: Yes: Within Normal Limits - Diagnostic (1) Alcohol dependence with uncomplicated withdrawal Current Visit: Yes Status: Chronic (2) Nicotine dependence Current Visit: Yes Status: Acute Qualifiers: Nicotine product type: cigarettes Substance use status: in withdrawal Qualified Code(s): F17.213 - Nicotine dependence, cigarettes, with withdrawal (3) HTN (hypertension) Current Visit: Yes Status: Chronic Qualifiers: Hypertension type: essential hypertension Qualified Code(s): I10 - Essential (primary) hypertension (4) Scoliosis deformity of spine Current Visit: Yes Status: Chronic Qualifiers: Scoliosis type: idiopathic Idiopathic scoliosis type: juvenile Spinal region: thoracic Qualified Code(s): 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
[2017-12-10] MEDS ORDERED: ACETAMINOPHEN 325 MG TABLET (FP) PO PRN (13:12)
[2017-12-10] MEDS ORDERED: guaiFENesin/D-METHORPHAN HB 10 ML UNIT-DOSE CUPS PO PRN (13:12)
[2017-12-10] MEDS ORDERED: LOPERAMIDE HCL 2 MG CAPSULE PO PRN (13:12)
[2017-12-10] MEDS ORDERED: MAG HYDROX/AL HYDROX/SIMETH 30 ML UNIT-DOSE CUP PO PRN (13:12)
[2017-12-10] MEDS ORDERED: MAGNESIUM HYDROX 2400MG/30ML ORAL SUSPENSION 30 ML CUP PO PRN (13:12)
[2017-12-10] MEDS ORDERED: MENTHOL/PHENOL 1 EACH UD MM PRN (13:12)
[2017-12-10] MEDS ORDERED: MAGNESIUM CITRATE 300 ML BOTTLE PO PRN (13:12)
[2017-12-10] MEDS ORDERED: P-EPHED 60MG/TRIPROLIDI 2.5MG TABLET PO PRN (13:12)
[2017-12-10] MEDS ORDERED: NICOTINE POLACRILEX 2 MG GUM BUC PRN (13:12)
[2017-12-10] MEDS ORDERED: hydrOXYzine PAMOATE 50 MG CAPSULE (FP) PO PRN (13:12)
[2017-12-10] MEDS ORDERED: IBUPROFEN 400 MG TABLET (FP) PO PRN (13:12)
[2017-12-10 17:04] LABS: ALBUMIN 4.3 g/dl (3.4-5.0); ALK PHOS 103 U/L (45-117); ANION GAP 8 (8-16); BILIRUBIN,TOTAL 0.7 mg/dL (0.2-1.0); BLOOD UREA NITROGEN 9 mg/dL (7-18); CALCIUM 8.9 mg/dL (8.5-10.1); CHLORIDE 104 mmol/L (98-107); CO2 28 mmol/L (21-32); CREATININE 0.8 mg/dL (0.7-1.3); GLUCOSE,RANDOM 80 mg/dL (74-106); SGOT/AST 23 U/L (15-37); SGPT/ALT 46 U/L (12-78); SODIUM 140 mmol/L (136-145); TOT PROT 8.2 g/dl (6.4-8.2)
[2017-12-10 17:32] LABS: HEMATOCRIT 42.7 % (35.4-49); HEMOGLOBIN 13.8 GM/dL (11.7-16.9); MCH 28.8 pg (25.7-33.7); MCHC 32.4 g/dl (32.0-35.9); MEAN CELL VOLUME 88.8 fl (80-96); MEAN PLT VOLUME 9.6 fl (7.5-11.1); PLATELET COUNT 297 K/MM3 (134-434); RBC 4.81 M/mm3 (4.00-5.60); RDW 15.3 % (11.9-15.9); WHITE BLOOD COUNT 6.1 K/mm3 (4.0-10.0)
[2017-12-10] MEDS: THIAMINE HCL 100 MG TABLET (FP) PO SCH (21:29)
[2017-12-10] MEDS ORDERED: MELATONIN 5 MG TABLETS PO PRN (22:00)
[2017-12-11] MEDS: LOSARTAN 50MG/HCTZ 12.5MG 1 TAB (FP) PO SCH (09:52)
[2017-12-11] MEDS: PRENATAL VITAMINS W/ FOLIC ACID TABLET (FP) PO SCH (09:52)
--- NOTE | 2017-12-11 10:10 | HP ---
Psychiatrist Admission - Data Date of interview: 12/11/17 Admission source: Self-referred Identifying data: This is the third [facility] admission for this 52 years old single Black male, unemployed on SSI, domiciled living in a studio apartment in [place] Medical History: Significant for hypertension and scoliosis. Smokes 4 cigarettes daily Psychiatric History: Patient is well known to publications writer from previous admissions in this facility. He reports that his first psychiatric contact was in 2001 to [facility] in [facility] while he was in assisted. He was diagnosed with MDD and prescribed Effexor. Currently he sees a psychiatrist for medication management at the [facility] in [place], [place] and he is prescribed Venlafaxine 75 mg po daily.Patient denies history of suicide attempts. At present, reports doing well but sleeping poorly Physical/Sexual Abuse/Trauma History: Denies history of emotional, physical or sexual abuse as well as DV relationship. No service Additional Comment: Reports history of aproximately 5-6 previous misdemeanor arrests.Denies being on parole/probation at present Vital Signs: Vital Signs - 24 hr 12/10/17 12/11/17 12/11/17 11:33 00:30 03:30 Temperature 97.8 F Pulse Rate 74 Respiratory 17 18 18 Rate Blood Pressure 139/88 12/11/17 06:45 Temperature 98.8 F Pulse Rate 64 Respiratory 18 Rate Blood Pressure 121/89 Allergies/Adverse Reactions: Allergies Allergy/AdvReac Type Severity Reaction Status Date / Time Penicillins Allergy Severe Hives Verified 09/14/17 18:12 Date of last physical exam: 12/10/17 Concur with the findings of this exam: Yes - Substance Abuse/Tx History Hx Alcohol Use: Yes Hx Substance Use: No Substance Use Type: Alcohol (Started drinking alcohol at age 16, consumes 10x 24ox of beer daily. Last drank on 12/09/17) Hx Substance Use Treatment: Yes (12 previous inpt detox &2 inpt rehab admissions @ [facility]) Mental Status Exam - Mental Status Exam Alert and Oriented to: Time, Place, Person Cognitive Function: Fair Patient Appearance: Well Groomed Mood: Hopeful, Euthymic Affect: Appropriate Patient Behavior: Cooperative Speech Pattern: Clear Voice Loudness: Normal Thought Process: Intact, Goal Oriented Thought Disorder: Not Present Hallucinations: Denies Suicidal Ideation: Denies Homicidal Ideation: Denies Insight/Judgement: Fair Sleep: Poorly Appetite: Good Muscle strength/Tone: Normal Gait/Station: Normal Psychiatric Findings - Problem List ([place] 1, 2,3) (1) Alcohol dependence Current Visit: Yes Status: Acute (2) Nicotine dependence Current Visit: Yes Status: Acute (3) MDD (major depressive disorder), recurrent episode, moderate Current Visit: Yes Status: Chronic (4) Alcohol-induced sleep disorder Current Visit: Yes Status: Acute (5) HTN (hypertension) Current Visit: Yes Status: Chronic Qualifiers: Hypertension type: essential hypertension Qualified Code(s): I10 - Essential (primary) hypertension (6) Scoliosis deformity of spine Current Visit: Yes Status: Chronic Qualifiers: Scoliosis type: idiopathic Idiopathic scoliosis type: juvenile Spinal region: thoracic Qualified Code(s): 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 2) Start Melatonin 5 mg po Hs prn for insomnia. 3) Monitor progress
[2017-12-11] MEDS: VENLAFAXINE HCL 75 MG E.R. CAPSULES (FP) PO SCH (10:53)
--- NOTE | 2017-12-11 12:12 | EKG ---
Test Reason : Blood Pressure : / mmHG Vent. Rate : 074 BPM Atrial Rate : 074 BPM P-R Int : 146 ms QRS Dur : 096 ms QT Int : 398 ms P-R-T Axes : 019 019 031 degrees QTc Int : 441 ms NORMAL SINUS RHYTHM NORMAL ECG WHEN COMPARED WITH ECG OF 15-SEP-2017 09:06, NO SIGNIFICANT CHANGE WAS FOUND Confirmed by JC LEON MD ([id number]) on 12/11/2017 12:12:04 PM Referred By: Confirmed By:JC LEON MD
[2017-12-11 16:32] LABS: URINE APPEARANCE CLEAR; URINE BILIRUBIN NEGATIVE (<2.0 mg/dL); URINE COLOR LTYELLOW; URINE GLUCOSE (UA) NEGATIVE (NEGATIVE); URINE KETONE NEGATIVE (NEGATIVE); URINE LEUK ESTERASE NEGATIVE (NEGATIVE); URINE NITRITE NEGATIVE (NEGATIVE); URINE PROTEIN NEGATIVE (NEGATIVE); URINE UROBILINOGEN NEGATIVE mg/dL (0.2-1.0)
[2017-12-11] MEDS: THIAMINE HCL 100 MG TABLET (FP) PO SCH (21:46)
[2017-12-12] MEDS: PRENATAL VITAMINS W/ FOLIC ACID TABLET (FP) PO SCH (10:03)
[2017-12-12] MEDS: VENLAFAXINE HCL 75 MG E.R. CAPSULES (FP) PO SCH (10:03)
[2017-12-12] MEDS: LOSARTAN 50MG/HCTZ 12.5MG 1 TAB (FP) PO SCH (10:04)
[2017-12-12] MEDS: THIAMINE HCL 100 MG TABLET (FP) PO SCH (22:08)
[2017-12-13] MEDS: LOSARTAN 50MG/HCTZ 12.5MG 1 TAB (FP) PO SCH (10:05)
[2017-12-13] MEDS: PRENATAL VITAMINS W/ FOLIC ACID TABLET (FP) PO SCH (10:05)
[2017-12-13] MEDS: VENLAFAXINE HCL 75 MG E.R. CAPSULES (FP) PO SCH (10:05)
[2017-12-13] MEDS: THIAMINE HCL 100 MG TABLET (FP) PO SCH (21:58)
[2017-12-14] MEDS: PRENATAL VITAMINS W/ FOLIC ACID TABLET (FP) PO SCH (09:47)
[2017-12-14] MEDS: VENLAFAXINE HCL 75 MG E.R. CAPSULES (FP) PO SCH (09:47)
[2017-12-14] MEDS: LOSARTAN 50MG/HCTZ 12.5MG 1 TAB (FP) PO SCH (09:47)
[2017-12-14] MEDS: THIAMINE HCL 100 MG TABLET (FP) PO SCH (21:58)
[2017-12-15] MEDS: VENLAFAXINE HCL 75 MG E.R. CAPSULES (FP) PO SCH (10:18)
[2017-12-15] MEDS: PRENATAL VITAMINS W/ FOLIC ACID TABLET (FP) PO SCH (10:18)
[2017-12-15] MEDS: LOSARTAN 50MG/HCTZ 12.5MG 1 TAB (FP) PO SCH (10:20)
--- NOTE | 2017-12-15 12:22 | PN ---
S Progress Note Note: PATIENT PRESENTS WITH C/O CALLOUS TO BOTTOM OF LEFT FOOT. PATIENT DENIES PAIN TO FEET. EXAM STABLE. LEFT PLANTAR ASPECT WITH INTACT CALLOUS. NO OPEN AREA. EXT WITHOUT EDEMA. FULL ROM. A/P CALLOUS: WILL ORDER EUCERIN CREAM BID AND CONTINUE TO MONITOR CLINICALLY.
[2017-12-15] MEDS: THIAMINE HCL 100 MG TABLET (FP) PO SCH (22:00)
[2017-12-15] MEDS: MINERAL OIL/PETROLAT/WATER TOPICAL CREAM 113 GM JAR TP SCH (22:00)
[2017-12-16] MEDS ORDERED: PT OWN MED DRAWER 7, Y5N ONE (08:52)
[2017-12-16] MEDS: PRENATAL VITAMINS W/ FOLIC ACID TABLET (FP) PO SCH (10:03)
[2017-12-16] MEDS: MINERAL OIL/PETROLAT/WATER TOPICAL CREAM 113 GM JAR TP SCH ×2 (10:03→21:49)
[2017-12-16] MEDS: VENLAFAXINE HCL 75 MG E.R. CAPSULES (FP) PO SCH (10:03)
[2017-12-16] MEDS: LOSARTAN 50MG/HCTZ 12.5MG 1 TAB (FP) PO SCH (10:03)
[2017-12-16 13:17] VITALS: PULSE 61
[2017-12-16] MEDS: THIAMINE HCL 100 MG TABLET (FP) PO SCH (21:49)
[2017-12-17 06:36] VITALS: BP 129/87; TEMP 98.4
--- NOTE | 2017-12-17 08:47 | PN ---
Psychiatric Progress Note Vital Signs: Vital Signs Period Temp Pulse Resp BP Sys/Pérez Pulse Ox Last 24 Hr 98.4 F 61-61 -18 129-133/87-88 Date of Session: 12/17/17 Chief Complaint:: "Discharge" HPI: Patient admitted to for alcohol dependence. ROS: Significant for hypertension and scoliosis. Current Medications: Active Medications Generic Name Dose Route Start Last Admin Trade Name Freq PRN Reason Stop Dose Admin Acetaminophen 650 mg 12/10/17 13:12 Tylenol - PO Q4H PRN FEVER Al Hydroxide/Mg Hydroxide 30 ml 12/10/17 13:12 Mylanta Oral Suspension - PO Q6H PRN DYSPEPSIA Eucalyptus/Menthol/Phenol/Sorbitol 1 each 12/10/17 13:12 Cepastat Lozenge - MM Q4H PRN SORE THROAT Guaifenesin 10 ml 12/10/17 13:12 Robitussin Dm - PO Q6H PRN COUGH HCTZ/Losartan Potassium 1 tab 12/11/17 10:00 12/16/17 10:03 Hyzaar - PO 1 tab DAILY TERESA Administration Hydroxyzine Pamoate 50 mg 12/10/17 13:12 Vistaril - PO Q4H PRN AGITATION Ibuprofen 400 mg 12/10/17 13:12 Motrin - PO Q6H PRN Pain level 4-6 Loperamide HCl 4 mg 12/10/17 13:12 Imodium - PO Q6H PRN DIARRHEA Magnesium Citrate 300 ml 12/10/17 13:12 Citroma - PO Q48H PRN CONSTIPATION Magnesium Hydroxide 30 ml 12/10/17 13:12 Milk Of Magnesia - PO DAILY PRN CONSTIPATION Melatonin 5 mg 12/10/17 22:00 12/10/17 21:29 Melatonin PO 5 mg HS PRN Administration INSOMNIA Multi-Ingredient Lotion 1 applic 12/15/17 22:00 12/16/17 21:49 Eucerin (Small Jar) - TP Not Given BID TERESA Nicotine Polacrilex 2 mg 12/10/17 13:12 Nicorette Gum - BUC Q2H PRN NICOTINE REPLACEMENT RX Multivit/Folic Acid/Iron 1 tab 12/11/17 10:00 12/16/17 10:03 Vitamins (Sjr) - PO 1 tab DAILY TERESA Administration Pseudoephedrine/Triprolidine 1 combo 12/10/17 13:12 Actifed - PO TID PRN NASAL CONGESTION Thiamine HCl 100 mg 12/10/17 22:00 12/16/17 21:49 Vitamin B1 - PO Not Given HS TERESA Venlafaxine HCl 75 mg 12/11/17 10:45 12/16/17 10:03 Effexor Xr - PO 75 mg DAILY TERESA Administration Medication(s) Change(s): No. Current Side Effect: No Lab tests ordered: No Lab tests reviewed: Yes Provider note:: Patient able to complete 7 days of rehabilitation on 5N. Pt.will be given an early discharge. Pt. reports having an interview with [facility] this week. He has met his treatment goals and is able to identify behaviors that contribute to relapsing. Through participation of this program, patient has learned the importance of changing his behavior and the need for more structure in his life. Patient will continue to address his issues at the [facility] in [facility]. A 30 day supply of effexor 75mg will be electronically sent to [facility] pharmacy at [address] [place] [address]. Patient is stable for discharge on 12/17/17. Total face to face time:: 35 Mental Status Exam - Mental Status Exam Alert and Oriented to: Time, Place, Person Cognitive Function: Good Patient Appearance: Well Groomed Mood: Hopeful Affect: Appropriate, Mood Congruent Patient Behavior: Appropriate, Cooperative Speech Pattern: Clear, Appropriate Voice Loudness: Normal Thought Process: Intact Thought Disorder: Not Present Hallucinations: Denies Suicidal Ideation: Denies Homicidal Ideation: Denies Insight/Judgement: Good Sleep: Well Appetite: Good Muscle strength/Tone: Normal Gait/Station: Normal Psychiatric Treatment Plan - Problem List (1) Alcohol dependence Current Visit: Yes (2) Alcohol-induced sleep disorder Current Visit: Yes (3) Nicotine dependence Current Visit: Yes (4) MDD (major depressive disorder), recurrent episode, moderate Current Visit: Yes (5) Scoliosis deformity of spine Current Visit: Yes Qualifiers: Scoliosis type: idiopathic Idiopathic scoliosis type: juvenile Spinal region: thoracic Qualified Code(s): 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
[2017-12-17] MEDS: VENLAFAXINE HCL 75 MG E.R. CAPSULES (FP) PO SCH (09:20)
[2017-12-17] MEDS: LOSARTAN 50MG/HCTZ 12.5MG 1 TAB (FP) PO SCH (09:20)
[2017-12-17] MEDS: PRENATAL VITAMINS W/ FOLIC ACID TABLET (FP) PO SCH (09:21)
[2017-12-17] MEDS: MINERAL OIL/PETROLAT/WATER TOPICAL CREAM 113 GM JAR TP SCH (09:21)
== END 2017-12-17 09:25 | disposition home or self-care (01) | DRG 772 ==
LOC: YASAS 10:41 → Y5N 13:39
PROVIDERS: ADMIT Psychiatry & Neurology Psychiatry; ATTEND Psychiatry & Neurology Psychiatry
PROC: HZ42ZZZ Group Counseling for Substance Abuse Treatment, Cognitive-Behavioral (ICD-10-PCS; principal; 2017-12-10)
DX: F10.20 Alcohol dependence, uncomplicated (principal); F17.210 Nicotine dependence, cigarettes, uncomplicated; F10.282 Alcohol dependence with alcohol-induced sleep disorder; F33.1 Major depressive disorder, recurrent, moderate; I10 Essential (primary) hypertension; M41.114 Juvenile idiopathic scoliosis, thoracic region; L84 Corns and callosities; Z88.0 Allergy status to penicillin
CPT/HCPCS: 36415; 80053; 81003; 85027; 86593; 87389; 93005; 93010

== ENCOUNTER 2018-02-06 10:40 | Inpatient (IN) | payer OTHER ==
[2018-02-06 11:21] VITALS: BMI 26.6
--- NOTE | 2018-02-06 15:48 | HP ---
CIWA Score - CIWA Score Nausea/Vomitin-Mild Nausea/No Vomiting Muscle Tremors: 4-Moderate,w/Arms Extend Anxiety: 1-Mildly Anxious Agitation: 2 Paroxysmal Sweats: 2 Orientation: 0-Oriented Tacttile Disturbances: 1-Very Mild Itch/Numbness Auditory Disturbances: 0-None Visual Disturbances: 0-None Headache: 1-Very Mild CIWA-Ar Total Score: 12 Admission ROS S - HPI Chief Complaint: 52 year old male with a long history of alcohol abuse. Started at age 16. Drinks 12, 24oz cans of beer a day. Last drink was last night. No history of DT or seizures. Has been to inpatient detox 10-15 times, was in our rehab 6-7 months ago. Stayed sober for two months. Relapsed when went back to old friends and places. Cocaine use occasionally, on "special occasions", last use was 2 weeks ago. No use of heroin or pills. No MJA use. Tobacco use, 4-5 cigns a day. He tells me he feels "everything is catching up with me now. I'm ready to change." No history of terminal makeup operator treatment, IOP, etc. Allergies/Adverse Reactions: Allergies Allergy/AdvReac Type Severity Reaction Status Date / Time Penicillins Allergy Severe Hives Verified 02/06/18 12:10 - Ebola screening Have you been sick,other than usual withdrawal symptoms: No Patient History - Patient Medical History Hx Anemia: No Hx Asthma: No Hx Chronic Obstructive Pulmonary Disease (COPD): No Hx Cancer: No Hx Cardiac Disorders: No Hx Congestive Heart Failure: No Hx Hypertension: Yes (ON MEDS.) Hx Hypercholesterolemia: No Hx Pacemaker: No HX Cerebrovascular Accident: No Hx Seizures: No Hx Dementia: No Hx Diabetes: No Hx Gastrointestinal Disorders: No Hx Liver Disease: No Hx Genitourinary Disorders: No Hx Sexually Transmitted Disorders: No Hx Renal Disease (ESRD): No Hx Thyroid Disease: No Hx Human Immunodeficiency Virus (HIV): No (LAST 06/19 NEGATIVE) Hx Hepatitis C: No Hx Depression: Yes Hx Suicide Attempt: No Hx Bipolar Disorder: No Hx Schizophrenia: No - Patient Surgical History Past Surgical History: No Hx Neurologic Surgery: No Hx Cataract Extraction: No Hx Cardiac Surgery: No Hx Lung Surgery: No Hx Breast Surgery: No Hx Breast Biopsy: No Hx Abdominal Surgery: No Hx Appendectomy: No Hx Cholecystectomy: No Hx Genitourinary Surgery: No Hx Section: No Hx Orthopedic Surgery: No Anesthesia Reaction: No - PPD History Previous Implant?: Yes Documented Results: Negative w/proof Implanted On Prior [facility] Admission?: Yes Date: 01/15/17 Results: 0 MM - Smoking Cessation Smoking history: Current every day smoker Have you smoked in the past 12 months: Yes Aproximately how many cigarettes per day: 4 Cigars Per Day: 0 Hx Chewing Tobacco Use: No Initiated information on smoking cessation: Yes 'Breaking Loose' booklet given: 02/06/18 - Substances Abused Alcohol Route: Oral Frequency: Daily Amount used: 10 BEERS Age of first use: 16 Date of Last Use: 02/05/18 Family Disease History - Family Disease History Family Disease History: CA: Grandparent (dx w/ colon cancer age 70's), Other: Father (alcohol,,cirrhosis), Mother (alcohol,cirrhosis age 34) Admission Physical Exam S - Vital Signs Vital Signs: Vital Signs - 24 hr 02/06/18 11:15 Temperature 97.2 F L Pulse Rate 78 Respiratory 18 Rate Blood Pressure 148/92 Cleared for Admission [facility] - Detox or Rehab Detox Regimen/Protocol: Librium (No history of liver disease) [facility] Breath Alcohol Content Breath Alcohol Content: 0 Urine Drug Screen - Results Drug Screen Negative: No Urine Drug Screen Results: BZO-Benzodiazepines
[2018-02-06] MEDS ORDERED: hydrOXYzine PAMOATE 25 MG CAPSULE (FP) PO PRN (15:51)
[2018-02-06] MEDS ORDERED: NICOTINE POLACRILEX 4 MG GUM BC PRN (15:51)
[2018-02-06] MEDS ORDERED: MAG HYDROX/AL HYDROX/SIMETH 30 ML UNIT-DOSE CUP PO PRN (15:51)
[2018-02-06] MEDS ORDERED: guaiFENesin/D-METHORPHAN HB 10 ML UNIT-DOSE CUPS PO PRN (15:51)
[2018-02-06] MEDS ORDERED: IBUPROFEN 400 MG TABLET (FP) PO PRN (15:51)
[2018-02-06] MEDS ORDERED: chlordiazePOXIDE HCL 25 MG CAPSULE PO PRN (15:51)
[2018-02-06] MEDS ORDERED: MAGNESIUM HYDROX 2400MG/30ML ORAL SUSPENSION 30 ML CUP PO PRN (15:51)
[2018-02-06] MEDS ORDERED: MAGNESIUM CITRATE 300 ML BOTTLE PO PRN (15:51)
[2018-02-06] MEDS ORDERED: P-EPHED 60MG/TRIPROLIDI 2.5MG TABLET PO PRN (15:51)
[2018-02-06] MEDS ORDERED: MENTHOL/PHENOL 1 EACH UD MM PRN (15:51)
[2018-02-06] MEDS ORDERED: LOPERAMIDE HCL 2 MG CAPSULE PO PRN (15:51)
[2018-02-06] MEDS ORDERED: ACETAMINOPHEN 325 MG TABLET (FP) PO PRN (15:51)
[2018-02-06] MEDS ORDERED: chlordiazePOXIDE HCL 25 MG CAPSULE PO ONE (17:30)
[2018-02-06] MEDS: LOSARTAN 50MG/HCTZ 12.5MG 1 TAB (FP) PO SCH (19:52)
[2018-02-06] MEDS: VENLAFAXINE HCL 75 MG TABLET PO SCH (19:53)
[2018-02-06] MEDS: chlordiazePOXIDE HCL 25 MG CAPSULE PO SCH ×2 (20:41→22:49)
[2018-02-06] MEDS ORDERED: MELATONIN 5 MG TABLETS PO PRN (22:00)
[2018-02-06] MEDS: THIAMINE HCL 100 MG TABLET (FP) PO SCH (22:49)
[2018-02-07] MEDS: chlordiazePOXIDE HCL 25 MG CAPSULE PO SCH ×4 (05:19→22:54)
[2018-02-07] MEDS: VENLAFAXINE HCL 75 MG TABLET PO SCH (10:32)
[2018-02-07] MEDS: LOSARTAN 50MG/HCTZ 12.5MG 1 TAB (FP) PO SCH (10:33)
[2018-02-07 10:39] LABS: URINE APPEARANCE SLCLOUDY; URINE BILIRUBIN NEGATIVE (<2.0 mg/dL); URINE COLOR YELLOW; URINE GLUCOSE (UA) NEGATIVE (NEGATIVE); URINE KETONE NEGATIVE (NEGATIVE); URINE LEUK ESTERASE NEGATIVE (NEGATIVE); URINE NITRITE NEGATIVE (NEGATIVE); URINE PROTEIN NEGATIVE (NEGATIVE)
[2018-02-07 10:42] LABS: ALBUMIN 3.6 g/dl (3.4-5.0); BLOOD UREA NITROGEN 15 mg/dL (7-18); CHLORIDE 103 mmol/L (98-107); GLUCOSE,RANDOM 80 mg/dL (74-106); POTASSIUM 3.5 mmol/L (3.5-5.1); SODIUM 142 mmol/L (136-145)
[2018-02-07 10:43] LABS: HEMOGLOBIN 12.5 GM/dL (11.7-16.9); MCH 28.8 pg (25.7-33.7); MEAN CELL VOLUME 87.4 fl (80-96); MEAN PLT VOLUME 8.9 fl (7.5-11.1); PLATELET COUNT 271 K/MM3 (134-434); RBC 4.35 M/mm3 (4.00-5.60); RDW 14.5 % (11.9-15.9); WHITE BLOOD COUNT 5.2 K/mm3 (4.0-10.0)
[2018-02-07 10:46] LABS: ALK PHOS 101 U/L (45-117); ANION GAP 10 MMOL/L (8-16); BILIRUBIN,TOTAL 0.8 mg/dL (0.2-1.0); CALCIUM 8.8 mg/dL (8.5-10.1); CO2 29 mmol/L (21-32); CREATININE 0.7 mg/dL (0.7-1.3); SGOT/AST 27 U/L (15-37); SGPT/ALT 36 U/L (12-78); TOT PROT 6.8 g/dl (6.4-8.2)
[2018-02-07] MEDS: PRENATAL VITAMINS W/ FOLIC ACID TABLET (FP) PO SCH (11:05)
--- NOTE | 2018-02-07 14:59 | PN ---
[facility] CIWA - CIWA Score Nausea/Vomitin Muscle Tremors: 3 Anxiety: 3 Agitation: 3 Paroxysmal Sweats: 3 Orientation: 0-Oriented Tacttile Disturbances: 0-None Auditory Disturbances: 0-None Visual Disturbances: 0-None Headache: 0-None Present CIWA-Ar Total Score: 14 S Progress Note (SOAP) Subjective: sweats shakes sleep disturbance Objective: 02/07/18 14:57 Sleeping, arousable to verbal stimuli Vital Signs Temperature 97.4 F L 02/07/18 13:00 Pulse Rate 92 H 02/07/18 13:00 Respiratory Rate 18 02/07/18 13:00 Blood Pressure 114/74 02/07/18 13:00 O2 Sat by Pulse Oximetry (%) No distress noted Laboratory Last Values WBC 5.2 K/mm3 (4.0-10.0) 02/07/18 08:00 RBC 4.35 M/mm3 (4.00-5.60) 02/07/18 08:00 Hgb 12.5 GM/dL (11.7-16.9) 02/07/18 08:00 Hct 38.0 % (35.4-49) 02/07/18 08:00 MCV 87.4 fl (80-96) 02/07/18 08:00 MCH 28.8 pg (25.7-33.7) 02/07/18 08:00 MCHC 33.0 g/dl (32.0-35.9) 02/07/18 08:00 RDW 14.5 % (11.9-15.9) 02/07/18 08:00 Plt Count 271 K/MM3 (134-434) 02/07/18 08:00 MPV 8.9 fl (7.5-11.1) 02/07/18 08:00 Sodium 142 mmol/L (136-145) 02/07/18 08:00 Potassium 3.5 mmol/L (3.5-5.1) 02/07/18 08:00 Chloride 103 mmol/L (98-107) 02/07/18 08:00 Carbon Dioxide 29 mmol/L (21-32) 02/07/18 08:00 Anion Gap 10 MMOL/L (8-16) 02/07/18 08:00 BUN 15 mg/dL (7-18) 02/07/18 08:00 Creatinine 0.7 mg/dL (0.7-1.3) 02/07/18 08:00 Creat Clearance w eGFR > 60 (>60) 02/07/18 08:00 Random Glucose 80 mg/dL (74-106) 02/07/18 08:00 Calcium 8.8 mg/dL (8.5-10.1) 02/07/18 08:00 Total Bilirubin 0.8 mg/dL (0.2-1.0) 02/07/18 08:00 AST 27 U/L (15-37) 02/07/18 08:00 ALT 36 U/L (12-78) D 02/07/18 08:00 Alkaline Phosphatase 101 U/L (45-117) 02/07/18 08:00 Total Protein 6.8 g/dl (6.4-8.2) 02/07/18 08:00 Albumin 3.6 g/dl (3.4-5.0) 02/07/18 08:00 Urine Color Yellow 02/07/18 08:20 Urine Appearance Slcloudy 02/07/18 08:20 Urine pH 6.0 (5.0-8.0) 02/07/18 08:20 Ur Specific [place] 1.021 (1.001-1.035) 02/07/18 08:20 Urine Protein Negative (NEGATIVE) 02/07/18 08:20 Urine Glucose (UA) Negative (NEGATIVE) 02/07/18 08:20 Urine Ketones Negative (NEGATIVE) 02/07/18 08:20 Urine Blood Negative (NEGATIVE) 02/07/18 08:20 Urine Nitrite Negative (NEGATIVE) 02/07/18 08:20 Urine Bilirubin Negative (<2.0 mg/dL) 02/07/18 08:20 Urine Urobilinogen 2.0 mg/dL (0.2-1.0) 02/07/18 08:20 Ur Leukocyte Esterase Negative (NEGATIVE) 02/07/18 08:20 RPR Titer Nonreactive (NONREACTIVE) 02/07/18 08:00 HIV 1&2 Antibody Screen Negative 02/07/18 08:00 HIV P24 Antigen Negative 02/07/18 08:00 noted Assessment: 02/07/18 14:58 withdrawal sx Plan: continue detox Increase water drinking
[2018-02-07] MEDS: THIAMINE HCL 100 MG TABLET (FP) PO SCH (22:54)
[2018-02-08] MEDS: chlordiazePOXIDE HCL 25 MG CAPSULE PO SCH ×2 (07:42→10:24)
[2018-02-08] MEDS: VENLAFAXINE HCL 75 MG TABLET PO SCH (10:23)
[2018-02-08] MEDS: PRENATAL VITAMINS W/ FOLIC ACID TABLET (FP) PO SCH (10:24)
[2018-02-08] MEDS: LOSARTAN 50MG/HCTZ 12.5MG 1 TAB (FP) PO SCH (10:24)
--- NOTE | 2018-02-08 15:22 | PN ---
[facility] CIWA - CIWA Score Nausea/Vomitin-No Nausea/No Vomiting Muscle Tremors: 4-Moderate,w/Arms Extend Anxiety: 3 Agitation: 3 Paroxysmal Sweats: 1-Minimal Palms Moist Orientation: 0-Oriented Tacttile Disturbances: 1-Very Mild Itch/Numbness Auditory Disturbances: 1-Very Mild Visual Disturbances: 0-None Headache: 0-None Present CIWA-Ar Total Score: 13 BHS Progress Note (SOAP) Subjective: sweat tremor gi distress anxiety Objective: 02/08/18 15:22 Vital Signs Temperature 97.5 F L 02/08/18 14:53 Pulse Rate 91 H 02/08/18 14:53 Respiratory Rate 18 02/08/18 14:53 Blood Pressure 113/68 02/08/18 14:53 O2 Sat by Pulse Oximetry (%) Laboratory Last Values WBC 5.2 K/mm3 (4.0-10.0) 02/07/18 08:00 RBC 4.35 M/mm3 (4.00-5.60) 02/07/18 08:00 Hgb 12.5 GM/dL (11.7-16.9) 02/07/18 08:00 Hct 38.0 % (35.4-49) 02/07/18 08:00 MCV 87.4 fl (80-96) 02/07/18 08:00 MCH 28.8 pg (25.7-33.7) 02/07/18 08:00 MCHC 33.0 g/dl (32.0-35.9) 02/07/18 08:00 RDW 14.5 % (11.9-15.9) 02/07/18 08:00 Plt Count 271 K/MM3 (134-434) 02/07/18 08:00 MPV 8.9 fl (7.5-11.1) 02/07/18 08:00 Sodium 142 mmol/L (136-145) 02/07/18 08:00 Potassium 3.5 mmol/L (3.5-5.1) 02/07/18 08:00 Chloride 103 mmol/L (98-107) 02/07/18 08:00 Carbon Dioxide 29 mmol/L (21-32) 02/07/18 08:00 Anion Gap 10 MMOL/L (8-16) 02/07/18 08:00 BUN 15 mg/dL (7-18) 02/07/18 08:00 Creatinine 0.7 mg/dL (0.7-1.3) 02/07/18 08:00 Creat Clearance w eGFR > 60 (>60) 02/07/18 08:00 Random Glucose 80 mg/dL (74-106) 02/07/18 08:00 Calcium 8.8 mg/dL (8.5-10.1) 02/07/18 08:00 Total Bilirubin 0.8 mg/dL (0.2-1.0) 02/07/18 08:00 AST 27 U/L (15-37) 02/07/18 08:00 ALT 36 U/L (12-78) D 02/07/18 08:00 Alkaline Phosphatase 101 U/L (45-117) 02/07/18 08:00 Total Protein 6.8 g/dl (6.4-8.2) 02/07/18 08:00 Albumin 3.6 g/dl (3.4-5.0) 02/07/18 08:00 Urine Color Yellow 02/07/18 08:20 Urine Appearance Slcloudy 02/07/18 08:20 Urine pH 6.0 (5.0-8.0) 02/07/18 08:20 Ur Specific [place] 1.021 (1.001-1.035) 02/07/18 08:20 Urine Protein Negative (NEGATIVE) 02/07/18 08:20 Urine Glucose (UA) Negative (NEGATIVE) 02/07/18 08:20 Urine Ketones Negative (NEGATIVE) 02/07/18 08:20 Urine Blood Negative (NEGATIVE) 02/07/18 08:20 Urine Nitrite Negative (NEGATIVE) 02/07/18 08:20 Urine Bilirubin Negative (<2.0 mg/dL) 02/07/18 08:20 Urine Urobilinogen 2.0 mg/dL (0.2-1.0) 02/07/18 08:20 Ur Leukocyte Esterase Negative (NEGATIVE) 02/07/18 08:20 RPR Titer Nonreactive (NONREACTIVE) 02/07/18 08:00 HIV 1&2 Antibody Screen Negative 02/07/18 08:00 HIV P24 Antigen Negative 02/07/18 08:00 labn oted Assessment: 02/08/18 15:23 withdrawal sx Plan: continue detox
[2018-02-08] MEDS: chlordiazePOXIDE 5 MG CAPSULE PO SCH ×2 (18:40→22:32)
[2018-02-08] MEDS: THIAMINE HCL 100 MG TABLET (FP) PO SCH (22:32)
[2018-02-09] MEDS: chlordiazePOXIDE 5 MG CAPSULE PO SCH (06:37)
[2018-02-09 09:23] VITALS: BP 140/99; PULSE 73; TEMP 98.1
[2018-02-09] MEDS: VENLAFAXINE HCL 75 MG TABLET PO SCH (09:30)
[2018-02-09] MEDS: PRENATAL VITAMINS W/ FOLIC ACID TABLET (FP) PO SCH (09:30)
[2018-02-09] MEDS: LOSARTAN 50MG/HCTZ 12.5MG 1 TAB (FP) PO SCH (09:30)
--- NOTE | 2018-02-09 11:07 | DS ---
[facility] Detox Discharge Summary Admission Date: 02/06/18 Discharge Date: 02/09/18 - History Present History: Alcohol Dependence Additional Comments: 52 years old male admitted on 02/06/18 for alcohol withdrawal sx reported feeling better alert oriented x 3 no acute distress denies alcohol withdrawal sx stated that has refill all medication on 01/25/18 x 30 days supply at home patient is going to [facility] medical and [facility] issues patient wants continue going to [facility] - Physical Exam Results Vital Signs: Vital Signs Temperature 98.1 F 02/09/18 09:22 Pulse Rate 73 02/09/18 09:22 Respiratory Rate 18 02/09/18 09:22 Blood Pressure 140/99 02/09/18 09:22 O2 Sat by Pulse Oximetry (%) Pertinent Admission Physical Exam Findings: alcohol withdrawal sx Vital Signs Temperature 98.1 F 02/09/18 09:22 Pulse Rate 73 02/09/18 09:22 Respiratory Rate 18 02/09/18 09:22 Blood Pressure 140/99 02/09/18 09:22 O2 Sat by Pulse Oximetry (%) Laboratory Last Values WBC 5.2 K/mm3 (4.0-10.0) 02/07/18 08:00 RBC 4.35 M/mm3 (4.00-5.60) 02/07/18 08:00 Hgb 12.5 GM/dL (11.7-16.9) 02/07/18 08:00 Hct 38.0 % (35.4-49) 02/07/18 08:00 MCV 87.4 fl (80-96) 02/07/18 08:00 MCH 28.8 pg (25.7-33.7) 02/07/18 08:00 MCHC 33.0 g/dl (32.0-35.9) 02/07/18 08:00 RDW 14.5 % (11.9-15.9) 02/07/18 08:00 Plt Count 271 K/MM3 (134-434) 02/07/18 08:00 MPV 8.9 fl (7.5-11.1) 02/07/18 08:00 Sodium 142 mmol/L (136-145) 02/07/18 08:00 Potassium 3.5 mmol/L (3.5-5.1) 02/07/18 08:00 Chloride 103 mmol/L (98-107) 02/07/18 08:00 Carbon Dioxide 29 mmol/L (21-32) 02/07/18 08:00 Anion Gap 10 MMOL/L (8-16) 02/07/18 08:00 BUN 15 mg/dL (7-18) 02/07/18 08:00 Creatinine 0.7 mg/dL (0.7-1.3) 02/07/18 08:00 Creat Clearance w eGFR > 60 (>60) 02/07/18 08:00 Random Glucose 80 mg/dL (74-106) 02/07/18 08:00 Calcium 8.8 mg/dL (8.5-10.1) 02/07/18 08:00 Total Bilirubin 0.8 mg/dL (0.2-1.0) 02/07/18 08:00 AST 27 U/L (15-37) 02/07/18 08:00 ALT 36 U/L (12-78) D 02/07/18 08:00 Alkaline Phosphatase 101 U/L (45-117) 02/07/18 08:00 Total Protein 6.8 g/dl (6.4-8.2) 02/07/18 08:00 Albumin 3.6 g/dl (3.4-5.0) 02/07/18 08:00 Urine Color Yellow 02/07/18 08:20 Urine Appearance Slcloudy 02/07/18 08:20 Urine pH 6.0 (5.0-8.0) 02/07/18 08:20 Ur Specific [place] 1.021 (1.001-1.035) 02/07/18 08:20 Urine Protein Negative (NEGATIVE) 02/07/18 08:20 Urine Glucose (UA) Negative (NEGATIVE) 02/07/18 08:20 Urine Ketones Negative (NEGATIVE) 02/07/18 08:20 Urine Blood Negative (NEGATIVE) 02/07/18 08:20 Urine Nitrite Negative (NEGATIVE) 02/07/18 08:20 Urine Bilirubin Negative (<2.0 mg/dL) 02/07/18 08:20 Urine Urobilinogen 2.0 mg/dL (0.2-1.0) 02/07/18 08:20 Ur Leukocyte Esterase Negative (NEGATIVE) 09/08/18 08:20 RPR Titer Nonreactive (NONREACTIVE) 02/07/18 08:00 HIV 1&2 Antibody Screen Negative 02/07/18 08:00 HIV P24 Antigen Negative 02/07/18 08:00 lab noted - Treatment Hospital Course: Detox Protocol Followed, Detoxed Safely, Responded well, Discharged Condition Good, Rehab Referral Accepted - Medication Discharge Medications: Ambulatory Orders Venlafaxine HCl ER [Effexor Xr -] 75 mg PO DAILY #30 cap.er.24h 09/16/17 Losartan/Hydrochlorothiazide [Losartan-Hctz 50-12.5 mg Tab] 1 each PO DAILY #30 tablet 02/09/18 - Diagnosis (1) Alcohol dependence with uncomplicated withdrawal Status: Acute (2) Nicotine dependence Status: Acute Qualifiers: Nicotine product type: cigarettes Substance use status: in withdrawal Qualified Code(s): F17.213 - Nicotine dependence, cigarettes, with withdrawal (3) HTN (hypertension) Status: Chronic Qualifiers: Hypertension type: essential hypertension Qualified Code(s): I10 - Essential (primary) hypertension (4) Depression Status: Suspected Qualifiers: Depression Type: dysthymia Qualified Code(s): F34.1 - Dysthymic disorder - AMA Did Patient Leave Against Medical Advice: No
--- NOTE | 2018-02-09 11:26 | EKG ---
Test Reason : Blood Pressure : / mmHG Vent. Rate : 065 BPM Atrial Rate : 065 BPM P-R Int : 130 ms QRS Dur : 092 ms QT Int : 418 ms P-R-T Axes : -02 003 043 degrees QTc Int : 434 ms NORMAL SINUS RHYTHM NORMAL ECG WHEN COMPARED WITH ECG OF 10-DEC-2017 14:44, NO SIGNIFICANT CHANGE WAS FOUND Confirmed by TRINA QUIÑONES MD ([id number]) on 02/09/2018 11:25:40 AM Referred By: Confirmed By:TRINA QUIÑONES MD
[2018-02-09] MEDS ORDERED: chlordiazePOXIDE HCL 10 MG CAPSULE PO SCH (17:00)
== END 2018-02-09 09:45 | disposition home or self-care (01) | DRG 775 ==
LOC: YASAS 10:40 → Y6N 17:10
PROC: HZ2ZZZZ Detoxification Services for Substance Abuse Treatment (ICD-10-PCS; principal; 2018-02-06)
DX: F10.230 Alcohol dependence with withdrawal, uncomplicated (principal); F17.213 Nicotine dependence, cigarettes, with withdrawal; F34.1 Dysthymic disorder; F19.24 Other psychoactive substance dependence with psychoactive substance-induced mood disorder; G47.00 Insomnia, unspecified; I10 Essential (primary) hypertension; Z88.0 Allergy status to penicillin
CPT/HCPCS: 36415; 80053; 81003; 85027; 86593; 87389; 93005; 93010

== ENCOUNTER 2018-03-11 11:43 | Inpatient (IN) | payer OTHER ==
[2018-03-11 12:33] VITALS: BMI 25.4
--- NOTE | 2018-03-11 13:38 | HP ---
CIWA Score - CIWA Score Nausea/Vomitin Muscle Tremors: 3 Anxiety: 3 Agitation: 0-Normal Activity Paroxysmal Sweats: 2 Orientation: 0-Oriented Tacttile Disturbances: 0-None Auditory Disturbances: 0-None Visual Disturbances: 0-None Headache: 2-Mild CIWA-Ar Total Score: 12 Admission [facility] - HPI Chief Complaint: ETOH WITHDRAWAL SYMPTOMS Allergies/Adverse Reactions: Allergies Allergy/AdvReac Type Severity Reaction Status Date / Time Penicillins Allergy Severe Hives Verified 03/11/18 12:32 History of Present Illness: PATIENT PRESENTS WITH ETOH WITHDRAWAL SYMPTOMS. PATIENT STARTED DRINKING AT AGE 16. DRINKS 12-18 BEERS DAILY. LAST DRINK WAS THIS MORNING. PATIENT USUALLY HAS FIRST DRINK UPON RISING. DENIES H/O SEIZURES BUT DOES HAVE H/O BLACKOUTS. THIS IS PATIENTS FOURTH ADMISSION THIS YEAR TO [facility] FOR DETOX. PATIENTS LONGEST PERIOD OF SOBRIETY 6 YEARS. PMH INCLUDES DEPRESSION, HTN. DENIES SI/HI AND SUICIDE ATTEMPTS. PATIENT DENIES RECENT ADMISSION TO DETOX OR ER VISIT ALTHOUGH UDS +BZO. Exam Limitations: No Limitations - Ebola screening Have you traveled outside of the country in the last 21 days: No Have you had contact with anyone from an Ebola affected area: No Have you been sick,other than usual withdrawal symptoms: No Do you have a fever: No - Review of Systems Constitutional: Night Sweats, Changes in sleep EENT: reports: No Symptoms Reported Respiratory: reports: No Symptoms reported Cardiac: reports: No Symptoms Reported GI: reports: Nausea, Poor Appetite, Poor Fluid Intake, Abdominal cramping : reports: No Symptoms Reported Musculoskeletal: reports: Joint Pain, Muscle Pain Integumentary: reports: Sweating Neuro: reports: Headache, Tremors Endocrine: reports: No Symptoms Reported Hematology: reports: No Symptoms Reported Psychiatric: reports: Orientated x3, Anxious, Depressed Patient History - Patient Medical History Hx Anemia: No Hx Asthma: No Hx Chronic Obstructive Pulmonary Disease (COPD): No Hx Cancer: No Hx Cardiac Disorders: No Hx Congestive Heart Failure: No Hx Hypertension: Yes Hx Hypercholesterolemia: No Hx Pacemaker: No HX Cerebrovascular Accident: No Hx Seizures: No Hx Dementia: No Hx Diabetes: No Hx Gastrointestinal Disorders: No Hx Liver Disease: No Hx Genitourinary Disorders: No Hx Sexually Transmitted Disorders: No Hx Renal Disease (ESRD): No Hx Thyroid Disease: No Hx Human Immunodeficiency Virus (HIV): No (LAST 06/19 NEGATIVE) Hx Hepatitis C: No Hx Depression: Yes Hx Suicide Attempt: No Hx Bipolar Disorder: No Hx Schizophrenia: No - Patient Surgical History Past Surgical History: No Hx Neurologic Surgery: No Hx Cataract Extraction: No Hx Cardiac Surgery: No Hx Lung Surgery: No Hx Breast Surgery: No Hx Breast Biopsy: No Hx Abdominal Surgery: No Hx Appendectomy: No Hx Cholecystectomy: No Hx Genitourinary Surgery: No Hx Orthopedic Surgery: No Anesthesia Reaction: No - PPD History Previous Implant?: Yes Documented Results: Negative w/proof Implanted On Prior [facility] Admission?: Yes Date: 01/15/17 Results: 0 mm PPD to be Administered?: Yes - Smoking Cessation Smoking history: Current every day smoker Have you smoked in the past 12 months: Yes Aproximately how many cigarettes per day: 4 Cigars Per Day: 0 Hx Chewing Tobacco Use: No Initiated information on smoking cessation: Yes 'Breaking Loose' booklet given: 03/11/18 - Substances Abused Cocaine Route: Inhalation Frequency: 1-3 times last 30 days Amount used: $100 Age of first use: 19 Date of Last Use: 03/07/18 Alochol-beer Route: Oral Frequency: Daily Amount used: 3-6packs daily Age of first use: 16 Date of Last Use: 03/11/18 Family Disease History - Family Disease History Family Disease History: CA: Grandparent (dx w/ colon cancer age 70's), Other: Father (alcohol,,cirrhosis), Mother (alcohol,cirrhosis age 34) Admission Physical Exam [facility] - Vital Signs Vital Signs: Vital Signs - 24 hr 03/11/18 12:04 Temperature 98.8 F Pulse Rate 72 Respiratory 17 Rate Blood Pressure 134/90 - Physical General Appearance: Yes: Appropriately Dressed, Tremorous, Sweating, Anxious HEENTM: Yes: EOMI, Hearing grossly Normal, Normocephalic, Normal Voice, MANDI, Pharynx Normal Respiratory: Yes: Chest Non-Tender, Lungs Clear, Normal Breath Sounds, No Respiratory Distress, No Accessory Muscle Use Neck: Yes: No masses,lesions,Nodules, Supple, Trachea in good position Breast: Yes: Breast Exam Deferred Cardiology: Yes: Regular Rhythm, Regular Rate, S1, S2 Abdominal: Yes: Normal Bowel Sounds, Non Tender, Soft Genitourinary: Yes: Within Normal Limits Back: Yes: Normal Inspection, Muscle Spasm Musculoskeletal: Yes: Gait Steady, Back pain, Muscle Pain, Other (SCOLIOSIS) Extremities: Yes: Normal Range of Motion, Non-Tender, Tremors 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: 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
[2018-03-11] MEDS ORDERED: P-EPHED 60MG/TRIPROLIDI 2.5MG TABLET PO PRN (13:46)
[2018-03-11] MEDS ORDERED: MAG HYDROX/AL HYDROX/SIMETH 30 ML UNIT-DOSE CUP PO PRN (13:46)
[2018-03-11] MEDS ORDERED: LOPERAMIDE HCL 2 MG CAPSULE PO PRN (13:46)
[2018-03-11] MEDS ORDERED: guaiFENesin/D-METHORPHAN HB 10 ML UNIT-DOSE CUPS PO PRN (13:46)
[2018-03-11] MEDS ORDERED: MAGNESIUM HYDROX 2400MG/30ML ORAL SUSPENSION 30 ML CUP PO PRN (13:46)
[2018-03-11] MEDS ORDERED: ACETAMINOPHEN 325 MG TABLET (FP) PO PRN (13:46)
[2018-03-11] MEDS ORDERED: MAGNESIUM CITRATE 300 ML BOTTLE PO PRN (13:46)
[2018-03-11] MEDS ORDERED: MENTHOL/PHENOL 1 EACH UD MM PRN (13:46)
[2018-03-11] MEDS ORDERED: hydrOXYzine PAMOATE 50 MG CAPSULE (FP) PO PRN (13:46)
[2018-03-11] MEDS ORDERED: NICOTINE POLACRILEX 2 MG GUM BUC PRN (13:46)
[2018-03-11] MEDS ORDERED: IBUPROFEN 400 MG TABLET (FP) PO PRN (13:46)
[2018-03-11] MEDS ORDERED: chlordiazePOXIDE HCL 25 MG CAPSULE PO PRN (13:52)
[2018-03-11 17:18] LABS: URINE APPEARANCE CLEAR; URINE BILIRUBIN NEGATIVE (<2.0 mg/dL); URINE COLOR YELLOW; URINE GLUCOSE (UA) NEGATIVE (NEGATIVE); URINE KETONE NEGATIVE (NEGATIVE); URINE LEUK ESTERASE NEGATIVE (NEGATIVE); URINE NITRITE NEGATIVE (NEGATIVE); URINE PROTEIN NEGATIVE (NEGATIVE); URINE UROBILINOGEN NEGATIVE mg/dL (0.2-1.0)
[2018-03-11] MEDS: chlordiazePOXIDE HCL 25 MG CAPSULE PO SCH ×2 (17:43→22:36)
[2018-03-11] MEDS ORDERED: MELATONIN 5 MG TABLETS PO PRN (22:00)
[2018-03-11] MEDS: THIAMINE HCL 100 MG TABLET (FP) PO SCH (22:36)
[2018-03-12] MEDS: chlordiazePOXIDE HCL 25 MG CAPSULE PO SCH ×4 (06:21→22:46)
--- NOTE | 2018-03-12 09:32 | CONSULT ---
[facility] Psychiatric Consult - Data Date of interview: 03/12/18 Admission source: [facility] Identifying data: Patient is a 52 year old single male, without children, domiciled, unemployed, and is supported by [facility]. This is one of multiple admissions for patient. Patient admitted to for alcohol dependence. Substance Abuse History: Smoking Cessation. Smoking history: Current every day smoker. Have you smoked in the past 12 months: Yes. Aproximately how many cigarettes per day: 4. Cigars Per Day: 0. Hx Chewing Tobacco Use: No. Initiated information on smoking cessation: Yes. 'Breaking Loose' booklet given : 03/11/18. - Substances Abused. Cocaine. Route: Inhalation. Frequency: 1 -3 times last 30 days. Amount used: $100. Age of first use: 19. Date of Last Use: 03/07/18. Alochol-beer. Route: Oral. Frequency: Daily. Amount used: 3-6packs daily. Age of first use: 16. Date of Last Use: 03/11/18 Medical History: hypertension Psychiatric History: Patient denies h/o psychiatric hospitalization and suicide attempt. Outpatient psychiatric care is currently provided at the [facility] in [place]. He was prescribed Effexor 150mg XR but due to nonadherence his dosage was decreased to 75mg XR. Diagnosis of MDD. Patient reports taking medication yesterday. Pharmacy claims reviewed. Physical/Sexual Abuse/Trauma History: denies. Mental Status Exam - Mental Status Exam Alert and Oriented to: Time, Place, Person Cognitive Function: Good Mood: Euthymic Affect: Mood Congruent Patient Behavior: Fatigued, Cooperative Speech Pattern: Appropriate Voice Loudness: Normal Thought Process: Intact, Goal Oriented Thought Disorder: Not Present Hallucinations: Denies Suicidal Ideation: Denies Homicidal Ideation: Denies Insight/Judgement: Poor Sleep: Fair Appetite: Fair Muscle strength/Tone: Normal Gait/Station: Normal Psychiatric Findings - Problem List ([place] 1, 2,3) (1) Alcohol dependence with uncomplicated withdrawal Current Visit: Yes Status: Acute (2) Depressive disorder Current Visit: Yes Status: Chronic Comment: By history. (3) Nicotine dependence Current Visit: Yes Status: Chronic Qualifiers: Nicotine product type: cigarettes Substance use status: in withdrawal Qualified Code(s): F17.213 - Nicotine dependence, cigarettes, with withdrawal (4) Substance induced mood disorder Current Visit: Yes Status: Acute - Initial Treatment Plan Initial Treatment Plan: Psychoeducation provided. Detoxification in progress. Will order Effexor 75mg XR. Benefits and side effects discussed. Verbal consent given.
[2018-03-12 10:22] LABS: ALBUMIN 4.1 g/dl (3.4-5.0); ALK PHOS 120 U/L (45-117); ANION GAP 5 MMOL/L (8-16); BLOOD UREA NITROGEN 13 mg/dL (7-18); CALCIUM 9.5 mg/dL (8.5-10.1); CHLORIDE 107 mmol/L (98-107); CO2 31 mmol/L (21-32); CREATININE 0.9 mg/dL (0.55-1.3); GLUCOSE,RANDOM 84 mg/dL (74-106); POTASSIUM 4.2 mmol/L (3.5-5.1); SGOT/AST 24 U/L (15-37); SGPT/ALT 44 U/L (13-61); SODIUM 143 mmol/L (136-145); TOT PROT 7.8 g/dl (6.4-8.2)
[2018-03-12] MEDS: PRENATAL VITAMINS W/ FOLIC ACID TABLET (FP) PO SCH (10:25)
[2018-03-12] MEDS: amLODIPine BESYLATE 5 MG TABLET (FP) PO SCH (10:25)
[2018-03-12] MEDS: VENLAFAXINE HCL 75 MG E.R. CAPSULES (FP) PO SCH (10:26)
--- NOTE | 2018-03-12 10:42 | PN ---
S CIWA - CIWA Score Nausea/Vomitin-Mild Nausea/No Vomiting Muscle Tremors: 2 Anxiety: 3 Agitation: 2 Paroxysmal Sweats: No Perspiration Orientation: 0-Oriented Tacttile Disturbances: 0-None Auditory Disturbances: 0-None Visual Disturbances: 0-None Headache: 2-Mild CIWA-Ar Total Score: 10 BHS Progress Note (SOAP) Subjective: MILD ANXIETY/IRRITABILITY, NAUSEA AND HEADACHE. Objective: 03/12/18 10:40 Laboratory Tests 03/11/18 03/12/18 15:32 06:00 Sodium 143 Potassium 4.2 Chloride 107 Carbon Dioxide 31 Anion Gap 5 L BUN 13 Creatinine 0.9 Creat Clearance w eGFR > 60 Random Glucose 84 Calcium 9.5 Total Bilirubin 1.0 AST 24 ALT 44 Alkaline Phosphatase 120 H Total Protein 7.8 Albumin 4.1 Urine Color Yellow Urine Appearance Clear Urine pH 6.0 Ur Specific [place] 1.027 Urine Protein Negative Urine Glucose (UA) Negative Urine Ketones Negative Urine Blood Negative Urine Nitrite Negative Urine Bilirubin Negative Urine Urobilinogen Negative Ur Leukocyte Esterase Negative Vital Signs Temperature 97.6 F 03/12/18 10:09 Pulse Rate 79 03/12/18 10:09 Respiratory Rate 18 03/12/18 10:09 Blood Pressure 109/72 03/12/18 10:09 O2 Sat by Pulse Oximetry (%) SKIN WARM AND DRY ALERT AND ORIENTED, IRRITABLE. CAR S1S2 RESP CTA BL EXT FULL ROM Assessment: 03/12/18 10:41 WITHDRAWAL SYNDROME Plan: CONTINUE DETOX ENCOURAGE ORAL FLUIDS CONTINUE TO MONITOR CLINICALLY
[2018-03-12] MEDS: THIAMINE HCL 100 MG TABLET (FP) PO SCH (22:46)
[2018-03-13] MEDS: chlordiazePOXIDE HCL 25 MG CAPSULE PO SCH ×2 (06:11→10:07)
[2018-03-13] MEDS: amLODIPine BESYLATE 5 MG TABLET (FP) PO SCH (10:07)
[2018-03-13] MEDS: VENLAFAXINE HCL 75 MG E.R. CAPSULES (FP) PO SCH (10:07)
[2018-03-13] MEDS: PRENATAL VITAMINS W/ FOLIC ACID TABLET (FP) PO SCH (10:07)
--- NOTE | 2018-03-13 12:31 | PN ---
S CIWA - CIWA Score Nausea/Vomitin-No Nausea/No Vomiting Muscle Tremors: 2 Anxiety: 3 Agitation: 1-Slight > Activity Paroxysmal Sweats: 1-Minimal Palms Moist Orientation: 0-Oriented Tacttile Disturbances: 0-None Auditory Disturbances: 0-None Visual Disturbances: 0-None Headache: 1-Very Mild CIWA-Ar Total Score: 8 S Progress Note (SOAP) Subjective: PATIENT ANXIOUS, IRRITABLE, SHAKES AND MILD HEADACHE. Objective: 03/13/18 12:27 Vital Signs Temperature 97.1 F L 03/13/18 10:20 Pulse Rate 72 03/13/18 10:20 Respiratory Rate 18 03/13/18 10:20 Blood Pressure 121/79 03/13/18 10:20 O2 Sat by Pulse Oximetry (%) Laboratory Tests 03/11/18 03/12/18 03/12/18 15:32 06:00 06:00 Sodium 143 Potassium 4.2 Chloride 107 Carbon Dioxide 31 Anion Gap 5 L BUN 13 Creatinine 0.9 Creat Clearance w eGFR > 60 Random Glucose 84 Calcium 9.5 Total Bilirubin 1.0 AST 24 ALT 44 Alkaline Phosphatase 120 H Total Protein 7.8 Albumin 4.1 Urine Color Yellow Urine Appearance Clear Urine pH 6.0 Ur Specific [place] 1.027 Urine Protein Negative Urine Glucose (UA) Negative Urine Ketones Negative Urine Blood Negative Urine Nitrite Negative Urine Bilirubin Negative Urine Urobilinogen Negative Ur Leukocyte Esterase Negative RPR Titer Nonreactive SKIN WARM AND DRY ALERT AND ORIENTED X 3 EXT +TREMORS, FULL ROM AMB AD ARLEN +IRRITABILITY Assessment: 03/13/18 12:28 WITHDRAWAL SYMPTOMS Plan: CONTINUE DETOX ENCOURAGE ORAL FLUIDS CONTINUE TO MONITOR CLINICALLY
[2018-03-13] MEDS: chlordiazePOXIDE 5 MG CAPSULE PO SCH ×2 (17:40→22:36)
[2018-03-13] MEDS: THIAMINE HCL 100 MG TABLET (FP) PO SCH (22:36)
[2018-03-14] MEDS: chlordiazePOXIDE 5 MG CAPSULE PO SCH ×2 (05:18→10:15)
[2018-03-14 10:04] VITALS: BP 122/82; PULSE 76; TEMP 96.9
[2018-03-14] MEDS: amLODIPine BESYLATE 5 MG TABLET (FP) PO SCH (10:13)
[2018-03-14] MEDS: PRENATAL VITAMINS W/ FOLIC ACID TABLET (FP) PO SCH (10:13)
[2018-03-14] MEDS: VENLAFAXINE HCL 75 MG E.R. CAPSULES (FP) PO SCH (10:14)
--- NOTE | 2018-03-14 12:21 | PN ---
S Progress Note (SOAP) Subjective: alert,irritable,anxious,interrupted sleep Objective: 03/14/18 12:21 Vital Signs Temperature 96.9 F L 03/14/18 10:03 Pulse Rate 76 03/14/18 10:03 Respiratory Rate 18 03/14/18 10:03 Blood Pressure 122/82 03/14/18 10:03 O2 Sat by Pulse Oximetry (%) Assessment: 03/14/18 12:21 withdrawal symptom Plan: continue detox
--- NOTE | 2018-03-14 12:28 | PN ---
[facility] Progress Note Note: patient did not want to complete treatment,declined to give reasons,all attempts to convince patient to stay with no avail, patient signed release ama,risks of withdrawal and relapse explained to patient, patient understood,advise to go to emergency room if any problem
--- NOTE | 2018-03-14 12:31 | DS ---
[facility] Detox Discharge Summary Admission Date: 03/11/18 Discharge Date: 03/14/18 - History Present History: Alcohol Dependence Additional Comments: patient signed release helder amanda see the progress note Pertinent Past History: hypertension scoliosis nicotine dependence - Physical Exam Results Vital Signs: Vital Signs Temperature 96.9 F L 03/14/18 10:03 Pulse Rate 76 03/14/18 10:03 Respiratory Rate 18 03/14/18 10:03 Blood Pressure 122/82 03/14/18 10:03 O2 Sat by Pulse Oximetry (%) Pertinent Admission Physical Exam Findings: withdrawal signs and symptom Laboratory Last Values Sodium 143 mmol/L (136-145) 03/12/18 06:00 Potassium 4.2 mmol/L (3.5-5.1) 03/12/18 06:00 Chloride 107 mmol/L (98-107) 03/12/18 06:00 Carbon Dioxide 31 mmol/L (21-32) 03/12/18 06:00 Anion Gap 5 MMOL/L (8-16) L 03/12/18 06:00 BUN 13 mg/dL (7-18) 03/12/18 06:00 Creatinine 0.9 mg/dL (0.55-1.3) 03/12/18 06:00 Creat Clearance w eGFR > 60 (>60) 03/12/18 06:00 Random Glucose 84 mg/dL (74-106) 03/12/18 06:00 Calcium 9.5 mg/dL (8.5-10.1) 03/12/18 06:00 Total Bilirubin 1.0 mg/dL (0.2-1) 03/12/18 06:00 AST 24 U/L (15-37) 03/12/18 06:00 ALT 44 U/L (13-61) 03/12/18 06:00 Alkaline Phosphatase 120 U/L (45-117) H 03/12/18 06:00 Total Protein 7.8 g/dl (6.4-8.2) 03/12/18 06:00 Albumin 4.1 g/dl (3.4-5.0) 03/12/18 06:00 Urine Color Yellow 03/11/18 15:32 Urine Appearance Clear 03/11/18 15:32 Urine pH 6.0 (5.0-8.0) 03/11/18 15:32 Ur Specific [place] 1.027 (1.010-1.035) 03/11/18 15:32 Urine Protein Negative (NEGATIVE) 03/11/18 15:32 Urine Glucose (UA) Negative (NEGATIVE) 03/11/18 15:32 Urine Ketones Negative (NEGATIVE) 03/11/18 15:32 Urine Blood Negative (NEGATIVE) 03/11/18 15:32 Urine Nitrite Negative (NEGATIVE) 03/11/18 15:32 Urine Bilirubin Negative (<2.0 mg/dL) 03/11/18 15:32 Urine Urobilinogen Negative mg/dL (0.2-1.0) 03/11/18 15:32 Ur Leukocyte Esterase Negative (NEGATIVE) 03/11/18 15:32 RPR Titer Nonreactive (NONREACTIVE) 03/12/18 06:00 - Medication Discharge Medications: Ambulatory Orders Venlafaxine HCl ER [Effexor Xr -] 75 mg PO DAILY #30 cap.er.[id number] 09/16/17 Amlodipine Besylate [Norvasc -] 5 mg PO DAILY 03/11/18 - Diagnosis (1) Alcohol dependence with uncomplicated withdrawal Status: Acute (2) Nicotine dependence Status: Acute (3) HTN (hypertension) Status: Chronic Qualifiers: Hypertension type: essential hypertension Qualified Code(s): I10 - Essential (primary) hypertension (4) Scoliosis deformity of spine Status: Chronic Qualifiers: Scoliosis type: idiopathic Idiopathic scoliosis type: juvenile Spinal region: thoracic Qualified Code(s): 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
[2018-03-14] MEDS ORDERED: chlordiazePOXIDE HCL 10 MG CAPSULE PO SCH (17:00)
== END 2018-03-14 11:00 | disposition left against medical advice (07) | DRG 770 ==
LOC: YASAS 11:43 → Y3N 14:32
PROC: HZ2ZZZZ Detoxification Services for Substance Abuse Treatment (ICD-10-PCS; principal; 2018-03-11)
DX: F10.230 Alcohol dependence with withdrawal, uncomplicated (principal); F17.210 Nicotine dependence, cigarettes, uncomplicated; F19.24 Other psychoactive substance dependence with psychoactive substance-induced mood disorder; F32.9 Major depressive disorder, single episode, unspecified; I10 Essential (primary) hypertension; M41.114 Juvenile idiopathic scoliosis, thoracic region; Z88.0 Allergy status to penicillin
CPT/HCPCS: 36415; 80053; 81003; 86593

== ENCOUNTER 2018-05-11 11:34 | Inpatient (IN) | payer OTHER ==
[2018-05-11 12:14] VITALS: BMI 25.0
--- NOTE | 2018-05-11 13:42 | HP ---
CIWA Score Nausea/Vomitin Muscle Tremors: 2 Anxiety: 2 Agitation: 2 Paroxysmal Sweats: 1-Minimal Palms Moist Orientation: 0-Oriented Tacttile Disturbances: 1-Very Mild Itch/Numbness Auditory Disturbances: 1-Very Mild Visual Disturbances: 0-None Headache: 2-Mild CIWA-Ar Total Score: 13 - Admission Criteria [facility] Guidelines: Admission for Medically Managed Detox: Requires at least one of the followin. CIWA greater than 12 2. Seizures within the past 24 hours 3. Delirium tremens within the past 24 hours 4. Hallucinations within the past 24 hours 5. Acute intervention needed for co occurring medical disorder 6. Acute intervention needed for co occurring psychiatric disorder 7. Severe withdrawal that cannot be handled at a lower level of care (continued vomiting, continued diarrhea, abnormal vital signs) requiring intravenous medication and/or fluids 8. Patient presents the following: CIWA greater than 12 Admission Criteria Met: Admission criteria met Admission ROS BHS - HPI Chief Complaint: i need help to stop drinking alcohol Allergies/Adverse Reactions: Allergies Allergy/AdvReac Type Severity Reaction Status Date / Time Penicillins Allergy Severe Hives Verified 05/11/18 13:41 History of Present Illness: this 52 years old male with alovhol dependence,seeking detox,withdrawal symptom, last detox 03/11/18 to history of hypertension,on med nicotine dependence longest period of sobriety 6 years depression weight loss Exam Limitations: No Limitations - Ebola screening Have you traveled outside of the country in the last 21 days: No Have you had contact with anyone from an Ebola affected area: No Have you been sick,other than usual withdrawal symptoms: No - Review of Systems Constitutional: Loss of Appetite, Malaise, Night Sweats, Changes in sleep, Weakness, Unintentional Wgt. Loss EENT: reports: Nose Congestion Respiratory: reports: No Symptoms reported Cardiac: reports: No Symptoms Reported GI: reports: Nausea, Poor Appetite, Abdominal cramping : reports: No Symptoms Reported Musculoskeletal: reports: Back Pain, Muscle Pain Integumentary: reports: Dryness Neuro: reports: Headache, Tremors Endocrine: reports: No Symptoms Reported Hematology: reports: No Symptoms Reported Psychiatric: reports: No Sypmtoms Reported, Judgement Intact, Mood/Affect Appropiate, Orientated x3, Depressed (on med) Patient History - Patient Medical History Hx Anemia: No Hx Asthma: No Hx Chronic Obstructive Pulmonary Disease (COPD): No Hx Cancer: No Hx Cardiac Disorders: No Hx Congestive Heart Failure: No Hx Hypertension: Yes (on med) Hx Hypercholesterolemia: No Hx Pacemaker: No HX Cerebrovascular Accident: No Hx Seizures: No Hx Dementia: No Hx Diabetes: No Hx Gastrointestinal Disorders: No Hx Liver Disease: No Hx Genitourinary Disorders: No Hx Sexually Transmitted Disorders: No Hx Renal Disease (ESRD): No Hx Thyroid Disease: No Hx Human Immunodeficiency Virus (HIV): No ( last 12/17 negative) Hx Hepatitis C: No Hx Depression: Yes (on med) Hx Suicide Attempt: No Hx Bipolar Disorder: No Hx Schizophrenia: No Other Medical History: no suicidal,no homicidal - Patient Surgical History Past Surgical History: No Hx Neurologic Surgery: No Hx Cataract Extraction: No Hx Cardiac Surgery: No Hx Lung Surgery: No Hx Breast Surgery: No Hx Breast Biopsy: No Hx Abdominal Surgery: No Hx Appendectomy: No Hx Cholecystectomy: No Hx Genitourinary Surgery: No Hx Section: No Hx Orthopedic Surgery: No Anesthesia Reaction: No - PPD History Previous Implant?: Yes Documented Results: Negative w/proof Implanted On Prior [facility] Admission?: Yes Date: 03/13/18 Results: 0 mm PPD to be Administered?: No - Smoking Cessation Smoking history: Current every day smoker Have you smoked in the past 12 months: Yes Aproximately how many cigarettes per day: 4 Cigars Per Day: 0 Hx Chewing Tobacco Use: No Initiated information on smoking cessation: Yes 'Breaking Loose' booklet given: 05/11/18 - Substance & Tx. History Hx Alcohol Use: Yes Hx Substance Use: No Substance Use Type: Alcohol Hx Substance Use Treatment: Yes ([facility] 03/11/18 to 03/14/18) - Substances Abused Alcohol Route: Oral Frequency: Daily Amount used: 10-11 BEERS Age of first use: 16 Date of Last Use: 05/10/18 Family Disease History - Family Disease History Family Disease History: CA: Grandparent (dx w/ colon cancer age 70's), Other: Father (alcohol,,cirrhosis), Mother (alcohol,cirrhosis age 34) Admission Physical Exam BHS - Vital Signs Vital Signs: Vital Signs - 24 hr 05/11/18 12:08 Temperature 97.0 F L Pulse Rate 84 Respiratory 20 Rate Blood Pressure 165/111 H - Physical General Appearance: Yes: Moderate Distress, Tremorous, Sweating, Anxious HEENTM: Yes: EOMI, Normal ENT Inspection, MANDI, Pharynx Normal Respiratory: Yes: Lungs Clear, Normal Breath Sounds, No Respiratory Distress Breast: Yes: Within Normal Limits Cardiology: Yes: Within Normal Limits, Regular Rhythm, Regular Rate, S1, S2 Abdominal: Yes: Within Normal Limits, Normal Bowel Sounds, Non Tender, Soft Genitourinary: Yes: Within Normal Limits Back: Yes: Muscle Spasm Musculoskeletal: Yes: Back pain, Muscle Pain Extremities: Yes: Tremors 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: 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, Fully Oriented, Alert, Motor Strength 5/5 Integumentary: Yes: Dry Lymphatic: Yes: Within Normal Limits - Diagnostic (1) Alcohol dependence with uncomplicated withdrawal Current Visit: No Status: Acute (2) Dehydration Current Visit: No Status: Acute (3) Nicotine dependence Current Visit: No Status: Acute (4) HTN (hypertension) Current Visit: No Status: Chronic Qualifiers: Hypertension type: essential hypertension Qualified Code(s): I10 - Essential (primary) hypertension (5) MDD (major depressive disorder), recurrent episode, moderate Current Visit: No Status: Chronic (6) Nicotine dependence Current Visit: No Status: Chronic Qualifiers: Nicotine product type: cigarettes Substance use status: in withdrawal Qualified Code(s): F17.213 - Nicotine dependence, cigarettes, with withdrawal Cleared for Admission S - Detox or Rehab [facility] Level of Care: Medically Managed Detox Regimen/Protocol: Librium S Breath Alcohol Content Breath Alcohol Content: 0 Urine Drug Screen - Results Drug Screen Negative: Yes
[2018-05-11] MEDS ORDERED: LOPERAMIDE HCL 2 MG CAPSULE PO PRN (13:56)
[2018-05-11] MEDS ORDERED: ACETAMINOPHEN 325 MG TABLET (FP) PO PRN (13:56)
[2018-05-11] MEDS ORDERED: guaiFENesin/D-METHORPHAN HB 10 ML UNIT-DOSE CUPS PO PRN (13:56)
[2018-05-11] MEDS ORDERED: NICOTINE POLACRILEX 2 MG GUM BUC PRN (13:56)
[2018-05-11] MEDS ORDERED: IBUPROFEN 400 MG TABLET (FP) PO PRN (13:56)
[2018-05-11] MEDS ORDERED: MENTHOL/PHENOL 1 EACH UD MM PRN (13:56)
[2018-05-11] MEDS ORDERED: MAG HYDROX/AL HYDROX/SIMETH 30 ML UNIT-DOSE CUP PO PRN (13:56)
[2018-05-11] MEDS ORDERED: MAGNESIUM HYDROX 2400MG/30ML ORAL SUSPENSION 30 ML CUP PO PRN (13:56)
[2018-05-11] MEDS ORDERED: P-EPHED 60MG/TRIPROLIDI 2.5MG TABLET PO PRN (13:56)
[2018-05-11] MEDS ORDERED: MAGNESIUM CITRATE 300 ML BOTTLE PO PRN (13:56)
[2018-05-11] MEDS ORDERED: chlordiazePOXIDE HCL 25 MG CAPSULE PO PRN (13:56)
[2018-05-11] MEDS ORDERED: hydrOXYzine PAMOATE 25 MG CAPSULE (FP) PO PRN (13:56)
[2018-05-11] MEDS ORDERED: LOSARTAN 50MG/HCTZ 12.5MG 1 TAB (FP) PO SCH (15:30)
[2018-05-11 17:34] LABS: URINE APPEARANCE CLEAR; URINE BILIRUBIN NEGATIVE (<2.0 mg/dL); URINE COLOR YELLOW; URINE GLUCOSE (UA) NEGATIVE (NEGATIVE); URINE KETONE NEGATIVE (NEGATIVE); URINE LEUK ESTERASE NEGATIVE (NEGATIVE); URINE NITRITE NEGATIVE (NEGATIVE); URINE PROTEIN NEGATIVE (NEGATIVE); URINE UROBILINOGEN NEGATIVE mg/dL (0.2-1.0)
[2018-05-11] MEDS: chlordiazePOXIDE HCL 25 MG CAPSULE PO SCH ×2 (18:40→23:02)
[2018-05-11] MEDS ORDERED: MELATONIN 5 MG TABLETS PO PRN (22:00)
[2018-05-11] MEDS: THIAMINE HCL 100 MG TABLET (FP) PO SCH (23:06)
[2018-05-12] MEDS: chlordiazePOXIDE HCL 25 MG CAPSULE PO SCH ×4 (05:55→22:06)
[2018-05-12] MEDS ORDERED: LOSARTAN 50MG/HCTZ 12.5MG 1 TAB (FP) PO SCH (10:00)
[2018-05-12] MEDS: PRENATAL VITAMINS W/ FOLIC ACID TABLET (FP) PO SCH (10:11)
[2018-05-12] MEDS: LOSARTAN 50MG/HCTZ 12.5MG 1 TAB (FP) PO SCH (10:11)
[2018-05-12] MEDS: VENLAFAXINE HCL 75 MG E.R. CAPSULES (FP) PO SCH (10:11)
[2018-05-12 10:52] LABS: HEMATOCRIT 44.3 % (35.4-49); MCH 28.2 pg (25.7-33.7); MCHC 31.7 g/dl (32.0-35.9); MEAN CELL VOLUME 88.9 fl (80-96); MEAN PLT VOLUME 10.3 fl (7.5-11.1); PLATELET COUNT 274 K/MM3 (134-434); RBC 4.99 M/mm3 (4.00-5.60); RDW 14.5 % (11.9-15.9); WHITE BLOOD COUNT 6.5 K/mm3 (4.0-10.0)
[2018-05-12 11:05] LABS: ALK PHOS 111 U/L (45-117); ANION GAP 8 MMOL/L (8-16); BILIRUBIN,TOTAL 0.6 mg/dL (0.2-1); BLOOD UREA NITROGEN 12 mg/dL (7-18); CHLORIDE 104 mmol/L (98-107); CO2 27 mmol/L (21-32); CREATININE 0.8 mg/dL (0.55-1.3); GLUCOSE,RANDOM 90 mg/dL (74-106); POTASSIUM 3.9 mmol/L (3.5-5.1); SGOT/AST 25 U/L (15-37); SGPT/ALT 39 U/L (13-61); SODIUM 139 mmol/L (136-145); TOT PROT 7.7 g/dl (6.4-8.2)
--- NOTE | 2018-05-12 12:41 | PN ---
[facility] CIWA - CIWA Score Nausea/Vomitin-No Nausea/No Vomiting Muscle Tremors: 3 Anxiety: 3 Agitation: 3 Paroxysmal Sweats: 3 Orientation: 0-Oriented Tacttile Disturbances: 0-None Auditory Disturbances: 0-None Visual Disturbances: 0-None Headache: 0-None Present CIWA-Ar Total Score: 12 [facility] Progress Note (SOAP) Subjective: agitation sweats restless body aches interrupted sleep Objective: 05/12/18 12:40 Vital Signs Temperature 97.8 F 05/12/18 09:56 Pulse Rate 86 05/12/18 09:56 Respiratory Rate 18 05/12/18 09:56 Blood Pressure 134/80 05/12/18 09:56 O2 Sat by Pulse Oximetry (%) Laboratory Tests 05/11/18 05/12/18 05/12/18 15:30 05:45 05:45 WBC 6.5 RBC 4.99 Hgb 14.0 Hct 44.3 D MCV 88.9 MCH 28.2 MCHC 31.7 L RDW 14.5 Plt Count 274 MPV 10.3 D Sodium 139 Potassium 3.9 Chloride 104 Carbon Dioxide 27 Anion Gap 8 BUN 12 Creatinine 0.8 Creat Clearance w eGFR > 60 Random Glucose 90 Calcium 9.0 Total Bilirubin 0.6 AST 25 ALT 39 Alkaline Phosphatase 111 Total Protein 7.7 Albumin 4.0 Urine Color Yellow Urine Appearance Clear Urine pH 7.0 Ur Specific [place] 1.024 Urine Protein Negative Urine Glucose (UA) Negative Urine Ketones Negative Urine Blood Negative Urine Nitrite Negative Urine Bilirubin Negative Urine Urobilinogen Negative Ur Leukocyte Esterase Negative RPR Titer 05/12/18 05:45 WBC RBC Hgb Hct MCV MCH MCHC RDW Plt Count MPV Sodium Potassium Chloride Carbon Dioxide Anion Gap BUN Creatinine Creat Clearance w eGFR Random Glucose Calcium Total Bilirubin AST ALT Alkaline Phosphatase Total Protein Albumin Urine Color Urine Appearance Urine pH Ur Specific [place] Urine Protein Urine Glucose (UA) Urine Ketones Urine Blood Urine Nitrite Urine Bilirubin Urine Urobilinogen Ur Leukocyte Esterase RPR Titer Nonreactive aaox3 ambulating no acute distress Assessment: 05/12/18 12:41 withdrawal sx Plan: continue detox increase fluids
[2018-05-12] MEDS: THIAMINE HCL 100 MG TABLET (FP) PO SCH (22:06)
[2018-05-13] MEDS: chlordiazePOXIDE HCL 25 MG CAPSULE PO SCH (05:18)
[2018-05-13] MEDS ORDERED: cloNIDine HCL 0.1 MG TABLET PO ONE (09:31)
[2018-05-13 09:39] VITALS: BP 148/104; PULSE 87; TEMP 97.9
--- NOTE | 2018-05-13 09:54 | PN ---
[facility] CIWA - CIWA Score Nausea/Vomitin-No Nausea/No Vomiting Muscle Tremors: 2 Anxiety: 2 Agitation: 3 Paroxysmal Sweats: 3 Orientation: 0-Oriented Tacttile Disturbances: 0-None Auditory Disturbances: 0-None Visual Disturbances: 0-None Headache: 0-None Present CIWA-Ar Total Score: 10 [facility] Progress Note (SOAP) Subjective: agitation sweats irritable Objective: 05/13/18 09:54 Vital Signs Temperature 97.9 F 05/13/18 09:39 Pulse Rate 87 05/13/18 09:39 Respiratory Rate 18 05/13/18 09:39 Blood Pressure 148/104 H 05/13/18 09:39 O2 Sat by Pulse Oximetry (%) Laboratory Tests 05/11/18 05/12/18 05/12/18 15:30 05:45 05:45 WBC 6.5 RBC 4.99 Hgb 14.0 Hct 44.3 D MCV 88.9 MCH 28.2 MCHC 31.7 L RDW 14.5 Plt Count 274 MPV 10.3 D Sodium 139 Potassium 3.9 Chloride 104 Carbon Dioxide 27 Anion Gap 8 BUN 12 Creatinine 0.8 Creat Clearance w eGFR > 60 Random Glucose 90 Calcium 9.0 Total Bilirubin 0.6 AST 25 ALT 39 Alkaline Phosphatase 111 Total Protein 7.7 Albumin 4.0 Urine Color Yellow Urine Appearance Clear Urine pH 7.0 Ur Specific [place] 1.024 Urine Protein Negative Urine Glucose (UA) Negative Urine Ketones Negative Urine Blood Negative Urine Nitrite Negative Urine Bilirubin Negative Urine Urobilinogen Negative Ur Leukocyte Esterase Negative RPR Titer 05/12/18 05:45 WBC RBC Hgb Hct MCV MCH MCHC RDW Plt Count MPV Sodium Potassium Chloride Carbon Dioxide Anion Gap BUN Creatinine Creat Clearance w eGFR Random Glucose Calcium Total Bilirubin AST ALT Alkaline Phosphatase Total Protein Albumin Urine Color Urine Appearance Urine pH Ur Specific [place] Urine Protein Urine Glucose (UA) Urine Ketones Urine Blood Urine Nitrite Urine Bilirubin Urine Urobilinogen Ur Leukocyte Esterase RPR Titer Nonreactive aaox3 ambulating continue detox BP noted Assessment: 05/13/18 09:55 withdrawal sx Plan: continue detox increase fluids clonifine 0.1mg bid
[2018-05-13] MEDS ORDERED: cloNIDine HCL 0.1 MG TABLET PO SCH ×2 (10:00→10:30)
[2018-05-13] MEDS: PRENATAL VITAMINS W/ FOLIC ACID TABLET (FP) PO SCH (10:04)
[2018-05-13] MEDS: VENLAFAXINE HCL 75 MG E.R. CAPSULES (FP) PO SCH (10:04)
[2018-05-13] MEDS: LOSARTAN 50MG/HCTZ 12.5MG 1 TAB (FP) PO SCH (10:04)
[2018-05-13] MEDS ORDERED: chlordiazePOXIDE 5 MG CAPSULE PO SCH (17:00)
[2018-05-14] MEDS ORDERED: chlordiazePOXIDE HCL 10 MG CAPSULE PO SCH (17:00)
== END 2018-05-13 10:13 | disposition left against medical advice (07) | DRG 770 ==
LOC: YASAS 11:34 → Y6N 14:07
PROC: HZ2ZZZZ Detoxification Services for Substance Abuse Treatment (ICD-10-PCS; principal; 2018-05-11)
DX: F10.230 Alcohol dependence with withdrawal, uncomplicated (principal); F17.213 Nicotine dependence, cigarettes, with withdrawal; F33.1 Major depressive disorder, recurrent, moderate; E86.0 Dehydration; I10 Essential (primary) hypertension; Z88.0 Allergy status to penicillin
CPT/HCPCS: 36415; 80053; 81003; 85027; 86593; J0735

== ENCOUNTER 2018-06-12 12:14 | Inpatient (IN) | payer OTHER ==
[2018-06-12 12:49] VITALS: BMI 25.7
--- NOTE | 2018-06-12 15:33 | HP ---
CIWA Score - Admission Criteria OASAS Guidelines: Admission for Medically Managed Detox: Requires at least one of the followin. CIWA greater than 12 2. Seizures within the past 24 hours 3. Delirium tremens within the past 24 hours 4. Hallucinations within the past 24 hours 5. Acute intervention needed for co occurring medical disorder 6. Acute intervention needed for co occurring psychiatric disorder 7. Severe withdrawal that cannot be handled at a lower level of care (continued vomiting, continued diarrhea, abnormal vital signs) requiring intravenous medication and/or fluids 8. Admission ROS S - HPI Allergies/Adverse Reactions: Allergies Allergy/AdvReac Type Severity Reaction Status Date / Time Penicillins Allergy Severe Hives Verified 06/12/18 15:04 History of Present Illness: patient here requesting rehab from etoh use, s/p detox completed today , prior use of 12 cans/day since age 16 , denies w/d seizures . Utox + BZO KAM 0.000 PMHx : htn, depression denies current Si / HI PSHx : denies Psych : anxiety Meds ; see list Shx: lives alone , SSD 07/04 tobacco : 4-5 cigs/day x 14 years Exam Limitations: No Limitations - Ebola screening Have you traveled outside of the country in the last 21 days: No Have you had contact with anyone from an Ebola affected area: No Have you been sick,other than usual withdrawal symptoms: No - Review of Systems Constitutional: No Symptoms Reported EENT: reports: Other (glasses -reading , denies dysphagia) Respiratory: reports: No Symptoms reported Cardiac: reports: No Symptoms Reported GI: reports: No Symptoms Reported : reports: No Symptoms Reported Musculoskeletal: reports: No Symptoms Reported Integumentary: reports: No Symptoms Reported Neuro: reports: No Symptoms reported Endocrine: reports: No Symptoms Reported Psychiatric: reports: Orientated x3, Anxious, Depressed Patient History - Patient Medical History Hx Anemia: No Hx Asthma: No Hx Chronic Obstructive Pulmonary Disease (COPD): No Hx Cancer: No Hx Cardiac Disorders: No Hx Congestive Heart Failure: No Hx Hypertension: Yes Hx Hypercholesterolemia: No Hx Pacemaker: No HX Cerebrovascular Accident: No Hx Seizures: No Hx Dementia: No Hx Diabetes: No Hx Gastrointestinal Disorders: No Hx Liver Disease: No Hx Genitourinary Disorders: No Hx Sexually Transmitted Disorders: No Hx Renal Disease (ESRD): No Hx Thyroid Disease: No Hx Human Immunodeficiency Virus (HIV): No ( last 12/17 negative) Hx Hepatitis C: No Hx Depression: Yes Hx Suicide Attempt: No Hx Bipolar Disorder: No Hx Schizophrenia: No - Patient Surgical History Past Surgical History: No Hx Neurologic Surgery: No Hx Cataract Extraction: No Hx Cardiac Surgery: No Hx Lung Surgery: No Hx Breast Surgery: No Hx Breast Biopsy: No Hx Abdominal Surgery: No Hx Appendectomy: No Hx Cholecystectomy: No Hx Genitourinary Surgery: No Hx Section: No Hx Orthopedic Surgery: No Anesthesia Reaction: No - PPD History Previous Implant?: Yes Documented Results: Negative w/proof Implanted On Prior R Admission?: Yes Date: 03/13/18 Results: 0 mm - Smoking Cessation Smoking history: Current every day smoker Have you smoked in the past 12 months: Yes Aproximately how many cigarettes per day: 4 Cigars Per Day: 0 Hx Chewing Tobacco Use: No Initiated information on smoking cessation: No - Substances Abused Alcohol-beer Route: Oral Frequency: Daily Amount used: 2-6 pks. Age of first use: 16 Date of Last Use: 06/08/18 Family Disease History - Family Disease History Family Disease History: CA: Grandparent (dx w/ colon cancer age 70's), Other: Father (alcohol,,cirrhosis), Mother (alcohol,cirrhosis age 34) Admission Physical Exam BHS - Vital Signs Vital Signs: Vital Signs - 24 hr 06/12/18 12:48 Temperature 98.1 F Pulse Rate 85 Respiratory 18 Rate Blood Pressure 140/94 - Physical General Appearance: Yes: No Apparent Distress HEENTM: Yes: EOMI, Hearing grossly Normal, Normocephalic, Normal Voice Respiratory: Yes: Chest Non-Tender, Lungs Clear, Normal Breath Sounds Neck: Yes: No masses,lesions,Nodules, Trachea in good position Breast: Yes: Breast Exam Deferred Cardiology: Yes: Regular Rhythm, Regular Rate, S1, S2 Abdominal: Yes: Normal Bowel Sounds, Soft Genitourinary: Yes: Within Normal Limits Back: Yes: Normal Inspection Musculoskeletal: Yes: Gait Steady Extremities: Yes: Normal Capillary Refill, Normal Range of Motion 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: Fully Oriented, Alert, Motor Strength 5/5 Integumentary: Yes: Normal Color, Dry, Warm - Diagnostic (1) Alcohol dependence Current Visit: No Status: Chronic Qualifiers: Substance use status: in remission Qualified Code(s): F10.21 - Alcohol dependence, in remission (2) Nicotine dependence Current Visit: No Status: Chronic Qualifiers: Nicotine product type: cigarettes BHS Breath Alcohol Content Breath Alcohol Content: 0 Urine Drug Screen - Results Drug Screen Negative: No Urine Drug Screen Results: BZO-Benzodiazepines Inpatient Rehab Admission - Initial Determination Are CD services needed?: Yes Free of communicable disease: Yes Not in need of hospitalization: Yes - Rehab Admission Criteria Previous failed treatment: Yes Poor recovery environment: No Comorbidities: Yes Lacks judgement: Yes Patient is meeting Inpatient Rehab admission criteria:: Yes
[2018-06-12] MEDS ORDERED: ACETAMINOPHEN 325 MG TABLET (FP) PO PRN (15:35)
[2018-06-12] MEDS ORDERED: IBUPROFEN 400 MG TABLET (FP) PO PRN (15:35)
[2018-06-12] MEDS ORDERED: MAGNESIUM HYDROX 2400MG/30ML ORAL SUSPENSION 30 ML CUP PO PRN (15:35)
[2018-06-12] MEDS ORDERED: MENTHOL/PHENOL 1 EACH UD MM PRN (15:35)
[2018-06-12] MEDS ORDERED: NICOTINE POLACRILEX 2 MG GUM BC PRN (15:35)
[2018-06-12] MEDS ORDERED: P-EPHED 60MG/TRIPROLIDI 2.5MG TABLET PO PRN (15:35)
[2018-06-12] MEDS ORDERED: MAG HYDROX/AL HYDROX/SIMETH 30 ML UNIT-DOSE CUP PO PRN (15:35)
[2018-06-12] MEDS ORDERED: MAGNESIUM CITRATE 300 ML BOTTLE PO PRN (15:35)
[2018-06-12] MEDS ORDERED: guaiFENesin/D-METHORPHAN HB 10 ML UNIT-DOSE CUPS PO PRN (15:35)
[2018-06-12] MEDS ORDERED: MELATONIN 5 MG TABLETS PO PRN (22:00)
[2018-06-12] MEDS: THIAMINE HCL 100 MG TABLET (FP) PO SCH (22:11)
--- NOTE | 2018-06-13 08:57 | HP ---
Psychiatrist Admission - Data Date of interview: 06/13/18 Admission source: [facility] Identifying data: Patient is a 53 year old single male, without children, unemployed, domiciled, and is supported by [facility]. This is one of multiple admissions for patient. Patient admitted to for alcohol dependence. Medical History: Denies. endorses good health. Psychiatric History: Patient's first psychiatric contact was during his incarceration in 2001 at [facility] in [facility]. He was diagnosed with depression and started on Effexor. After completing his halfway term, he continued his psychiatric care at a clinic in [facility] while continuing to accept Effexor. Current outpatient pscyhiatric care is provided at [facility] although patient reports sub-optimal adherence to attending his appointments. His most recent prescription of effexor 75mg XL ( prescription sent to pharmacy on 05/30/19) was given to patient at [facility]. Patient denies h/o suicide attempt. Physical/Sexual Abuse/Trauma History: denies. Additional Comment: Incarceration for drug related charges ([id number]) Vital Signs: Vital Signs - 24 hr 06/12/18 06/13/18 06/13/18 12:48 00:30 03:30 Temperature 98.1 F Pulse Rate 85 Respiratory 18 16 16 Rate Blood Pressure 140/94 Allergies/Adverse Reactions: Allergies Allergy/AdvReac Type Severity Reaction Status Date / Time Penicillins Allergy Severe Hives Verified 06/12/18 15:04 Date of last physical exam: 06/12/18 Concur with the findings of this exam: Yes - Substance Abuse/Tx History Hx Alcohol Use: Yes (12 - twenty four ounce per day) Hx Substance Use: No Hx Substance Use Treatment: Yes ([facility]) Mental Status Exam - Mental Status Exam Alert and Oriented to: Time, Place, Person Cognitive Function: Good Patient Appearance: Well Groomed Mood: Euthymic, Irritable (Euthymic but slightly irritable at first about completing admission in the morning.) Affect: Mood Congruent Patient Behavior: Appropriate, Cooperative Speech Pattern: Clear, Appropriate Voice Loudness: Normal Thought Process: Intact, Goal Oriented Thought Disorder: Not Present Hallucinations: Denies Suicidal Ideation: Denies Homicidal Ideation: Denies Insight/Judgement: Poor Sleep: Fair Appetite: Fair Muscle strength/Tone: Normal Gait/Station: Normal Psychiatric Findings - Problem List ([place] 1, 2,3) (1) MDD (major depressive disorder) Current Visit: Yes Status: Chronic (2) Alcohol dependence Current Visit: Yes Status: Acute Qualifiers: Substance use status: in remission Qualified Code(s): F10.21 - Alcohol dependence, in remission (3) Nicotine dependence Current Visit: No Status: Chronic Qualifiers: Nicotine product type: cigarettes Substance use status: in withdrawal Qualified Code(s): F17.213 - Nicotine dependence, cigarettes, with withdrawal - Initial Treatment Plan Initial Treatment Plan: Psychoeducation provided. Rehabilitation in progress. Will continue current medication of Effexor 75 ER daily.
[2018-06-13] MEDS: PRENATAL VITAMINS W/ FOLIC ACID TABLET (FP) PO SCH (09:40)
[2018-06-13 10:52] LABS: URINE APPEARANCE SLCLOUDY; URINE BILIRUBIN NEGATIVE (<2.0 mg/dL); URINE COLOR YELLOW; URINE GLUCOSE (UA) NEGATIVE (NEGATIVE); URINE KETONE NEGATIVE (NEGATIVE); URINE LEUK ESTERASE NEGATIVE (NEGATIVE); URINE NITRITE NEGATIVE (NEGATIVE); URINE PROTEIN NEGATIVE (NEGATIVE); URINE UROBILINOGEN NEGATIVE mg/dL (0.2-1.0)
[2018-06-13 11:03] LABS: ALBUMIN 3.6 g/dl (3.4-5.0); ALK PHOS 97 U/L (45-117); ANION GAP 8 MMOL/L (8-16); BILIRUBIN,TOTAL 0.7 mg/dL (0.2-1); BLOOD UREA NITROGEN 13 mg/dL (7-18); CALCIUM 8.9 mg/dL (8.5-10.1); CHLORIDE 103 mmol/L (98-107); CO2 29 mmol/L (21-32); CREATININE 0.7 mg/dL (0.55-1.3); GLUCOSE,RANDOM 70 mg/dL (74-106); POTASSIUM 3.7 mmol/L (3.5-5.1); SGOT/AST 21 U/L (15-37); SGPT/ALT 39 U/L (13-61); SODIUM 139 mmol/L (136-145)
[2018-06-13 11:05] LABS: HEMOGLOBIN 13.1 GM/dL (11.7-16.9); MCH 27.7 pg (25.7-33.7); MCHC 31.3 g/dl (32.0-35.9); MEAN CELL VOLUME 88.5 fl (80-96); MEAN PLT VOLUME 9.1 fl (7.5-11.1); PLATELET COUNT 283 K/MM3 (134-434); RBC 4.74 M/mm3 (4.00-5.60); RDW 14.4 % (11.9-15.9); WHITE BLOOD COUNT 5.2 K/mm3 (4.0-10.0)
[2018-06-13] MEDS: [UNRECOGNIZED DRUG - OTHER] PO SCH (13:31)
[2018-06-13] MEDS: VENLAFAXINE HCL PO SCH (13:31)
[2018-06-13] MEDS: LOSARTAN PO SCH (13:31)
[2018-06-13] MEDS ORDERED: PT OWN MED DRAWER 7, Y5N ONE (13:33)
[2018-06-13] MEDS: THIAMINE HCL 100 MG TABLET (FP) PO SCH (21:53)
[2018-06-14] MEDS ORDERED: PT OWN MED DRAWER 7, Y5N ONE ×2 (09:05→13:45)
[2018-06-14] MEDS: LOSARTAN PO SCH (09:28)
[2018-06-14] MEDS: [UNRECOGNIZED DRUG - OTHER] PO SCH (09:28)
[2018-06-14] MEDS: VENLAFAXINE HCL PO SCH (09:28)
[2018-06-14] MEDS: PRENATAL VITAMINS W/ FOLIC ACID TABLET (FP) PO SCH (09:29)
[2018-06-14] MEDS: THIAMINE HCL 100 MG TABLET (FP) PO SCH (22:04)
[2018-06-15] MEDS: [UNRECOGNIZED DRUG - OTHER] PO SCH (10:02)
[2018-06-15] MEDS: PRENATAL VITAMINS W/ FOLIC ACID TABLET (FP) PO SCH (10:02)
[2018-06-15] MEDS: LOSARTAN PO SCH (10:02)
[2018-06-15] MEDS: VENLAFAXINE HCL PO SCH (10:05)
[2018-06-15] MEDS ORDERED: PT OWN MED DRAWER 7, Y5N ONE (10:06)
--- NOTE | 2018-06-15 10:51 | PN ---
[facility] Progress Note Note: PATIENT SEEN FOR DRY FEET AND CALLOUS TO LEFT PLANTAR ASPECT OF FOOT. PATIENT DENIES SWELLING, REDNESS AND PAIN TO FEET. Vital Signs Temperature 97.7 F 06/15/18 06:54 Pulse Rate 79 06/15/18 06:54 Respiratory Rate 18 06/15/18 06:54 Blood Pressure 124/98 06/15/18 06:54 O2 Sat by Pulse Oximetry (%) Laboratory Tests 06/13/18 06/13/18 06/13/18 07:45 07:45 07:45 WBC 5.2 RBC 4.74 Hgb 13.1 Hct 42.0 MCV 88.5 MCH 27.7 MCHC 31.3 L RDW 14.4 Plt Count 283 MPV 9.1 D Sodium 139 Potassium 3.7 Chloride 103 Carbon Dioxide 29 Anion Gap 8 BUN 13 Creatinine 0.7 Creat Clearance w eGFR > 60 Random Glucose 70 L Calcium 8.9 Total Bilirubin 0.7 AST 21 ALT 39 Alkaline Phosphatase 97 Total Protein 7.0 Albumin 3.6 Urine Color Urine Appearance Urine pH Ur Specific [place] Urine Protein Urine Glucose (UA) Urine Ketones Urine Blood Urine Nitrite Urine Bilirubin Urine Urobilinogen Ur Leukocyte Esterase RPR Titer Nonreactive 06/13/18 08:12 WBC RBC Hgb Hct MCV MCH MCHC RDW Plt Count MPV Sodium Potassium Chloride Carbon Dioxide Anion Gap BUN Creatinine Creat Clearance w eGFR Random Glucose Calcium Total Bilirubin AST ALT Alkaline Phosphatase Total Protein Albumin Urine Color Yellow Urine Appearance Slcloudy Urine pH 6.0 Ur Specific [place] 1.026 Urine Protein Negative Urine Glucose (UA) Negative Urine Ketones Negative Urine Blood Negative Urine Nitrite Negative Urine Bilirubin Negative Urine Urobilinogen Negative Ur Leukocyte Esterase Negative RPR Titer PE: EXT FULL ROM, +DRY INTACT CALLOUS TO LEFT PLANTAR FOOT. NO REDNESS OR SWELLING NOTED. A/P DRY FEET CALLOUS WILL ORDER AMMONIA LACTATE LOTION TO FEET CONTINUE TO MONITOR CLINICALLY
[2018-06-15] MEDS: AMMONIUM LACTATE 12% LOTION 225 GM BOTTLE TP SCH ×2 (14:14→21:45)
[2018-06-15] MEDS: THIAMINE HCL 100 MG TABLET (FP) PO SCH (21:45)
[2018-06-16] MEDS ORDERED: PT OWN MED DRAWER 7, Y5N ONE ×2 (08:47→10:32)
[2018-06-16] MEDS: PRENATAL VITAMINS W/ FOLIC ACID TABLET (FP) PO SCH (10:28)
[2018-06-16] MEDS: [UNRECOGNIZED DRUG - OTHER] PO SCH (10:28)
[2018-06-16] MEDS: LOSARTAN PO SCH (10:28)
[2018-06-16] MEDS: VENLAFAXINE HCL PO SCH (10:31)
[2018-06-16] MEDS: AMMONIUM LACTATE 12% LOTION 225 GM BOTTLE TP SCH ×2 (10:33→21:49)
[2018-06-16] MEDS: THIAMINE HCL 100 MG TABLET (FP) PO SCH (21:24)
[2018-06-17 06:38] VITALS: TEMP 98
[2018-06-17] MEDS ORDERED: PT OWN MED DRAWER 7, Y5N ONE (08:37)
[2018-06-17] MEDS: [UNRECOGNIZED DRUG - OTHER] PO SCH (09:24)
[2018-06-17] MEDS: PRENATAL VITAMINS W/ FOLIC ACID TABLET (FP) PO SCH (09:24)
[2018-06-17] MEDS: LOSARTAN PO SCH (09:24)
[2018-06-17] MEDS: VENLAFAXINE HCL PO SCH (09:25)
[2018-06-17] MEDS: AMMONIUM LACTATE 12% LOTION 225 GM BOTTLE TP SCH (09:27)
--- NOTE | 2018-06-17 09:53 | PN ---
[facility] Progress Note Note: PATIENT REQUESTED TO HAVE EARLY DISCHARGE TODAY HE HAS TO GO TO HOUSING REGARDING HIS LIVING SITUATION. PATIENT STATES HE WILL FOLLOW UP WITH OUTPATIENT [facility] OR [facility] IN [place], [place]. PATIENT MEDICALLY STABLE AND DENIES SI/HI. PATIENT ENCOURAGED TO COMPLETE REHAB TO PREVENT RELAPSE AND TO FOLLOW UP WITH PCP FOR ONGOING MEDICAL TREATMENT WITHIN THE NEXT WEEK. HTN MEDICATION ([place]) SENT TO PATIENTS PHARMACY. D/C PAPERS PROVIDED TO PATIENT BY STAFF. Laboratory Tests 06/13/18 06/13/18 06/13/18 07:45 07:45 07:45 WBC 5.2 RBC 4.74 Hgb 13.1 Hct 42.0 MCV 88.5 MCH 27.7 MCHC 31.3 L RDW 14.4 Plt Count 283 MPV 9.1 D Sodium 139 Potassium 3.7 Chloride 103 Carbon Dioxide 29 Anion Gap 8 BUN 13 Creatinine 0.7 Creat Clearance w eGFR > 60 Random Glucose 70 L Calcium 8.9 Total Bilirubin 0.7 AST 21 ALT 39 Alkaline Phosphatase 97 Total Protein 7.0 Albumin 3.6 Urine Color Urine Appearance Urine pH Ur Specific [place] Urine Protein Urine Glucose (UA) Urine Ketones Urine Blood Urine Nitrite Urine Bilirubin Urine Urobilinogen Ur Leukocyte Esterase RPR Titer Nonreactive 06/13/18 08:12 WBC RBC Hgb Hct MCV MCH MCHC RDW Plt Count MPV Sodium Potassium Chloride Carbon Dioxide Anion Gap BUN Creatinine Creat Clearance w eGFR Random Glucose Calcium Total Bilirubin AST ALT Alkaline Phosphatase Total Protein Albumin Urine Color Yellow Urine Appearance Slcloudy Urine pH 6.0 Ur Specific [place] 1.026 Urine Protein Negative Urine Glucose (UA) Negative Urine Ketones Negative Urine Blood Negative Urine Nitrite Negative Urine Bilirubin Negative Urine Urobilinogen Negative Ur Leukocyte Esterase Negative RPR Titer Vital Signs Temperature 98 F 06/17/18 06:37 Pulse Rate 77 06/17/18 06:37 Respiratory Rate 18 06/17/18 06:37 Blood Pressure 129/96 06/17/18 06:37 O2 Sat by Pulse Oximetry (%)
[2018-06-17 10:30] VITALS: BP 144/93; PULSE 79
== END 2018-06-17 10:03 | disposition left against medical advice (07) | DRG 770 ==
LOC: YASAS 12:14 → Y3W 15:58
PROVIDERS: ADMIT Psychiatry & Neurology Psychiatry; ATTEND Psychiatry & Neurology Psychiatry
PROC: HZ42ZZZ Group Counseling for Substance Abuse Treatment, Cognitive-Behavioral (ICD-10-PCS; principal; 2018-06-12)
DX: F14.20 Cocaine dependence, uncomplicated (principal); F17.213 Nicotine dependence, cigarettes, with withdrawal; F33.9 Major depressive disorder, recurrent, unspecified; I10 Essential (primary) hypertension; L84 Corns and callosities
CPT/HCPCS: 36415; 80053; 81003; 85027; 86593

== ENCOUNTER 2018-11-23 15:43 | Inpatient (IN) | payer OTHER ==
[2018-11-23 18:21] VITALS: BMI 25.0
--- NOTE | 2018-11-23 19:30 | HP ---
CIWA Score Nausea/Vomitin-No Nausea/No Vomiting Muscle Tremors: 4-Moderate,w/Arms Extend Anxiety: 3 Agitation: 3 Paroxysmal Sweats: 3 (Increased facial moisture) Orientation: 0-Oriented Tacttile Disturbances: 0-None Auditory Disturbances: 0-None Visual Disturbances: 0-None Headache: 0-None Present CIWA-Ar Total Score: 13 - Admission Criteria OASAS Guidelines: Admission for Medically Managed Detox: Requires at least one of the followin. CIWA greater than 12 2. Seizures within the past 24 hours 3. Delirium tremens within the past 24 hours 4. Hallucinations within the past 24 hours 5. Acute intervention needed for co occurring medical disorder 6. Acute intervention needed for co occurring psychiatric disorder 7. Severe withdrawal that cannot be handled at a lower level of care (continued vomiting, continued diarrhea, abnormal vital signs) requiring intravenous medication and/or fluids 8. Patient presents the following: CIWA greater than 12 (KAM O.046) Admission Criteria Met: Admission criteria met Admission ROS [facility] Chief Complaint: having alcohol withdrawal symptoms. Allergies/Adverse Reactions: Allergies Allergy/AdvReac Type Severity Reaction Status Date / Time Penicillins Allergy Severe Hives Verified 06/12/18 15:04 History of Present Illness: 53 yo w/ alcohol withdrawal symptoms present for admission to detox. Alcohol use since age 18. Current use since 14 - 24 oz beers. consistently for past few months. Last drink just before entering [facility]. KAM 0.046 Cocaine use since ag2 20. 1-2x/month. Nicotine use since age 16. Currently 4-5 cig/day. [facility] in 06/2018 and maintained sobriety 1 week post discharge. Last blackout 1 month ago. Denies seizures or overdoses. PMHx: HTN; Cough x 1 -2 weeks; states (R) chest lump > 1 year. MMHx: Anxious. Depression. Denies thoughts of harming self or others. Patient Name: Rajinder Del Castillo Date: 1965 Address: [facility] YARITZA SEXTON [address] [place] [id number] Sex: Male Rx Written Rx Dispensed Drug Quantity Days Supply Prescriber Name 11/09/2018 11/09/2018 chlordiazepoxide 10 mg capsule 27 3 Shireen Duke 09/07/2018 09/08/2018 chlordiazepoxide 10 mg capsule 18 2 Kajal Denson NP Patient Name: Rajinder Del Castillo Date: 1965 Address: [address] [place] [address] Sex: Male Rx Written Rx Dispensed Drug Quantity Days Supply Prescriber Name 08/05/2018 08/05/2018 chlordiazepoxide 10 mg capsule 32 4 Joelle Wilkes MD 06/29/2018 06/29/2018 chlordiazepoxide 25 mg capsule 15 5 Sergio Escobar MD Exam Limitations: No Limitations - Ebola screening Have you traveled outside of the country in the last 21 days: No Have you had contact with anyone from an Ebola affected area: No Have you been sick,other than usual withdrawal symptoms: No (DENIES RECENT EXPOSURE TO MEASLES) Do you have a fever: No - Review of Systems Constitutional: Diaphoresis, Changes in sleep (Difficulty fallinmg asleep once in a while) EENT: reports: Blurred Vision Respiratory: reports: Cough (Cough x 1.5 weeks. Non-productive. Denies chest pain.) Cardiac: reports: No Symptoms Reported GI: reports: Indigestion (Occ acid reflux,) : reports: No Symptoms Reported Musculoskeletal: reports: Back Pain (Scoliosis. Occ mid back pain. No pain at this time. Increases w/ walking/standing/sitting too long.) Integumentary: reports: No Symptoms Reported Neuro: reports: Tremors Endocrine: reports: No Symptoms Reported Hematology: reports: No Symptoms Reported Psychiatric: reports: Judgement Intact, Orientated x3, Agitated, Anxious, Depressed (Denies thoughts of harming self or others.) Patient History - Patient Medical History Hx Anemia: No Hx Asthma: No Hx Chronic Obstructive Pulmonary Disease (COPD): No Hx Cancer: No Hx Cardiac Disorders: No Hx Congestive Heart Failure: No Hx Hypertension: Yes Hx Hypercholesterolemia: No Hx Pacemaker: No HX Cerebrovascular Accident: No Hx Seizures: No Hx Dementia: No Hx Diabetes: No Hx Gastrointestinal Disorders: No Hx Liver Disease: No Hx Genitourinary Disorders: No Hx Sexually Transmitted Disorders: No Hx Renal Disease (ESRD): No Hx Thyroid Disease: No Hx Human Immunodeficiency Virus (HIV): No ( last 12/17 negative) Hx Hepatitis C: No Hx Depression: Yes Hx Suicide Attempt: No Hx Bipolar Disorder: No Hx Schizophrenia: No - Patient Surgical History Past Surgical History: No Hx Neurologic Surgery: No Hx Cataract Extraction: No Hx Cardiac Surgery: No Hx Lung Surgery: No Hx Breast Surgery: No Hx Breast Biopsy: No Hx Abdominal Surgery: No Hx Appendectomy: No Hx Cholecystectomy: No Hx Genitourinary Surgery: No Hx Section: No Hx Orthopedic Surgery: No Anesthesia Reaction: No - PPD History Previous Implant?: Yes Documented Results: Negative w/proof Implanted On Prior [facility] Admission?: Yes Date: 03/13/18 Results: 0 mm PPD to be Administered?: No - Smoking Cessation Smoking history: Current every day smoker Have you smoked in the past 12 months: Yes Aproximately how many cigarettes per day: 4 Cigars Per Day: 0 Hx Chewing Tobacco Use: No Initiated information on smoking cessation: Yes 'Breaking Loose' booklet given: 11/23/18 - Substance & Tx. History Hx Alcohol Use: Yes Hx Substance Use: Yes Substance Use Type: Alcohol, Cocaine Hx Substance Use Treatment: Yes (detox, rehab) - Substances abused Alcohol Substance route: Oral Frequency: Daily Amount used: 05/25OZ BEER Age of first use: 18 Date of last use: 11/23/18 Cocaine Substance route: Smoking Frequency: 1-3 times last 30 days Amount used: $150 Age of first use: 20 Date of last use: 11/22/18 Family Disease History - Family Disease History Family Disease History: CA: Grandparent (dx w/ colon cancer age 70's), Other: Father (alcohol,,cirrhosis), Mother (alcohol,cirrhosis age 34) Admission Physical Exam BHS - Vital Signs Vital Signs: Vital Signs - 24 hr 11/23/18 18:16 Temperature 98.7 F Pulse Rate 97 H Respiratory 18 Rate Blood Pressure 144/99 - Physical General Appearance: Yes: Nourished, Mild Distress, Tremorous (tremors at rest increase w/ arm elevation), Irritable, Sweating (Increased facial moisture) HEENTM: Yes: EOMI (Jerking movement of eyes upon lateral), Hearing grossly Normal, Normocephalic, Normal Voice, MANDI, Pharynx Normal Respiratory: Yes: Lungs Clear, Normal Breath Sounds, No Respiratory Distress Neck: Yes: No masses,lesions,Nodules, Supple Breast: Yes: Breast Exam Deferred Cardiology: Yes: Regular Rhythm, Regular Rate, S1, S2 Abdominal: Yes: Non Tender, Flat, Soft, Increased Bowel Sounds Genitourinary: Yes: Within Normal Limits Back: Yes: Other (Curvature of spine) Musculoskeletal: Yes: full range of Motion, Gait Steady Extremities: Yes: Normal Capillary Refill, Tremors (tremors at rest increase w/ arm elevation) 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: Fully Oriented, Alert, Motor Strength 5/5, Normal Response Integumentary: Yes: Normal Color, Dry, Warm, Diaphoresis (Increased facial moisture), Other (Soft, round, approx 11 cm mass (R) flank, non-tender. No increased eruthema or warmth.) Lymphatic: Yes: Within Normal Limits - Diagnostic (1) Alcohol dependence with uncomplicated withdrawal Current Visit: Yes Status: Acute (2) Dehydration Current Visit: Yes Status: Acute (3) Cocaine dependence Current Visit: Yes Status: Chronic Qualifiers: Substance use status: uncomplicated Qualified Code(s): F14.20 - Cocaine dependence, uncomplicated (4) HTN (hypertension) Current Visit: Yes Status: Chronic Qualifiers: Hypertension type: essential hypertension Qualified Code(s): I10 - Essential (primary) hypertension (5) Nicotine dependence Current Visit: Yes Status: Chronic Qualifiers: Nicotine product type: cigarettes Substance use status: in withdrawal Qualified Code(s): F17.213 - Nicotine dependence, cigarettes, with withdrawal (6) Scoliosis deformity of spine Current Visit: Yes Status: Chronic Qualifiers: Scoliosis type: idiopathic Idiopathic scoliosis type: juvenile Spinal region: thoracic Qualified Code(s): 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, thoracic region (7) Nystagmus Current Visit: Yes Status: Acute (8) Cough Current Visit: Yes Status: Acute (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
[2018-11-23] MEDS ORDERED: chlordiazePOXIDE HCL 25 MG CAPSULE PO PRN (20:06)
[2018-11-23] MEDS ORDERED: MAGNESIUM HYDROX 2400MG/30ML ORAL SUSPENSION 30 ML CUP PO PRN (20:06)
[2018-11-23] MEDS ORDERED: BISMUTH SUBSALICYLATE 524 MG/30 ML UD PO PRN (20:06)
[2018-11-23] MEDS ORDERED: MENTHOL/PHENOL 1 EACH UD MM PRN (20:06)
[2018-11-23] MEDS ORDERED: NICOTINE POLACRILEX 2 MG GUM BUC PRN (20:06)
[2018-11-23] MEDS ORDERED: ACETAMINOPHEN 325 MG TABLET (FP) PO PRN ×2 (20:06)
[2018-11-23] MEDS ORDERED: IBUPROFEN 400 MG TABLET (FP) PO PRN (20:06)
[2018-11-23] MEDS ORDERED: METHOCARBAMOL 500 MG TABLET PO PRN (20:06)
[2018-11-23] MEDS ORDERED: MELATONIN 5 MG TABLETS PO PRN (20:06)
[2018-11-23] MEDS ORDERED: MAGNESIUM CITRATE 300 ML BOTTLE PO PRN (20:06)
[2018-11-23] MEDS ORDERED: MAG HYDROX/AL HYDROX/SIMETH 30 ML UNIT-DOSE CUP PO PRN (20:06)
[2018-11-23] MEDS ORDERED: AMMONIUM LACTATE 12% LOTION 225 GM BOTTLE TP PRN (20:09)
[2018-11-23] MEDS ORDERED: chlordiazePOXIDE HCL 25 MG CAPSULE PO ONE (20:30)
[2018-11-23] MEDS ORDERED: cloNIDine HCL 0.1 MG TABLET PO ONE (20:56)
[2018-11-23] MEDS: THIAMINE HCL 100 MG TABLET (FP) PO SCH (21:55)
[2018-11-23] MEDS: chlordiazePOXIDE HCL 25 MG CAPSULE PO SCH (22:14)
[2018-11-24] MEDS: chlordiazePOXIDE HCL 25 MG CAPSULE PO SCH ×4 (05:37→22:16)
[2018-11-24 10:00] LABS: HEMATOCRIT 40.3 % (35.4-49); MCH 28.3 pg (25.7-33.7); MCHC 32.4 g/dl (32.0-35.9); MEAN CELL VOLUME 87.2 fl (80-96); MEAN PLT VOLUME 8.9 fl (7.5-11.1); RBC 4.62 M/mm3 (4.00-5.60); RDW 15.7 % (11.9-15.9); WHITE BLOOD COUNT 4.7 K/mm3 (4.0-10.0)
[2018-11-24] MEDS: PRENATAL VITAMINS W/ FOLIC ACID TABLET (FP) PO SCH (10:05)
[2018-11-24] MEDS: guaiFENesin 200 MG/10 ML 10 ML UNIT-DOSE CUPS PO PRN ×2 (10:05→17:57)
[2018-11-24] MEDS: amLODIPine BESYLATE 5 MG TABLET (FP) PO SCH (10:07)
[2018-11-24 10:24] LABS: ALBUMIN 3.6 g/dl (3.4-5.0); BILIRUBIN,TOTAL 0.8 mg/dL (0.2-1); BLOOD UREA NITROGEN 10.2 mg/dL (7-18); CALCIUM 8.7 mg/dL (8.5-10.1); CREATININE 0.7 mg/dL (0.55-1.3); POTASSIUM 3.7 mmol/L (3.5-5.1); TOT PROT 6.7 g/dl (6.4-8.2)
[2018-11-24 10:32] LABS: PLATELET COUNT 302 K/MM3 (134-434)
--- NOTE | 2018-11-24 11:40 | CONSULT ---
[facility] Psychiatric Consult - Data Date of interview: 11/24/18 Admission source: [facility] Identifying data: This is one of multiple admissions to [facility] for this 53 y/ o AA male self-referred for detoxification (alcohol, cocaine). Patient is single without children, domiciled, unemployed and supported on SSI benefits. Substance Abuse History: Confirmed by patient. Details in current [facility] report as follows : Smoking history: Current every day smoker. Have you smoked in the past 12 months: Yes. Aproximately how many cigarettes per day: 4. Cigars Per Day: 0. Hx Chewing Tobacco Use: No. Initiated information on smoking cessation : Yes. 'Breaking Loose' booklet given: 11/23/18. - Substance & Tx. History. Hx Alcohol Use: Yes. Hx Substance Use: Yes. Substance Use Type: Alcohol, Cocaine. Hx Substance Use Treatment: Yes (detox, rehab). - Substances abused. Alcohol. Substance route: Oral. Frequency: Daily. Amount used: 05/25OZ BEER. Age of first use: 18. Date of last use: 11/23/18. Cocaine. Substance route: Smoking. Frequency: 1-3 times last 30 days. Amount used: $ 150. Age of first use: 20. Date of last use: 11/22/18 Medical History: Hypertension and scoliosis. Reported allergy to penicillins. Psychiatric History: Distant history of one psychatric hospitalization (2001) at the [facility] in [facility]. Diagnosed with MDD. Mr Del Castillo is prescribed effexor XR 75 mg/day + buspirone 10 mg/tid. Patient sees a psychiatrist, for medication management, at [facility] in [facility]. Patient denies history of suicide attempts. Physical/Sexual Abuse/Trauma History: No history. Additional Comment: Urine drug screen results: JOHNATHAN-Cocaine, BZO- Benzodiazepines. Noted. Mental Status Exam - Mental Status Exam Alert and Oriented to: Time, Place, Person Cognitive Function: Good Patient Appearance: Well Groomed Mood: Hopeful, Euthymic Affect: Appropriate, Normal Range Patient Behavior: Appropriate, Cooperative Speech Pattern: Clear, Appropriate Voice Loudness: Normal Thought Process: Intact, Goal Oriented Thought Disorder: Not Present Hallucinations: Denies Suicidal Ideation: Denies Homicidal Ideation: Denies Insight/Judgement: Fair Sleep: Well Appetite: Good Muscle strength/Tone: Normal Gait/Station: Normal Psychiatric Findings - Problem List ([place] 1, 2,3) (1) Alcohol dependence with uncomplicated withdrawal Current Visit: Yes Status: Acute (2) Cocaine dependence Current Visit: Yes Status: Chronic Qualifiers: Substance use status: uncomplicated Qualified Code(s): F14.20 - Cocaine dependence, uncomplicated (3) Nicotine dependence Current Visit: Yes Status: Chronic Qualifiers: Nicotine product type: cigarettes Substance use status: in withdrawal Qualified Code(s): F17.213 - Nicotine dependence, cigarettes, with withdrawal (4) Substance induced mood disorder Current Visit: Yes Status: Chronic (5) MDD (major depressive disorder) Current Visit: Yes Status: Chronic Comment: By history. On medications. - Initial Treatment Plan Initial Treatment Plan: Psychoeducation. Sleep hygiene. Detoxification. Support. AA meetings. Relapse prevention (MAT) : discussed with the patient. Medications :
--- NOTE | 2018-11-24 13:46 | PN ---
S CIWA - CIWA Score Nausea/Vomitin-No Nausea/No Vomiting Muscle Tremors: 2 Anxiety: 4-Mod. Anxious/Guarded Agitation: 2 Paroxysmal Sweats: 3 Orientation: 0-Oriented Tacttile Disturbances: 2-Mild Itch/Numbness/Burn Auditory Disturbances: 0-None Visual Disturbances: 0-None Headache: 0-None Present CIWA-Ar Total Score: 13 BHS Progress Note (SOAP) Subjective: Sweating, Anxious, Tremors. Objective: PATIENT A & O X 3, OBSERVED AMBULATING ON UNIT UNASSISTED. IN NO ACUTE DISTRESS. 11/24/18 13:47 Vital Signs Temperature 97.3 F L 11/24/18 13:11 Pulse Rate 73 11/24/18 13:11 Respiratory Rate 18 11/24/18 13:11 Blood Pressure 128/72 11/24/18 13:11 O2 Sat by Pulse Oximetry (%) Laboratory Tests 11/24/18 11/24/18 11/24/18 07:00 07:00 07:00 WBC 4.7 RBC 4.62 Hgb 13.0 Hct 40.3 MCV 87.2 MCH 28.3 MCHC 32.4 RDW 15.7 Plt Count 302 MPV 8.9 Sodium 140 Potassium 3.7 Chloride 106 Carbon Dioxide 27 Anion Gap 7 L BUN 10.2 Creatinine 0.7 Est GFR (CKD-EPI)AfAm 126.64 Est GFR (CKD-EPI)NonAf 109.27 Random Glucose 75 Calcium 8.7 Total Bilirubin 0.8 AST 16 ALT 35 Alkaline Phosphatase 106 Total Protein 6.7 Albumin 3.6 RPR Titer Nonreactive LABS NOTED. Assessment: 11/24/18 13:48 WITHDRAWAL SYMPTOMS. Plan: CONTINUE DETOX.
[2018-11-24] MEDS: VENLAFAXINE HCL 75 MG E.R. CAPSULES (FP) PO SCH (13:51)
[2018-11-24] MEDS: busPIRone HCL 10 MG TABLET (FP) PO SCH ×2 (15:07→22:16)
[2018-11-24] MEDS: THIAMINE HCL 100 MG TABLET (FP) PO SCH (22:16)
[2018-11-25] MEDS: busPIRone HCL 10 MG TABLET (FP) PO SCH ×3 (05:08→22:06)
[2018-11-25] MEDS: chlordiazePOXIDE HCL 25 MG CAPSULE PO SCH ×3 (05:08→17:33)
[2018-11-25] MEDS: AMMONIUM LACTATE 12% LOTION 225 GM BOTTLE TP SCH ×2 (10:14→22:07)
[2018-11-25] MEDS: PRENATAL VITAMINS W/ FOLIC ACID TABLET (FP) PO SCH (10:14)
[2018-11-25] MEDS: VENLAFAXINE HCL 75 MG E.R. CAPSULES (FP) PO SCH (10:14)
[2018-11-25] MEDS: amLODIPine BESYLATE 5 MG TABLET (FP) PO SCH (10:15)
[2018-11-25] MEDS: guaiFENesin 200 MG/10 ML 10 ML UNIT-DOSE CUPS PO PRN ×2 (10:18→17:34)
--- NOTE | 2018-11-25 14:22 | PN ---
S CIWA - CIWA Score Nausea/Vomitin-No Nausea/No Vomiting Muscle Tremors: 2 Anxiety: 3 Agitation: 2 Paroxysmal Sweats: 2 Orientation: 0-Oriented Tacttile Disturbances: 1-Very Mild Itch/Numbness Auditory Disturbances: 0-None Visual Disturbances: 1-Very Mild Sensitivity Headache: 0-None Present CIWA-Ar Total Score: 11 BHS Progress Note (SOAP) Subjective: Sweating, Anxious, Tremors. Objective: PATIENT A & O X 3, OBSERVED AMBULATING ON UNIT UNASSISTED. IN NO ACUTE DISTRESS. 11/25/18 14:23 Vital Signs Temperature 97.1 F L 11/25/18 13:04 Pulse Rate 79 11/25/18 13:04 Respiratory Rate 18 11/25/18 13:04 Blood Pressure 143/96 11/25/18 13:04 O2 Sat by Pulse Oximetry (%) Laboratory Tests 11/24/18 11/24/18 11/24/18 07:00 07:00 07:00 WBC 4.7 RBC 4.62 Hgb 13.0 Hct 40.3 MCV 87.2 MCH 28.3 MCHC 32.4 RDW 15.7 Plt Count 302 MPV 8.9 Sodium 140 Potassium 3.7 Chloride 106 Carbon Dioxide 27 Anion Gap 7 L BUN 10.2 Creatinine 0.7 Est GFR (CKD-EPI)AfAm 126.64 Est GFR (CKD-EPI)NonAf 109.27 Random Glucose 75 Calcium 8.7 Total Bilirubin 0.8 AST 16 ALT 35 Alkaline Phosphatase 106 Total Protein 6.7 Albumin 3.6 RPR Titer Nonreactive LABS NOTED. Assessment: 11/25/18 14:23 WITHDRAWAL SYMPTOMS. Plan: CONTINUE DETOX.
[2018-11-25] MEDS: THIAMINE HCL 100 MG TABLET (FP) PO SCH (22:06)
[2018-11-25] MEDS: chlordiazePOXIDE HCL 10 MG CAPSULE PO SCH (22:06)
[2018-11-25] MEDS ORDERED: chlordiazePOXIDE HCL 10 MG CAPSULE PO PRN (23:00)
[2018-11-26] MEDS: busPIRone HCL 10 MG TABLET (FP) PO SCH ×3 (05:03→22:39)
[2018-11-26] MEDS: chlordiazePOXIDE HCL 10 MG CAPSULE PO SCH ×3 (05:04→17:51)
[2018-11-26] MEDS: amLODIPine BESYLATE 5 MG TABLET (FP) PO SCH (10:11)
[2018-11-26] MEDS: VENLAFAXINE HCL 75 MG E.R. CAPSULES (FP) PO SCH (10:12)
[2018-11-26] MEDS: PRENATAL VITAMINS W/ FOLIC ACID TABLET (FP) PO SCH (10:12)
[2018-11-26] MEDS: AMMONIUM LACTATE 12% LOTION 225 GM BOTTLE TP SCH ×2 (10:14→22:39)
--- NOTE | 2018-11-26 14:46 | PN ---
S CIWA - CIWA Score Nausea/Vomitin-No Nausea/No Vomiting Muscle Tremors: None Anxiety: 0-No Anxiety, at Ease Agitation: 2 Paroxysmal Sweats: No Perspiration Orientation: 0-Oriented Tacttile Disturbances: 0-None Auditory Disturbances: 0-None Visual Disturbances: 0-None Headache: 0-None Present CIWA-Ar Total Score: 2 BHS Progress Note (SOAP) Subjective: Patient denies current Withdrawal / Detox symptoms and reports that he feels well overall at this time. Objective: PATIENT A & O X 3, OBSERVED AMBULATING ON UNIT UNASSISTED. IN NO ACUTE DISTRESS. 11/26/18 14:45 Vital Signs Temperature 97.5 F L 11/26/18 13:04 Pulse Rate 72 11/26/18 13:04 Respiratory Rate 18 11/26/18 13:04 Blood Pressure 148/95 11/26/18 13:04 O2 Sat by Pulse Oximetry (%) Laboratory Tests 11/24/18 11/24/18 11/24/18 07:00 07:00 07:00 WBC 4.7 RBC 4.62 Hgb 13.0 Hct 40.3 MCV 87.2 MCH 28.3 MCHC 32.4 RDW 15.7 Plt Count 302 MPV 8.9 Sodium 140 Potassium 3.7 Chloride 106 Carbon Dioxide 27 Anion Gap 7 L BUN 10.2 Creatinine 0.7 Est GFR (CKD-EPI)AfAm 126.64 Est GFR (CKD-EPI)NonAf 109.27 Random Glucose 75 Calcium 8.7 Total Bilirubin 0.8 AST 16 ALT 35 Alkaline Phosphatase 106 Total Protein 6.7 Albumin 3.6 RPR Titer Nonreactive LABS NOTED. Assessment: 11/26/18 14:45 WITHDRAWAL SYMPTOMS. Plan: CONTINUE DETOX. PATIENT SCHEDULED FOR DISCHARGE FROM DETOX UNIT TOMORROW.
[2018-11-26] MEDS: guaiFENesin 200 MG/10 ML 10 ML UNIT-DOSE CUPS PO PRN (17:51)
[2018-11-26] MEDS: THIAMINE HCL 100 MG TABLET (FP) PO SCH (22:39)
[2018-11-26] MEDS ORDERED: chlordiazePOXIDE HCL 10 MG CAPSULE PO SCH (23:00)
[2018-11-27] MEDS: busPIRone HCL 10 MG TABLET (FP) PO SCH (06:27)
[2018-11-27 06:41] VITALS: BP 136/86; PULSE 70; TEMP 97.2
--- NOTE | 2018-11-27 10:10 | PN ---
[facility] CIWA - CIWA Score Nausea/Vomitin-No Nausea/No Vomiting Muscle Tremors: 1-None Visible, but [place] Anxiety: 1-Mildly Anxious Agitation: 1-Slight > Activity Paroxysmal Sweats: No Perspiration Orientation: 0-Oriented Tacttile Disturbances: 0-None Auditory Disturbances: 0-None Visual Disturbances: 0-None Headache: 0-None Present CIWA-Ar Total Score: 3 BHS Progress Note (SOAP) Subjective: alert,no complaint Objective: 11/27/18 10:08 Vital Signs Temperature 97.2 F L 11/27/18 06:40 Pulse Rate 70 11/27/18 06:40 Respiratory Rate 18 11/27/18 06:40 Blood Pressure 136/86 11/27/18 06:40 O2 Sat by Pulse Oximetry (%) Assessment: 11/27/18 10:08 detox completed.no withdrawal symptom Plan: discharge today,follow up with after care program as arrangement and medical provider for medical problem
--- NOTE | 2018-11-27 10:13 | DS ---
[facility] Detox Discharge Summary Admission Date: 11/23/18 Discharge Date: 11/27/18 - History Present History: Alcohol Dependence, Cocaine Dependence Additional Comments: follow up with after [facility] program as arrangement and medical provider for medical problem Pertinent Past History: hypertension scoliosis lipoma of chest wall - Physical Exam Results Vital Signs: Vital Signs Temperature 97.2 F L 11/27/18 06:40 Pulse Rate 70 11/27/18 06:40 Respiratory Rate 18 11/27/18 06:40 Blood Pressure 136/86 11/27/18 06:40 O2 Sat by Pulse Oximetry (%) Pertinent Admission Physical Exam Findings: withdrawal signs and symptom Laboratory Last Values WBC 4.7 K/mm3 (4.0-10.0) 11/24/18 07:00 RBC 4.62 M/mm3 (4.00-5.60) 11/24/18 07:00 Hgb 13.0 GM/dL (11.7-16.9) 11/24/18 07:00 Hct 40.3 % (35.4-49) 11/24/18 07:00 MCV 87.2 fl (80-96) 11/24/18 07:00 MCH 28.3 pg (25.7-33.7) 11/24/18 07:00 MCHC 32.4 g/dl (32.0-35.9) 11/24/18 07:00 RDW 15.7 % (11.9-15.9) 11/24/18 07:00 Plt Count 302 K/MM3 (134-434) 11/24/18 07:00 MPV 8.9 fl (7.5-11.1) 11/24/18 07:00 Sodium 140 mmol/L (136-145) 11/24/18 07:00 Potassium 3.7 mmol/L (3.5-5.1) 11/24/18 07:00 Chloride 106 mmol/L (98-107) 11/24/18 07:00 Carbon Dioxide 27 mmol/L (21-32) 11/24/18 07:00 Anion Gap 7 MMOL/L (8-16) L 11/24/18 07:00 BUN 10.2 mg/dL (7-18) 11/24/18 07:00 Creatinine 0.7 mg/dL (0.55-1.3) 11/24/18 07:00 Est GFR (CKD-EPI)AfAm 126.64 11/24/18 07:00 Est GFR (CKD-EPI)NonAf 109.27 11/24/18 07:00 Random Glucose 75 mg/dL (74-106) 11/24/18 07:00 Calcium 8.7 mg/dL (8.5-10.1) 11/24/18 07:00 Total Bilirubin 0.8 mg/dL (0.2-1) 11/24/18 07:00 AST 16 U/L (15-37) 11/24/18 07:00 ALT 35 U/L (13-61) 11/24/18 07:00 Alkaline Phosphatase 106 U/L (45-117) 11/24/18 07:00 Total Protein 6.7 g/dl (6.4-8.2) 11/24/18 07:00 Albumin 3.6 g/dl (3.4-5.0) 11/24/18 07:00 RPR Titer Nonreactive (NONREACTIVE) 11/24/18 07:00 - Treatment Hospital Course: Detox Protocol Followed, Detoxed Safely, Responded well, Discharged Condition Good Patient has Accepted a Rehab Referral to: declined - Medication Discharge Medications: Ambulatory Orders Amlodipine Besylate 5 mg PO DAILY 11/23/18 Buspirone HCl [Buspar -] 10 mg PO TID 11/23/18 Venlafaxine HCl ER [Effexor Xr -] 75 mg PO DAILY 11/23/18 - AMA Did Patient Leave Against Medical Advice: No
== END 2018-11-27 06:55 | disposition home or self-care (01) | DRG 774 ==
LOC: YASAS 15:43 → Y3N 19:54
PROVIDERS: ADMIT Surgery; ATTEND Surgery
PROC: HZ2ZZZZ Detoxification Services for Substance Abuse Treatment (ICD-10-PCS; principal; 2018-11-23)
DX: F10.230 Alcohol dependence with withdrawal, uncomplicated (principal); F14.20 Cocaine dependence, uncomplicated; F17.210 Nicotine dependence, cigarettes, uncomplicated; F19.24 Other psychoactive substance dependence with psychoactive substance-induced mood disorder; F33.9 Major depressive disorder, recurrent, unspecified; I10 Essential (primary) hypertension; M41.114 Juvenile idiopathic scoliosis, thoracic region; D17.1 Benign lipomatous neoplasm of skin and subcutaneous tissue of trunk; H55.00 Unspecified nystagmus; E86.0 Dehydration; Z88.0 Allergy status to penicillin
CPT/HCPCS: 36415; 80053; 85027; 86593; J0735

== ENCOUNTER 2018-12-08 12:00 | Inpatient (IN) | payer OTHER ==
[2018-12-08 13:10] VITALS: BMI 25.4
--- NOTE | 2018-12-08 14:36 | HP ---
CIWA Score - Admission Criteria [facility] Guidelines: Admission for Medically Managed Detox: Requires at least one of the followin. CIWA greater than 12 2. Seizures within the past 24 hours 3. Delirium tremens within the past 24 hours 4. Hallucinations within the past 24 hours 5. Acute intervention needed for co occurring medical disorder 6. Acute intervention needed for co occurring psychiatric disorder 7. Severe withdrawal that cannot be handled at a lower level of care (continued vomiting, continued diarrhea, abnormal vital signs) requiring intravenous medication and/or fluids 8. Admission ROS S - HPI Allergies/Adverse Reactions: Allergies Allergy/AdvReac Type Severity Reaction Status Date / Time Penicillins Allergy Severe Hives Verified 12/08/18 13:02 History of Present Illness: pt here requesting rehab from etoh use , reports s/p detox @ [facility] completed today , has d/c paperwork indicating same . Prior detox at this facility completed 11/27/18. Alcohol use since age 18. Current use 10 cans x - 24 oz beers since age 16, progressively increasing amounts and frequency , denies seizure d/o . Cocaine use since age 20. 1-2x/month. Nicotine use since age 16. Currently 4-5 cig/day. PMHx: HTN;scoliosis ( congenital ) MMHx: Anxiety . Depression. Denies thoughts of harming self or others. Exam Limitations: No Limitations - Ebola screening Have you traveled outside of the country in the last 21 days: No Have you had contact with anyone from an Ebola affected area: No Do you have a fever: No - Review of Systems Constitutional: No Symptoms Reported EENT: reports: No Symptoms Reported Respiratory: reports: Cough (occasional) Cardiac: reports: No Symptoms Reported GI: reports: No Symptoms Reported : reports: No Symptoms Reported Musculoskeletal: reports: No Symptoms Reported Integumentary: reports: No Symptoms Reported Neuro: reports: No Symptoms reported Endocrine: reports: No Symptoms Reported Psychiatric: reports: Orientated x3 Patient History - Patient Medical History Hx Anemia: No Hx Asthma: No Hx Chronic Obstructive Pulmonary Disease (COPD): No Hx Cancer: No Hx Cardiac Disorders: No Hx Congestive Heart Failure: No Hx Hypertension: Yes Hx Hypercholesterolemia: No Hx Pacemaker: No HX Cerebrovascular Accident: No Hx Seizures: No Hx Dementia: No Hx Diabetes: No Hx Gastrointestinal Disorders: No Hx Liver Disease: No Hx Genitourinary Disorders: No Hx Sexually Transmitted Disorders: No Hx Renal Disease (ESRD): No Hx Thyroid Disease: No Hx Human Immunodeficiency Virus (HIV): No ( last 12/17 negative) Hx Hepatitis C: No Hx Depression: Yes Hx Suicide Attempt: No Hx Bipolar Disorder: No Hx Schizophrenia: No - Patient Surgical History Past Surgical History: No Hx Neurologic Surgery: No Hx Cataract Extraction: No Hx Cardiac Surgery: No Hx Lung Surgery: No Hx Breast Surgery: No Hx Breast Biopsy: No Hx Abdominal Surgery: No Hx Appendectomy: No Hx Cholecystectomy: No Hx Genitourinary Surgery: No Hx Section: No Hx Orthopedic Surgery: No Anesthesia Reaction: No - PPD History Date: 03/13/18 Results: 0 mm - Smoking Cessation Smoking history: Current every day smoker Have you smoked in the past 12 months: Yes Aproximately how many cigarettes per day: 4 Cigars Per Day: 0 Hx Chewing Tobacco Use: No Initiated information on smoking cessation: No - Substances abused Alcohol Substance route: Oral Frequency: Daily Amount used: 05/25OZ BEER Age of first use: 18 Date of last use: 12/03/18 Cocaine Substance route: Smoking Frequency: 1-3 times last 30 days Amount used: $150 Age of first use: 20 Date of last use: 11/17/18 Family Disease History - Family Disease History Family Disease History: CA: Grandparent (dx w/ colon cancer age 70's), Other: Father (alcohol,,cirrhosis), Mother (alcohol,cirrhosis age 34) Admission Physical Exam BHS - Vital Signs Vital Signs: Vital Signs - 24 hr 12/08/18 12/08/18 13:01 14:10 Temperature 97.3 F L 97.3 F L Pulse Rate 76 76 Respiratory 17 17 Rate Blood Pressure 146/90 146/90 - Physical General Appearance: Yes: No Apparent Distress HEENTM: Yes: Normocephalic, Normal Voice Respiratory: Yes: Lungs Clear, Normal Breath Sounds, No Respiratory Distress, No Accessory Muscle Use Neck: Yes: No masses,lesions,Nodules, Trachea in good position Cardiology: Yes: Regular Rhythm, Regular Rate, S1, S2 Abdominal: Yes: Non Tender, Soft Back: Yes: Normal Inspection Musculoskeletal: Yes: full range of Motion, Gait Steady 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: Fully Oriented, Alert, Motor Strength 5/5 Integumentary: Yes: Warm - Diagnostic (1) Alcohol dependence Current Visit: Yes Status: Chronic Qualifiers: Substance use status: in remission Qualified Code(s): F10.21 - Alcohol dependence, in remission (2) Cocaine dependence Current Visit: Yes Status: Chronic Qualifiers: Substance use status: uncomplicated Qualified Code(s): F14.20 - Cocaine dependence, uncomplicated (3) Nicotine dependence Current Visit: Yes Status: Chronic Qualifiers: Nicotine product type: cigarettes Breathalyzer - Breathalyzer Breathalyzer: 0 Urine Drug Screen - Test Device Lot number: [id number] Expiration date: 09/29/20 - Control Is test valid?: Yes - Results Drug screen NEGATIVE: No Urine drug screen results: JOHNATHAN-Cocaine, BZO-Benzodiazepines Inpatient Rehab Admission - Rehab Decision to Admit Inpatient rehab admission?: Yes - Initial Determination Are CD services needed?: Yes Free of communicable disease: Yes Not in need of hospitalization: Yes - Rehab Admission Criteria Previous failed treatment: Yes Poor recovery environment: Yes Comorbidities: No Lacks judgement: Yes Patient is meeting Inpatient Rehab admission criteria:: Yes
[2018-12-08] MEDS ORDERED: P-EPHED 60MG/TRIPROLIDI 2.5MG TABLET PO PRN (14:43)
[2018-12-08] MEDS ORDERED: MENTHOL/PHENOL 1 EACH UD MM PRN (14:43)
[2018-12-08] MEDS ORDERED: NICOTINE POLACRILEX 2 MG GUM BC PRN (14:43)
[2018-12-08] MEDS ORDERED: guaiFENesin 200 MG/10 ML 10 ML UNIT-DOSE CUPS PO PRN (14:43)
[2018-12-08] MEDS ORDERED: IBUPROFEN 400 MG TABLET (FP) PO PRN (14:43)
[2018-12-08] MEDS ORDERED: MAGNESIUM HYDROX 2400MG/30ML ORAL SUSPENSION 30 ML CUP PO PRN (14:43)
[2018-12-08] MEDS ORDERED: MAG HYDROX/AL HYDROX/SIMETH 30 ML UNIT-DOSE CUP PO PRN (14:43)
[2018-12-08] MEDS ORDERED: ACETAMINOPHEN 325 MG TABLET (FP) PO PRN (14:43)
[2018-12-08] MEDS ORDERED: hydrOXYzine PAMOATE 25 MG CAPSULE (FP) PO PRN (14:43)
[2018-12-08] MEDS ORDERED: MAGNESIUM CITRATE 300 ML BOTTLE PO PRN (14:43)
[2018-12-08] MEDS ORDERED: MELATONIN 5 MG TABLETS PO PRN (22:00)
[2018-12-08] MEDS: THIAMINE HCL 100 MG TABLET (FP) PO SCH (22:10)
[2018-12-09 00:05] LABS: URINE APPEARANCE CLEAR; URINE BILIRUBIN 1+ (NEGATIVE); URINE COLOR DK YELLOW; URINE GLUCOSE (UA) NEGATIVE (NEGATIVE); URINE KETONE TRACE (NEGATIVE); URINE LEUK ESTERASE NEGATIVE (NEGATIVE); URINE NITRITE NEGATIVE (NEGATIVE); URINE PROTEIN TRACE (NEGATIVE)
--- NOTE | 2018-12-09 09:35 | CONSULT ---
[facility] Psychiatric Consult - Data Date of interview: 12/09/18 Admission source: [facility] Identifying data: Mr Del Castillo is a 53 years old single Black male, unemployed receving SSI, domiciled seeking detox treatment for alcohol and cocaine Substance Abuse History: Reports history of alcohol and cocaine use. Refer to addiction counselor's summary for further information Medical History: Significant for hypertension, scoliosis. Smokes 4 cigarettes daily Psychiatric History: Reports that his first psychiatric contact was in 2001 while in [place] [facility]. He was admitted to [facility], diagnosed with MDD and prescribed Effexor and Buspar. Reports that he has been receiving outpatient psychiatric treatment since. For the past 2 years, he has been receiving outpatient psychiatric treatment at [facility] in [place], [place]. He is currently prescribed Effexor XR 75 mg/day and Buspar 10 mg/tid. Denies previous suicide attempt. At present, denies experiencing depressive symptoms, S/H ideations. However, reports sleeping poorly. Physical/Sexual Abuse/Trauma History: Denies history of emotional, physical or sexual abuse as well as DV relationship Additional Comment: Reports history of multiple previous arrests including 3-4 felony convictions. Denies being on parole/probation at present Mental Status Exam - Mental Status Exam Alert and Oriented to: Time, Place, Person Cognitive Function: Fair Patient Appearance: Well Groomed Mood: Hopeful, Euthymic Affect: Appropriate Patient Behavior: Cooperative Speech Pattern: Clear Voice Loudness: Normal Thought Process: Intact Thought Disorder: Not Present Hallucinations: Denies Suicidal Ideation: Denies Homicidal Ideation: Denies Insight/Judgement: Poor Sleep: Poorly Appetite: Good Muscle strength/Tone: Normal Gait/Station: Normal Psychiatric Findings - Problem List ([place] 1, 2,3) (1) MDD (major depressive disorder), recurrent episode, moderate Current Visit: No Status: Chronic (2) Substance-induced sleep disorder Current Visit: Yes Status: Acute (3) Alcohol dependence Current Visit: Yes Status: Acute Qualifiers: Substance use status: in remission Qualified Code(s): F10.21 - Alcohol dependence, in remission (4) Cocaine dependence Current Visit: Yes Status: Acute Qualifiers: Substance use status: uncomplicated Qualified Code(s): F14.20 - Cocaine dependence, uncomplicated (5) Nicotine dependence Current Visit: Yes Status: Chronic Qualifiers: Nicotine product type: cigarettes (6) HTN (hypertension) Current Visit: No Status: Chronic Qualifiers: Hypertension type: essential hypertension Qualified Code(s): I10 - Essential (primary) hypertension (7) Scoliosis deformity of spine Current Visit: No Status: Chronic Qualifiers: Scoliosis type: idiopathic Idiopathic scoliosis type: juvenile Spinal region: thoracic Qualified Code(s): 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 2) Start Melatonin 5 mg po HS prn for insomnia. 3) Continue inpatient rehabilitation
[2018-12-09] MEDS: amLODIPine BESYLATE 5 MG TABLET (FP) PO SCH (10:25)
[2018-12-09] MEDS: PRENATAL VITAMINS W/ FOLIC ACID TABLET (FP) PO SCH (10:25)
[2018-12-09] MEDS: VENLAFAXINE HCL 75 MG E.R. CAPSULES (FP) PO SCH (11:27)
[2018-12-09] MEDS: busPIRone HCL 10 MG TABLET (FP) PO SCH ×2 (13:26→23:20)
[2018-12-09] MEDS: THIAMINE HCL 100 MG TABLET (FP) PO SCH (23:20)
[2018-12-10] MEDS: busPIRone HCL 10 MG TABLET (FP) PO SCH ×3 (06:53→21:51)
[2018-12-10] MEDS: PRENATAL VITAMINS W/ FOLIC ACID TABLET (FP) PO SCH (10:23)
[2018-12-10] MEDS: amLODIPine BESYLATE 5 MG TABLET (FP) PO SCH (10:24)
[2018-12-10] MEDS: VENLAFAXINE HCL 75 MG E.R. CAPSULES (FP) PO SCH (11:02)
[2018-12-10] MEDS: THIAMINE HCL 100 MG TABLET (FP) PO SCH (21:51)
[2018-12-11] MEDS: busPIRone HCL 10 MG TABLET (FP) PO SCH ×3 (07:16→21:46)
[2018-12-11] MEDS: amLODIPine BESYLATE 5 MG TABLET (FP) PO SCH (10:56)
[2018-12-11] MEDS: PRENATAL VITAMINS W/ FOLIC ACID TABLET (FP) PO SCH (10:56)
[2018-12-11] MEDS: VENLAFAXINE HCL 75 MG E.R. CAPSULES (FP) PO SCH (10:56)
[2018-12-11] MEDS: THIAMINE HCL 100 MG TABLET (FP) PO SCH (21:46)
[2018-12-12] MEDS: busPIRone HCL 10 MG TABLET (FP) PO SCH ×3 (07:25→23:23)
[2018-12-12] MEDS: VENLAFAXINE HCL 75 MG E.R. CAPSULES (FP) PO SCH (10:11)
[2018-12-12] MEDS: PRENATAL VITAMINS W/ FOLIC ACID TABLET (FP) PO SCH (10:11)
[2018-12-12] MEDS: amLODIPine BESYLATE 5 MG TABLET (FP) PO SCH (10:11)
[2018-12-12] MEDS: THIAMINE HCL 100 MG TABLET (FP) PO SCH (23:24)
[2018-12-13] MEDS: busPIRone HCL 10 MG TABLET (FP) PO SCH ×3 (06:14→21:34)
[2018-12-13] MEDS: PRENATAL VITAMINS W/ FOLIC ACID TABLET (FP) PO SCH (10:27)
[2018-12-13] MEDS: VENLAFAXINE HCL 75 MG E.R. CAPSULES (FP) PO SCH (10:27)
[2018-12-13] MEDS: amLODIPine BESYLATE 5 MG TABLET (FP) PO SCH (10:27)
[2018-12-13] MEDS: THIAMINE HCL 100 MG TABLET (FP) PO SCH (21:34)
[2018-12-14] MEDS: busPIRone HCL 10 MG TABLET (FP) PO SCH ×3 (07:34→21:30)
[2018-12-14] MEDS: amLODIPine BESYLATE 5 MG TABLET (FP) PO SCH (10:05)
[2018-12-14] MEDS: PRENATAL VITAMINS W/ FOLIC ACID TABLET (FP) PO SCH (10:05)
[2018-12-14] MEDS: VENLAFAXINE HCL 75 MG E.R. CAPSULES (FP) PO SCH (10:05)
[2018-12-14] MEDS: THIAMINE HCL 100 MG TABLET (FP) PO SCH (21:31)
[2018-12-15] MEDS: busPIRone HCL 10 MG TABLET (FP) PO SCH ×3 (07:21→22:10)
[2018-12-15] MEDS: VENLAFAXINE HCL 75 MG E.R. CAPSULES (FP) PO SCH (10:02)
[2018-12-15] MEDS: PRENATAL VITAMINS W/ FOLIC ACID TABLET (FP) PO SCH (10:02)
[2018-12-15] MEDS: amLODIPine BESYLATE 5 MG TABLET (FP) PO SCH (10:02)
[2018-12-15] MEDS: THIAMINE HCL 100 MG TABLET (FP) PO SCH (22:10)
[2018-12-16] MEDS: busPIRone HCL 10 MG TABLET (FP) PO SCH ×3 (07:04→22:10)
[2018-12-16] MEDS: PRENATAL VITAMINS W/ FOLIC ACID TABLET (FP) PO SCH (10:22)
[2018-12-16] MEDS: amLODIPine BESYLATE 5 MG TABLET (FP) PO SCH (10:22)
[2018-12-16] MEDS: VENLAFAXINE HCL 75 MG E.R. CAPSULES (FP) PO SCH (10:22)
[2018-12-16] MEDS: THIAMINE HCL 100 MG TABLET (FP) PO SCH (22:10)
[2018-12-17] MEDS: busPIRone HCL 10 MG TABLET (FP) PO SCH ×3 (08:53→22:32)
[2018-12-17] MEDS: VENLAFAXINE HCL 75 MG E.R. CAPSULES (FP) PO SCH (10:25)
[2018-12-17] MEDS: PRENATAL VITAMINS W/ FOLIC ACID TABLET (FP) PO SCH (10:25)
[2018-12-17] MEDS: amLODIPine BESYLATE 5 MG TABLET (FP) PO SCH (10:25)
--- NOTE | 2018-12-17 17:39 | PN ---
[facility] Progress Note Note: Patient is scheduled for discharge tomorrow. Scripts for 30 days supply of medications(Effexor XR 75 mg/daily, Buspar 10 mg/tid) will be electronically transmitted to [facility] at [address] [place], [place] [id number]
[2018-12-17] MEDS: THIAMINE HCL 100 MG TABLET (FP) PO SCH (22:32)
[2018-12-18 06:43] VITALS: BP 136/88; PULSE 90; TEMP 98
[2018-12-18] MEDS: busPIRone HCL 10 MG TABLET (FP) PO SCH (07:10)
--- NOTE | 2018-12-18 08:27 | PN ---
[facility] Progress Note (SOAP) Subjective: PT COMPLETED REHAB AND DISCHARGED TODAY. PT MET WITH HIS COUNSELOR AND HAS BEEN REFERRED TO [facility] ON [address]. PT REPORTS HE HAS A PCP AT [facility]. ALERT O X 3. DENIES S/H/I. COURTESY RX ELECTRONICALLY SENT TO HIS PHARMACY FOR PERMIT AGENT AFTER DISCHARGE. Objective: 12/18/18 08:29 Vital Signs - 24 hr 12/17/18 12/18/18 12/18/18 10:00 00:30 03:30 Temperature Pulse Rate 62 Respiratory 18 18 Rate Blood Pressure 140/80 12/18/18 06:43 Temperature 98.0 F Pulse Rate 90 Respiratory 18 Rate Blood Pressure 136/88 Laboratory Tests 12/08/18 21:27 Urine Color Dk yellow Urine Appearance Clear Urine pH 6.0 Ur Specific [place] 1.029 Urine Protein Trace Urine Glucose (UA) Negative Urine Ketones Trace H Urine Blood Negative Urine Nitrite Negative Urine Bilirubin 1+ H Urine Urobilinogen 1.0 Ur Leukocyte Esterase Negative Home Medications Medication Instructions Recorded Amlodipine Besylate 5 mg PO DAILY 11/23/18 Aripiprazole [Abilify] 10 mg PO DAILY 12/08/18 Amlodipine Besylate [Norvasc -] 5 mg PO DAILY #14 tablet 12/17/18 Buspirone HCl [Buspar -] 10 mg PO TID #90 tablet 12/17/18 Venlafaxine HCl ER [Effexor Xr -] 75 mg PO DAILY #30 cap.er.24h 12/17/18 Assessment: 12/18/18 08:31 NAD MEDICALLY STABLE 12/18/18 15:29 [facility] Inpatient Services Medical - Diagnosis (1) Nicotine dependence Qualifiers: Nicotine product type: cigarettes Substance use status: uncomplicated Qualified Code(s): F17.210 - Nicotine dependence, cigarettes, uncomplicated Current Visit: Yes Status: Chronic (2) HTN (hypertension) Qualifiers: Hypertension type: essential hypertension Qualified Code(s): I10 - Essential (primary) hypertension Current Visit: Yes Status: Chronic (3) Nicotine dependence Qualifiers: Nicotine product type: cigarettes Current Visit: Yes Status: Chronic (4) Scoliosis deformity of spine Qualifiers: Scoliosis type: idiopathic Idiopathic scoliosis type: juvenile Spinal region: thoracic Qualified Code(s): 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
[2018-12-18] MEDS: VENLAFAXINE HCL 75 MG E.R. CAPSULES (FP) PO SCH (09:49)
[2018-12-18] MEDS: amLODIPine BESYLATE 5 MG TABLET (FP) PO SCH (09:49)
[2018-12-18] MEDS: PRENATAL VITAMINS W/ FOLIC ACID TABLET (FP) PO SCH (09:49)
== END 2018-12-18 10:00 | disposition home or self-care (01) | DRG 772 ==
LOC: YASAS 12:00 → Y5N 14:57
PROVIDERS: ADMIT Neuromusculoskeletal Medicine & OMM; ATTEND Neuromusculoskeletal Medicine & OMM
PROC: HZ42ZZZ Group Counseling for Substance Abuse Treatment, Cognitive-Behavioral (ICD-10-PCS; principal; 2018-12-08)
DX: F10.20 Alcohol dependence, uncomplicated (principal); F14.20 Cocaine dependence, uncomplicated; F17.210 Nicotine dependence, cigarettes, uncomplicated; F19.282 Other psychoactive substance dependence with psychoactive substance-induced sleep disorder; F33.1 Major depressive disorder, recurrent, moderate; M41.114 Juvenile idiopathic scoliosis, thoracic region; I10 Essential (primary) hypertension
CPT/HCPCS: 81003

== ENCOUNTER 2019-03-11 13:47 | Inpatient (IN) | payer OTHER ==
[2019-03-11 16:36] VITALS: BMI 24.4
--- NOTE | 2019-03-11 16:54 | HP ---
CIWA Score Nausea/Vomitin-No Nausea/No Vomiting Muscle Tremors: 4-Moderate,w/Arms Extend Anxiety: 2 Agitation: 1-Slight > Activity Paroxysmal Sweats: 3 (Increased facial moisture) Orientation: 0-Oriented Tacttile Disturbances: 0-None Auditory Disturbances: 0-None Visual Disturbances: 0-None Headache: 2-Mild CIWA-Ar Total Score: 12 - Admission Criteria OASAS Guidelines: Admission for Medically Managed Detox: Requires at least one of the followin. CIWA greater than 12 2. Seizures within the past 24 hours 3. Delirium tremens within the past 24 hours 4. Hallucinations within the past 24 hours 5. Acute intervention needed for co occurring medical disorder 6. Acute intervention needed for co occurring psychiatric disorder 7. Severe withdrawal that cannot be handled at a lower level of care (continued vomiting, continued diarrhea, abnormal vital signs) requiring intravenous medication and/or fluids 8. Patient presents the following: CIWA greater than 12 Admission Criteria Met: Admission criteria met Admitting History and Physical - Smoking History Smoking history: Current every day smoker Have you smoked in the past 12 months: Yes Aproximately how many cigarettes per day: 4 - Alcohol/Substance Use Hx Alcohol Use: Yes Admission ROS S - HPI Chief Complaint: States here for detox. Allergies/Adverse Reactions: Allergies Allergy/AdvReac Type Severity Reaction Status Date / Time Penicillins Allergy Severe Hives Verified 03/11/19 16:28 History of Present Illness: 53 yo w/ alcohol withdrawal symptoms present for admission to detox. States restarted drinking approx 1 month after discharge on December 18. UTox: + JOHNATHAN KAM: 0.0 Alcohol use since age 18. Current use since 5- 10 - 24 oz beers daily. Consistent for 2 months. Last drink today about 2 hrs ago - drank 1 24 oz can beer. Cocaine use since ag2 20. 1-2x/month. Nicotine use since age 16. Currently 5 cig/day. Longest sobriety 1 month from November to Mid December 2018. Patient continues to attend an out-patient program EK02/06/18: NSR Todays's EKG shows possible lateral infarct. Reviewed results w/ patient and encouraged cocaone cessation and f/u w/ PCP upon discharge. RPR: 11/24/18: Non-reactive. Denies seizures or overdoses. Denies falls. PMHx: HTN; (R) chest lump > 1 year. MMHx: Anxious. Depression. Denies thoughts of harming self or others. Sees a MH Provider in the community. Last visit 2 months ago. States compliant w/ medications. SHx. Domiciled. Unemployed. (SSI). Denies legal issues. Patient Name: Rajinder Del Castillo Date: 1965 Address: [address] [place] [address] Sex: Male Rx Written Rx Dispensed Drug Quantity Days Supply Prescriber Name 02/02/2019 02/02/2019 chlordiazepoxide 10 mg capsule 27 3 Kajal Denson NP 11/09/2018 11/09/2018 chlordiazepoxide 10 mg capsule 27 3 Shireen Duke 09/07/2018 09/08/2018 chlordiazepoxide 10 mg capsule 18 2 Kajal Denson NP Patient Name: Rajinder Del Castillo Date: 1965 Address: [address] [place] [address] Sex: Male Rx Written Rx Dispensed Drug Quantity Days Supply Prescriber Name 08/05/2018 08/05/2018 chlordiazepoxide 10 mg capsule 32 4 Joelle Wilkes MD 06/29/2018 06/29/2018 chlordiazepoxide 25 mg capsule 15 5 Sergio Escobar MD Exam Limitations: No Limitations - Ebola screening Have you traveled outside of the country in the last 21 days: No Have you had contact with anyone from an Ebola affected area: No Have you been sick,other than usual withdrawal symptoms: No Do you have a fever: No - Review of Systems Constitutional: Chills, Diaphoresis, Changes in sleep (Difficulty faslling asleep) EENT: reports: Blurred Vision Respiratory: reports: Cough (Intermittent cough. Cough non-productive.) Cardiac: reports: No Symptoms Reported GI: reports: No Symptoms Reported : reports: No Symptoms Reported Musculoskeletal: reports: Back Pain (Intermittent mid-back pain r/t walking or standing for long periods. No pain at this time.) Integumentary: reports: Lumps (Fatty tissue bump (R) lateral chest) Neuro: reports: Headache (Frontal headache - light), Tremors Endocrine: reports: No Symptoms Reported Hematology: reports: No Symptoms Reported Psychiatric: reports: Orientated x3, Anxious, Depressed (Denies thoughts of harming self or others.) Patient History - Patient Medical History Hx Anemia: No Hx Asthma: No Hx Chronic Obstructive Pulmonary Disease (COPD): No Hx Cancer: No Hx Cardiac Disorders: No Hx Congestive Heart Failure: No Hx Hypertension: Yes Hx Hypercholesterolemia: No Hx Pacemaker: No HX Cerebrovascular Accident: No Hx Seizures: No Hx Dementia: No Hx Diabetes: No Hx Gastrointestinal Disorders: No Hx Liver Disease: No Hx Genitourinary Disorders: No Hx Sexually Transmitted Disorders: No Hx Renal Disease (ESRD): No Hx Thyroid Disease: No Hx Human Immunodeficiency Virus (HIV): No ( last 12/17 negative) Hx Hepatitis C: No Hx Depression: Yes Hx Suicide Attempt: No Hx Bipolar Disorder: No Hx Schizophrenia: No - Patient Surgical History Past Surgical History: No Hx Neurologic Surgery: No Hx Cataract Extraction: No Hx Cardiac Surgery: No Hx Lung Surgery: No Hx Breast Surgery: No Hx Breast Biopsy: No Hx Abdominal Surgery: No Hx Appendectomy: No Hx Cholecystectomy: No Hx Genitourinary Surgery: No Hx Section: No Hx Orthopedic Surgery: No Anesthesia Reaction: No - PPD History Previous Implant?: Yes Documented Results: Negative w/proof Date: 03/13/18 Results: 0 mm PPD to be Administered?: No - Smoking Cessation Smoking history: Current every day smoker Have you smoked in the past 12 months: Yes Aproximately how many cigarettes per day: 5 Cigars Per Day: 0 Hx Chewing Tobacco Use: No Initiated information on smoking cessation: Yes 'Breaking Loose' booklet given: 03/11/19 - Substance & Tx. History Hx Alcohol Use: Yes Hx Substance Use: Yes Substance Use Type: Alcohol, Cocaine Hx Substance Use Treatment: Yes (detox, rehab, out-patient program) - Substances abused Alcohol Substance route: Oral Frequency: Daily Amount used: 05/25OZ BEER Age of first use: 18 Date of last use: 03/11/19 Cocaine Substance route: Inhalation Frequency: 1-3 times last 30 days Amount used: 2-3grams Age of first use: 20 Date of last use: 03/06/19 Admission Physical Exam BHS - Vital Signs Vital Signs: Vital Signs - 24 hr 03/11/19 16:33 Temperature 97.5 F L Pulse Rate 73 Respiratory 14 Rate Blood Pressure 142/85 - Physical General Appearance: Yes: Nourished, Mild Distress, Tremorous, Sweating ( Increased facial moisture), Anxious HEENTM: Yes: EOMI (Jerking movement of eyes upon lateral gaze), Hearing grossly Normal, Normocephalic, Normal Voice, MANDI, Pharynx Normal Respiratory: Yes: Lungs Clear (Pulse Ox = 97 %), Normal Breath Sounds, No Respiratory Distress Neck: Yes: No masses,lesions,Nodules, Supple Breast: Yes: Breast Exam Deferred Cardiology: Yes: Regular Rhythm, Regular Rate, S1, S2 Abdominal: Yes: Non Tender, Flat, Soft, Increased Bowel Sounds Genitourinary: Yes: Within Normal Limits Back: Yes: Other (Curvature of spine) Musculoskeletal: Yes: full range of Motion, Gait Steady Extremities: Yes: Normal Capillary Refill, Tremors, Other (Thickened, overgrown , firm skin bottom of foot) 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: lye treater II-XII NML intact (Jerking movement of eyes upon lateral gaze), Fully Oriented, Alert, Motor Strength 5/5 Integumentary: Yes: Normal Color, Dry (Dry skin except for increased facial moisture), Warm, Other (Soft, non-tender circular mass (F) upper flank area approx 12 cm.) Lymphatic: Yes: Within Normal Limits - Diagnostic (1) Alcohol dependence with uncomplicated withdrawal Current Visit: Yes Status: Acute (2) Callus of foot Current Visit: Yes Status: Chronic (3) Nystagmus Current Visit: Yes Status: Chronic (4) Cocaine dependence Current Visit: Yes Status: Chronic Qualifiers: Substance use status: uncomplicated Qualified Code(s): F14.20 - Cocaine dependence, uncomplicated (5) Lipoma of chest wall Current Visit: Yes Status: Chronic (6) Nicotine dependence Current Visit: Yes Status: Chronic Qualifiers: Nicotine product type: cigarettes Substance use status: uncomplicated Qualified Code(s): F17.210 - Nicotine dependence, cigarettes, uncomplicated (7) Scoliosis deformity of spine Current Visit: Yes Status: Chronic Qualifiers: Scoliosis type: idiopathic Idiopathic scoliosis type: other Spinal region : thoracic Qualified Code(s): M41.24 - Other idiopathic scoliosis, thoracic region (8) Tinea pedis Current Visit: Yes Status: Chronic Qualifiers: Laterality: bilateral Qualified Code(s): B35.3 - Tinea pedis (9) Dry skin Current Visit: Yes Status: Chronic (10) HTN (hypertension) Current Visit: Yes Status: Chronic Qualifiers: Hypertension type: essential hypertension Qualified Code(s): I10 - Essential (primary) hypertension (11) Abnormal EKG Current Visit: Yes Status: Suspected Cleared for Admission S - Detox or Rehab [facility] Level of Care: Medically Managed Detox Regimen/Protocol: Librium Claeared for Rehab Admission: No Breathalyzer - Breathalyzer Breathalyzer: 0 Urine Drug Screen - Test Device Lot number: [id number] Expiration date: 10/30/20 - Control Is test valid?: Yes - Results Drug screen NEGATIVE: Yes Urine drug screen results: JOHNATHAN-Cocaine Inpatient Rehab Admission - Rehab Decision to Admit Inpatient rehab admission?: No
[2019-03-11] MEDS ORDERED: MAGNESIUM CITRATE 300 ML BOTTLE PO PRN (17:37)
[2019-03-11] MEDS ORDERED: NICOTINE POLACRILEX 2 MG GUM BUC PRN (17:37)
[2019-03-11] MEDS ORDERED: MAGNESIUM HYDROX 2400MG/30ML ORAL SUSPENSION 30 ML CUP PO PRN (17:37)
[2019-03-11] MEDS ORDERED: METHOCARBAMOL 500 MG TABLET PO PRN (17:37)
[2019-03-11] MEDS ORDERED: BISMUTH SUBSALICYLATE 524 MG/30 ML UD PO PRN (17:37)
[2019-03-11] MEDS ORDERED: MAG HYDROX/AL HYDROX/SIMETH 30 ML UNIT-DOSE CUP PO PRN (17:37)
[2019-03-11] MEDS ORDERED: ACETAMINOPHEN 325 MG TABLET (FP) PO PRN ×2 (17:37)
[2019-03-11] MEDS ORDERED: MENTHOL/PHENOL 1 EACH UD MM PRN (17:37)
[2019-03-11] MEDS ORDERED: chlordiazePOXIDE HCL 10 MG CAPSULE PO PRN (17:37)
[2019-03-11] MEDS ORDERED: PROCHLORPERAZINE MALEATE 5 MG TABLET PO PRN (17:37)
[2019-03-11] MEDS ORDERED: guaiFENesin 200 MG/10 ML 10 ML UNIT-DOSE CUPS PO PRN (17:37)
[2019-03-11] MEDS ORDERED: IBUPROFEN 400 MG TABLET (FP) PO PRN (17:37)
[2019-03-11] MEDS ORDERED: AMMONIUM LACTATE 12% LOTION 225 GM BOTTLE TP PRN (17:39)
[2019-03-11] MEDS: TOLNAFTATE 1% CREAM 15 GM TUBE TP SCH (22:33)
[2019-03-11] MEDS: chlordiazePOXIDE HCL 25 MG CAPSULE PO SCH (22:33)
[2019-03-11] MEDS: THIAMINE HCL 100 MG TABLET (FP) PO SCH (22:33)
[2019-03-12] MEDS: chlordiazePOXIDE HCL 25 MG CAPSULE PO SCH ×3 (05:12→22:27)
[2019-03-12] MEDS: TOLNAFTATE 1% CREAM 15 GM TUBE TP SCH ×2 (09:42→22:27)
[2019-03-12] MEDS: PRENATAL VITAMINS W/ FOLIC ACID TABLET (FP) PO SCH (09:42)
[2019-03-12 10:11] LABS: HEMATOCRIT 39.2 % (35.4-49); HEMOGLOBIN 12.9 GM/dL (11.7-16.9); MCH 29.1 pg (25.7-33.7); MCHC 32.8 g/dl (32.0-35.9); MEAN CELL VOLUME 88.5 fl (80-96); MEAN PLT VOLUME 9.4 fl (7.5-11.1); PLATELET COUNT 250 K/MM3 (134-434); RBC 4.43 M/mm3 (4.00-5.60); RDW 14.2 % (11.9-15.9); WHITE BLOOD COUNT 5.2 K/mm3 (4.0-10.0)
[2019-03-12 10:24] LABS: ALBUMIN 3.5 g/dl (3.4-5.0); BILIRUBIN,TOTAL 0.4 mg/dL (0.2-1); BLOOD UREA NITROGEN 11.5 mg/dL (7-18); CREATININE 0.8 mg/dL (0.55-1.3); POTASSIUM 3.9 mmol/L (3.5-5.1); TOT PROT 6.6 g/dl (6.4-8.2)
--- NOTE | 2019-03-12 17:18 | PN ---
S CIWA - CIWA Score Nausea/Vomitin-No Nausea/No Vomiting Muscle Tremors: 3 Anxiety: 4-Mod. Anxious/Guarded Agitation: 2 Paroxysmal Sweats: 2 Orientation: 0-Oriented Tacttile Disturbances: 0-None Auditory Disturbances: 0-None Visual Disturbances: 0-None Headache: 0-None Present CIWA-Ar Total Score: 11 BHS Progress Note (SOAP) Subjective: Anxious, Tremors, Sweating. Objective: PATIENT A & O X 3. IN NO ACUTE DISTRESS. 03/12/19 17:17 Vital Signs Temperature 96.0 F L 03/12/19 13:39 Pulse Rate 77 03/12/19 13:39 Respiratory Rate 18 03/12/19 13:39 Blood Pressure 133/92 03/12/19 13:39 O2 Sat by Pulse Oximetry (%) Laboratory Tests 03/12/19 03/12/19 08:00 08:00 WBC 5.2 RBC 4.43 Hgb 12.9 Hct 39.2 MCV 88.5 MCH 29.1 MCHC 32.8 RDW 14.2 Plt Count 250 MPV 9.4 Sodium 142 Potassium 3.9 Chloride 109 H Carbon Dioxide 31 Anion Gap 2 L BUN 11.5 Creatinine 0.8 Est GFR (CKD-EPI)AfAm 119.88 Est GFR (CKD-EPI)NonAf 103.43 Random Glucose 76 Calcium 9.0 Total Bilirubin 0.4 AST 13 L ALT 21 Alkaline Phosphatase 89 Total Protein 6.6 Albumin 3.5 LABS NOTED. Assessment: 03/12/19 17:18 WITHDRAWAL SYMPTOMS. Plan: CONTINUE DETOX.
--- NOTE | 2019-03-12 20:35 | CONSULT ---
[facility] Psychiatric Consult - Data Date of interview: 03/12/19 Admission source: [facility] Identifying data: Readmission to [facility] for this 53 y/o AA male self- referred for detoxification (alcohol, cocaine). Patient is single without children, domiciled, unemployed and supported on SSI benefits. Substance Abuse History: Discussed in this interview. Details in current [facility] report as follows : Smoking history: Current every day smoker. Have you smoked in the past 12 months: Yes. Aproximately how many cigarettes per day: 5. Cigars Per Day: 0. Hx Chewing Tobacco Use: No. Initiated information on smoking cessation: Yes. 'Breaking Loose' booklet given: 03/11/19. - Substance & Tx. History. Hx Alcohol Use: Yes. Hx Substance Use: Yes. Substance Use Type : Alcohol, Cocaine. Hx Substance Use Treatment: Yes (detox, rehab, out-patient program). - Substances abused. Alcohol. Substance route: Oral. Frequency : Daily. Amount used: 05/25OZ BEER. Age of first use: 18. Date of last use: 03/11/19. Cocaine. Substance route: Inhalation. Frequency: 1-3 times last 30 days. Amount used: 2-3grams. Age of first use: 20. Date of last use: 03/06 Medical History: Hypertension and scoliosis. Reported allergy to penicillins. Psychiatric History: Patient endorses a distant history of one psychatric hospitalization (2001) at the [facility] in [facility]. Diagnosed with MDD. Mr Del Csatillo is still maintained on effexor XR 75 mg/day + buspirone 10 mg/tid. [facility]. No reported history of suicide attempts. Physical/Sexual Abuse/Trauma History: Patient denies. Additional Comment: Urine drug screen results: JOHNATHAN-Cocaine. Noted. Psychiatric Findings - Problem List (Simon 1, 2,3) (1) Alcohol dependence with uncomplicated withdrawal Status: Acute (2) Cocaine dependence Status: Chronic Qualifiers: Substance use status: uncomplicated Qualified Code(s): F14.20 - Cocaine dependence, uncomplicated (3) Nicotine dependence Status: Chronic Qualifiers: Nicotine product type: cigarettes (4) MDD (major depressive disorder) Status: Chronic Qualifiers: Major depression recurrence: unspecified whether recurrent Active/ Remission status: remission status unspecified Qualified Code(s): F32.9 - Major depressive disorder, single episode, unspecified Comment: By history. On medications. - Initial Treatment Plan Initial Treatment Plan: Psychoeducation. Sleep hygiene. Detoxification. AA meetings. Resumed : effexor 75 mg po daily + buspar 5 mg po tid. Side effects/ benefits discussed with the patient. Mr Del Castillo gave verbal consent to Observation.
[2019-03-12] MEDS: THIAMINE HCL 100 MG TABLET (FP) PO SCH (22:27)
[2019-03-12] MEDS: busPIRone HCL 10 MG TABLET (FP) PO SCH (22:27)
[2019-03-12] MEDS: MELATONIN 5 MG TABLETS PO PRN (22:28)
[2019-03-13] MEDS: busPIRone HCL 10 MG TABLET (FP) PO SCH ×3 (07:07→22:41)
[2019-03-13] MEDS: chlordiazePOXIDE 5 MG CAPSULE PO SCH ×3 (07:07→22:39)
[2019-03-13] MEDS: PRENATAL VITAMINS W/ FOLIC ACID TABLET (FP) PO SCH (10:16)
[2019-03-13] MEDS: TOLNAFTATE 1% CREAM 15 GM TUBE TP SCH ×2 (10:17→22:40)
[2019-03-13] MEDS: VENLAFAXINE HCL 75 MG E.R. CAPSULES (FP) PO SCH (11:40)
--- NOTE | 2019-03-13 12:10 | PN ---
S CIWA - CIWA Score Nausea/Vomitin-No Nausea/No Vomiting Muscle Tremors: None Anxiety: 3 Agitation: 0-Normal Activity Paroxysmal Sweats: 3 Orientation: 0-Oriented Tacttile Disturbances: 0-None Auditory Disturbances: 0-None Visual Disturbances: 0-None Headache: 2-Mild CIWA-Ar Total Score: 8 BHS Progress Note (SOAP) Subjective: c/o sweats, anxiety, and headache. Objective: 03/13/19 12:09 Vital Signs 03/13/19 03/13/19 06:57 09:27 Temperature 97.3 F L 97.7 F Pulse Rate 65 69 Respiratory 18 18 Rate Blood Pressure 112/71 103/65 Lab Results WBC 5.2 K/mm3 (4.0-10.0) 03/12/19 08:00 RBC 4.43 M/mm3 (4.00-5.60) 03/12/19 08:00 Hgb 12.9 GM/dL (11.7-16.9) 03/12/19 08:00 Hct 39.2 % (35.4-49) 03/12/19 08:00 MCV 88.5 fl (80-96) 03/12/19 08:00 MCHC 32.8 g/dl (32.0-35.9) 03/12/19 08:00 RDW 14.2 % (11.9-15.9) 03/12/19 08:00 Plt Count 250 K/MM3 (134-434) 03/12/19 08:00 Sodium 142 mmol/L (136-145) 03/12/19 08:00 Potassium 3.9 mmol/L (3.5-5.1) 03/12/19 08:00 Chloride 109 mmol/L (98-107) H 03/12/19 08:00 Carbon Dioxide 31 mmol/L (21-32) 03/12/19 08:00 Anion Gap 2 MMOL/L (8-16) L 03/12/19 08:00 BUN 11.5 mg/dL (7-18) 03/12/19 08:00 Creatinine 0.8 mg/dL (0.55-1.3) 03/12/19 08:00 Random Glucose 76 mg/dL (74-106) 03/12/19 08:00 Calcium 9.0 mg/dL (8.5-10.1) 03/12/19 08:00 Labs noted. Assessment: 03/13/19 12:09 AOX3, in no acute respiratory distress. Full ROM, ambulating in the unit. Withdrawal symptoms. Plan: continue detox.
[2019-03-13] MEDS: THIAMINE HCL 100 MG TABLET (FP) PO SCH (22:39)
[2019-03-13] MEDS: MELATONIN 5 MG TABLETS PO PRN (22:42)
[2019-03-14] MEDS ORDERED: chlordiazePOXIDE HCL 10 MG CAPSULE PO PRN
[2019-03-14] MEDS: busPIRone HCL 10 MG TABLET (FP) PO SCH ×3 (06:15→22:14)
[2019-03-14] MEDS: chlordiazePOXIDE HCL 10 MG CAPSULE PO SCH ×3 (06:15→22:14)
--- NOTE | 2019-03-14 08:39 | EKG ---
Test Reason : Blood Pressure : / mmHG Vent. Rate : 066 BPM Atrial Rate : 066 BPM P-R Int : 128 ms QRS Dur : 092 ms QT Int : 414 ms P-R-T Axes : 014 018 053 degrees QTc Int : 434 ms POOR DATA QUALITY, INTERPRETATION MAY BE ADVERSELY AFFECTED NORMAL SINUS RHYTHM POSSIBLE LATERAL INFARCT , AGE UNDETERMINED ABNORMAL ECG WHEN COMPARED WITH ECG OF 06-FEB-2018 18:08, NO SIGNIFICANT CHANGE WAS FOUND Confirmed by Allison Maldonado ([id number]) on 03/14/2019 8:39:14 AM Referred By: Confirmed By:Allison Maldonado
[2019-03-14] MEDS: PRENATAL VITAMINS W/ FOLIC ACID TABLET (FP) PO SCH (10:15)
[2019-03-14] MEDS: VENLAFAXINE HCL 75 MG E.R. CAPSULES (FP) PO SCH (10:15)
[2019-03-14] MEDS: TOLNAFTATE 1% CREAM 15 GM TUBE TP SCH ×2 (10:16→22:13)
--- NOTE | 2019-03-14 10:58 | PN ---
S CIWA - CIWA Score Nausea/Vomitin-No Nausea/No Vomiting Muscle Tremors: None Anxiety: 1-Mildly Anxious Agitation: 0-Normal Activity Paroxysmal Sweats: 1-Minimal Palms Moist Orientation: 0-Oriented Tacttile Disturbances: 0-None Auditory Disturbances: 0-None Visual Disturbances: 0-None Headache: 2-Mild CIWA-Ar Total Score: 4 BHS Progress Note (SOAP) Subjective: c/o mild headache, sweats, and anxiety. Objective: 03/14/19 10:53 Vital Signs 03/14/19 03/14/19 03/14/19 03:30 06:26 09:44 Temperature 97.2 F L 97.3 F L Pulse Rate 67 59 L Respiratory 18 18 18 Rate Blood Pressure 132/85 139/90 Lab Results WBC 5.2 K/mm3 (4.0-10.0) 03/12/19 08:00 RBC 4.43 M/mm3 (4.00-5.60) 03/12/19 08:00 Hgb 12.9 GM/dL (11.7-16.9) 03/12/19 08:00 Hct 39.2 % (35.4-49) 03/12/19 08:00 MCV 88.5 fl (80-96) 03/12/19 08:00 MCHC 32.8 g/dl (32.0-35.9) 03/12/19 08:00 RDW 14.2 % (11.9-15.9) 03/12/19 08:00 Plt Count 250 K/MM3 (134-434) 03/12/19 08:00 Sodium 142 mmol/L (136-145) 03/12/19 08:00 Potassium 3.9 mmol/L (3.5-5.1) 03/12/19 08:00 Chloride 109 mmol/L (98-107) H 03/12/19 08:00 Carbon Dioxide 31 mmol/L (21-32) 03/12/19 08:00 Anion Gap 2 MMOL/L (8-16) L 03/12/19 08:00 BUN 11.5 mg/dL (7-18) 03/12/19 08:00 Creatinine 0.8 mg/dL (0.55-1.3) 03/12/19 08:00 Random Glucose 76 mg/dL (74-106) 03/12/19 08:00 Calcium 9.0 mg/dL (8.5-10.1) 03/12/19 08:00 Labs noted. Assessment: 03/14/19 10:54 AOX3, in no respiratory distress. Full ROM, ambulating in the unit. Mild Withdrawal symptoms. For d/c tomorrow. Plan: continue detox. D/C in AM.
[2019-03-14] MEDS: THIAMINE HCL 100 MG TABLET (FP) PO SCH (22:14)
[2019-03-15] MEDS ORDERED: chlordiazePOXIDE HCL 10 MG CAPSULE PO ONE (05:00)
[2019-03-15] MEDS: busPIRone HCL 10 MG TABLET (FP) PO SCH ×2 (05:33→14:13)
[2019-03-15] MEDS: PRENATAL VITAMINS W/ FOLIC ACID TABLET (FP) PO SCH (10:03)
[2019-03-15] MEDS: TOLNAFTATE 1% CREAM 15 GM TUBE TP SCH (10:03)
[2019-03-15] MEDS: VENLAFAXINE HCL 75 MG E.R. CAPSULES (FP) PO SCH (10:03)
[2019-03-15 10:40] LABS: PH,URINE 6.5 (5.0-8.0); URINE APPEARANCE CLEAR; URINE BILIRUBIN NEGATIVE (NEGATIVE); URINE COLOR YELLOW; URINE GLUCOSE (UA) NEGATIVE (NEGATIVE); URINE KETONE NEGATIVE (NEGATIVE); URINE LEUK ESTERASE NEGATIVE (NEGATIVE); URINE NITRITE NEGATIVE (NEGATIVE); URINE PROTEIN NEGATIVE (NEGATIVE); URINE UROBILINOGEN 0.2 mg/dL (0.2-1.0)
[2019-03-15 13:40] VITALS: BP 106/79; PULSE 86; TEMP 97.1
--- NOTE | 2019-03-15 15:42 | DS ---
[facility] Detox Discharge Summary Admission Date: 03/11/19 Discharge Date: 03/15/19 - History Present History: Alcohol Dependence, Cocaine Dependence Additional Comments: PATIENT GOING TO [facility] ([place]) FOR AFTERCARE. PATIENT WAS DISCHARGED FROM DETOX UNIT TO BE TAKEN OVER TO REHAB UNIT IN STABLE MEDICAL CONDITION. Pertinent Past History: Callus of Left Foot, Nystagmus, Lipoma Of Chest Wall, Nicotine Dependence, History of Scoliosis Deformity Of Spine, Tinea Pedis, Dry Skin, HTN, History Of EKG Abnormality, Anxiety, History Of Major Depressive Disorder. - Physical Exam Results Vital Signs: Vital Signs Temperature 97.1 F L 03/15/19 13:39 Pulse Rate 86 03/15/19 13:39 Respiratory Rate 18 03/15/19 13:39 Blood Pressure 106/79 03/15/19 13:39 O2 Sat by Pulse Oximetry (%) Pertinent Admission Physical Exam Findings: WITHDRAWAL SYMPTOMS. Laboratory Tests 03/12/19 03/12/19 03/15/19 08:00 08:00 08:00 WBC 5.2 RBC 4.43 Hgb 12.9 Hct 39.2 MCV 88.5 MCH 29.1 MCHC 32.8 RDW 14.2 Plt Count 250 MPV 9.4 Sodium 142 Potassium 3.9 Chloride 109 H Carbon Dioxide 31 Anion Gap 2 L BUN 11.5 Creatinine 0.8 Est GFR (CKD-EPI)AfAm 119.88 Est GFR (CKD-EPI)NonAf 103.43 Random Glucose 76 Calcium 9.0 Total Bilirubin 0.4 AST 13 L ALT 21 Alkaline Phosphatase 89 Total Protein 6.6 Albumin 3.5 Urine Color Yellow Urine Appearance Clear Urine pH 6.5 Ur Specific [place] 1.026 Urine Protein Negative Urine Glucose (UA) Negative Urine Ketones Negative Urine Blood Negative Urine Nitrite Negative Urine Bilirubin Negative Urine Urobilinogen 0.2 Ur Leukocyte Esterase Negative LABS NOTED. - Treatment Hospital Course: Detox Protocol Followed, Detoxed Safely, Responded well, Discharged Condition Good, Rehab Referral Accepted Patient has Accepted a Rehab Referral to: [facility] ([place], [place]). - Medication Discharge Medications: Ambulatory Orders Amlodipine Besylate [Norvasc -] 5 mg PO DAILY #14 tablet 12/17/18 Venlafaxine HCl ER [Effexor Xr -] 75 mg PO DAILY #30 cap.er.24h 12/17/18 Buspirone HCl [Buspar -] 5 mg PO TID 03/15/19 - Diagnosis (1) Alcohol dependence with uncomplicated withdrawal Status: Acute (2) Callus of foot Status: Chronic (3) Cocaine dependence Status: Chronic Qualifiers: Substance use status: uncomplicated Qualified Code(s): F14.20 - Cocaine dependence, uncomplicated (4) Dry skin Status: Chronic (5) HTN (hypertension) Status: Chronic Qualifiers: Hypertension type: essential hypertension Qualified Code(s): I10 - Essential (primary) hypertension (6) Lipoma of chest wall Status: Chronic (7) MDD (major depressive disorder) Status: Chronic Qualifiers: Major depression recurrence: unspecified whether recurrent Active/ Remission status: remission status unspecified Qualified Code(s): F32.9 - Major depressive disorder, single episode, unspecified (8) Nicotine dependence Status: Chronic Qualifiers: Nicotine product type: cigarettes Substance use status: uncomplicated Qualified Code(s): F17.210 - Nicotine dependence, cigarettes, uncomplicated (9) Nystagmus Status: Chronic (10) Scoliosis deformity of spine Status: Chronic Qualifiers: Scoliosis type: idiopathic Idiopathic scoliosis type: other Spinal region : thoracic Qualified Code(s): M41.24 - Other idiopathic scoliosis, thoracic region (11) Tinea pedis Status: Chronic Qualifiers: Laterality: bilateral Qualified Code(s): B35.3 - Tinea pedis (12) Abnormal EKG Status: Suspected - AMA Did Patient Leave Against Medical Advice: No BHS CIWA - CIWA Score Nausea/Vomitin-No Nausea/No Vomiting Muscle Tremors: None Anxiety: 0-No Anxiety, at Ease Agitation: 2 Paroxysmal Sweats: No Perspiration Orientation: 0-Oriented Tacttile Disturbances: 0-None Auditory Disturbances: 0-None Visual Disturbances: 0-None Headache: 0-None Present CIWA-Ar Total Score: 2
== END 2019-03-15 14:19 | disposition other institution (70) | DRG 774 ==
LOC: YASAS 13:47 → Y3N 18:24
PROVIDERS: ADMIT Allergy & Immunology; ATTEND Allergy & Immunology
PROC: HZ2ZZZZ Detoxification Services for Substance Abuse Treatment (ICD-10-PCS; principal; 2019-03-11)
DX: F10.230 Alcohol dependence with withdrawal, uncomplicated (principal); F14.20 Cocaine dependence, uncomplicated; F17.210 Nicotine dependence, cigarettes, uncomplicated; F41.9 Anxiety disorder, unspecified; F32.9 Major depressive disorder, single episode, unspecified; I10 Essential (primary) hypertension; D17.1 Benign lipomatous neoplasm of skin and subcutaneous tissue of trunk; M41.24 Other idiopathic scoliosis, thoracic region; L84 Corns and callosities; L85.3 Xerosis cutis; B35.3 Tinea pedis; H55.00 Unspecified nystagmus; R94.31 Abnormal electrocardiogram [ECG] [EKG]; Z88.0 Allergy status to penicillin
CPT/HCPCS: 36415; 80053; 81003; 85027; 93005; 93010

== ENCOUNTER 2019-03-15 14:22 | Inpatient (IN) | payer OTHER ==
[2019-03-15] MEDS ORDERED: P-EPHED 60MG/TRIPROLIDI 2.5MG TABLET PO PRN (15:48)
[2019-03-15] MEDS ORDERED: ACETAMINOPHEN 325 MG TABLET (FP) PO PRN (15:48)
[2019-03-15] MEDS ORDERED: guaiFENesin 200 MG/10 ML 10 ML UNIT-DOSE CUPS PO PRN (15:48)
[2019-03-15] MEDS ORDERED: MENTHOL/PHENOL 1 EACH UD MM PRN (15:48)
[2019-03-15] MEDS ORDERED: LOPERAMIDE HCL 2 MG CAPSULE PO PRN (15:48)
[2019-03-15] MEDS ORDERED: MAGNESIUM HYDROX 2400MG/30ML ORAL SUSPENSION 30 ML CUP PO PRN (15:48)
[2019-03-15] MEDS ORDERED: MAGNESIUM CITRATE 300 ML BOTTLE PO PRN (15:48)
[2019-03-15] MEDS ORDERED: NICOTINE POLACRILEX 2 MG GUM BUC PRN (15:48)
[2019-03-15] MEDS ORDERED: MAG HYDROX/AL HYDROX/SIMETH 30 ML UNIT-DOSE CUP PO PRN (15:48)
--- NOTE | 2019-03-15 15:52 | HP ---
[facility] Rehab Assess/Revision - Admission History Admitted to Rehab from: [facility] Date of Admission to Rehab: 03/15/2019 - Vital signs Vital Signs: Vital Signs Period Temp Pulse Resp BP Sys/Pérez Pulse Ox Last 24 Hr 98 F 86 16 131/94 - Findings Detox History & Physical reviewed: Yes Concur with findings: Yes Comments/Additional Findings: PATIENT'S MEDICAL / MEDICATION HISTORY REVIEWED PRIOR TO DISCHARGE FROM DETOX UNIT. PATIENT WAS DISCHARGED FROM DETOX UNIT TO BE TAKEN OVER TO REHAB UNIT IN STABLE MEDICAL CONDITION. Inpatient Rehab Admission - Rehab Decision to Admit Inpatient rehab admission?: Yes - Initial Determination Are CD services needed?: Yes Free of communicable disease: Yes Not in need of hospitalization: Yes - Rehab Admission Criteria Previous failed treatment: Yes Poor recovery environment: Yes Comorbidities: Yes Lacks judgement: No Patient is meeting Inpatient Rehab admission criteria:: Yes
--- NOTE | 2019-03-15 16:45 | PN ---
[facility] Progress Note Note: Psychiatry Attending's note : Discharged from [address] [place] [address]. Detoxification : done. Patient is now admitted to [address] Rehabilitation initiated. Medications reconciled as : buspar 5 mg po tid effexor 75 mg po daily Continuity of care.
[2019-03-15] MEDS: busPIRone HCL 5 MG TABLET PO SCH (21:30)
[2019-03-15] MEDS: MELATONIN 5 MG TABLETS PO PRN (21:30)
[2019-03-15] MEDS: THIAMINE HCL 100 MG TABLET (FP) PO SCH (21:30)
[2019-03-16] MEDS: busPIRone HCL 5 MG TABLET PO SCH ×4 (07:02→21:36)
[2019-03-16] MEDS: amLODIPine BESYLATE 5 MG TABLET (FP) PO SCH (10:38)
[2019-03-16] MEDS: PRENATAL VITAMINS W/ FOLIC ACID TABLET (FP) PO SCH (10:38)
[2019-03-16] MEDS: VENLAFAXINE HCL 75 MG E.R. CAPSULES (FP) PO SCH (10:38)
[2019-03-16] MEDS: MELATONIN 5 MG TABLETS PO PRN (21:05)
[2019-03-16] MEDS: THIAMINE HCL 100 MG TABLET (FP) PO SCH (21:05)
[2019-03-17] MEDS: busPIRone HCL 5 MG TABLET PO SCH ×3 (06:34→21:59)
[2019-03-17] MEDS: PRENATAL VITAMINS W/ FOLIC ACID TABLET (FP) PO SCH (10:53)
[2019-03-17] MEDS: VENLAFAXINE HCL 75 MG E.R. CAPSULES (FP) PO SCH (10:53)
[2019-03-17] MEDS: amLODIPine BESYLATE 5 MG TABLET (FP) PO SCH (10:53)
[2019-03-17] MEDS: THIAMINE HCL 100 MG TABLET (FP) PO SCH (22:00)
[2019-03-17] MEDS: MELATONIN 5 MG TABLETS PO PRN (22:00)
[2019-03-18] MEDS: busPIRone HCL 5 MG TABLET PO SCH ×3 (06:59→21:43)
[2019-03-18] MEDS: VENLAFAXINE HCL 75 MG E.R. CAPSULES (FP) PO SCH (10:54)
[2019-03-18] MEDS: amLODIPine BESYLATE 5 MG TABLET (FP) PO SCH (10:54)
[2019-03-18] MEDS: PRENATAL VITAMINS W/ FOLIC ACID TABLET (FP) PO SCH (10:55)
--- NOTE | 2019-03-18 15:00 | DS ---
[facility] Rehab Discharge Summary - [facility] Rehab Discharge Summary Admission Date: 03/15/19 Discharge Date: 03/19/19 - History Present History: Alcohol dependence, Cocaine dependence Additional Comments: Pt is a 53 y/o male admitted to rehab and requesting early discharge on . Pt met with his counselor Rui Ledbetter and has been referred to [facility] OT for CD aftercare. Pt is also connected to [facility] in [place], [place] for medical management. States his PMD is Radha(no further details given) at [facility]. Pertinent Past History: HTN - Discharge Physical Exam Vital Signs: Vital Signs Temperature 97.7 F 03/18/19 07:01 Pulse Rate 85 03/18/19 10:00 Respiratory Rate 18 03/18/19 07:01 Blood Pressure 103/71 03/18/19 10:00 O2 Sat by Pulse Oximetry (%) Alert o x 3. appropriately groomed/well nourished nad oob ambulating with steady gait cardiac:s1 s2,rrr lungs:cta,beck. abdomen:soft,flat,nt,+bs extremeities/skin:no edema,full ROM,skin intact. Pertinent Admission Physical Exam Findings: Unremarkable/status unchanged from admission - Treatment Discharge Condition: Discharge condition good Hospital Course: Rehabilitated safely and responded well CD aftercare accepted - Medication Discharge Medications: Ambulatory Orders Amlodipine Besylate [Norvasc -] 5 mg PO DAILY #14 tablet 03/18/19 Buspirone HCl [Buspar -] 5 mg PO TID #90 tablet 03/19/19 Venlafaxine HCl ER [Effexor Xr -] 75 mg PO DAILY #30 cap.er.24h 03/19/19 - Medication-Assisted Treatment (MAT) Medication-Assisted Treatment (MAT): No - Discharge Instructions Diet, activity, other medical instructions: Diet:LUDIVINA Activity:oob ad blair Other medical instructions:Follow up with Cd aftercare @ [facility] on [address] [place], [place] Follow up with primary care with [facility] @ [address] [place] [address] on 03/29/19 - Diagnosis (1) Alcohol dependence Status: Chronic Qualifiers: Substance use status: uncomplicated Qualified Code(s): F10.20 - Alcohol dependence, uncomplicated (2) Cocaine dependence Status: Chronic Qualifiers: Substance use status: uncomplicated Qualified Code(s): F14.20 - Cocaine dependence, uncomplicated (3) HTN (hypertension) Status: Chronic Qualifiers: Hypertension type: essential hypertension Qualified Code(s): I10 - Essential (primary) hypertension (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 (5) Nicotine dependence Status: Chronic Qualifiers: Nicotine product type: cigarettes Substance use status: uncomplicated Qualified Code(s): F17.210 - Nicotine dependence, cigarettes, uncomplicated (6) Scoliosis deformity of spine Status: Chronic Qualifiers: Scoliosis type: idiopathic Idiopathic scoliosis type: other Spinal region : thoracic Qualified Code(s): M41.24 - Other idiopathic scoliosis, thoracic region - Follow-up Referral Minutes to complete discharge: 20 - AMA Did Patient Leave Against Medical Advice: No Additional Comments: Courtesy Rx for norvasc 5 mg po daily #14 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 Pt will follow up with PCP on Friday03/22/19 after discharge.
[2019-03-18] MEDS: THIAMINE HCL 100 MG TABLET (FP) PO SCH (21:43)
--- NOTE | 2019-03-19 06:47 | PN ---
[facility] Progress Note Note: Patient is scheduled for discharge today. Scripts for 30 days supply of medications(Effexor XR75 mg/day, Buspar 5 mg/tid) are electronically transmitted to [facility] at [address] [place], [place] [id number]
[2019-03-19] MEDS: busPIRone HCL 5 MG TABLET PO SCH (06:49)
[2019-03-19 07:12] VITALS: BP 116/79; PULSE 80; TEMP 97.8
[2019-03-19] MEDS: VENLAFAXINE HCL 75 MG E.R. CAPSULES (FP) PO SCH (09:26)
[2019-03-19] MEDS: PRENATAL VITAMINS W/ FOLIC ACID TABLET (FP) PO SCH (09:26)
[2019-03-19] MEDS: amLODIPine BESYLATE 5 MG TABLET (FP) PO SCH (09:26)
--- NOTE | 2019-03-19 14:44 | PN ---
[facility] Progress Note Note: Pt was discharged today as scheduled. alert o x 3. Nad. Denies s/h/i. Ambulating with steady gait and well groomed and upbeat for discharge. Vital Signs - 24 hr 03/19/19 03/19/19 03/19/19 00:30 03:30 07:11 Temperature 97.8 F Pulse Rate 80 Respiratory 18 18 18 Rate Blood Pressure 116/79
== END 2019-03-19 10:00 | disposition home or self-care (01) | DRG 772 ==
LOC: YASAS 14:22 → Y5N 14:23
PROVIDERS: ADMIT Neuromusculoskeletal Medicine & OMM; ATTEND Neuromusculoskeletal Medicine & OMM
PROC: HZ42ZZZ Group Counseling for Substance Abuse Treatment, Cognitive-Behavioral (ICD-10-PCS; principal; 2019-03-15)
DX: F10.20 Alcohol dependence, uncomplicated (principal); F14.20 Cocaine dependence, uncomplicated; F17.210 Nicotine dependence, cigarettes, uncomplicated; I10 Essential (primary) hypertension; D17.1 Benign lipomatous neoplasm of skin and subcutaneous tissue of trunk; M41.24 Other idiopathic scoliosis, thoracic region; Z88.0 Allergy status to penicillin

== ENCOUNTER 2020-02-14 15:22 | Inpatient (IN) | payer OTHER ==
--- NOTE | 2020-02-14 15:49 | BHS.RME ---
Substance Use & Tx History - Substance Use History Alcohol Substance amount: 8-10 cans of beer, 16 ounces each Frequency of use: Daily Substance route: Oral Date of Last Use: 02/14/20 Cocaine- Powder Substance amount: $50-100 on weekends Frequency of use: Less than 3 times per week Substance route: Inhalation (ex: sniffing or snorting) Date of Last Use: 02/12/20 Nicotine Substance amount: 5 cigs Frequency of use: Daily Substance route: Smoking Date of Last Use: 02/14/20 - Last Treatment Date of last treatment: Mar 2019 detox and rehab, left rehab after 4 days Where was last treatment: Rehab Physical/Psych/Mental Status - Behavior General Behavior: Decreased activity Eye Contact: Normal - Cooperativeness Cooperativeness: Cooperative - Thinking Thought Processes: Tight Thought content: Future oriented - Physical Health Problems Is patient presently having any pain?: No Does patient presently have any injuries (include location): No Does patient currently have a fever: No CIWA Nausea/Vomitin-Mild Nausea/No Vomiting Muscle Tremors: 2 Anxiety: 2 Agitation: 2 Paroxysmal Sweats: No Perspiration Orientation: 0-Oriented Tacttile Disturbances: 0-None Auditory Disturbances: 0-None Visual Disturbances: 0-None Headache: 0-None Present CIWA-Ar Total Score: 7
[2020-02-14 16:02] VITALS: BMI 25.0
--- NOTE | 2020-02-14 16:11 | HP ---
CIWA Score Nausea/Vomitin-Mild Nausea/No Vomiting (Patient is not in full withdrawal due to recent alcohol consumption) Muscle Tremors: 2 Anxiety: 2 Agitation: 2 Paroxysmal Sweats: No Perspiration Orientation: 0-Oriented Tacttile Disturbances: 0-None Auditory Disturbances: 0-None Visual Disturbances: 0-None Headache: 0-None Present CIWA-Ar Total Score: 7 - Admission Criteria OASAS Guidelines: Admission for Medically Managed Detox: Requires at least one of the followin. CIWA greater than 12 2. Seizures within the past 24 hours 3. Delirium tremens within the past 24 hours 4. Hallucinations within the past 24 hours 5. Acute intervention needed for co occurring medical disorder 6. Acute intervention needed for co occurring psychiatric disorder 7. Severe withdrawal that cannot be handled at a lower level of care (continued vomiting, continued diarrhea, abnormal vital signs) requiring intravenous medication and/or fluids 8. Admitting History and Physical - Admission History of Present Illness: 54 y.o. M PMHx HTN, depression presenting to [facility] for detox. Patient was examined in the room and is in no acute distress. 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 Cocaine snort 100$ a week, 5 cigarettes a day. - Substance Use History Alcohol Substance amount: 8-10 cans of beer, 16 ounces each Frequency of use: Daily Substance route: Oral Date of Last Use: 02/14/20 Cocaine- Powder Substance amount: $50-100 on weekends Frequency of use: Less than 3 times per week Substance route: Inhalation (ex: sniffing or snorting) Date of Last Use: 02/12/20 Nicotine Substance amount: 5 cigs Frequency of use: Daily Substance route: Smoking Date of Last Use: 02/14/20 - Last Treatment Date of last treatment: Mar 2019 detox and rehab, left rehab after 4 days Where was last treatment: Rehab History Source: Patient Limitations to Obtaining History: No Limitations - Past Medical History [employer]: No: Seizure Cardiovascular: Yes: HTN. No: Hyperlipdemia Pulmonary: No: Pneumonia, Pulmonary Embolus Gastrointestinal: No: GERD, GI Bleed Hepatobiliary: No: Hepatitis A, Hepatitis B, Hepatitis C Heme/Onc: No: Bleeding Disorder Infectious Disease: No: HIV, STD's, Tuberculosis Psych: Yes: Depression - Past Surgical History Past Surgical History: Yes: None - Smoking History Smoking history: Current every day smoker Have you smoked in the past 12 months: Yes Aproximately how many cigarettes per day: 5 - Alcohol/Substance Use Hx Alcohol Use: Yes History of Substance Use: reports: Cocaine - Social History Usual Living Arrangement: Yes: Alone ADL: Independent History of Recent Travel: No Admission ROS S - HPI Allergies/Adverse Reactions: Allergies Allergy/AdvReac Type Severity Reaction Status Date / Time Penicillins Allergy Severe Hives Verified 03/15/19 14:41 Exam Limitations: No Limitations - Ebola screening Have you traveled outside of the country in the last 21 days: No Have you had contact with anyone from an Ebola affected area: No Have you been sick,other than usual withdrawal symptoms: No Do you have a fever: No - Review of Systems Constitutional: No Symptoms Reported EENT: denies: Blurred Vision, Double Vision Respiratory: reports: Cough. denies: Shortness of Breath Cardiac: denies: Chest Pain, Lightheadedness GI: denies: Constipated, Diarrhea, Nausea, Vomiting : denies: Burning, Dysuria Musculoskeletal: reports: No Symptoms Reported. denies: Muscle Weakness Integumentary: denies: Bruising Neuro: denies: Headache, Seizure, Dizziness Hematology: denies: Easy Bleeding Psychiatric: reports: Judgement Intact, Mood/Affect Appropiate, Orientated x3, Depressed Patient History - Patient Medical History Hx Anemia: No Hx Asthma: No Hx Chronic Obstructive Pulmonary Disease (COPD): No Hx Cancer: No Hx Cardiac Disorders: No Hx Congestive Heart Failure: No Hx Hypertension: Yes Hx Hypercholesterolemia: No Hx Pacemaker: No HX Cerebrovascular Accident: No Hx Seizures: No Hx Dementia: No Hx Diabetes: No Hx Gastrointestinal Disorders: No Hx Liver Disease: No Hx Genitourinary Disorders: No Hx Sexually Transmitted Disorders: No Hx Renal Disease (ESRD): No Hx Thyroid Disease: No Hx Human Immunodeficiency Virus (HIV): No ( last 12/17 negative) Hx Hepatitis C: No Hx Depression: Yes Hx Suicide Attempt: No Hx Bipolar Disorder: No Hx Schizophrenia: No - Patient Surgical History Past Surgical History: No Hx Neurologic Surgery: No Hx Cataract Extraction: No Hx Cardiac Surgery: No Hx Lung Surgery: No Hx Breast Surgery: No Hx Breast Biopsy: No Hx Abdominal Surgery: No Hx Appendectomy: No Hx Cholecystectomy: No Hx Genitourinary Surgery: No Hx Section: No Hx Orthopedic Surgery: No Anesthesia Reaction: No - PPD History Date: 03/13/18 Results: 0 mm. - Smoking Cessation Smoking history: Current every day smoker Have you smoked in the past 12 months: Yes Aproximately how many cigarettes per day: 5 Cigars Per Day: 0 Hx Chewing Tobacco Use: No Initiated information on smoking cessation: Yes 'Breaking Loose' booklet given: 02/14/20 - Substances abused Alcohol Substance route: Oral Frequency: Daily Amount used: 8-10 16oz can of beers Age of first use: 16 Date of last use: 02/14/20 Cocaine Substance route: Inhalation Frequency: 1-2 times per week Amount used: $50-100 Age of first use: 19 Date of last use: 02/12/20 Admission Physical Exam BHS - Vital Signs Vital Signs: Vital Signs - 24 hr 02/14/20 02/14/20 16:01 16:02 Temperature 98.2 F 98.2 F Pulse Rate 83 83 Respiratory 18 18 Rate Blood Pressure 122/89 122/89 - Physical General Appearance: Yes: Within Normal Limits, No Apparent Distress, Nourished, Appropriately Dressed Respiratory: Yes: Chest Non-Tender, Lungs Clear, No Respiratory Distress, No Accessory Muscle Use, Other (coarse bs b/l) Cardiology: Yes: Within Normal Limits, Regular Rhythm, Regular Rate Abdominal: Yes: Within Normal Limits, Normal Bowel Sounds, Non Tender, Flat, Soft. No: Tenderness Back: Yes: Within Normal Limits, Normal Inspection. No: CVA Tenderness Musculoskeletal: Yes: Within Normal Limits, full range of Motion, Gait Steady Extremities: Yes: Within Normal Limits, Normal Inspection, Non-Tender. No: Swelling, Calf Tenderness 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: Within Normal Limits, Fully Oriented, Alert, Normal Mood/Affect, Normal Response Integumentary: Yes: Within Normal Limits, Normal Color, Dry, Warm - Diagnostic (1) Alcohol dependence with uncomplicated withdrawal Current Visit: No Status: Acute (2) Cough Current Visit: No Status: Acute (3) Alcohol dependence Current Visit: No Status: Chronic Qualifiers: Substance use status: uncomplicated Qualified Code(s): F10.20 - Alcohol dependence, uncomplicated (4) Cocaine dependence Current Visit: No Status: Chronic Qualifiers: Substance use status: uncomplicated Qualified Code(s): F14.20 - Cocaine dependence, uncomplicated (5) Depressive disorder Current Visit: No Status: Chronic Comment: By history. (6) HTN (hypertension) Current Visit: No Status: Chronic Qualifiers: Hypertension type: essential hypertension Qualified Code(s): I10 - Essential (primary) hypertension (7) Insomnia Current Visit: No Status: Chronic (8) MDD (major depressive disorder) Current Visit: No Status: Chronic Qualifiers: Major depression recurrence: unspecified whether recurrent Active/Remission status: remission status unspecified Qualified Code(s): F32.9 - Major depressive disorder, single episode, unspecified Comment: By history. On medications. (9) Nicotine dependence Current Visit: No Status: Chronic Qualifiers: Nicotine product type: cigarettes Substance use status: uncomplicated Qualified Code(s): F17.210 - Nicotine dependence, cigarettes, uncomplicated (10) Scoliosis deformity of spine Current Visit: No Status: Chronic Qualifiers: Scoliosis type: idiopathic Idiopathic scoliosis type: other Spinal region: thoracic Qualified Code(s): M41.24 - Other idiopathic scoliosis, thoracic region (11) Substance induced mood disorder Current Visit: No Status: Chronic (12) Tinea pedis Current Visit: No Status: Chronic Qualifiers: Laterality: bilateral Qualified Code(s): B35.3 - Tinea pedis (13) Depression Current Visit: No Status: Suspected Qualifiers: Depression Type: dysthymia Qualified Code(s): F34.1 - Dysthymic disorder Cleared for Admission S - Detox or Rehab [facility] Level of Care: Medically Managed Detox Regimen/Protocol: Librium Breathalyzer - Breathalyzer Breathalyzer: 0.068 Vital Signs - Vital Signs Vital signs refused: No Temperature: 98.2 F Pulse Rate: 83 Respiratory Rate: 18 Blood Pressure: 122/89 - Height Height: 1.65 m - Weight Weight: 68.039 kg - BMI Body Mass Index (BMI): 25.0 Urine Drug Screen - Test Device Lot number: [id number] Expiration date: 09/07/21 - Control Is test valid?: Yes - Results Drug screen NEGATIVE: No Urine drug screen results: JOHNATHAN-Cocaine, BZO-Benzodiazepines Inpatient Rehab Admission - Rehab Decision to Admit Inpatient rehab admission?: No
[2020-02-14] MEDS ORDERED: BISMUTH SUBSALICYLATE 524 MG/30 ML UD PO PRN (16:17)
[2020-02-14] MEDS ORDERED: MAG HYDROX/AL HYDROX/SIMETH 30 ML UNIT-DOSE CUP PO PRN (16:17)
[2020-02-14] MEDS ORDERED: MAGNESIUM HYDROX 2400MG/30ML ORAL SUSPENSION 30 ML CUP PO PRN (16:17)
[2020-02-14] MEDS ORDERED: ONDANSETRON *ODT* 4 MG TABLET SL PRN (16:17)
[2020-02-14] MEDS ORDERED: chlordiazePOXIDE HCL 25 MG CAPSULE PO PRN (16:17)
[2020-02-14] MEDS ORDERED: ACETAMINOPHEN 325 MG TABLET (FP) PO PRN ×2 (16:17)
[2020-02-14] MEDS ORDERED: IBUPROFEN 400 MG TABLET (FP) PO PRN (16:17)
[2020-02-14] MEDS ORDERED: METHOCARBAMOL 500 MG TABLET PO PRN (16:17)
[2020-02-14] MEDS ORDERED: MAGNESIUM CITRATE 300 ML BOTTLE PO PRN (16:17)
[2020-02-14] MEDS ORDERED: NICOTINE POLACRILEX 2 MG GUM BUC PRN (16:17)
[2020-02-14] MEDS: chlordiazePOXIDE HCL 25 MG CAPSULE PO SCH ×2 (17:14→22:24)
[2020-02-14] MEDS: hydrOXYzine PAMOATE 25 MG CAPSULE (FP) PO SCH ×2 (17:23→22:24)
--- OUTSIDE RECORDS SUMMARY | 2020-02-14 17:52 | XMS ---
:1965 Author Organization [facility] Support Name Relationship Address Phone RADHA PAIGE SISTER [address] [place] [address] UE Unavailable Unavailable Unavailable BAYLEE ROBERTS RESOURCE DIRECTOR OTHER RELATIONSHIP [address] [place] [address] Ash Unavailable Unavailable Unavailable Tuttle Unavailable [address] [facility] [phone] [place] [address] Re-disclosure Warning The records that you are about to access may contain information from federally- assisted alcohol or drug abuse programs. If such information is present, then the following federally mandated warning applies: This information has been disclosed to you from records protected by federal confidentiality rules (42 CFR part 2). The federal rules prohibit you from making any further disclosure of this information unless further disclosure is expressly permitted by the written consent of the person to whom it pertains or as otherwise permitted by 42 CFR part 2. A general authorization for the release of medical or other information is NOT sufficient for this purpose. The Federal rules restrict any use of the information to criminally investigate or prosecute any alcohol or drug abuse patient.The records that you are about to access may contain highly sensitive health information, the redisclosure of which is protected by Article 27-F of the [facility] Public Health law. If you continue you may haveaccess to information: Regarding HIV / AIDS; Provided by facilities licensed or operated by the [facility] Office of Mental Health; or Provided by the [facility] Office for People With Developmental Disabilities. If such information is present, then the following [facility] mandated warning applies: This information has been disclosed to you from confidential records which are protected by state law. State law prohibits you from making any further disclosure of this information without the specific written consent of the person to whom it pertains, or as otherwise permitted by law. Any unauthorized further disclosure in violation of state law may result in a fine or penitentiary sentence or both. A general authorization for the release of medical or other information is NOT sufficient authorization for further disclosure. Allergies and Adverse Reactions Type Description Substance Reaction Status Data Source(s ) Drug allergy Penicillin Drug allergy Nausea, Rash Active eCW3 ([facility]) Drug allergy Penicillin Drug allergy Nausea, Rash Active eCW3 ([facility]) Drug allergy Penicillin Drug allergy Nausea, Rash Active eCW3 ([facility]) Drug allergy Penicillin Drug allergy Nausea, Rash Active eCW3 ([facility]) Drug allergy Penicillin Drug allergy Nausea, Rash Active eCW3 ([facility]) Encounters Encounter Providers Location Date Indications Data Source(s ) (-CC/) [facility] 12/23/2018 eCW3 ([facility] [place] [place] A[facility]2018 12:00:00 AM EDT [facility] 12/23/2018 eCW3 ([facility] A28 12:00:00 AM [facility] - [facility]) 12/23/2018 12:00:00 AM EDT [facility] 10/16/2018 eCW3 ([facility] A28 12:00:00 AM [facility] EDT - Care) 10/16/2018 12:00:00 AM EDT ([facility] 09/02/2018 eCW3 ([facility] [place] [place] A28 12:00:00 AM R [facility] EDT - Care) 09/02/2018 12:00:00 AM EDT New Therapy, [address] [place] [address] 09/02/2018 eCW3 ([facility] A28 12:00:00 AM [facility] EDT - Care) 09/02/2018 12:00:00 AM EDT Medications Medication Brand Start Product Dose Route Administrative Pharmacy [facility] Indications Reaction Description Data Name Date Form Instructions Instructions Source(s) Dextrometho Dextro .0 active Dextrom ethor eCW3 han methor 2019 {ml[facility] hurtado-G 12:00: s_nee esin 10- 100 [facility] e 2 MG/ML / uaifen 00 AM ded} MG/5ML Hea lth Guaifenesin esin EDT Care) 20 MG/ML 10-100 Oral MG/5ML Solution Dextrometho rphan-Guaif enesin 10-100 MG/5ML Triamcinolo Triamc 1.0 active Triamci nolon eCW3 ne inolon 2019 {appl e Acetonide ([place] Acetonide e 12:00: icati 0.1 % [facility] 0.001 MG/MG Aceton 00 AM on} Healt h Topical viktoriya EDT Care) Ointment 0.1 % Triamcinolo ne Acetonide 0.1 % Zithromax Zithro 12/23/ active Zithromax eCW3 Z-Albert 250 2018 Z-Albert 250 MG ([facility] MG Z-Albert 12:00: [facility] 250 MG 00 AM Health EDT Care) Zithromax Zithro 12/23/ active Zithromax eCW3 Z-Albert 250 2018 Z-Albert 250 MG ([facility] MG Z-Albert 12:00: [facility] 250 MG 00 AM Health EDT Care) Zithromax Zithro 12/23/ active Zithromax eCW3 Z-Albert 250 2018 Z-Albert 250 MG ([facility] MG Z-Albert 12:00: [facility] 250 MG 00 AM Health EDT Care) Zithromax Zithro 12/23/ active Zithromax eCW3 Z-Albert 250 2018 Z-Albert 250 MG ([facility] MG Z-Albert 12:00: [facility] 250 MG 00 AM Health EDT Care) Zithromax Zithro 12/23/ active Zithromax eCW3 Z-Albert 250 2018 Z-Albert 250 MG ([facility] MG Z-Albert 12:00: [facility] 250 MG 00 AM Health EDT Care) buspirone BusPIR .0 active BusPIRone eCW3 hydrochlori one 2018 {tabl HCl 10 mg ([facility] de 10 MG HCl 10 12:00: et} [facility] Oral Tablet mg 00 AM Health BusPIRone EDT Care) HCl 10 mg buspirone BusPIR 1.0 active BusPIRone eCW3 hydrochlori one 2018 {tabl HCl 10 mg ([facility] de 10 MG HCl 10 12:00: et} [facility] Oral Tablet mg 00 AM Health BusPIRone EDT Care) HCl 10 mg buspirone BusPIR .0 active BusPIRone eCW3 hydrochlori one 2018 {tabl HCl 10 mg ([facility] de 10 MG HCl 10 12:00: et} [facility] Oral Tablet mg 00 AM Health BusPIRone EDT Care) HCl 10 mg Sudafed 30 Sudafe .0 active Sudafed 30 eCW3 mg d 2017 {tabl mg ([place] mg 12:00: et_as [facility] 00 AM _need Health EDT ed} Care) Sudafed 30 Sudafe .0 active Sudafed 30 eCW3 mg d 2017 {tabl mg ([place] mg 12:00: et_as [place] 00 AM _need Health EDT ed} Care) Sudafed 30 Sudafe .0 active Sudafed 30 eCW3 mg d 2017 {tabl mg ([place] mg 12:00: et_as [place] 00 AM _need Health EDT ed} Care) Sudafed 30 Sudafe .0 active Sudafed 30 eCW3 mg d 2017 {tabl mg ([place] mg 12:00: et_as [facility] 00 AM _need Health EDT ed} Care) Sudafed 30 Sudafe .0 active Sudafed 30 eCW3 mg d 2017 {tabl mg ([place] mg 12:00: et_as [place] 00 AM _need Health EDT ed} Care) Amlodipine Amlodi .0 active Amlodipi ne eCW3 5 MG Oral pine 2014 {tabl Besylate 5 (Hu dson Tablet Besyla 12:00: et} MG [place] Amlodipine te 5 00 AM Health Besylate 5 MG EST Care) MG Amlodipine Amlodi .0 active Amlodipi ne eCW3 5 MG Oral pine 2014 {tabl Besylate 5 (Hu dson Tablet Besyla 12:00: et} MG [facility] Amlodipine te 5 00 AM Health Besylate 5 MG EST Care) MG Amlodipine Amlodi .0 active Amlodipi ne eCW3 5 MG Oral pine 2014 {tabl Besylate 5 (Hu dson Tablet Besyla 12:00: et} MG [facility] Amlodipine te 5 00 AM Health Besylate 5 MG EST Care) MG Amlodipine Amlodi .0 active Amlodipi ne eCW3 5 MG Oral pine 2014 {tabl Besylate 5 (Hu dson Tablet Besyla 12:00: et} MG [facility] Amlodipine te 5 00 AM Health Besylate 5 MG EST Care) MG Amlodipine Amlodi .0 active Amlodipi ne eCW3 5 MG Oral pine 2014 {tabl Besylate 5 (Hu dson Tablet Besyla 12:00: et} MG [facility] Amlodipine te 5 00 AM Health Besylate 5 MG EST Care) MG Amlodipine Amlodi .0 active Amlodipi ne eCW3 5 MG Oral pine 2014 {tabl Besylate 5 (Hu dson Tablet Besyla 12:00: et} MG [facility] Amlodipine te 5 00 AM Health Besylate 5 MG EST Care) MG Amlodipine Amlodi .0 active Amlodipi ne eCW3 5 MG Oral pine 2014 {tabl Besylate 5 (Hu dson Tablet Besyla 12:00: et} MG [place] Amlodipine te 5 00 AM Health Besylate 5 MG EST Care) MG Vitamin C Vitami 09/19/ active Vitamin C eCW3 500 MG n C 2014 500 MG ([place] 500 MG 12:00: [facility] 00 AM Health EDT Care) Vitamin C Vitami 09/19/ active Vitamin C eCW3 500 MG n C 2014 500 MG ([place] 500 MG 12:00: [facility] 00 AM Health EDT Care) Vitamin C Vitami 09/19/ active Vitamin C eCW3 500 MG n C 2014 500 MG ([place] 500 MG 12:00: [facility] 00 AM Health EDT Care) Vitamin C Vitami 20/ active Vitamin C eCW3 500 MG n C 2014 500 MG ([place] 500 MG 12:00: [facility] 00 AM Health EDT Care) 24 HR Effexo 1.0 active Effexor XR eCW3 venlafaxine r XR {caps 37.5 MG ([facility] 37.5 MG 37.5 ule_w [facility] Extended MG ith_f Health Release ood} Care) Oral Capsule [Effexor] Effexor XR 37.5 MG Multivitami Multiv active Multivita min eCW3 n Adult - itamin Adult - ([facility]) Multivitami Multiv active Multivita min eCW3 n Adult - itamin Adult - ([facility]) Multivitami Multiv active Multivita min eCW3 n Adult - itamin Adult - ([facility] Care) KNEE BRACE KNEE active KNEE BRACE - eCW3 - BRACE ([facility]) 24 HR Effexo 1.0 active Effexor XR eCW3 venlafaxine r XR {caps 75 MG ([facility] [facility] 75 MG 75 MG ule_w [facility] Extended ith_f Health Release ood} Care) Oral Capsule [Effexor] Effexor XR 75 MG 24 HR Effexo 1.0 active Effexor XR eCW3 venlafaxine r XR {caps 75 MG ([place] 75 MG 75 MG ule_w [facility] Extended ith_f Health Release ood} Care) Oral Capsule [Effexor] Effexor XR 75 MG 24 HR Effexo 1.0 suspend Effexor XR eCW 3 venlafaxine r XR {caps ed 75 MG ([place] 75 MG 75 MG ule_w [facility] Extended ith_f Health Release ood} Care) Oral Capsule [Effexor] Effexor XR 75 MG KNEE BRACE KNEE active KNEE BRACE - eCW3 - BRACE ([facility]) 24 HR Effexo 1.0 suspend Effexor XR eCW 3 venlafaxine r XR {caps ed 75 MG ([place] [facility] 75 MG 75 MG ule_w [facility] Extended ith_f Health Release ood} Care) Oral Capsule [Effexor] Effexor XR 75 MG 24 HR Effexo 1.0 active Effexor XR eCW3 venlafaxine r XR {caps 37.5 MG ([facility] 37.5 MG 37.5 ule_w [facility] Extended MG ith_f Health Release ood} Care) Oral Capsule [Effexor] Effexor XR 37.5 MG KNEE BRACE KNEE active KNEE BRACE - eCW3 - BRACE ([facility]) KNEE BRACE KNEE active KNEE BRACE - eCW3 - BRACE ([facility]) KNEE BRACE KNEE active KNEE BRACE - eCW3 - BRACE ([facility]) Hydrochloro Hyzaar 1.0 active Hyzaar eC W3 thiazide 50-12. {tabl 50-12.5 MG ([facility] 12.5 MG / 5 MG et} [facility]) 50 MG Oral Tablet [Hyzaar] Hyzaar 50-12.5 MG Hydrochloro Hyzaar 1.0 active Hyzaar eC W3 thiazide 50-12. {tabl 50-12.5 MG ([facility] 12.5 MG / 5 MG et} [facility]) 50 MG Oral Tablet [Hyzaar] Hyzaar 50-12.5 MG 24 HR Effexo 1.0 suspend Effexor XR eCW 3 venlafaxine r XR {caps ed 75 MG [facility] Extended ith_f Health Release ood} Care) Oral Capsule [Effexor] Effexor XR 75 MG 24 HR Effexo 1.0 active Effexor XR eCW3 venlafaxine r XR {caps 75 MG ([place] 75 MG 75 MG ule_w [facility] Extended ith_f Health Release ood} Care) Oral Capsule [Effexor] Effexor XR 75 MG Multivitami Multiv active Multivita min eCW3 n Adult - itamin Adult - ([facility] on Adult [facility]) Hydrochloro Hyzaar 1.0 active Hyzaar eC W3 thiazide 50-12. {tabl 50-12.5 MG ([facility] 12.5 MG / 5 MG et} [facility]) 50 MG Oral Tablet [Hyzaar] Hyzaar 50-12.5 MG KNEE BRACE KNEE active KNEE BRACE - eCW3 - BRACE ([facility]) Multivitami Multiv active Multivita min eCW3 n Adult - itamin Adult - ([facility] on Adult [facility]) Hydrochloro Hyzaar 1.0 active Hyzaar eC W3 thiazide 50-12. {tabl 50-12.5 MG ([facility] 12.5 MG / 5 MG et} [facility]) 50 MG Oral Tablet [Hyzaar] Hyzaar 50-12.5 MG 24 HR Effexo 1.0 active Effexor XR eCW3 venlafaxine r XR {caps 75 MG ([place] 75 MG 75 MG ule_w [facility] Extended ith_f Health Release ood} Care) Oral Capsule [Effexor] Effexor XR 75 MG Hydrochloro Hyzaar 1.0 active Hyzaar eC W3 thiazide 50-12. {tabl 50-12.5 MG ([facility] 12.5 MG / 5 MG et} [facility] Potassium [facility] [place]) 50 MG Oral Tablet [Hyzaar] Hyzaar 50-12.5 MG Hydrochloro Hyzaar 1.0 active Hyzaar eC W3 thiazide 50-12. {tabl 50-12.5 MG ([facility] 12.5 MG / 5 MG et} [facility] Potassium Care) 50 MG Oral Tablet [Hyzaar] Hyzaar 50-12.5 MG 24 HR Effexo 1.0 active Effexor XR eCW3 venlafaxine r XR {caps 75 MG ([place] 75 MG 75 MG ule_w [facility] Extended ith_f Health Release ood} Care) Oral Capsule [Effexor] Effexor XR 75 MG KNEE BRACE KNEE active KNEE BRACE - eCW3 - BRACE ([facility]) 24 HR Effexo 1.0 active Effexor XR eCW3 venlafaxine r XR {caps 37.5 MG ([facility] 37.5 MG 37.5 ule_w [facility] Extended MG ith_f Health Release ood} Care) Oral Capsule [Effexor] Effexor XR 37.5 MG Insurance Providers Payer name Policy type Policy ID Covered Covered libertarian's Policy P boo / Coverage libertarian ID relationship to Shah Inf ormation type shah BEACON [id number] SP [id number] [place] Problems, Conditions, and Diagnoses Code Display Name Description Problem Type Effective Data Sour ce(s) Dates Z86.59 History of History of Problem 10/27/2019 eCW3 ([place] [facility] learning 12:00:00 AM [facility] disability as a disability as a EDT Care ) child child F10.11 Alcohol abuse, in Alcohol abuse, in Problem 10/22/2019 eCW3 ([facility] [place] remission remission 12:00:00 AM [facility] EDT Care) F14.11 Cocaine abuse in Cocaine abuse in Problem 10/22/2019 eC W3 ([place] remission remission 12:00:00 AM [facility] EDT Care) F17.210 Tobacco dependence Tobacco dependence Problem 0 eCW3 ([place] due to cigarettes due to cigarettes 12:00:00 AM [facility] EDT Care) F33.0 Major depressive Major depressive Problem 10/22/2019 eC W3 ([place] disorder, disorder, 12:00:00 AM [facility] recurrent, mild recurrent, mild EDT Care ) R05 Cough Cough Problem 01/09/2018 eCW3 ([place] 12:00:00 AM [facility] EDT Care) R05 Cough Cough Problem 01/09/2018 eCW3 ([place] 12:00:00 AM [facility] EDT Care) F17.209 Tobacco use Tobacco use Problem 12/09/2017 eCW3 ([place] disorder, disorder, 12:00:00 AM [facility] continuous continuous EDT Care) 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 12/09/2017 eCW3 ([place] anxiety disorder anxiety disorder 12:00:00 AM [facility] EDT Care) F14.20 Cocaine dependence Cocaine dependence Problem 8 eCW3 ([place] without without 12:00:00 AM [facility] complication complication EDT Care) F14.20 Cocaine dependence Cocaine dependence Problem 8 eCW3 ([place] without without 12:00:00 AM [facility] complication complication EDT Care) 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 12/09/2017 eCW3 ([place] anxiety disorder anxiety disorder 12:00:00 AM [facility] EDT Care) F17.209 Tobacco use Tobacco use Problem 12/09/2017 eCW3 ([place] disorder, disorder, 12:00:00 AM [facility] continuous continuous EDT Care) Z12.11 Colon cancer Colon cancer Problem 09/08/2017 eCW3 ([place] screening screening 12:00:00 AM [facility] EDT Care) Z72.0 Tobacco use Tobacco use Problem 06/30/2017 eCW3 ([place] disorder disorder 12:00:00 AM [facility] EST Care) F34.1 Dysthymia Dysthymia Problem 04/15/2016 eCW3 ([place] 12:00:00 AM [facility]) F32.9 Major depression, Major depression, Problem 04/15/2016 eCW3 ([place] melancholic type melancholic type 12:00:00 AM [facility]) F34.1 Dysthymia Dysthymia Problem 04/15/2016 eCW3 ([place] 12:00:00 AM [facility]) F32.9 Major depression, Major depression, Problem 04/15/2016 eCW3 ([place] melancholic type melancholic type 12:00:00 AM [facility]) Z03.89 No diagnosis on No diagnosis on Problem 04/15/2016 eCW3 ([place] [facility]) F99 Psychiatric Psychiatric Problem 02/20/2016 eCW3 ([place] diagnosis diagnosis 12:00:00 AM [facility] EDT Care) F10.21 History of alcohol History of alcohol Problem 6 eCW3 ([place] dependence dependence 12:00:00 AM [facility] EDT Care) F17.200 Tobacco dependence Tobacco dependence Problem 6 eCW3 ([place] 12:00:00 AM [facility] EDT Care) M41.9 Scoliosis, Scoliosis, Problem 02/15/2016 eCW3 ([place] unspecified unspecified [facility] ) unspecified spinal unspecified spinal region region F10.21 History of alcohol History of alcohol Problem 6 eCW3 ([place] dependence dependence 12:00:00 AM [facility] EDT Care) F17.200 Tobacco dependence Tobacco dependence Problem 6 eCW3 ([place] 12:00:00 AM [facility] EDT Care) M41.9 Scoliosis, Scoliosis, Problem 02/15/2016 eCW3 ([place] unspecified unspecified 12:00:00 AM [facility] scoliosis type, scoliosis type, EDT Care ) unspecified spinal unspecified spinal region region I10 Essential Essential Problem 04/18/2015 eCW3 ([place] hypertension hypertension 12:00:00 AM [facility] EST [facility] [place]) Results ID Date Data Source [id number] 09/14/2019 05:19:00 PM EDT [facility] Name Value Range Interpretation Code Description Data Karen rce(s) Supporting Document(s ) Overall [facility] Result: This lab was ordered by [facility] and reported by [facility]. Procedure Social History Code Duration Value Status Description Data Source(s ) Smoking 10/27/2019 Current Smoker completed Current Smoker eCW3 ( [place] 12:00:00 AM [facility]) Smoking 10/27/2019 Current Smoker completed Current Smoker eCW3 ( [place] 12:00:00 AM [facility]) Current Smoker completed Current Smoker eCW3 ( [facility]) Current Smoker completed Current Smoker eCW3 ( [facility]) Smoking Unknown if ever completed Unknown if ever eCW3 ([place] smoked smoked [facility]) Smoking Unknown if ever completed Unknown if ever eCW3 ([place] smoked smoked [facility]) Smoking Unknown if ever completed Unknown if ever eCW3 ([place] smoked smoked [facility]) Vital Signs ID Date Data Source UNK Name Value Range Interpretation Code Description Data Source(s) Diastolic blood 83 mm[Hg] 83 mm[Hg] eCW3 ([facility]) Systolic blood 121 mm[Hg] 121 mm[Hg] eCW3 ([facility]) Body temperature 98.7 [degF] 98.7 [degF] eCW3 ( [facility]) Heart rate 18 /min 18 /min eCW3 ([facility]) Body mass index 25.29 kg/m2 25.29 kg/m2 eCW3 ([facility] (BMI) [Ratio] [facility]) Body weight 152 [lb_av] 152 [lb_av] eCW3 ([facility]) Body height 65 [in_i] 65 [in_i] eCW3 ([facility]) Patient Treatment Plan of Care Planned Activity Planned Date Details Description Data Source (s) Triamcinolone Acetonide 09/13/2019 eCW3 ([facility] 0.001 MG/MG Topical 12:00:00 AM [facility]) Ointment Dextromethorphan 09/13/2019 eCW3 ([facility] Hydrobromide 2 MG/ML / 12:00:00 AM EDT He alth Care) Guaifenesin 20 MG/ML Oral Solution
[2020-02-14] MEDS: THIAMINE HCL 100 MG TABLET (FP) PO SCH (22:25)
[2020-02-14] MEDS: MELATONIN 5 MG TABLETS PO SCH (22:25)
[2020-02-14] MEDS: MENTHOL/PHENOL 1 EACH UD MM PRN (22:28)
[2020-02-15] MEDS: chlordiazePOXIDE HCL 25 MG CAPSULE PO SCH ×4 (05:38→22:02)
[2020-02-15] MEDS: hydrOXYzine PAMOATE 25 MG CAPSULE (FP) PO SCH ×2 (05:38→10:07)
--- NOTE | 2020-02-15 09:29 | EKG ---
Test Reason : Blood Pressure : / mmHG Vent. Rate : 084 BPM Atrial Rate : 084 BPM P-R Int : 138 ms QRS Dur : 090 ms QT Int : 378 ms P-R-T Axes : 027 021 037 degrees QTc Int : 446 ms NORMAL SINUS RHYTHM POSSIBLE LATERAL INFARCT (CITED ON OR BEFORE 11-MAR-2019) ABNORMAL ECG WHEN COMPARED WITH ECG OF 11-MAR-2019 17:51, NO SIGNIFICANT CHANGE WAS FOUND Confirmed by MD JOANNA, NIKHIL ([id number]) on 02/15/2020 9:29:02 AM Referred By: Confirmed By:NIKHIL MARSHALL MD
[2020-02-15] MEDS ORDERED: amLODIPine BESYLATE 5 MG TABLET (FP) PO SCH (10:00)
[2020-02-15] MEDS ORDERED: NICOTINE 7 MG/24 HOURS TOPICAL PATCH TD SCH (10:00)
[2020-02-15] MEDS ORDERED: HYDROCHLOROTHIAZIDE 12.5 MG CAPSULE (FP) PO SCH (10:00)
[2020-02-15] MEDS ORDERED: PRENATAL VITAMINS W/ FOLIC ACID TABLET (FP) PO SCH (10:00)
[2020-02-15] MEDS: MENTHOL/PHENOL 1 EACH UD MM PRN ×2 (10:07→22:06)
--- NOTE | 2020-02-15 10:23 | CONSULT ---
[facility] Psychiatric Consult - Data Date of interview: 02/15/20 Admission source: Self-referred Identifying data: Mr Del Castillo is a 54 years old single Black male, unemployed receving SSI, domiciled living on [address] in [place], [place] seeking detox treatment for alcohol and cocaine Substance Abuse History: Reports history of alcohol and cocaine use. Refer to addiction counselor's summary for further information Medical History: Significant for hypertension, scoliosis. Smokes 5 cigarettes daily Psychiatric History: Patient is known for multiple previous admission to this facility. Reports that his first psychiatric contact was in 2001 for depression while in intermediate. He was admitted to [facility], diagnosed with MDD and prescribed Effexor and Buspar. Reports since being released from intermediate, he has been receiving outpatient psychiatric treatment on & off. Reports that for more than 2 years years, he has been receiving outpatient psychiatric treatment at [facility] in [place], [place]. Reports that his last contact with his psychiatrist was last month via [facility]. He is currently prescribed Effexor XR 150 mg/day. Denies previous suicide attempt. At present, denies experiencing depressive symptoms, S/H ideations. However, reports sleeping poorly. Physical/Sexual Abuse/Trauma History: Denies history of emotional, physical or sexual abuse as well as DV relationship Additional Comment: Reports history of multiple previous arrests including 3-4 felony convictions. Denies being on parole/probation at present Mental Status Exam - Mental Status Exam Alert and Oriented to: Time, Place, Person Cognitive Function: Fair Patient Appearance: Well Groomed Mood: Hopeful, Euthymic Affect: Appropriate Patient Behavior: Cooperative Speech Pattern: Clear Voice Loudness: Normal Thought Process: Intact, Goal Oriented Thought Disorder: Not Present Hallucinations: Denies Suicidal Ideation: Denies Homicidal Ideation: Denies Insight/Judgement: Poor Sleep: Poorly Appetite: Good Muscle strength/Tone: Normal Gait/Station: Normal Psychiatric Findings - Problem List ([facility] 1, 2,3) (1) MDD (major depressive disorder) Current Visit: No Status: Chronic Qualifiers: Major depression recurrence: unspecified whether recurrent Active/Remission status: remission status unspecified Qualified Code(s): F32.9 - Major depressive disorder, single episode, unspecified Comment: By history. On medications. (2) Substance-induced sleep disorder Current Visit: Yes Status: Acute (3) Alcohol dependence with uncomplicated withdrawal Current Visit: No Status: Acute (4) Cocaine dependence Current Visit: No Status: Acute Qualifiers: Substance use status: uncomplicated Qualified Code(s): F14.20 - Cocaine dependence, uncomplicated (5) Nicotine dependence Current Visit: No Status: Chronic Qualifiers: Nicotine product type: cigarettes Substance use status: uncomplicated Qualified Code(s): F17.210 - Nicotine dependence, cigarettes, uncomplicated (6) HTN (hypertension) Current Visit: No Status: Chronic Qualifiers: Hypertension type: essential hypertension Qualified Code(s): I10 - Essential (primary) hypertension (7) Scoliosis deformity of spine Current Visit: No Status: Chronic Qualifiers: Scoliosis type: idiopathic Idiopathic scoliosis type: other Spinal region: thoracic Qualified Code(s): M41.24 - Other idiopathic scoliosis, thoracic region - Initial Treatment Plan Initial Treatment Plan: 1) Continue Venlafaxine XR 150 mg po daily. 2) Continue inpatient detoxification
[2020-02-15] MEDS ORDERED: hydrOXYzine PAMOATE 25 MG CAPSULE (FP) PO PRN (10:24)
--- NOTE | 2020-02-15 10:26 | PN ---
S CIWA - CIWA Score Nausea/Vomitin-No Nausea/No Vomiting Muscle Tremors: 3 Anxiety: 2 Agitation: 2 Paroxysmal Sweats: 2 Orientation: 0-Oriented Tacttile Disturbances: 0-None Auditory Disturbances: 0-None Visual Disturbances: 0-None Headache: 0-None Present CIWA-Ar Total Score: 9 [facility] Progress Note (SOAP) Subjective: sweats tired interrupted sleep agitation Objective: 02/15/20 10:26 Vital Signs Temperature 97.7 F 02/15/20 08:39 Pulse Rate 90 02/15/20 08:39 Respiratory Rate 18 02/15/20 08:39 Blood Pressure 117/73 02/15/20 08:39 O2 Sat by Pulse Oximetry (%) 97 02/15/20 08:39 Laboratory Tests 02/14/20 16:48 COVID-19 (SAMANTHA) Not detected labs pending [id number] lying in bed no acute distress Assessment: 02/15/20 10:26 withdrawals Plan: continue detox
[2020-02-15] MEDS ORDERED: VENLAFAXINE HCL 150 MG E.R. CAPSULE PO SCH (10:30)
[2020-02-15 10:36] LABS: BILIRUBIN,TOTAL 1.2 mg/dL (0.2-1); BLOOD UREA NITROGEN 17.2 mg/dL (7-18); CALCIUM 9.4 mg/dL (8.5-10.1); TOT PROT 8.1 g/dl (6.4-8.2)
[2020-02-15 10:39] LABS: HEMATOCRIT 44.9 % (35.4-49); HEMOGLOBIN 14.5 GM/dL (11.7-16.9); MCH 28.6 pg (25.7-33.7); MCHC 32.4 g/dl (32.0-35.9); MEAN CELL VOLUME 88.4 fl (80-96); PLATELET COUNT 295 K/MM3 (134-434); RBC 5.08 M/mm3 (4.00-5.60); RDW 14.6 % (11.9-15.9); WHITE BLOOD COUNT 5.4 K/mm3 (4.0-10.0)
[2020-02-15] MEDS: THIAMINE HCL 100 MG TABLET (FP) PO SCH (22:02)
[2020-02-15] MEDS: MELATONIN 5 MG TABLETS PO SCH (22:03)
[2020-02-16] MEDS ORDERED: chlordiazePOXIDE HCL 25 MG CAPSULE PO SCH (05:00)
--- NOTE | 2020-02-16 09:04 | PN ---
Teaching Attending Note Name of Resident: Riccardo Leonard ATTENDING PHYSICIAN STATEMENT I saw and evaluated the patient. I reviewed the resident's note and discussed the case with the resident. I agree with the resident's findings and plan as documented. SUBJECTIVE: OBJECTIVE: ASSESSMENT AND PLAN: Agree with resident's findings and plan for detox.
[2020-02-16 09:07] VITALS: BP 130/99; PULSE 79; TEMP 98.1
--- NOTE | 2020-02-16 09:12 | PN ---
[facility] Progress Note Note: Pt states he wants to leave because he has things to do. Also I dont like that there is no remote for the V. Pt was explained the reason for his arrival to detox and importance of detoxing to prevent relapse, seizure, DT or loss. pt chose to sign AMA.
--- NOTE | 2020-02-16 09:20 | DS ---
[facility] Detox Discharge Summary Admission Date: 02/14/20 - History Present History: Alcohol Dependence, Cocaine Dependence - Physical Exam Results Vital Signs: Vital Signs Temperature 98.1 F 02/16/20 08:33 Pulse Rate 79 02/16/20 08:33 Respiratory Rate 16 02/16/20 08:33 Blood Pressure 130/99 02/16/20 08:33 O2 Sat by Pulse Oximetry (%) 97 02/16/20 08:33 - Treatment Hospital Course: Rehab Referral Accepted - Medication Discharge Medications: Ambulatory Orders Amlodipine Besylate [Norvasc -] 5 mg PO DAILY #14 tablet 03/18/19 Buspirone HCl [Buspar -] 5 mg PO TID #90 tablet 03/19/19 Venlafaxine HCl ER [Effexor Xr -] 75 mg PO DAILY #30 cap.er.24h 03/19/19 - Diagnosis (1) Substance-induced sleep disorder Current Visit: Yes Status: Acute (2) Alcohol abuse Current Visit: No Status: Acute (3) Alcohol dependence with uncomplicated withdrawal Current Visit: Yes Status: Chronic (4) Alcohol-induced sleep disorder Current Visit: No Status: Acute (5) Cocaine dependence Current Visit: Yes Status: Chronic Qualifiers: Substance use status: uncomplicated Qualified Code(s): F14.20 - Cocaine dependence, uncomplicated (6) Cough Current Visit: No Status: Acute (7) Dehydration Current Visit: No Status: Acute (8) Substance-induced sleep disorder Current Visit: No Status: Acute (9) Alcohol dependence Current Visit: No Status: Chronic Qualifiers: Substance use status: uncomplicated Qualified Code(s): F10.20 - Alcohol dependence, uncomplicated (10) Callus of foot Current Visit: No Status: Chronic (11) Depressive disorder Current Visit: No Status: Chronic (12) Dry skin Current Visit: No Status: Chronic (13) HTN (hypertension) Current Visit: No Status: Chronic Qualifiers: Hypertension type: essential hypertension Qualified Code(s): I10 - Essential (primary) hypertension (14) Insomnia Current Visit: No Status: Chronic (15) Lipoma of chest wall Current Visit: No Status: Chronic (16) MDD (major depressive disorder) Current Visit: No Status: Chronic Qualifiers: Major depression recurrence: unspecified whether recurrent Active/Remission status: remission status unspecified Qualified Code(s): F32.9 - Major depressive disorder, single episode, unspecified (17) MDD (major depressive disorder), recurrent episode, moderate Current Visit: No Status: Chronic (18) Nicotine dependence Current Visit: No Status: Chronic Qualifiers: Nicotine product type: cigarettes Substance use status: uncomplicated Qualified Code(s): F17.210 - Nicotine dependence, cigarettes, uncomplicated (19) Nystagmus Current Visit: No Status: Chronic (20) Scoliosis deformity of spine Current Visit: No Status: Chronic Qualifiers: Scoliosis type: idiopathic Idiopathic scoliosis type: other Spinal region: thoracic Qualified Code(s): M41.24 - Other idiopathic scoliosis, thoracic region (21) Substance induced mood disorder Current Visit: No Status: Chronic (22) Tinea pedis Current Visit: No Status: Chronic Qualifiers: Laterality: bilateral Qualified Code(s): B35.3 - Tinea pedis (23) Abnormal EKG Current Visit: No Status: Suspected (24) Depression Current Visit: No Status: Suspected Qualifiers: Depression Type: dysthymia Qualified Code(s): F34.1 - Dysthymic disorder - AMA Did Patient Leave Against Medical Advice: Yes
[2020-02-17] MEDS ORDERED: chlordiazePOXIDE HCL 10 MG CAPSULE PO PRN
[2020-02-17] MEDS ORDERED: chlordiazePOXIDE HCL 10 MG CAPSULE PO SCH (05:00)
[2020-02-18] MEDS ORDERED: chlordiazePOXIDE HCL 10 MG CAPSULE PO SCH (05:00)
[2020-02-19] MEDS ORDERED: chlordiazePOXIDE HCL 10 MG CAPSULE PO ONE (05:00)
== END 2020-02-16 09:13 | disposition left against medical advice (07) | DRG 770 ==
LOC: YASAS 15:22 → Y6N 16:18
PROVIDERS: ADMIT Allergy & Immunology; ATTEND Allergy & Immunology
PROC: HZ2ZZZZ Detoxification Services for Substance Abuse Treatment (ICD-10-PCS; principal; 2020-02-14)
DX: F10.230 Alcohol dependence with withdrawal, uncomplicated (principal); F14.20 Cocaine dependence, uncomplicated; F17.210 Nicotine dependence, cigarettes, uncomplicated; F19.282 Other psychoactive substance dependence with psychoactive substance-induced sleep disorder; F19.24 Other psychoactive substance dependence with psychoactive substance-induced mood disorder; F34.1 Dysthymic disorder; F33.1 Major depressive disorder, recurrent, moderate; I10 Essential (primary) hypertension; H55.00 Unspecified nystagmus; M41.24 Other idiopathic scoliosis, thoracic region; B35.3 Tinea pedis; R94.31 Abnormal electrocardiogram [ECG] [EKG]; R05 Cough; Z88.0 Allergy status to penicillin
CPT/HCPCS: 36415; 80053; 85027; 86780; 93005; 93010; U0003

== ENCOUNTER 2020-09-19 15:20 | Inpatient (IN) | payer OTHER ==
[2020-09-19 16:01] VITALS: BMI 24.3
[2020-09-19] MEDS ORDERED: IBUPROFEN 400 MG TABLET (FP) PO PRN (18:52)
[2020-09-19] MEDS ORDERED: ACETAMINOPHEN 325 MG TABLET (FP) PO PRN ×2 (18:52)
[2020-09-19] MEDS ORDERED: ONDANSETRON *ODT* 4 MG TABLET SL PRN (18:52)
[2020-09-19] MEDS ORDERED: BISMUTH SUBSALICYLATE 524 MG/30 ML UD PO PRN (18:52)
[2020-09-19] MEDS ORDERED: MAG HYDROX/AL HYDROX/SIMETH 30 ML UNIT-DOSE CUP PO PRN (18:52)
[2020-09-19] MEDS ORDERED: chlordiazePOXIDE HCL 25 MG CAPSULE PO PRN (18:52)
[2020-09-19] MEDS ORDERED: MAGNESIUM CITRATE 300 ML BOTTLE PO PRN (18:52)
[2020-09-19] MEDS ORDERED: MAGNESIUM HYDROX 2400MG/30ML ORAL SUSPENSION 30 ML CUP PO PRN (18:52)
[2020-09-19] MEDS ORDERED: MENTHOL/PHENOL 1 EACH UD MM PRN (18:52)
[2020-09-19] MEDS ORDERED: METHOCARBAMOL 500 MG TABLET PO PRN (18:52)
[2020-09-19] MEDS: NICOTINE 7 MG/24 HOURS TOPICAL PATCH TD SCH (20:45)
[2020-09-19] MEDS: PRENATAL VITAMINS W/ FOLIC ACID TABLET (FP) PO SCH (20:45)
[2020-09-19] MEDS: hydrOXYzine PAMOATE 25 MG CAPSULE (FP) PO SCH (22:39)
[2020-09-19] MEDS: chlordiazePOXIDE HCL 25 MG CAPSULE PO SCH (22:39)
[2020-09-19] MEDS: MELATONIN 5 MG TABLETS PO SCH (22:39)
[2020-09-19] MEDS: THIAMINE HCL 100 MG TABLET (FP) PO SCH (22:39)
[2020-09-20] MEDS: hydrOXYzine PAMOATE 25 MG CAPSULE (FP) PO SCH ×5 (05:31→22:20)
[2020-09-20] MEDS: chlordiazePOXIDE HCL 25 MG CAPSULE PO SCH ×4 (05:31→22:21)
[2020-09-20] MEDS: amLODIPine BESYLATE 5 MG TABLET (FP) PO SCH (10:20)
[2020-09-20] MEDS: PRENATAL VITAMINS W/ FOLIC ACID TABLET (FP) PO SCH (10:20)
[2020-09-20] MEDS: NICOTINE 7 MG/24 HOURS TOPICAL PATCH TD SCH (10:20)
[2020-09-20 11:25] LABS: HEMATOCRIT 37.8 % (35.4-49); HEMOGLOBIN 12.5 GM/dL (11.7-16.9); MCH 29.3 pg (25.7-33.7); MCHC 33.2 g/dl (32.0-35.9); MEAN CELL VOLUME 88.3 fl (80-96); MEAN PLT VOLUME 8.4 fl (7.5-11.1); PLATELET COUNT 316 K/MM3 (134-434); RBC 4.29 M/mm3 (4.00-5.60); RDW 15.2 % (11.9-15.9); WHITE BLOOD COUNT 4.5 K/mm3 (4.0-10.0)
[2020-09-20 11:46] LABS: ALBUMIN 3.6 g/dl (3.4-5.0); BLOOD UREA NITROGEN 12.4 mg/dL (7-18)
[2020-09-20 11:49] LABS: CREATININE 0.7 mg/dL (0.55-1.3)
[2020-09-20 11:51] LABS: BILIRUBIN,TOTAL 1.1 mg/dL (0.2-1); TOT PROT 6.6 g/dl (6.4-8.2)
[2020-09-20] MEDS: MELATONIN 5 MG TABLETS PO SCH (22:20)
[2020-09-20] MEDS: THIAMINE HCL 100 MG TABLET (FP) PO SCH (22:20)
[2020-09-20] MEDS: busPIRone HCL 5 MG TABLET PO SCH (22:21)
[2020-09-20] MEDS: NICOTINE POLACRILEX 2 MG GUM BUC PRN (22:24)
[2020-09-21] MEDS: chlordiazePOXIDE HCL 25 MG CAPSULE PO SCH ×4 (05:28→23:36)
[2020-09-21] MEDS: hydrOXYzine PAMOATE 25 MG CAPSULE (FP) PO SCH ×2 (05:29→10:12)
[2020-09-21] MEDS: busPIRone HCL 5 MG TABLET PO SCH ×3 (05:29→23:35)
[2020-09-21] MEDS: PRENATAL VITAMINS W/ FOLIC ACID TABLET (FP) PO SCH (10:11)
[2020-09-21] MEDS: amLODIPine BESYLATE 5 MG TABLET (FP) PO SCH (10:12)
[2020-09-21] MEDS: VENLAFAXINE HCL 75 MG E.R. CAPSULES PO SCH (10:12)
[2020-09-21] MEDS: NICOTINE 7 MG/24 HOURS TOPICAL PATCH TD SCH (10:16)
[2020-09-21] MEDS ORDERED: hydrOXYzine PAMOATE 25 MG CAPSULE (FP) PO PRN (12:11)
[2020-09-21] MEDS: guaiFENesin 200 MG/10 ML 10 ML UNIT-DOSE CUPS PO PRN (18:01)
[2020-09-21] MEDS: MELATONIN 5 MG TABLETS PO SCH (23:35)
[2020-09-21] MEDS: THIAMINE HCL 100 MG TABLET (FP) PO SCH (23:36)
[2020-09-22] MEDS ORDERED: chlordiazePOXIDE HCL 10 MG CAPSULE PO PRN
[2020-09-22] MEDS: busPIRone HCL 5 MG TABLET PO SCH (05:33)
[2020-09-22] MEDS: chlordiazePOXIDE HCL 10 MG CAPSULE PO SCH ×2 (05:34→10:30)
[2020-09-22] MEDS: guaiFENesin 200 MG/10 ML 10 ML UNIT-DOSE CUPS PO PRN (05:35)
[2020-09-22 06:26] VITALS: TEMP 97.5
[2020-09-22 10:08] LABS: SARS-CoV-2 NAA Not Detected (Not Detected)
[2020-09-22] MEDS: PRENATAL VITAMINS W/ FOLIC ACID TABLET (FP) PO SCH (10:29)
[2020-09-22] MEDS: VENLAFAXINE HCL 75 MG E.R. CAPSULES PO SCH (10:30)
[2020-09-22] MEDS: amLODIPine BESYLATE 5 MG TABLET (FP) PO SCH (10:30)
[2020-09-22] MEDS: NICOTINE 7 MG/24 HOURS TOPICAL PATCH TD SCH (10:30)
[2020-09-22] MEDS: NICOTINE POLACRILEX 2 MG GUM BUC PRN (10:31)
[2020-09-22 13:24] VITALS: BP 114/81; PULSE 84
[2020-09-23] MEDS ORDERED: chlordiazePOXIDE HCL 10 MG CAPSULE PO SCH (05:00)
[2020-09-24] MEDS ORDERED: chlordiazePOXIDE HCL 10 MG CAPSULE PO ONE (05:00)
== END 2020-09-22 13:18 | disposition other institution (70) | DRG 774 ==
LOC: YASAS 15:20 → Y3N 19:40
PROVIDERS: ADMIT Allergy & Immunology; ATTEND Allergy & Immunology
PROC: HZ2ZZZZ Detoxification Services for Substance Abuse Treatment (ICD-10-PCS; principal; 2020-09-19)
DX: F10.230 Alcohol dependence with withdrawal, uncomplicated (principal); F14.20 Cocaine dependence, uncomplicated; F17.210 Nicotine dependence, cigarettes, uncomplicated; F19.24 Other psychoactive substance dependence with psychoactive substance-induced mood disorder; F34.1 Dysthymic disorder; I10 Essential (primary) hypertension; Z88.0 Allergy status to penicillin; Z59.0 Homelessness
CPT/HCPCS: 36415; 80053; 85027; 86780; C9803; U0003; U0005

== ENCOUNTER 2020-09-22 13:21 | Inpatient (IN) | payer OTHER ==
[2020-09-22] MEDS ORDERED: IBUPROFEN 400 MG TABLET (FP) PO PRN (14:11)
[2020-09-22] MEDS ORDERED: MAGNESIUM CITRATE 300 ML BOTTLE PO PRN (14:11)
[2020-09-22] MEDS ORDERED: MAG HYDROX/AL HYDROX/SIMETH 30 ML UNIT-DOSE CUP PO PRN (14:11)
[2020-09-22] MEDS ORDERED: hydrOXYzine PAMOATE 25 MG CAPSULE (FP) PO PRN (14:11)
[2020-09-22] MEDS ORDERED: LOPERAMIDE HCL 2 MG CAPSULE PO PRN (14:11)
[2020-09-22] MEDS ORDERED: ACETAMINOPHEN 325 MG TABLET (FP) PO PRN (14:11)
[2020-09-22] MEDS ORDERED: P-EPHED 60MG/TRIPROLIDI 2.5MG TABLET PO PRN (14:11)
[2020-09-22] MEDS ORDERED: NICOTINE POLACRILEX 2 MG GUM BUC PRN (14:11)
[2020-09-22] MEDS ORDERED: MAGNESIUM HYDROX 2400MG/30ML ORAL SUSPENSION 30 ML CUP PO PRN (14:11)
[2020-09-22] MEDS ORDERED: PT OWN MED DRAWER 7, Y5N ONE ×2 (17:11→17:12)
[2020-09-22] MEDS: busPIRone HCL 5 MG TABLET PO SCH ×2 (17:22→21:21)
[2020-09-22] MEDS: THIAMINE HCL 100 MG TABLET (FP) PO SCH (21:20)
[2020-09-22] MEDS: MELATONIN 5 MG TABLETS PO SCH (21:20)
[2020-09-23] MEDS: guaiFENesin 200 MG/10 ML 10 ML UNIT-DOSE CUPS PO PRN ×2 (00:48→15:56)
[2020-09-23] MEDS ORDERED: PT OWN MED DRAWER 7, Y5N ONE ×3 (04:01→18:43)
[2020-09-23] MEDS: busPIRone HCL 5 MG TABLET PO SCH ×3 (06:30→21:17)
[2020-09-23] MEDS: amLODIPine BESYLATE 5 MG TABLET (FP) PO SCH (09:37)
[2020-09-23] MEDS: VENLAFAXINE HCL 75 MG E.R. CAPSULES PO SCH (09:37)
[2020-09-23] MEDS: PRENATAL VITAMINS W/ FOLIC ACID TABLET (FP) PO SCH (09:38)
[2020-09-23] MEDS: NICOTINE 7 MG/24 HOURS TOPICAL PATCH TD SCH (09:38)
[2020-09-23] MEDS: MENTHOL/PHENOL 1 EACH UD MM PRN (15:58)
[2020-09-23] MEDS: THIAMINE HCL 100 MG TABLET (FP) PO SCH (21:17)
[2020-09-23] MEDS: MELATONIN 5 MG TABLETS PO SCH (21:17)
[2020-09-24] MEDS ORDERED: PT OWN MED DRAWER 7, Y5N ONE ×2 (05:59→09:04)
[2020-09-24 07:00] VITALS: TEMP 97.1
[2020-09-24] MEDS: busPIRone HCL 5 MG TABLET PO SCH ×2 (07:35→13:49)
[2020-09-24 09:31] VITALS: BP 122/81; PULSE 83
[2020-09-24] MEDS: PRENATAL VITAMINS W/ FOLIC ACID TABLET (FP) PO SCH (09:46)
[2020-09-24] MEDS: amLODIPine BESYLATE 5 MG TABLET (FP) PO SCH (09:46)
[2020-09-24] MEDS: VENLAFAXINE HCL 75 MG E.R. CAPSULES PO SCH (09:46)
[2020-09-24] MEDS: NICOTINE 7 MG/24 HOURS TOPICAL PATCH TD SCH (09:46)
[2020-09-24] MEDS: MENTHOL/PHENOL 1 EACH UD MM PRN (09:47)
== END 2020-09-24 15:29 | disposition left against medical advice (07) | DRG 770 ==
LOC: YASAS 13:21 → Y3E 13:23
PROVIDERS: ADMIT Allergy & Immunology; ATTEND Allergy & Immunology
PROC: HZ42ZZZ Group Counseling for Substance Abuse Treatment, Cognitive-Behavioral (ICD-10-PCS; principal; 2020-09-22)
DX: F10.20 Alcohol dependence, uncomplicated (principal); F14.20 Cocaine dependence, uncomplicated; F17.210 Nicotine dependence, cigarettes, uncomplicated; F32.9 Major depressive disorder, single episode, unspecified; F41.8 Other specified anxiety disorders; I10 Essential (primary) hypertension; Z88.0 Allergy status to penicillin; Z59.0 Homelessness

== ENCOUNTER 2022-10-11 10:33 | Inpatient (IN) | payer OTHER ==
[2022-10-11 11:15] VITALS: BMI 26.3
[2022-10-11] MEDS ORDERED: DICYCLOMINE HCL 10 MG CAPSULE PO PRN (13:12)
[2022-10-11] MEDS ORDERED: METHOCARBAMOL 500 MG TABLET PO PRN (13:12)
[2022-10-11] MEDS ORDERED: ONDANSETRON *ODT* 4 MG TABLET SL PRN (13:12)
[2022-10-11] MEDS ORDERED: hydrOXYzine PAMOATE 25 MG CAPSULE (FP) PO PRN (13:12)
[2022-10-11] MEDS ORDERED: IBUPROFEN 600 MG TABLET (FP) PO PRN (13:12)
[2022-10-11] MEDS ORDERED: NICOTINE POLACRILEX 4 MG GUM BUC PRN (13:12)
[2022-10-11] MEDS ORDERED: MAG HYDROX/AL HYDROX/SIMETH 30 ML UNIT-DOSE CUP PO PRN (13:12)
[2022-10-11] MEDS ORDERED: IBUPROFEN 400 MG TABLET (FP) PO PRN (13:12)
[2022-10-11] MEDS ORDERED: NALOXONE HCL (KLOXXADO) 8 MG SPRAY NS PRN (13:12)
[2022-10-11] MEDS ORDERED: NICOTINE 10 MG CARTRIDGE (INHALER) IH PRN (13:12)
[2022-10-11] MEDS ORDERED: LOPERAMIDE HCL 2 MG CAPSULE PO PRN (13:12)
[2022-10-11] MEDS ORDERED: POLYETHYLENE GLYCOL (HEALTHYLAX) 3350 17 GM PACKET PO PRN (13:12)
[2022-10-11] MEDS ORDERED: MAGNESIUM HYDROX 2400MG/30ML ORAL SUSPENSION 30 ML CUP PO PRN (13:12)
[2022-10-11] MEDS ORDERED: NALOXONE HCL 0.4 MG/ML VIAL IM PRN (13:12)
[2022-10-11] MEDS ORDERED: chlordiazePOXIDE HCL 25 MG CAPSULE PO PRN (13:12)
[2022-10-11] MEDS ORDERED: ACETAMINOPHEN 325 MG TABLET (FP) PO PRN (13:12)
[2022-10-11] MEDS ORDERED: BENZONATATE 200 MG CAPSULE PO PRN (13:12)
[2022-10-11] MEDS ORDERED: BISMUTH SUBSALICYLATE 524 MG/30 ML PO PRN (13:12)
[2022-10-11 15:38] LABS: HEMATOCRIT 39.4 % (35.4-49); HEMOGLOBIN 13.2 GM/dL (11.7-16.9); MCH 28.9 pg (25.7-33.7); MCHC 33.5 g/dl (32.0-35.9); MEAN CELL VOLUME 86.3 fl (80-96); MEAN PLT VOLUME 8.9 fl (7.5-11.1); PLATELET COUNT 299 10^3/uL (134-434); RBC 4.56 M/mm3 (4.00-5.60); RDW 14.5 % (11.9-15.9); WHITE BLOOD COUNT 5.4 K/mm3 (4.0-10.0)
[2022-10-11] MEDS: PRENATAL VITAMINS W/ FOLIC ACID TABLET (FP) PO SCH (15:51)
[2022-10-11 16:29] LABS: POTASSIUM 4.6 mmol/L (3.5-5.1)
[2022-10-11 16:33] LABS: ALBUMIN 3.6 g/dl (3.4-5.0); BLOOD UREA NITROGEN 16.5 mg/dL (7-18); CALCIUM 9.7 mg/dL (8.5-10.1)
[2022-10-11 16:38] LABS: TOT PROT 7.2 g/dl (6.4-8.2)
[2022-10-11] MEDS: chlordiazePOXIDE HCL 25 MG CAPSULE PO SCH ×2 (17:39→23:05)
[2022-10-11] MEDS: THIAMINE HCL 100 MG TABLET (FP) PO SCH (23:05)
[2022-10-11] MEDS: MELATONIN 5 MG TABLETS PO SCH (23:05)
[2022-10-12] MEDS: chlordiazePOXIDE HCL 25 MG CAPSULE PO SCH ×4 (05:19→23:24)
[2022-10-12] MEDS: BENZOCAINE/MENTHOL (CHLORASEPTIC ) LOZENGE MM PRN (05:20)
[2022-10-12] MEDS ORDERED: amLODIPine BESYLATE 5 MG TABLET (FP) PO SCH (10:00)
[2022-10-12] MEDS ORDERED: VENLAFAXINE HCL 75 MG E.R. CAPSULES PO SCH (10:00)
[2022-10-12] MEDS: amLODIPine BESYLATE 10 MG TABLET (FP) PO SCH (10:35)
[2022-10-12] MEDS: PRENATAL VITAMINS W/ FOLIC ACID TABLET (FP) PO SCH (10:35)
[2022-10-12] MEDS: guaiFENesin 600 MG TABLET.ER (FP) PO PRN (11:25)
[2022-10-12] MEDS ORDERED: VENLAFAXINE HCL 150 MG E.R. CAPSULE PO SCH (11:31)
[2022-10-12] MEDS: VENLAFAXINE HCL 150 MG E.R. CAPSULE PO SCH (12:27)
[2022-10-12 21:32] VITALS: RESP 18
[2022-10-12] MEDS: MELATONIN 5 MG TABLETS PO SCH (23:23)
[2022-10-12] MEDS: THIAMINE HCL 100 MG TABLET (FP) PO SCH (23:24)
[2022-10-13] MEDS: chlordiazePOXIDE HCL 25 MG CAPSULE PO SCH ×4 (05:57→22:32)
[2022-10-13] MEDS: PRENATAL VITAMINS W/ FOLIC ACID TABLET (FP) PO SCH (10:33)
[2022-10-13] MEDS: amLODIPine BESYLATE 10 MG TABLET (FP) PO SCH (10:33)
[2022-10-13] MEDS: VENLAFAXINE HCL 150 MG E.R. CAPSULE PO SCH (10:34)
[2022-10-13] MEDS: BENZOCAINE/MENTHOL (CHLORASEPTIC ) LOZENGE MM PRN (10:37)
[2022-10-13] MEDS: guaiFENesin 600 MG TABLET.ER (FP) PO PRN (18:06)
[2022-10-13] MEDS: THIAMINE HCL 100 MG TABLET (FP) PO SCH (22:31)
[2022-10-13] MEDS: MELATONIN 5 MG TABLETS PO SCH (22:31)
[2022-10-14] MEDS ORDERED: chlordiazePOXIDE HCL 10 MG CAPSULE PO PRN
[2022-10-14] MEDS: chlordiazePOXIDE HCL 10 MG CAPSULE PO SCH ×2 (05:49→10:19)
[2022-10-14 09:28] VITALS: BP 106/69; PULSE 77; TEMP 98.5
[2022-10-14] MEDS: PRENATAL VITAMINS W/ FOLIC ACID TABLET (FP) PO SCH (10:18)
[2022-10-14] MEDS: amLODIPine BESYLATE 10 MG TABLET (FP) PO SCH (10:19)
[2022-10-14] MEDS: VENLAFAXINE HCL 150 MG E.R. CAPSULE PO SCH (10:19)
[2022-10-15] MEDS ORDERED: chlordiazePOXIDE HCL 10 MG CAPSULE PO SCH (05:00)
[2022-10-16] MEDS ORDERED: chlordiazePOXIDE HCL 10 MG CAPSULE PO ONE (05:00)
== END 2022-10-14 11:21 | disposition left against medical advice (07) | DRG 770 ==
LOC: YASAS 10:33 → Y3N 14:08
PROVIDERS: ADMIT Allergy & Immunology; ATTEND Surgery
PROC: HZ2ZZZZ Detoxification Services for Substance Abuse Treatment (ICD-10-PCS; principal; 2022-10-11)
DX: F10.230 Alcohol dependence with withdrawal, uncomplicated (principal); F14.20 Cocaine dependence, uncomplicated; F17.210 Nicotine dependence, cigarettes, uncomplicated; F41.8 Other specified anxiety disorders; F32.9 Major depressive disorder, single episode, unspecified; I10 Essential (primary) hypertension; R94.31 Abnormal electrocardiogram [ECG] [EKG]; Z87.39 Personal history of other diseases of the musculoskeletal system and connective tissue; Z88.0 Allergy status to penicillin
CPT/HCPCS: 26055; 36415; 80053; 85027; 86780; 87811; C9803-CS; U0003; U0005